=== PATIENT | male | born 1950 | race Caucasian/White ===

== ENCOUNTER 2016-10-25 21:26 | Emergency (ER) | payer MEDICARE, OTHER ==
[~2016-10-25] VITALS: Ht 180.3 cm; Wt 79.4 kg
[~2016-10-25 21:26] MED LIST: ALBUTEROL INHALER; CIPR500T19; FLEXERIL; GLUC500T; HYPROMELLOSE; LOPR50TA; MEVA40TA; MORP15TA4; MORPHINE SULFATE IR; MS C30TA2; NEUR100C; NITROGLYCERIN PATCH; NITROSTAT SL; PLAV75TA2; TERA2CAP3; VALI10TA; VITA500T; ZANT150T
[2016-10-25 21:55] VITALS: BP 134/79
[2016-10-25] MEDS ORDERED: KETOROLAC 30 MG/ML VIAL (J1885) IV ONE (22:15)
[2016-10-25 22:50] LABS: ABG BASE EXCESS 1.5 (-2.0-2.0); ABG HCO3 25.7 MEQ/L (22.0-26.0); ABG PARTIAL PRESSURE CO2 39.5 mmHg (35.0-45.0); ABG PARTIAL PRESSURE O2 73.4 mmHg (75.0-100.0); ABG STANDARD HCO3 25.7 MEQ/L (22.0-26.0); ABG pH (ARTERIAL) 7.432 UNITS (7.350-7.450)
[2016-10-25 23:06] LABS: BASO % 0.3 % (0.0-1.0); EOS # 0.1 K/mm3 (0.0-0.50); EOS % 1.4 % (0.0-3.0); LARGE UNSTAINED CELL # 0.1 K/mm3 (0.0-0.4); LARGE UNSTAINED CELL % 1.3 % (0.0-4.0); LYMPH % 27.4 % (24.0-44.0); MEAN CORPUSCULAR HEMOGLOBIN 31.9 pg (27.0-33.0); MEAN CORPUSCULAR HGB CONC 33.9 g/dl (32.0-36.5); MONO # 0.5 K/mm3 (0.0-0.8); MONO % 7.3 % (0.0-5.0); NEUTROPHILS # 4.3 K/mm3 (1.8-7.7); NEUTROPHILS % 62.4 % (36.0-66.0); PLATELET COUNT, AUTOMATED 111 k/mm3 (150-450); RED CELL DISTRIBUTION WIDTH 12.9 % (11.5-14.5); WHITE BLOOD COUNT 6.9 K/mm3 (4.0-10.0)
[2016-10-25 23:14] LABS: INR 1.03
[2016-10-25 23:36] LABS: ANION GAP 4 MEQ/L (8-16); BLOOD UREA NITROGEN 18 MG/DL (7-18); CALCIUM LEVEL 8.1 MG/DL (8.8-10.2); CARBON DIOXIDE LEVEL 29 MEQ/L (21-32); CHLORIDE LEVEL 106 MEQ/L (98-107); CREATININE FOR GFR 0.84 MG/DL (0.70-1.30); GLOMERULAR FILTRATION RATE > 60.0 (>49); GLUCOSE, FASTING 279 MG/DL (80-110); POTASSIUM SERUM 4.1 MEQ/L (3.5-5.1); SODIUM LEVEL 139 MEQ/L (136-145)
[2016-10-26] MEDS ORDERED: ATOR1TAB18 PO (00:24)
[2016-10-26] MEDS ORDERED: DULC5TAB PO (00:24)
[2016-10-26] MEDS ORDERED: MS C15TA2 PO (00:24)
[2016-10-26] MEDS ORDERED: [UNRECOGNIZED DRUG - CODE] XX (00:24)
[2016-10-26] MEDS ORDERED: PANT40TA2 PO (00:24)
[2016-10-26] MEDS ORDERED: GABA600T PO (00:24)
[2016-10-26] MEDS ORDERED: D31000CA PO (00:24)
[2016-10-26] MEDS ORDERED: DICL0.1S OP (00:24)
[2016-10-26] MEDS ORDERED: [UNRECOGNIZED DRUG - CODE] OP (00:24)
[2016-10-26] MEDS ORDERED: ROXI1TAB2 PO (00:24)
[2016-10-26] MEDS ORDERED: NYST-6 TOP (00:24)
[2016-10-26] MEDS ORDERED: OXYBPOW XX (00:24)
[2016-10-26] MEDS ORDERED: PREDOPD OD (00:24)
[2016-10-26] MEDS ORDERED: METO25TA74 PO (00:24)
[2016-10-26] MEDS ORDERED: FLOM5CAP PO (00:24)
[2016-10-26] MEDS ORDERED: diphenhydrAMINE INJ 50MG/ML VIAL (J1200) IV STA (04:00)
[2016-10-26] MEDS ORDERED: dexameTHASONE 20 MG/5 ML VIAL (J1100) IV ONE (04:00)
[2016-10-26] MEDS ORDERED: MORPHINE 4 MG/ML 1ML SYRINGE IV ONE (04:30)
[2016-10-26] MEDS ORDERED: ISOVUE-370 76% 100ML VIAL (Q9967) As Ordered ONE (04:35)
--- NOTE | 2016-10-26 05:10 | REPUSA ---
CLINICAL HISTORY: Pain, exclude PE. TECHNIQUE: Multiple incremental axial, coronal and oblique images are obtained from the thoracic inle t to the upper abdomen. Intravenous contrast material was administered as per pulmonary embolism prot ocol. COMMENTS: Chronic bronchitis. Mild emphysema. Basilar atelectatic pulmonary changes. There is excellent opacification of pulmonary arterial system without evidence for pulmonary embolism . Aorta is of normal caliber without evidence for dissection or aneurysm. There is no evidence of pleural or parenchymal mass. There are no pleural effusions. There is no evid ence of hilar or mediastinal lymphadenopathy. The heart and great vessels are within normal limits. Images of the upper abdomen demonstrate no evidence of adrenal mass. The bony structures are free of lytic or blastic lesions. IMPRESSION: No evidence for pulmonary embolism. Chronic bronchitis. Emphysema. Basilar atelectatic pulmonary changes. Thank you for your kind referral of this patient.
--- NOTE | 2016-10-26 08:12 | REP ---
Chest x-ray: Two views. History: Chest pain. Comparison study: June 23, 2015. Findings: There is a dextroconvex curvature in the thoracic spine along with some degenerative disc changes. This is unchanged when compared with the prior study. The lungs are well inflated and remain clear. The pleural angles are sharp. Heart size is normal. EKG monitoring electrodes overlie the chest. Pulmonary vasculature is not increased. Impression: No active disease. Signed by Jan Vasquez MD 10/26/2016 08:04 A
--- NOTE | 2016-10-26 20:28 | ECGEPIP ---
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
--- NOTE | 2016-10-27 11:00 | ECGEPIP ---
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
== END 2016-10-26 06:14 | disposition home or self-care (01) ==
LOC: EDBD 21:26 → M ED 22:19
DX: R07.1 Chest pain on breathing (principal)
CPT/HCPCS: 36415; 36600; 71020; 71275; 80048; 82550; 82553; 82803; 84484; 85025; 85610; 85730; 93005; 96374; 96375; 99283; J1100; J1200; J1885; Q9967

== ENCOUNTER 2016-11-04 19:17 | Emergency (ER) | payer MEDICARE, OTHER ==
[~2016-11-04] VITALS: Ht 175.3 cm; Wt 78.9 kg
[~2016-11-04 19:17] MED LIST changes: +ATOR1TAB18 PO; +D31000CA PO; +DICL0.1S OP; +DULC5TAB PO; +FLOM5CAP PO; +GABA600T PO; +METO25TA74 PO; +MS C15TA2 PO; +NYST-6 TOP; +OXYBPOW XX; +PANT40TA2 PO; +PREDOPD OD; +ROXI1TAB2 PO; +[UNRECOGNIZED DRUG - CODE] OP; +[UNRECOGNIZED DRUG - CODE] XX
[2016-11-04] MEDS ORDERED: NS 1,000 ML IV ONE (20:30)
[2016-11-04 21:10] LABS: VENOUS BASE EXCESS 3.6 (-2.0-2.0); VENOUS O2 SATURATION 46.4 % (60.0-80.0); VENOUS PARTIAL PRESSURE CO2 53.2 mmHg (38.0-50.0); VENOUS PARTIAL PRESSURE O2 22.1 mmHg (30.0-50.0); VENOUS STANDARD HCO3 26.2 MEQ/L; VENOUS TOTAL CO2 31.9 MEQ/L (24.0-28.0)
[2016-11-04 21:11] LABS: BASO % 0.5 % (0.0-1.0); EOS # 0.1 K/mm3 (0.0-0.50); EOS % 1.3 % (0.0-3.0); LARGE UNSTAINED CELL # 0.2 K/mm3 (0.0-0.4); LARGE UNSTAINED CELL % 1.6 % (0.0-4.0); LYMPH # 2.5 K/mm3 (1.5-4.5); LYMPH % 26.1 % (24.0-44.0); MEAN CORPUSCULAR HGB CONC 33.8 g/dl (32.0-36.5); MEAN CORPUSCULAR VOLUME 94.7 fl (80.0-96.0); MONO # 0.5 K/mm3 (0.0-0.8); MONO % 5.4 % (0.0-5.0); NEUTROPHILS # 6.3 K/mm3 (1.8-7.7); NEUTROPHILS % 65.2 % (36.0-66.0); PLATELET COUNT, AUTOMATED 148 k/mm3 (150-450); WHITE BLOOD COUNT 9.6 K/mm3 (4.0-10.0)
[2016-11-04 21:40] LABS: ALBUMIN 3.6 GM/DL (3.2-5.2); ALBUMIN/GLOBULIN RATIO 1.06 (1.00-1.93); ALKALINE PHOSPHATASE 110 U/L (45-117); ALT/SGPT 30 U/L (12-78); ANION GAP 4 MEQ/L (8-16); AST/SGOT 16 U/L (15-37); BILIRUBIN,DIRECT 0.2 MG/DL (0.0-0.2); BILIRUBIN,TOTAL 0.7 MG/DL (0.2-1.0); BLOOD UREA NITROGEN 17 MG/DL (7-18); CALCIUM LEVEL 8.6 MG/DL (8.8-10.2); CARBON DIOXIDE LEVEL 31 MEQ/L (21-32); CHLORIDE LEVEL 104 MEQ/L (98-107); CREATININE FOR GFR 0.97 MG/DL (0.70-1.30); GLOMERULAR FILTRATION RATE > 60.0 (>49); GLUCOSE, FASTING 312 MG/DL (80-110); POTASSIUM SERUM 4.4 MEQ/L (3.5-5.1); SODIUM LEVEL 139 MEQ/L (136-145)
[2016-11-04] MEDS ORDERED: HUMULIN R U-500 KWIKPEN 500UNITS/ML 3ML SYRINGE (J1815 PER 5UNITS) SC ONE (22:30)
[2016-11-04] MEDS ORDERED: HumuLIN R (REGULAR) INSULIN (NovoLIN R) **100U/ML** PER UNIT SC ONE (22:45)
[2016-11-04 23:49] VITALS: BP 132/58
--- NOTE | 2016-11-05 09:10 | REP ---
PORTABLE CHEST: AP portable view of the chest is performed and compared to a prior study of 09/06/2009. Mild chronic interstitial changes are seen in the lung bases. There is no acute infiltrate. Heart is normal in size and the mediastinal silhouette is unremarkable and unchanged. IMPRESSION: No acute pulmonary disease. Signed by Taqueria Sheppard MD 11/05/2016 05:40 P
[2016-11-05] MEDS ORDERED: CARV12.5 PO (14:37)
--- NOTE | 2016-11-06 08:18 | ECGEPIP ---
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
== END 2016-11-05 01:23 | disposition home or self-care (01) ==
LOC: M ED 21:20
DX: R73.9 Hyperglycemia, unspecified (principal); R07.9 Chest pain, unspecified; I10 Essential (primary) hypertension; I25.2 Old myocardial infarction; E78.00 Pure hypercholesterolemia, unspecified; F17.210 Nicotine dependence, cigarettes, uncomplicated

== ENCOUNTER 2016-11-05 14:14 | Emergency (ER) | payer MEDICARE, OTHER ==
[~2016-11-05] VITALS: Ht 175.3 cm; Wt 64.9 kg
[2016-11-05] MEDS ORDERED: CARV12.5 PO (14:37)
[2016-11-05 14:42] LABS: BASO % 0.5 % (0.0-1.0); EOS # 0.1 K/mm3 (0.0-0.50); EOS % 1.2 % (0.0-3.0); LARGE UNSTAINED CELL # 0.2 K/mm3 (0.0-0.4); LARGE UNSTAINED CELL % 2.2 % (0.0-4.0); LYMPH # 2.4 K/mm3 (1.5-4.5); LYMPH % 27.9 % (24.0-44.0); MEAN CORPUSCULAR HGB CONC 34.8 g/dl (32.0-36.5); MEAN CORPUSCULAR VOLUME 94.9 fl (80.0-96.0); MONO # 0.5 K/mm3 (0.0-0.8); NEUTROPHILS # 5.3 K/mm3 (1.8-7.7); NEUTROPHILS % 62.1 % (36.0-66.0); PLATELET COUNT, AUTOMATED 143 k/mm3 (150-450); WHITE BLOOD COUNT 8.6 K/mm3 (4.0-10.0)
[2016-11-05 15:02] LABS: ANION GAP 5 MEQ/L (8-16); BLOOD UREA NITROGEN 12 MG/DL (7-18); CALCIUM LEVEL 8.5 MG/DL (8.8-10.2); CARBON DIOXIDE LEVEL 26 MEQ/L (21-32); CHLORIDE LEVEL 108 MEQ/L (98-107); GLOMERULAR FILTRATION RATE > 60.0 (>49); GLUCOSE, FASTING 230 MG/DL (80-110); SODIUM LEVEL 139 MEQ/L (136-145)
--- NOTE | 2016-11-05 15:09 | REP ---
Chest one-view HISTORY: Chest pain Comparison: 11/04/2016 The costophrenic angles are not seen. A minimal increase in interstitial markings is present in the lower lobes consistent with chronic interstitial change. The heart is normal in size. The pulmonary vasculature is normal in appearance. Impression: Bibasilar chronic interstitial change. Signed by Russ Warner MD 11/05/2016 03:01 P
[2016-11-05 17:00] VITALS: BP 110/78
--- NOTE | 2016-11-06 08:25 | ECGEPIP ---
Stationary ECG Study 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
== END 2016-11-05 17:04 | disposition home or self-care (01) ==
LOC: M ED 15:29
DX: F41.9 Anxiety disorder, unspecified (principal); E11.65 Type 2 diabetes mellitus with hyperglycemia; I10 Essential (primary) hypertension; I25.10 Atherosclerotic heart disease of native coronary artery without angina pectoris; Z79.899 Other long term (current) drug therapy; Z79.01 Long term (current) use of anticoagulants; Z88.0 Allergy status to penicillin; Z88.5 Allergy status to narcotic agent; Z88.8 Allergy status to other drugs, medicaments and biological substances; Z91.041 Radiographic dye allergy status; F17.210 Nicotine dependence, cigarettes, uncomplicated

== ENCOUNTER 2016-11-24 09:48 | Emergency (ER) | payer MEDICARE, OTHER ==
[~2016-11-24] VITALS: Ht 175.3 cm; Wt 78.0 kg
[2016-11-24 09:48] VITALS: BP 158/82
[~2016-11-24 09:48] MED LIST changes: +CARV12.5 PO
[2016-11-24] MEDS ORDERED: FLEET ENEMA XX ONE (10:15)
== END 2016-11-24 10:33 | disposition home or self-care (01) ==
LOC: M ED 10:12
DX: R10.9 Unspecified abdominal pain (principal); E11.9 Type 2 diabetes mellitus without complications; I25.2 Old myocardial infarction; E78.5 Hyperlipidemia, unspecified; F41.9 Anxiety disorder, unspecified; F17.200 Nicotine dependence, unspecified, uncomplicated; Z93.3 Colostomy status; Z87.442 Personal history of urinary calculi; Z90.49 Acquired absence of other specified parts of digestive tract; Z79.899 Other long term (current) drug therapy; Z88.0 Allergy status to penicillin; Z88.5 Allergy status to narcotic agent; Z88.6 Allergy status to analgesic agent; Z91.041 Radiographic dye allergy status

== ENCOUNTER 2017-07-10 16:41 | Emergency (ER) | payer OTHER | END 2017-07-10 18:40 | disposition home or self-care (01) | LOC: M ED 16:41 | DX: Z04.1 Encounter for examination and observation following transport accident (principal); M54.5 Low back pain; V47.5XXA Car driver injured in collision with fixed or stationary object in traffic accident, initial encounter; Y92.410 Unspecified street and highway as the place of occurrence of the external cause; Y93.89 Activity, other specified; Y99.8 Other external cause status; I10 Essential (primary) hypertension; G89.29 Other chronic pain; F41.9 Anxiety disorder, unspecified; Z79.899 Other long term (current) drug therapy; Z79.01 Long term (current) use of anticoagulants; Z88.0 Allergy status to penicillin; Z88.5 Allergy status to narcotic agent; Z88.8 Allergy status to other drugs, medicaments and biological substances; Z91.041 Radiographic dye allergy status; F17.210 Nicotine dependence, cigarettes, uncomplicated | CPT/HCPCS: 93005 ==

== ENCOUNTER 2017-10-02 06:26 | Day surgery (SDC) | payer OTHER ==
[~2017-10-02 06:26] MED LIST changes: +ACETAMINOPHEN 325 MG TAB PO; -ALBUTEROL INHALER; -ATOR1TAB18 PO; +BSS with VANC/TOB/EPI for EYE CASES IR; -CARV12.5 PO; -CIPR500T19; +CYCLOPENTOLATE 2% OPHTH SOLN 2ML BTL OS; -D31000CA PO; -DICL0.1S OP; -DULC5TAB PO; -FLEXERIL; -FLOM5CAP PO; -GABA600T PO; -GLUC500T; +HEALON DUET (HEALON 10MG/ML 0.55ML & HEALON ENDOCOAT 30MG/ML 0.85ML) As Ordered; -HYPROMELLOSE; +LIDOCAINE 1% SDV 5 ML VIAL As Ordered; +LIDOCAINE 3.5 % 1ML OPHTH TOPICAL GEL OU; -LOPR50TA; -METO25TA74 PO; -MEVA40TA; -MORP15TA4; -MORPHINE SULFATE IR; +MOXIFLOXACIN IN BSS 0.25MG/0.25ML INTRACAMERAL INJ (OR EYE ONLY)(J2280) As Ordered; -MS C15TA2 PO; -MS C30TA2; -NEUR100C; -NITROGLYCERIN PATCH; -NITROSTAT SL; -NYST-6 TOP; +OFLOXACIN 0.3 % (OCUFLOX) OPTH SOL 5ML OS; -OXYBPOW XX; -PANT40TA2 PO; +PHENYLEPHRINE 2.5% OPHTH SOL 2ML OS; +PHENYLEPHRINE HCL 10 % OPHTH. SOL 5ML OS; -PLAV75TA2; +POVIDONE-IODINE 5% OPHTH PREP SOL 30ML As Ordered; -PREDOPD OD; -ROXI1TAB2 PO; -TERA2CAP3; +TRIAMCINOLONE PRES FR 40 MG/ML 1ML(TRIESENCE)(OR EYE ONLY)(J3300 PER 1MG) As Ordered; +TROPICAMIDE 1% OPHTH SOLN 2ML OS; -VALI10TA; -VITA500T; -ZANT150T; -[UNRECOGNIZED DRUG - CODE] OP; -[UNRECOGNIZED DRUG - CODE] XX
[2017-10-02] MEDS ORDERED: PHENYLEPHRINE HCL 10 % OPHTH. SOL 5ML OS (07:00)
[2017-10-02] MEDS ORDERED: PROPARACAINE 0.5% OPHTH SOL 15ML OS (07:01)
[2017-10-02] MEDS: LIDOCAINE 3.5 % 1ML OPHTH TOPICAL GEL OU (07:15)
[2017-10-02] MEDS: TROPICAMIDE 1% OPHTH SOLN 2ML OS (07:20)
[2017-10-02] MEDS: PHENYLEPHRINE 2.5% OPHTH SOL 2ML OS (07:20)
[2017-10-02] MEDS: CYCLOPENTOLATE 2% OPHTH SOLN 2ML BTL OS (07:20)
[2017-10-02 07:31] LABS: BEDSIDE GLUCOSE 147 MG/DL (80-115)
[2017-10-02] MEDS: OFLOXACIN 0.3 % (OCUFLOX) OPTH SOL 5ML OS (07:37)
[2017-10-02] MEDS ORDERED: MIDAZOLAM INJ 2 MG/2 ML VIAL (J2250) As Ordered (07:51)
[2017-10-02] MEDS ORDERED: fentaNYL 100 MCG/2 ML INJECTION (J3010) As Ordered (07:51)
[2017-10-02] MEDS: MOXIFLOXACIN IN BSS 0.25MG/0.25ML INTRACAMERAL INJ (OR EYE ONLY)(J2280) As Ordered (08:22)
[2017-10-02] MEDS: HEALON DUET (HEALON 10MG/ML 0.55ML & HEALON ENDOCOAT 30MG/ML 0.85ML) As Ordered (08:22)
[2017-10-02] MEDS: LIDOCAINE 1% SDV 5 ML VIAL As Ordered (08:22)
[2017-10-02] MEDS: POVIDONE-IODINE 5% OPHTH PREP SOL 30ML As Ordered (08:22)
[2017-10-02] MEDS: TRIAMCINOLONE PRES FR 40 MG/ML 1ML(TRIESENCE)(OR EYE ONLY)(J3300 PER 1MG) As Ordered (08:23)
[2017-10-02] MEDS: BSS with VANC/TOB/EPI for EYE CASES IR (08:23)
[2017-10-02] MEDS ORDERED: TRIMETHOBENZAMIDE 300 MG CAP PO (09:00)
[2017-10-02] MEDS ORDERED: KETOROLAC 0.5% OPHTH SOLN OS (09:00)
[2017-10-02] MEDS: AcetaZOLAMIDE 500 MG ER CAP PO (09:05)
== END 2017-10-02 09:50 | disposition home or self-care (01) ==
LOC: M SDC 06:26
DX: H25.9 Unspecified age-related cataract (principal); I48.91 Unspecified atrial fibrillation; I10 Essential (primary) hypertension; E78.5 Hyperlipidemia, unspecified; E11.9 Type 2 diabetes mellitus without complications; I25.2 Old myocardial infarction; J44.9 Chronic obstructive pulmonary disease, unspecified; Z88.0 Allergy status to penicillin; Z88.8 Allergy status to other drugs, medicaments and biological substances; Z91.041 Radiographic dye allergy status; F17.210 Nicotine dependence, cigarettes, uncomplicated; F41.9 Anxiety disorder, unspecified; Z85.46 Personal history of malignant neoplasm of prostate; Z79.899 Other long term (current) drug therapy
CPT/HCPCS: 66984

== ENCOUNTER 2019-02-01 14:30 | Inpatient (IN) | payer MEDICARE, OTHER ==
[~2019-02-01] VITALS: Ht 172.7 cm; Wt 81.8 kg
[~2019-02-01 14:30] MED LIST changes: -ACETAMINOPHEN 325 MG TAB PO; +ALBUTEROL INHALER; +ATOR80TA59 PO; -BSS with VANC/TOB/EPI for EYE CASES IR; +CARV12.5 PO; +CIPR500T19; +CLIN150C14 PO; +CYCL5TAB PO; -CYCLOPENTOLATE 2% OPHTH SOLN 2ML BTL OS; +D31000CA4 PO; +DICL0.1S OP; +DULC5TAB PO; +FLEXERIL; +FLOM0.4C39 PO; +GABA600T4 PO; +GLUC500T PO; -HEALON DUET (HEALON 10MG/ML 0.55ML & HEALON ENDOCOAT 30MG/ML 0.85ML) As Ordered; +HYPROMELLOSE; +ISOS30TA4 PO; -LIDOCAINE 1% SDV 5 ML VIAL As Ordered; -LIDOCAINE 3.5 % 1ML OPHTH TOPICAL GEL OU; +LOPR50TA; +METO1TAB32 PO; +MEVA40TA; +MORP15TA4; +MORPHINE SULFATE IR; -MOXIFLOXACIN IN BSS 0.25MG/0.25ML INTRACAMERAL INJ (OR EYE ONLY)(J2280) As Ordered; +MS C15TA8 PO; +MS C30TA2; +NEUR100C; +NITROGLYCERIN PATCH; +NITROSTAT SL; +NYST-6 TOP; -OFLOXACIN 0.3 % (OCUFLOX) OPTH SOL 5ML OS; +OXYBPOW XX; +PANT20TA2 PO; +PANT40TA3 PO; -PHENYLEPHRINE 2.5% OPHTH SOL 2ML OS; -PHENYLEPHRINE HCL 10 % OPHTH. SOL 5ML OS; +PLAV75TA2 PO; -POVIDONE-IODINE 5% OPHTH PREP SOL 30ML As Ordered; +PREDOPD OD; +ROXI1TAB2 PO; +TERA2CAP3; -TRIAMCINOLONE PRES FR 40 MG/ML 1ML(TRIESENCE)(OR EYE ONLY)(J3300 PER 1MG) As Ordered; -TROPICAMIDE 1% OPHTH SOLN 2ML OS; +VALI10TA; +VENTAER IN; +VITA500T PO; +VITAMIN; +ZANT150T; +[UNRECOGNIZED DRUG - CODE] OP; +[UNRECOGNIZED DRUG - CODE] XX
[2019-02-01] MEDS ORDERED: ACETAMINOPHEN TAB 650MG DOSE (2X325MG) PO ONE (15:00)
[2019-02-01] MEDS ORDERED: NS 1,000 ML IV ONE (15:30)
[2019-02-01 15:33] LABS: BASO % 0.2 % (0.0-1.0); HEMATOCRIT 43.7 % (42.0-52.0); HEMOGLOBIN 14.9 g/dl (13.5-17.5); LYMPH # 0.4 10^3/uL (1.5-4.5); LYMPH % 1.9 % (24.0-44.0); MEAN CORPUSCULAR HEMOGLOBIN 30.6 pg (27.0-33.0); MEAN CORPUSCULAR HGB CONC 34.1 g/dl (32.0-36.5); MEAN CORPUSCULAR VOLUME 89.7 fl (80.0-96.0); MONO # 0.6 10^3/uL (0.0-0.8); MONO % 2.9 % (0.0-5.0); NEUTROPHILS # 17.9 10^3/uL (1.8-7.7); NEUTROPHILS % 94.5 % (36.0-66.0); PLATELET COUNT, AUTOMATED 177 10^3/uL (150-450); RED BLOOD COUNT 4.87 10^6/uL (4.30-6.10)
[2019-02-01 15:54] LABS: ALBUMIN 3.4 GM/DL (3.2-5.2); BILIRUBIN,DIRECT 0.6 MG/DL (0.0-0.2); BILIRUBIN,TOTAL 1.4 MG/DL (0.2-1.0); CALCIUM LEVEL 9.1 MG/DL (8.8-10.2); CREATININE FOR GFR 1.33 MG/DL (0.70-1.30); GLOMERULAR FILTRATION RATE 57.1 (>49); POTASSIUM SERUM 4.3 MEQ/L (3.5-5.1); TOTAL PROTEIN 6.8 GM/DL (6.4-8.2)
[2019-02-01] MEDS ORDERED: LIDOCAINE 2% 5ML JELLY UROJET TOP ONE (16:30)
[2019-02-01] MEDS ORDERED: GASTROGRAFIN SOLUTION 30ML PO SCH (17:30)
[2019-02-01] MEDS ORDERED: ONDANSETRON 4MG/2ML VIAL (J2405) IV ONE (17:45)
[2019-02-01] MEDS: READI-CAT 2 PO SCH ×2 (17:45→18:45)
[2019-02-01] MEDS: HumaLOG INSULIN (NovoLOG) PER UNIT SC SCH (18:00)
[2019-02-01] MEDS ORDERED: CIPROFLOXACIN 200 MG in APPROPRIATE DILUENT 1 EA IV ONE (18:30)
[2019-02-01] MEDS ORDERED: MS C15TA8 PO (18:58)
[2019-02-01] MEDS ORDERED: B-COTAB10 PO (18:58)
[2019-02-01] MEDS ORDERED: ATOR80TA59 PO (18:58)
[2019-02-01] MEDS ORDERED: SERT-155 PO (18:58)
[2019-02-01] MEDS ORDERED: GLUC4GMTAB PO (18:58)
[2019-02-01] MEDS ORDERED: OXYB5TAB10 PO (18:58)
[2019-02-01] MEDS ORDERED: VITA500C24 PO (18:58)
[2019-02-01] MEDS ORDERED: FLOM0.4C39 PO (18:58)
[2019-02-01] MEDS ORDERED: GLIP5TAB8 PO (18:58)
[2019-02-01] MEDS ORDERED: PANT40TA3 PO (18:58)
[2019-02-01] MEDS ORDERED: METF-877 PO (18:58)
[2019-02-01] MEDS ORDERED: METO1TAB32 PO (18:58)
[2019-02-01] MEDS ORDERED: PLAV1TAB2 PO (18:58)
[2019-02-01] MEDS ORDERED: VENTAER INH (18:58)
[2019-02-01] MEDS ORDERED: MED REC COMMENT (18:59)
[2019-02-01] MEDS ORDERED: LIDOCAINE 2% 5ML JELLY UROJET As Ordered ONE (19:06)
[2019-02-01] MEDS ORDERED: CONRAY-60 60% 50ML VIAL (Q9961) As Ordered ONE (19:06)
--- NOTE | 2019-02-01 19:19 | REPVR ---
EXAM: CT Abdomen and Pelvis Without Contrast EXAM DATE/TIME: 02/01/2019 6:10 PM CLINICAL HISTORY: 68 years old, male; Abdominal pain; Generalized; Additional info: ? Sbo TECHNIQUE: Imaging protocol: Axial computed tomography images of the abdomen and pelvis without contrast. Coronal and sagittal reformatted images were created and reviewed. Radiation optimization: All CT scans at this facility use at least one of these dose optimization techniques: automated exposure control; mA and/or kV adjustment per patient size (includes targeted exams where dose is matched to clinical indication); or iterative reconstruction. COMPARISON: CR Abdomen,Flat Upright,PA CHEST 02/01/2019 3:39 PM FINDINGS: Lungs: Small calcified granuloma right lower lobe. Liver: Normal. No mass. Gallbladder and bile ducts: There has been a cholecystectomy. Pancreas: Normal. No ductal dilation. Spleen: Normal. No splenomegaly. Adrenals: Normal. No mass. Kidneys and ureters: There is a 15 mm. obstructive ureteral calculus located in the proximal right ureter resulting in marked proximal hydroureteronephrosis. There is periureteral and perinephric stranding. No urinoma demonstrated. Punctate nonobstructive calculus lower pole right kidney. Stomach and bowel: Left lower quadrant colostomy. Appendix: No evidence of appendicitis. Intraperitoneal space: Normal. No free air. No significant fluid collection. Vasculature: The aorta demonstrates mild atherosclerotic calcification. Lymph nodes: Normal. No enlarged lymph nodes. Bladder: Unremarkable as visualized. Reproductive: The prostate gland demonstrates mild hyperplasia. Bones/joints: The spine demonstrates mild degenerative changes. There is a grade 2 spondylolisthesis of L5 on S1 secondary to bilateral spondylolysis. Old fracture deformity right inferior pubic ramus. Scoliosis. Soft tissues: Unremarkable. Other findings: Santiago pouch demonstrated in the deep pelvis. IMPRESSION: 1. There is a grade 2 spondylolisthesis of L5 on S1 secondary to bilateral spondylolysis. 2. There has been a cholecystectomy. 3. There is a 15 mm. obstructive ureteral calculus located in the proximal right ureter resulting in marked proximal hydroureteronephrosis. There is periureteral and perinephric stranding. No urinoma demonstrated. 4. Mild prostatic hyperplasia. Electronically signed by: Maxi Haile On 02/01/2019 19:18:31 PM
[2019-02-01] MEDS ORDERED: NS 1,000 ML IV SCH (19:45)
[2019-02-01] MEDS ORDERED: MORPHINE 4 MG/ML 1ML VIAL/SYRINGE (J2270) IV PRN (19:45)
[2019-02-01] MEDS ORDERED: GLUCAGON FOR INJ 1 MG VIAL (J1610) SC PRN (19:45)
[2019-02-01] MEDS ORDERED: ALBUTEROL 90 MCG/ACT 8GM HFA INHALER INH PRN (19:45)
[2019-02-01] MEDS ORDERED: DEXTROSE 50% 50 ML SYRINGE IV PRN (19:45)
[2019-02-01] MEDS ORDERED: GLUCOSE 4 GM CHEW TABLET PO PRN (19:45)
[2019-02-01] MEDS: ONDANSETRON 4MG/2ML VIAL (J2405) IV SCH ×2 (19:45→23:45)
--- NOTE | 2019-02-01 19:49 | HPEPDOC ---
General Date of Admission Feb 01, 2019 at 19:04 Date of Service: Feb 01, 2019 Primary Care Physician: A Attending Physician: MONCHO LEE MD Chief Complaint The patient is a 68-year-old male admitted with a reason for visit of Obstructive Pyelonephritis. Source: Patient Exam Limitations: No limitations Severity: Moderate Associated Symptoms: Nausea, Vomiting History of Present Illness This is a 68 years old white male with past medical history of multiple medical problems including CAD, A. fib pedis mellitus was in his usual state of health until this morning at 7 AM he developed nausea, vomiting, followed by a right upper quadrant pain which is a sharp, nonradiating, persistent, associated with nausea, vomiting, not relieved with any medication and progressively exacerbated and presented to ER for further care. Home Medications Scheduled Ascorbic Acid (Vitamin C) 500 Mg Capsule, 500 MG PO DAILY, (Reported) Atorvastatin Calcium (Atorvastatin Calcium) 80 Mg Tablet, 40 MG PO DAILY, (Reported) Clopidogrel Bisulfate (Plavix) 75 Mg Tablet, 75 MG PO DAILY, (Reported) Glipizide (Glipizide) 5 Mg Tablet, 5 MG PO BID, (Reported) Metformin HCl (Metformin HCl) 1,000 Mg Tablet, 1,000 MG PO BID, (Reported) Metoprolol Succinate (Metoprolol Succinate) 25 Mg Tab.er.24h, 25 MG PO QHS, (Reported) Oxybutynin Chloride (Oxybutynin Chloride) 5 Mg Tablet, 30 MG PO DAILY, (Reported) Pantoprazole Sodium (Pantoprazole Sodium) 40 Mg Tablet.dr, 40 MG PO DAILY, (Reported) Sertraline HCl (Sertraline HCl) 50 Mg Tablet, 50 MG PO DAILY, (Reported) Tamsulosin HCl (Flomax) 0.4 Mg Capsule, 0.4 MG PO DAILY, (Reported) Vitamin B Complex/Folic Acid (B-Complex Tablet) 0.4 Mg Tablet, 1 TAB PO DAILY, ( Reported) Scheduled PRN Albuterol Sulfate (Ventolin Hfa) 18 Gm Hfa.aer.ad, 2 PUFF INH QID PRN for SHORTNESS OF BREATH, (Reported) Dextrose (Glucose) 4 Gm Tab.chew, 1 CHW PO for LOW BLOOD SUGAR, (Reported) Morphine Sulfate (Ms Contin) 15 Mg Tablet.er, 15 MG PO DAILY PRN for PAIN, (Reported) Miscellaneous Medications [Med Rec Comment] , (Reported) MED LIST OBTAINED FROM [place] Allergies Coded Allergies: Contrast Media (Verified Allergy, Unknown, 08/19/17) Penicillins (Verified Allergy, Unknown, 02/01/19) codeine (Verified Allergy, Unknown, 02/01/19) gabapentin (Verified Allergy, Unknown, 02/01/19) linezolid (Verified Allergy, Unknown, 02/01/19) nitrofurantoin (Verified Allergy, Unknown, 02/01/19) sertraline (Verified Allergy, Unknown, 02/01/19) simvastatin (Verified Allergy, Unknown, 02/01/19) aspirin (Verified Adverse Reaction, Intermediate, 02/01/19) Past Medical History Medical History Diabetes mellitus, hypertension, CAD or range agent orange exposure. Hepatitis C Surgical History Colostomy secondary to trauma. Prostatectomy bladder stricture removal, status post cholecystectomy and appendectomy Social History * Smoker: current smoker Alcohol: Denies Drugs: denies A-FIB/CHADSVASC A-FIB History Current/History of A-Fib/PAF?: Yes Current PO Anticoag Therapy: No Review of Systems Constitutional: Denies: Chills, Fever, Malaise, Night Sweats, Weakness, Fatigue, Weight Loss, Lethargy, Other Eyes: Denies: Pain, Vision change, Conjunctivae inflammation, Eyelid inflammation, Redness, Other ENT: Denies: Head Aches, Ear Pain, Dysphagia, Sinus Congestion, Post Nasal Dr ip, Sore Throat, Epistaxis, Other Symptoms Skin: Denies: Rash, Lesions, Jaundice, Bruising, Itching, Dry, Breakdown, Nail Changes, Other Pulmonary: Denies: Dyspnea, Cough, Pleuritic Chest Pain, Other Symptoms Cardiovascular: Denies: Chest Pain, Palpitations, Orthopnea, Paroxysmal Noc. Dyspnea, Edema, Lt Headedness, Other Symptoms Gastrointestinal: Reports: Nausea, Vomiting, Abdominal Pain Genitourinary: Denies: Dysuria, Frequency, Incontinence, Hematuria, Retention, Other Symptoms Hematologic: Denies: Bruising, Bleeding Excessively, Petecchia, Purpura, Enlarged Lymph Nodes, Other Hematologic Endocrine: Denies: Polydipsia, Polyphagia, Polyuria, Heat Intolerance, Cold Intolerance, Other Endocrine Sx Musculoskeletal: Denies: Neck Pain, Back Pain, Shoulder Pain, Arm Pain, Hand Pain, Leg Pain, Foot Pain, Joint Pain, Muscle Pain, Spasms, Other Symptoms Neurological: Denies: Weakness, Numbness, Incoordination, Change in speech, Confusion, Seizures, Other Symptoms Psych: Denies: Mood Normal, Anxiety, Depression, Memory Issues, Thoughts of Self Harm, Anger, Thoughts of Harming Other, Other Psych Physical Examination General Exam: Negative: Alert, Cooperative, No Acute Distress, Mild Distress, Moderate Distress, Severe Distress, Other Eye Exam: Negative: PERRLA, Conjunctiva & lids normal, EOMI, Sclera icteric, Pt osis, Other Eye Symptoms ENT Exam: Negative: Atraumatic, Mucous membr. moist/pink, Pharynx Normal, Tongue Midline, Pharyngeal Edema, Nares Patent, Tympanic Membranes Normal, Ext Auditory Canal Nml, Pinna Normal, Other ENT Neck Exam: Negative: Supple, JVD, thyromegaly, +2 carotid pulse wo bruit, Lymphadenopathy, Other Chest Exam: Negative: Clear to auscultation, Normal air movement, Rales, Rhonchi, Wheezing, Diminished, Other Heart Exam: Negative: Rate Normal, Tachycardic, Bradycardic, Regular Rhythm, Irregular Rhythm, Normal S1, Normal S2, Gallops, Murmurs, Rubs, Other Telemetry: Negative: No significant arrhythmia, Sinus, Atrial fibrillation, Tachycardia, Bradycardia, AV Block, Pause, SV Tach, PVCs, PACs, Asystole, Other Telemetry: Abdomen Exam: Positive: Other (positive tenderness at right flank. Valencia's punch is negative. Bowel sounds are normal) Extremity Exam: Negative: Clubbing, Cyanosis, Edema, Normal pulses, Tenderness, Swelling, Other Skin Exam: Negative: Nl turgor and temperature, Rash, Breakdown, Lesion, Pruritus, Other skin issue Neuro Exam: Negative: Normal Gait, Normal Speech, Strength at 5/5 X4 ext, Normal Tone, Sensation Intact, Cranial Nerves 3-12 NL, Reflexes 2+, Other Psych Exam: Negative: Mental status NL, Mood NL, Anxiety, Memory Intact, Oriented x 3, Other Vital Signs Vital Signs Date Time Temp Pulse Resp B/P (MAP) Pulse Ox O2 Delivery O2 Flow Rate FiO2 02/01/19 19:21 101.3 122 20 86/54 (65) 94 Room Air Laboratory Data Labs 24H Laboratory Tests 2 02/01/19 15:14: Immature Granulocyte % (Auto) 0.5, White Blood Count 19.0H, Red Blood Count 4.87, Hemoglobin 14.9, Hematocrit 43.7, Mean Corpuscular Volume 89.7, Mean Corpuscular Hemoglobin 30.6, Mean Corpuscular Hemoglobin Concent 34.1, Red Cell Distribution Width 13.4, Platelet Count 177, Neutrophils (%) (Auto) 94.5H, Lymphocytes (%) (Auto) 1.9L, Monocytes (%) (Auto) 2.9, Eosinophils (%) (Auto) 0.0, Basophils (%) (Auto) 0.2, Neutrophils # (Auto) 17.9H, Lymphocytes # (Auto) 0.4L, Monocytes # (Auto) 0.6, Eosinophils # (Auto) 0.0, Basophils # (Auto) 0.0, Nucleated Red Blood Cells % (auto) 0.0, Anion Gap 11, Glomerular Filtration Rate 57.1, Calcium Level 9.1, Aspartate Amino Transf (AST/SGOT) 38H, Alanine Aminotransferase (ALT/SGPT) 37, Alkaline Phosphatase 104, Total Bilirubin 1.4H, Direct Bilirubin 0.6H, Total Protein 6.8, Albumin 3.4, Albumin/Globulin Ratio 1.00, Lipase 35L 02/01/19 16:16: Urine Color YELLOW, Urine Appearance CLOUDYH, Urine pH 5.0, Urine Specific [place] 1.017, Urine Protein NEGATIVE, Urine Glucose (UA) 1+H, Urine Ketones T RACEH, Urine Blood 2+H, Urine Nitrite NEGATIVE, Urine Bilirubin NEGATIVE, Urine Urobilinogen 2.0H, Urine Leukocyte Esterase 2+H, Urine WBC (Auto) 63H, Urine RBC (Auto) 29H, Urine Hyaline Casts (Auto) 0, Urine Bacteria (Auto) 1+H, Urine Squamous Epithelial Cells 3, Urine Mucus (Auto) SMALL, Urine Sperm (Auto) CBC/BMP Laboratory Tests 02/01/19 15:14 Red Blood Count 4.87, Mean Corpuscular Volume 89.7, Mean Corpuscular Hemoglobin 30.6, Mean Corpuscular Hemoglobin Concent 34.1, Red Cell Distribution Width 13.4, Neutrophils (%) (Auto) 94.5 H, Lymphocytes (%) (Auto) 1.9 L, Monocytes (%) (Auto) 2.9, Eosinophils (%) (Auto) 0.0, Basophils (%) (Auto) 0.2, Neutrophils # (Auto) 17.9 H, Lymphocytes # (Auto) 0.4 L, Monocytes # (Auto) 0.6, Eosinophils # (Auto) 0.0, Basophils # (Auto) 0.0 Microbiology Microbiology 02/01/19 Urine Culture, Received Pending Problems (1) Right ureteral stone Status: Acute Problem Text: 68 years old white male, diabetes, hypertension, presented with right upper quadrant pain and was diagnosed with obstructing ureteral calculi on the right side with possible abscess CT abdomen and pelvis report: There is a 15 mm. obstructive ureteral calculus located in the proximal right ureter resulting in marked proximal hydroureteronephrosis. There is periureteral and perinephric stranding. No urinoma demonstrated. Admit to the MedSur floor Nothing by mouth Pain management with morphine IV fluids normal saline at [address] Calderon from urology has been called and patient will be taken to the OR today IV Cipro. Also has been continued for UTI (2) Hep C w/o coma, chronic Status: Chronic Problem Text: Chronic and stable in nature (3) Diabetes mellitus Status: Chronic Problem Text: Hold patient's all by mouth diabetic meds And gastric blood sugar every 6 hours and with coverage Restart all meds, once patient is taking by mouth by mouth intake (4) HTN (hypertension) Status: Chronic Problem Text: Under control Continue home meds (5) Obstructive pyelonephritis Status: Acute Problem Text: Patient has been started on IV antibiotics IV fluids with normal saline at 100 mL per hour Urine cultures pending Obstruction to be removed by Dr. Calderon during cystoscopy Plan / VTE VTE Prophylaxis Ordered?: Yes MONCHO LEE MD Feb 01, 2019 19:49
[2019-02-01] MEDS ORDERED: PHENYLEPHRINE INJ 10MG/ML VIAL (J2370) As Ordered ONE (20:03)
[2019-02-01] MEDS ORDERED: ONDANSETRON 4MG/2ML VIAL (J2405) As Ordered ONE ×2 (20:17→21:14)
[2019-02-01] MEDS ORDERED: LIDOCAINE 2% INJ 100 MG/5 ML SDV (FOR ANES.) As Ordered ONE (20:17)
[2019-02-01] MEDS ORDERED: MIDAZOLAM INJ 2 MG/2 ML VIAL (J2250) As Ordered ONE (20:17)
[2019-02-01] MEDS ORDERED: PROPOFOL 200 MG/20 ML VIAL As Ordered ONE ×2 (20:17→20:32)
[2019-02-01] MEDS ORDERED: dexameTHASONE 4 MG/ML 1ML VIAL (J1100) As Ordered ONE (20:17)
[2019-02-01] MEDS ORDERED: fentaNYL 100 MCG/2 ML INJECTION (J3010) As Ordered ONE (20:17)
[2019-02-01] MEDS ORDERED: MORPHINE 10 MG/ML 1ML VIAL (J2270) As Ordered ONE (20:49)
[2019-02-01] MEDS: MORPHINE 10 MG/ML 1ML VIAL (J2270) IV PRN ×2 (20:52→20:57)
[2019-02-01] MEDS ORDERED: METOPROLOL SUCC *XL* 25MG TAB (TopROL *XL*) PO SCH (21:00)
[2019-02-01] MEDS ORDERED: ACETAMINOPHEN 1000MG 100ML IV BTL (OFIRMEV) (J0131 PER 10MG) As Ordered ONE (21:14)
[2019-02-01] MEDS ORDERED: LR 1,000 ML IV SCH (21:15)
[2019-02-01] MEDS ORDERED: ONDANSETRON 4MG/2ML VIAL (J2405) IV PRN (21:15)
[2019-02-01] MEDS ORDERED: fentaNYL 100 MCG/2 ML INJECTION (J3010) IV PRN (21:15)
[2019-02-01] MEDS ORDERED: PHENYLEPHRINE HCL INJ 10 MG in D5W 100 ML IV SCH (21:30)
[2019-02-01] MEDS ORDERED: ACETAMINOPHEN *IV* 1,000 MG IV ONE ×2 (21:30)
[2019-02-01] MEDS ORDERED: oxyBUTYnin 5 MG TAB PO ONE (21:30)
[2019-02-01 23:15] VITALS: BP 96/54
[2019-02-01] MEDS ORDERED: PHENYLephrine HCL 500 MCG/5 ML (100MCG/ML) SYRINGE (J2370) ONE (23:22)
[2019-02-02] VITALS (77 sets, daily range): BP systolic 77–126; BP diastolic 48–82
[2019-02-02] MEDS: HumaLOG INSULIN (NovoLOG) PER UNIT SC SCH ×5 (00:25→21:00)
[2019-02-02] MEDS ORDERED: NS 1,000 ML IV ONE (02:15)
[2019-02-02] MEDS ORDERED: PHENYLEPHRINE INJ 10MG/ML VIAL (J2370) As Ordered ONE ×2 (04:16→04:17)
[2019-02-02] MEDS: PHENYLEPHRINE HCL INJ 50 MG in D5W 495 ML IV SCH ×2 (04:39→19:55)
[2019-02-02 05:17] LABS: HEMATOCRIT 41.1 % (42.0-52.0); HEMOGLOBIN 13.5 g/dl (13.5-17.5); MEAN CORPUSCULAR HEMOGLOBIN 30.7 pg (27.0-33.0); MEAN CORPUSCULAR HGB CONC 32.8 g/dl (32.0-36.5); MEAN CORPUSCULAR VOLUME 93.4 fl (80.0-96.0); PLATELET COUNT, AUTOMATED 158 10^3/uL (150-450)
[2019-02-02 05:20] LABS: WHITE BLOOD COUNT 31.2 10^3/uL (4.0-10.0)
[2019-02-02] MEDS: CIPROFLOXACIN 400 MG in APPROPRIATE DILUENT 1 EA IV SCH ×2 (05:21→17:18)
[2019-02-02] MEDS: ACETAMINOPHEN TAB 650MG DOSE (2X325MG) PO PRN ×3 (05:21→19:50)
[2019-02-02 05:35] LABS: ALBUMIN 2.6 GM/DL (3.2-5.2); BILIRUBIN,TOTAL 0.7 MG/DL (0.2-1.0); CALCIUM LEVEL 8.1 MG/DL (8.8-10.2); CREATININE FOR GFR 1.78 MG/DL (0.70-1.30); GLOMERULAR FILTRATION RATE 40.8 (>49); POTASSIUM SERUM 4.6 MEQ/L (3.5-5.1); TOTAL PROTEIN 5.8 GM/DL (6.4-8.2)
[2019-02-02] MEDS ORDERED: NS 1,000 ML IV SCH (05:45)
[2019-02-02] MEDS: NS 0.45% 1,000 ML IV SCH ×3 (06:37→17:19)
[2019-02-02] MEDS ORDERED: KETOROLAC 30 MG/ML VIAL (J1885) IV ONE (07:40)
--- NOTE | 2019-02-02 07:53 | CR ---
DATE OF CONSULTATION: 02/01/2019 REASON FOR CONSULTATION: Obstructive uropathy with significantly elevated white blood count. HISTORY OF PRESENT ILLNESS: The patient is a 68-year-old gentleman with a several week history of severe right flank pain. He was seen at the [facility] and it sounds like he was scheduled for extracorporal shock wave lithotripsy (ESWL). Today, though the pain has been unremitting with nausea, vomiting, fever and chills. A CT scan done in the emergency room shows a 15 mm obstructive calculi in the proximal right ureter resulting in marked proximal hydroureteronephrosis with periureteral and perinephric stranding, but no urinomas. There are also punctate nonobstructing calculi in the lower pole of the right kidney. His white blood count was 19,000 and he had a temperature as high as 102. An emergent urologic consultation was requested. The patient also has a very significant history of urethral strictures and it sounds like he had an injury to the area in [place]. It sounds as though he has had at least 20 procedures including grafts being placed and multiple cystoscopy and internal optical urethrotomies. Recently, he has had a double stream and does need to push and strain to urinate. He denies any recent burning with urination. He denies any previous kidney stones that he knows of. He has had gallstones it sounds like. PAST MEDICAL HISTORY: H 1. High blood pressure. 2. Hepatitis C. 3. Atrial fibrillation. 4. History of an myocardial infarction (NE). 5. Hypercholesterolemia. 6. He does have chronic obstructive pulmonary disease (COPD) and asthma. 7. He has had a colostomy 8. He said he has had so many operations for stricture disease and he was negative for prostate cancer, so I assuming that he might have had a transurethral resection of the prostate (TURP). He is a very poor historian. 9. Diabetes. PAST SURGICAL HISTORY: 20 procedures for urethral strictures, appendectomy and cholecystectomy, Colostomy from trauma MEDICATIONS: - Albuterol - vitamin C - atorvastatin - metformin - metoprolol - MS Contin - pantoprazole - tamsulosin - vitamin B complex - Plavix, - glipizide - oxybutynin ER 5 mg - sertraline ALLERGIES: PENICILLIN, CODEINE, ASPIRIN, NITROFURANTOIN, SIMVASTATIN. GABAPENTIN, SERTRALINE, LINEZOLID SOCIAL HISTORY: He smokes cigarettes. He is a [place] . He denies any other drug use. REVIEW OF SYSTEMS: A 12 system review was done. He has had nausea and vomiting with fever and chills at home. He does get reflux occasionally. His right flank pain and right lower quadrant pain over the last week as discussed. He has been moving his bowels normally into his bag. PHYSICAL EXAMINATION: He is alert and oriented x3, although very talkative and hard to get a good history from. In the emergency room (ER), his blood pressure was as high as 152/83, but has dropped down to 80/50 with a T-max since he has been here of 101.3, but I was also told at some point he did have a 102 temperature. His head is normocephalic, atraumatic. His eyes are PERRL. His neck is supple and his trachea is midline without any supraclavicular or cervical adenopathy. His heart rate now is tachycardiac at 114, but his heart has a regular rate and rhythm. His lungs are clear to auscultation and percussion. He does have right CVA tenderness and right lower quadrant tenderness. His extremities show no cyanosis, clubbing or edema. He is missing fingers on his right hand. LABORATORY DATA: His white blood count is 19,000, hemoglobin and hematocrit 14.9/43.7. His urinalysis showed 63 white blood cells and 29 red blood cells per high-power field. His BUN was 26 and a creatinine of 1.33 with a glucose of 259. IMAGING STUDIES: CT scan of the abdomen and pelvis 02/01/2019 again shows a 15 mm obstructing right proximal ureteral stone with marked proximal hydroureteronephrosis with periureteral and perinephric stranding with punctate nonobstructing calculi in the lower pole of the right kidney and also a colostomy. There is grade 2 spondylolisthesis. He has had a cholecystectomy. He has mild prostatic hyperplasia. DISCUSSION: I discussed these findings at length with Mr. Casey in the hospital today. I would consider putting a nephrostomy tube in, but we do not have an interventional radiologist on during the weekend, so we will plan on bring him emergently to the operating room for cystoscopy and right ureteral stent placement. We discussed exactly how this is done and what to expect both pre and post procedurally. He understands that we will not be taking care of the stone at this sitting and he will need other procedures and major risks of the procedure discussed included but was not limited to the risks of general anesthesia, reactions to medication, bleeding, infection, inability to place a stent, need for further treatment for the stones and need for removal of the stent in the future and ureteral injury. If he does have a stricture, he has also given us permission to do an internal optical urethrotomy if necessary. IMPRESSION: 1. 15 mm obstructing right proximal ureteral stone in a patient with a white blood count of 19,000 and a temperature of 102. 2. Multiple medical problems including but not limited to diabetes, high blood pressure, hepatitis C, [place] vet, chronic obstructive pulmonary disease (COPD), asthma, colostomy, etc. PLAN: 1. The patient to go emergently to the operating room for a cystoscopy and right ureteral stent placement. 2. medical management including hydration, antibiotics, pressors as needed with fluid and pain management and antiemetics. 3. The patient to be admitted to the hospitalist service for further medical care once we are able to drain the infected kidney. Thank you very much for this consultation. DELICIA
--- NOTE | 2019-02-02 07:54 | REP ---
Retrograde pyelogram: A series of four intraoperative fluoroscopic views are performed during right ureteral stent placement: The final film demonstrates the proximal ureteral stent to be in the proximal right ureter and the distal pigtail to be in the bladder. Fluoroscopic exposure time is 26 seconds. The fluoroscopic K E images are performed with last image hold technique and require no additional radiation. Electronically Signed by Taqueria Fregoso MD 02/02/2019 07:13 A
--- NOTE | 2019-02-02 07:55 | ECGEPIP ---
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
[2019-02-02] MEDS: SERTRALINE HCL 50 MG TAB PO SCH (08:46)
[2019-02-02] MEDS: PANTOPRAZOLE 40MG TAB (PROTONIX) PO SCH (08:46)
[2019-02-02] MEDS: ATORVASTATIN 20 MG TAB PO SCH (08:46)
[2019-02-02] MEDS: TAMSULOSIN 0.4 MG CAP PO SCH (08:46)
[2019-02-02] MEDS: ONDANSETRON 4MG/2ML VIAL (J2405) IV PRN (08:52)
--- NOTE | 2019-02-02 11:26 | IPNPDOC ---
Subjective Date Seen The patient was seen on 02/02/19. Subjective Chief Complaint/HPI Patient seen and examined at the bedside. States that he is feeling much better this morning. Notes that he is still having mild cramping in the right lower quadrant of the abdominal area. Objective Physical Examination General Exam: Positive: Alert, Cooperative, No Acute Distress ENT Exam: Positive: Atraumatic, Mucous membr. moist/pink Neck Exam: Negative: JVD Chest Exam: Positive: Clear to auscultation, Normal air movement Heart Exam: Positive: Rate Normal, Normal S1, Normal S2 Telemetry: Positive: Sinus Abdomen Exam: Positive: Soft, Tenderness (mild tenderness to deep palpation in the right lower quadrant. No rebound tenderness, guarding, or rigidity noted.) Extremity Exam: Negative: Tenderness, Swelling Psych Exam: Positive: Oriented x 3 Assessment /Plan Plan/VTE VTE Prophylaxis Ordered?: Yes Plan Obstructive pyelonephritis 2/2 Kidney Stone Status post emergent cystoscopy, ureteroscopy with right stent placement by urology on 02/01/19 Urine culture pending The patient's white blood cell count is up trending, and likely secondary to la st night's presentation He remains afebrile this morning, and states that he is feeling much better Continue ciprofloxacin We will continue to monitor the patient's progress Leukocytosis 2/2 Above Continue antibiotic therapy as prescribed, we will continue to monitor his blood cell count Clinically the patient states that he is feeling much better today Acute kidney injury 2/2 Above Serum creatinine noted to be 1.78 Continue IV fluid hydration We will monitor the patient's in's and outs Repeat BMP in the a.m. Septic shock 2/2 Above The patient was started on phenylephrine overnight, however his blood pressure is improved this morning and we are titrating this down at this time We will continue to monitor Coronary artery disease Continue Plavix, statin Diabetes mellitus Insulin sliding scale ordered BPH Continue Flomax Anxiety/depression Continue sertraline GERD Continue Protonix History of Hep C Follow up as outpatient DVT prophylaxis Heparin Subcutaneous VS, I&O, 24H, [place] Vital Signs/I&O Vital Signs Date Time Temp Pulse Resp B/P (MAP) Pulse Ox O2 Delivery O2 Flow Rate FiO2 02/02/19 06:45 84 115/71 (86) 95 2.0 02/02/19 00:40 18 02/02/19 00:00 99.1 02/01/19 21:30 94 02/01/19 19:21 Room Air I&O- Last 24 Hours up to 6 AM 02/02/19 06:00 Intake Total 6266 ml Output Total 80 ml Balance 6186 ml Laboratory Data 24H LABS Laboratory Tests 2 02/01/19 15:14: Immature Granulocyte % (Auto) 0.5, White Blood Count 19.0H, Red Blood Count 4.87, Hemoglobin 14.9, Hematocrit 43.7, Mean Corpuscular Volume 89.7, Mean Corpuscular Hemoglobin 30.6, Mean Corpuscular Hemoglobin Concent 34.1, Red Cell Distribution Width 13.4, Platelet Count 177, Neutrophils (%) (Auto) 94.5H, Lymphocytes (%) (Auto) 1.9L, Monocytes (%) (Auto) 2.9, Eosinophils (%) (Auto) 0.0, Basophils (%) (Auto) 0.2, Neutrophils # (Auto) 17.9H, Lymphocytes # (Auto) 0.4L, Monocytes # (Auto) 0.6, Eosinophils # (Auto) 0.0, Basophils # (Auto) 0.0, Nucleated Red Blood Cells % (auto) 0.0, Anion Gap 11, Glomerular Filtration Rate 57.1, Calcium Level 9.1, Aspartate Amino Transf (AST/SGOT) 38H, Alanine Aminotransferase (ALT/SGPT) 37, Alkaline Phosphatase 104, Total Bilirubin 1.4H, Direct Bilirubin 0.6H, Total Protein 6.8, Albumin 3.4, Albumin/Globulin Ratio 1.00, Lipase 35L 02/01/19 16:16: Urine Color YELLOW, Urine Appearance CLOUDYH, Urine pH 5.0, Urine Specific Griffin 1.017, Urine Protein NEGATIVE, Urine Glucose (UA) 1+H, Urine Ketones TRACEH, Urine Blood 2+H, Urine Nitrite NEGATIVE, Urine Bilirubin NEGATIVE, Urine Urobilinogen 2.0H, Urine Leukocyte Esterase 2+H, Urine WBC (Auto) 63H, Urine RBC (Auto) 29H, Urine Hyaline Casts (Auto) 0, Urine Bacteria (Auto) 1+H, Urine Squamous Epithelial Cells 3, Urine Mucus (Auto) SMALL, Urine Sperm (Auto) 02/01/19 20:49: Bedside Glucose (Misc Panel) 194H 02/02/19 00:14: Bedside Glucose (Misc Panel) 205H 02/02/19 04:50: Nucleated Red Blood Cells % (auto) 0.0, Anion Gap 8, Glomerular Filtration Rate 40.8L, Blood Urea Nitrogen 28H, Creatinine 1.78H, Sodium Level 147H, Potassium Level 4.6, Chloride Level 118H, Carbon Dioxide Level 21, Calcium Level 8.1L, Aspartate Amino Transf (AST/SGOT) 23, Alanine Aminotransferase (ALT/SGPT) 30, Alkaline Phosphatase 76, Total Bilirubin 0.7, Total Protein 5.8L, Albumin 2.6#L, Albumin/Globulin Ratio 0.81L 02/02/19 05:43: Lactic Acid Level 2.1*H 02/02/19 10:03: Lactic Acid Followup at 4 Hours 2.2*H CBC/BMP Laboratory Tests 02/01/19 15:14 Red Blood Count 4.87, Mean Corpuscular Volume 89.7, Mean Corpuscular Hemoglobin 30.6, Mean Corpuscular Hemoglobin Concent 34.1, Red Cell Distribution Width 13.4, Neutrophils (%) (Auto) 94.5 H, Lymphocytes (%) (Auto) 1.9 L, Monocytes (%) (Auto) 2.9, Eosinophils (%) (Auto) 0.0, Basophils (%) (Auto) 0.2, Neutrophils # (Auto) 17.9 H, Lymphocytes # (Auto) 0.4 L, Monocytes # (Auto) 0.6, Eosinophils # (Auto) 0.0, Basophils # (Auto) 0.0 02/02/19 04:50 Red Blood Count 4.40, Mean Corpuscular Volume 93.4, Mean Corpuscular Hemoglobin 30.7, Mean Corpuscular Hemoglobin Concent 32.8, Red Cell Distribution Width 13.8, Calcium Level 8.1 L, Aspartate Amino Transf (AST/SGOT) 23, Alanine Aminotransferase (ALT/SGPT) 30, Alkaline Phosphatase 76, Total Bilirubin 0.7, Total Protein 5.8 L, Albumin 2.6 #L Microbiology Microbiology 02/01/19 Urine Culture, Received Pending JOSÉ MIGUEL GROSS MD Feb 02, 2019 11:25
[2019-02-02] MEDS: CLOPIDOGREL 75 MG TAB PO SCH (12:53)
[2019-02-02] MEDS: HEPARIN SOD (PORCINE) 5000 UNITS/ML VIAL SQ SCH ×2 (12:53→22:09)
--- NOTE | 2019-02-02 13:42 | IPNPDOC ---
Text Note Date of Service The patient was seen on 02/02/19. NOTE Patient is feeling much better this morning. He does have some right lower qu adrant pain and we'll check PVRs and he is emptying his bladder completely. He has required pressors overnight and his white blood count was more elevated this morning but this was probably secondary to manipulation. They're trying to wean him off the pressors now Physical exam: He is alert and oriented 3. He has no CVA tenderness he does have some right lower quadrant tenderness but no rebound or guarding. His extremities showed no swelling or tenderness. 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 but there was excellent drainage after the stent was placed last night and because of multiple urethral strictures and difficulty getting through the urethra to the bladder it was decided to leave the stent where it was understanding that he may still require percutaneous nephrostomy tubes -Acute renal insufficiency -Multiple medical problems in this [place] Vet Plan: -Continue supportive care and antibiotic coverage until his urine cultures and blood cultures returned -If the patient continues to require pressors and his white blood count does not come down tomorrow or if he continues to be unstable at all then a nephrostomy should be placed and I did discuss this already with Dr. Fleming of Interventional Radiology VSMarisela, I+O VSMarisela, I+O Laboratory Tests 02/01/19 15:14 Red Blood Count 4.87, Mean Corpuscular Volume 89.7, Mean Corpuscular Hemoglobin 30.6, Mean Corpuscular Hemoglobin Concent 34.1, Red Cell Distribution Width 13.4, Neutrophils (%) (Auto) 94.5 H, Lymphocytes (%) (Auto) 1.9 L, Monocytes (%) (Auto) 2.9, Eosinophils (%) (Auto) 0.0, Basophils (%) (Auto) 0.2, Neutrophils # (Auto) 17.9 H, Lymphocytes # (Auto) 0.4 L, Monocytes # (Auto) 0.6, Eosinophils # (Auto) 0.0, Basophils # (Auto) 0.0 02/02/19 04:50 Red Blood Count 4.40, Mean Corpuscular Volume 93.4, Mean Corpuscular Hemoglobin 30.7, Mean Corpuscular Hemoglobin Concent 32.8, Red Cell Distribution Width 13.8, Calcium Level 8.1 L, Aspartate Amino Transf (AST/SGOT) 23, Alanine Am inotransferase (ALT/SGPT) 30, Alkaline Phosphatase 76, Total Bilirubin 0.7, Total Protein 5.8 L, Albumin 2.6 #L Vital Signs Date Time Temp Pulse Resp B/P (MAP) Pulse Ox O2 Delivery O2 Flow Rate FiO2 02/02/19 06:45 84 115/71 (86) 95 2.0 02/02/19 00:40 18 02/02/19 00:00 99.1 02/01/19 21:30 94 02/01/19 19:21 Room Air I&O- Last 24 Hours up to 6 AM 02/02/19 06:00 Intake Total 6266 ml Output Total 80 ml Balance 6186 ml ESTEVAN JAY MD Feb 02, 2019 13:42
[2019-02-02 15:51] LABS: HEMATOCRIT 37.1 % (42.0-52.0); HEMOGLOBIN 12.6 g/dl (13.5-17.5); MEAN CORPUSCULAR HEMOGLOBIN 31.9 pg (27.0-33.0); MEAN CORPUSCULAR VOLUME 93.9 fl (80.0-96.0); PLATELET COUNT, AUTOMATED 122 10^3/uL (150-450); RED BLOOD COUNT 3.95 10^6/uL (4.30-6.10); WHITE BLOOD COUNT 20.3 10^3/uL (4.0-10.0)
[2019-02-02 16:27] LABS: CREATININE FOR GFR 1.9 MG/DL (0.70-1.30); GLOMERULAR FILTRATION RATE 37.8 (>49); POTASSIUM SERUM 4.1 MEQ/L (3.5-5.1)
--- NOTE | 2019-02-02 17:48 | RO ---
DATE OF PROCEDURE: 02/01/2019 PREOPERATIVE DIAGNOSIS: 15 mm obstructing proximal right ureteral stone with urosepsis. POSTOPERATIVE DIAGNOSIS: 15 mm obstructing proximal right ureteral stone with urosepsis with a duplicated right kidney and extrarenal pelvis. PROCEDURE: Cystoscopy, urethral dilation, right retrograde pyelogram and right ureteral stent placement. SURGEON: Dr. Gwen Calderon FLUE GAS ANALYST: ANESTHESIA: IV sedation. MEDICATIONS: Cipro 500 mg. DRAINS: #6-Portuguese double-J ureteral stent. FINDINGS: Significant purulent material out of the right kidney once the stent was in place with findings of a duplicated system with a drooping leonidas upper pole and what appeared to be an extrarenal pelvis by CT scan, which is where the stent was left because it was draining so much purulent material. INDICATIONS FOR PROCEDURE: The patient is a 68-year-old gentleman who has been having right flank pain and was diagnosed with a right proximal ureteral calculus, and he was going to undergo extracorporeal shock wave lithotripsy (ESWL) at the [facility], but the pain became so severe this morning with significant nausea and vomiting that he came into the emergency room. In the emergency room, he had a temperature up to 102 and a white blood count of 19,000. When he was brought to the operating room, his blood pressure dropped to the 80s over 60s. Since there is no interventional radiologist here on the weekend, it was decided just to bring him emergently to the operating room for cystoscopy and stent placement to at least allow drainage of the system and if he needs to, to have a nephrostomy tube placement tomorrow. All different options, alternatives, risks, and benefits were discussed and informed consent was obtained. The patient clearly understood that we would not be going after the stone today and that he would require further surgical procedures in the future for this. He understood the risk of me not being able to get through his urethral strictures or pass the stone. He understood the risk of ureteral injury and pain from the stent. DESCRIPTION OF PROCEDURE: The patient was brought into the operating room and sequential compression devices were in place. The patient had been given antibiotics. Anesthesia was induced, and he was placed in the lithotomy position and careful attention was paid that his pressure points were well padded and protected. He was prepped and draped in the usual fashion. Next, a #17-Portuguese cystoscope was inserted. The urethra was extremely abnormal with evidence of his prior 20 surgeries. It was extremely tortuous, and I was able to put a wire and then dilate over this to a #20-Portuguese and then finally be able to pass my #17-Portuguese scope. Once in the bladder, there was quite a lot of trabeculation and small diverticula formation. There was no evidence of stones, erythematous patches or lesions in the bladder. At this point, a 0.035 guidewire was placed up the right ureteral orifice. This was seen to go a little more laterally than I liked, so at this point I did a retrograde pyelogram and only saw the lower pole of the kidney fill. I then placed the double-J ureteral stent, and it looked like it had not gone into the collecting system the way it was seen on the retrograde, so I did another retrograde pyelogram and that is when I saw the drooping leonidas part of the upper pole kidney. I went back and looked at the CAT scan, and there was a large extrarenal pelvis. Once the stent had been in place and seen curled a little bit where I was not expecting, there was still significant purulent material coming from the right ureteral orifice. Another retrograde was done, and this was felt to be well placed in the extrarenal pelvis, and I did not want to remove the stent and possibly have difficulty getting through the urethra again, so it was decided to leave this in place understanding that he still might need nephrostomy tube tomorrow if he does not stabilize.
[2019-02-03] VITALS (32 sets, daily range): BP systolic 80–115; BP diastolic 49–84
[2019-02-03] MEDS: HEPARIN SOD (PORCINE) 5000 UNITS/ML VIAL SQ SCH ×3 (05:50→21:24)
[2019-02-03] MEDS: CIPROFLOXACIN 400 MG in APPROPRIATE DILUENT 1 EA IV SCH ×2 (05:50→18:00)
[2019-02-03] MEDS: PANTOPRAZOLE 40MG TAB (PROTONIX) PO SCH (08:00)
[2019-02-03] MEDS: CLOPIDOGREL 75 MG TAB PO SCH (08:00)
[2019-02-03] MEDS: SERTRALINE HCL 50 MG TAB PO SCH (08:00)
[2019-02-03] MEDS: ATORVASTATIN 20 MG TAB PO SCH (08:00)
[2019-02-03] MEDS: TAMSULOSIN 0.4 MG CAP PO SCH (08:00)
[2019-02-03] MEDS: HumaLOG INSULIN (NovoLOG) PER UNIT SC SCH ×4 (08:10→21:00)
[2019-02-03 08:39] LABS: HEMATOCRIT 39.2 % (42.0-52.0); HEMOGLOBIN 13.2 g/dl (13.5-17.5); MEAN CORPUSCULAR HEMOGLOBIN 30.9 pg (27.0-33.0); MEAN CORPUSCULAR HGB CONC 33.7 g/dl (32.0-36.5); MEAN CORPUSCULAR VOLUME 91.8 fl (80.0-96.0); PLATELET COUNT, AUTOMATED 105 10^3/uL (150-450); RED BLOOD COUNT 4.27 10^6/uL (4.30-6.10); WHITE BLOOD COUNT 10.9 10^3/uL (4.0-10.0)
[2019-02-03 09:02] LABS: ALBUMIN 2.6 GM/DL (3.2-5.2); BILIRUBIN,TOTAL 0.7 MG/DL (0.2-1.0); CALCIUM LEVEL 8.5 MG/DL (8.8-10.2); CREATININE FOR GFR 1.75 MG/DL (0.70-1.30); GLOMERULAR FILTRATION RATE 41.6 (>49); POTASSIUM SERUM 4.4 MEQ/L (3.5-5.1); TOTAL PROTEIN 6.5 GM/DL (6.4-8.2)
[2019-02-03] MEDS: ONDANSETRON 4MG/2ML VIAL (J2405) IV PRN (11:38)
--- NOTE | 2019-02-03 14:34 | IPNPDOC ---
Text Note Date of Service The patient was seen on 02/03/19. NOTE Patient has no complaints today and his right lower quadrant pain is much imp roved. His white blood count came back down to 20.3 but his creatinine is slightly raised and 1.9. His I's and O's were [id number] he is no longer on pressors Physical examination: He has no CVA tenderness now and his abdomen is soft and nontender without any rebound or guarding. His extremities show no cyanosis clubbing or edema Impression: -Postop day #2 right ureteral stent placement by probably and an extrarenal pelvis or proximal ureter because he had a duplicated system but clinically he is improving significantly from urosepsis although his white blood count and creatinine are still elevated Plan: -If his white blood count and creatinine continue to be elevated we may want to consider placing a nephrostomy tube and removing the stent. -Patient will require ESWL in several weeks for definitive treatment for the stone VS,Marisela, I+O VS, Marisela, I+O Laboratory Tests 02/02/19 15:44 Red Blood Count 3.95 L, Mean Corpuscular Volume 93.9, Mean Corpuscular Hemoglobin 31.9, Mean Corpuscular Hemoglobin Concent 34.0, Red Cell Distribution Width 13.8, Calcium Level 8.0 L 02/03/19 08:20 Red Blood Count 4.27 L, Mean Corpuscular Volume 91.8, Mean Corpuscular Hemoglobin 30.9, Mean Corpuscular Hemoglobin Concent 33.7, Red Cell Distribution Width 13.9, Calcium Level 8.5 L, Aspartate Amino Transf (AST/SGOT) 21, Alanine Aminotransferase (ALT/SGPT) 26, Alkaline Phosphatase 88, Total Bilirubin 0.7, Total Protein 6.5, Albumin 2.6 L Vital Signs Date Time Temp Pulse Resp B/P (MAP) Pulse Ox O2 Delivery O2 Flow Rate FiO2 02/03/19 12:00 98.8 95 18 111/56 (74) 96 02/03/19 04:00 2.0 02/01/19 21:30 94 02/01/19 19:21 Room Air I&O- Last 24 Hours up to 6 AM 02/03/19 06:00 Intake Total 1662 ml Output Total 2395 ml Balance -733 ml ESTEVAN JAY MD 30, 2019 14:34
[2019-02-03] MEDS: ACETAMINOPHEN TAB 650MG DOSE (2X325MG) PO PRN ×2 (15:55→21:20)
--- NOTE | 2019-02-03 16:35 | REP ---
Acute abdominal series series including PA chest and supine upright abdomen: PA chest: Comparison is 11/05/2016. The lung travis are clear. Cardiac size is normal. The jailene, mediastinum, skeletal structures are unremarkable. There is no free subdiaphragmatic air. Impression: Negative PA chest. Abdomen, supine/ upright views: The bowel gas pattern is normal. There are midline longitudinal skin almaz over the pelvis. There is lumbar scoliosis convex left. There is a right upper quadrant surgical clip. No calcifications. Impression: Normal bowel gas pattern. Electronically Signed by Taqueria Fregoso MD 02/01/2019 03:52 P
--- NOTE | 2019-02-03 17:25 | IPNPDOC ---
Text Note Date of Service The patient was seen on 02/03/19. NOTE S: patient is now off joanne drip and has maintained BP. He states no flank pain. no N, no V and feels back to baseline. He has not had a stool for 4 days via ostomy bag. no fever . O: Vitals as below General: pleasant, NAD AAOx3 HRRR LCTA no W/R/R, no CVA tenderness Abdomen: soft NT ND NABS , left LQ with colostomyh Ext no edema A/P 1) Obstructive pyelonephritis secondary to Kidney Stone 02/01/19 emergent cystoscopy, ureteroscopy with right stent placement by urology On cipro IV - urine culture contaminated Possible D/C home tomorrow with outpatient urology follow up in 2 weeks for possible lithotripsy 2) Leukocytosis due to #1 - resolved with surgical intervention (stent placed) 3) COURTNEY due to obstructive kidney stone - resolved. good urine output 4) Duplicated renal collecting system - stent intact per urology notes, because WBC decreased, no need for percutaneous nephrostomy tubes at this time. 5) Septic shock due to obstructive stone and pyelonephritis - RESOLVED. 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 Hold metformen at discharge (lactic acidosis resolved) and continue with glimiperzide. 8) BPH - Flomax 9) Anxiety/depression - sertraline 10) GERD on Protonix 11) History of Hep C - [facility] Heparin Subcutaneous VS,Fishbone, I+O VS, Fishbone, I+O Laboratory Tests 02/03/19 08:20 Red Blood Count 4.27 L, Mean Corpuscular Volume 91.8, Mean Corpuscular Hemoglobin 30.9, Mean Corpuscular Hemoglobin Concent 33.7, Red Cell Distribution Width 13.9, Calcium Level 8.5 L, Aspartate Amino Transf (AST/SGOT) 21, Alanine Aminotransferase (ALT/SGPT) 26, Alkaline Phosphatase 88, Total Bilirubin 0.7, Total Protein 6.5, Albumin 2.6 L Vital Signs Date Time Temp Pulse Resp B/P (MAP) Pulse Ox O2 Delivery O2 Flow Rate FiO2 02/03/19 15:59 99.2 97 19 115/84 (94) 95 02/03/19 04:00 2.0 02/01/19 21:30 94 02/01/19 19:21 Room Air I&O- Last 24 Hours up to 6 AM 02/03/19 06:00 Intake Total 1662 ml Output Total 2395 ml Balance -733 ml JEFFREY BETANCOURT DO Feb 03, 2019 17:25
[2019-02-04] VITALS: BP 110/59
[2019-02-04] MEDS: ACETAMINOPHEN TAB 650MG DOSE (2X325MG) PO PRN (02:18)
[2019-02-04 04:00] VITALS: BP 106/65
[2019-02-04 05:05] LABS: HEMATOCRIT 34.8 % (42.0-52.0); HEMOGLOBIN 11.7 g/dl (13.5-17.5); MEAN CORPUSCULAR HEMOGLOBIN 30.8 pg (27.0-33.0); MEAN CORPUSCULAR HGB CONC 33.6 g/dl (32.0-36.5); MEAN CORPUSCULAR VOLUME 91.6 fl (80.0-96.0); WHITE BLOOD COUNT 8.9 10^3/uL (4.0-10.0)
[2019-02-04 05:27] LABS: BLOOD UREA NITROGEN 24 MG/DL (7-18); CALCIUM LEVEL 8.6 MG/DL (8.8-10.2); CARBON DIOXIDE LEVEL 26 MEQ/L (21-32); CHLORIDE LEVEL 114 MEQ/L (98-107); CREATININE FOR GFR 1.27 MG/DL (0.70-1.30); GLOMERULAR FILTRATION RATE > 60.0 (>49); GLUCOSE, FASTING 133 MG/DL (70-100); POTASSIUM SERUM 3.9 MEQ/L (3.5-5.1); SODIUM LEVEL 142 MEQ/L (136-145)
[2019-02-04 05:29] LABS: PLATELET COUNT, AUTOMATED 95 10^3/uL (150-450)
[2019-02-04] MEDS: CIPROFLOXACIN 400 MG in APPROPRIATE DILUENT 1 EA IV SCH (05:45)
[2019-02-04] MEDS: HEPARIN SOD (PORCINE) 5000 UNITS/ML VIAL SQ SCH (06:00)
[2019-02-04] MEDS: HumaLOG INSULIN (NovoLOG) PER UNIT SC SCH (07:30)
[2019-02-04 08:02] VITALS: BP 130/73
[2019-02-04] MEDS ORDERED: CIPR250T3 PO ×2 (08:38→10:35)
[2019-02-04] MEDS: TAMSULOSIN 0.4 MG CAP PO SCH (09:26)
[2019-02-04] MEDS: ATORVASTATIN 20 MG TAB PO SCH (09:26)
[2019-02-04] MEDS: SERTRALINE HCL 50 MG TAB PO SCH (09:26)
[2019-02-04] MEDS: PANTOPRAZOLE 40MG TAB (PROTONIX) PO SCH (09:26)
[2019-02-04] MEDS: CLOPIDOGREL 75 MG TAB PO SCH (09:26)
[2019-02-04] MEDS ORDERED: PREVNAR 13 VACCINE SYRINGE (CPT CODE:90670) IM ONE (12:00)
--- NOTE | 2019-02-04 13:50 | DS.PDOC ---
Discharge Summary General Date of Admission Feb 01, 2019 at 19:04 Date of Discharge 02/04/19 Attending Physician: JEFFREY BETANCOURT DO Specialist/Consultants Involve: ESTEVAN JAY MD Discharge Summary PROCEDURES PERFORMED DURING STAY: 02/01/19 emergent cystoscopy, ureteroscopy with right stent placement by urology ADMITTING DIAGNOSES: (1) Right ureteral stone (2) Hep C w/o coma, chronic (3) Diabetes mellitus (4) HTN (hypertension) (5) Obstructive pyelonephritis DISCHARGE DIAGNOSES: 1) Obstructive pyelonephritis secondary to Kidney Stone 2) Leukocytosis due to #1 3) COURTNEY due to obstructive kidney stone 4) Duplicated renal collecting system 5) Septic shock due to obstructive stone and pyelonephritis 6) Coronary artery disease - stable with Plavix, statin 7) 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 8) BPH 9) Anxiety/depression 10) GERD 11) History of Hep C - COMPLICATIONS/CHIEF COMPLAINT: Obstructive Pyelonephritis. HISTORY OF PRESENT ILLNESS: This is a 68 years old white male with past medical history of multiple medical problems including CAD, A. fib pedis mellitus was in his usual state of health until this morning at 7 AM he developed nausea, vomiting, followed by a right upper quadrant pain which is a sharp, nonradiating, persistent, associated with nausea, vomiting, not relieved with any medication and progressively exacerbated and presented to ER for further care. workup reviewed obstructing 15mm kidney stone - see H&P for details. HOSPITAL COURSE: Patient admitted, placed on IV Cipro; renal function worsened; urology consutled and on 02/01/19 emergent cystoscopy, ureteroscopy with right stent placement by urology . Patient initially placed on phenylephrine due to severe hypotension - which improved. leukocytosis, pain and pyruia improved with stent placement and there was no need for percutaneous nephrostomy tubes at this time. Patient continued to progress well and changed to oral cipro, discharged home. DISCHARGE MEDICATIONS: Please see below. ALLERGIES: Please see below. PHYSICAL EXAMINATION ON DISCHARGE: VITAL SIGNS: Please see below. General: pleasant, NAD AAOx3 HRRR LCTA no W/R/R, no CVA tenderness Abdomen: soft NT ND NABS , left LQ with colostomy Ext no edema LABORATORY DATA: Please see below. ACTIVITY: As tolerated DIET: Carb consistent DISCHARGE PLAN: home with home health aide DISCHARGE INSTRUCTIONS: 1. follow up 2 weeks with urology 2. discharge with home health 3. cipro 250mg BID x 2 weeks DISCHARGE CONDITION: stable and improved TIME SPENT ON DISCHARGE: 30 minutes. Vital Signs/I&Os Vital Signs Date Time Temp Pulse Resp B/P (MAP) Pulse Ox O2 Delivery O2 Flow Rate FiO2 02/04/19 04:00 99.1 90 18 106/65 (79) 93 02/03/19 04:00 2.0 02/01/19 21:30 94 02/01/19 19:21 Room Air I&O- Last 24 Hours up to 6 AM 02/04/19 06:00 Intake Total 1855 ml Output Total 2650 ml Balance -795 ml Laboratory Data Labs 24H Laboratory Tests 2 02/03/19 11:43: Bedside Glucose (Misc Panel) 161H 02/03/19 17:12: Bedside Glucose (Misc Panel) 170H 02/03/19 21:05: Bedside Glucose (Misc Panel) 154H 02/04/19 04:46: Nucleated Red Blood Cells % (auto) 0.0, Immature Platelet Fraction 3.4, Anion Gap 2L, Glomerular Filtration Rate > 60.0, Blood Urea Nitrogen 24H, Creatinine 1.27, Sodium Level 142, Potassium Level 3.9, Chloride Level 114H, Carbon Dioxide Level 26, Calcium Level 8.6L CBC/BMP Laboratory Tests 02/04/19 04:46 Red Blood Count 3.80 L, Mean Corpuscular Volume 91.6, Mean Corpuscular Hemoglobin 30.8, Mean Corpuscular Hemoglobin Concent 33.6, Red Cell Distribution Width 13.7, Calcium Level 8.6 L FSBS Laboratory Tests Test 02/03/19 11:43 02/03/19 17:12 02/03/19 21:05 Range/Units Bedside Glucose (Misc Panel) 161 170 154 80-115 MG/DL Microbiology Microbiology 02/01/19 Urine Culture - Final, Complete Discharge Medications Scheduled Ascorbic Acid (Vitamin C) 500 Mg Capsule, 500 MG PO DAILY, (Reported) Atorvastatin Calcium (Atorvastatin Calcium) 80 Mg Tablet, 40 MG PO DAILY, (Reported) Ciprofloxacin HCl (Ciprofloxacin HCl) 250 Mg Tablet, 250 MG PO BID Clopidogrel Bisulfate (Plavix) 75 Mg Tablet, 75 MG PO DAILY, (Reported) Glipizide (Glipizide) 5 Mg Tablet, 5 MG PO BID, (Reported) Metoprolol Succinate (Metoprolol Succinate) 25 Mg Tab.er.24h, 25 MG PO QHS, (Reported) Oxybutynin Chloride (Oxybutynin Chloride) 5 Mg Tablet, 30 MG PO DAILY, (Reported) Pantoprazole Sodium (Pantoprazole Sodium) 40 Mg Tablet.dr, 40 MG PO DAILY, (Reported) Sertraline HCl (Sertraline HCl) 50 Mg Tablet, 50 MG PO DAILY, (Reported) Tamsulosin HCl (Flomax) 0.4 Mg Capsule, 0.4 MG PO DAILY, (Reported) Vitamin B Complex/Folic Acid (B-Complex Tablet) 0.4 Mg Tablet, 1 TAB PO DAILY, (Reported) Scheduled PRN Albuterol Sulfate (Ventolin Hfa) 18 Gm Hfa.aer.ad, 2 PUFF INH QID PRN for SHORTNESS OF BREATH, (Reported) Dextrose (Glucose) 4 Gm Tab.chew, 1 CHW PO for LOW BLOOD SUGAR, (Reported) Morphine Sulfate (Ms Contin) 15 Mg Tablet.er, 15 MG PO DAILY PRN for PAIN, (Reported) Allergies Coded Allergies: Contrast Media (Verified Allergy, Unknown, 08/19/17) Penicillins (Verified Allergy, Unknown, 02/01/19) codeine (Verified Allergy, Unknown, 02/01/19) gabapentin (Verified Allergy, Unknown, 02/01/19) linezolid (Verified Allergy, Unknown, 02/01/19) nitrofurantoin (Verified Allergy, Unknown, 02/01/19) sertraline (Verified Allergy, Unknown, 02/01/19) simvastatin (Verified Allergy, Unknown, 02/01/19) aspirin (Verified Adverse Reaction, Mild, N/V, 02/02/19) JEFFREY BETANCOURT DO Feb 04, 2019 08:39
== END 2019-02-04 12:31 | disposition home health service (06) | DRG 853 ==
LOC: M ED 14:30 → EDBD 14:30 → M ED INP 19:04 → M ICU 23:10
PROVIDERS: ADMIT Internal Medicine; ATTEND Family Medicine
PROC: 0T768DZ Dilation of Right Ureter with Intraluminal Device, Via Natural or Artificial Opening Endoscopic (ICD-10-PCS; principal; 2019-02-01 18:37)
DX: A41.9 Sepsis, unspecified organism (principal); R65.21 Severe sepsis with septic shock; N13.2 Hydronephrosis with renal and ureteral calculous obstruction; N17.9 Acute kidney failure, unspecified; I25.10 Atherosclerotic heart disease of native coronary artery without angina pectoris; I48.91 Unspecified atrial fibrillation; E11.9 Type 2 diabetes mellitus without complications; F17.210 Nicotine dependence, cigarettes, uncomplicated; B18.2 Chronic viral hepatitis C; I10 Essential (primary) hypertension; I25.2 Old myocardial infarction; E78.00 Pure hypercholesterolemia, unspecified; J44.9 Chronic obstructive pulmonary disease, unspecified; F41.9 Anxiety disorder, unspecified; F32.9 Major depressive disorder, single episode, unspecified; N32.3 Diverticulum of bladder; Q63.0 Accessory kidney; Q63.2 Ectopic kidney; K21.9 Gastro-esophageal reflux disease without esophagitis; Z79.84 Long term (current) use of oral hypoglycemic drugs; Z88.0 Allergy status to penicillin; Z88.8 Allergy status to other drugs, medicaments and biological substances; Z79.899 Other long term (current) drug therapy; Z88.5 Allergy status to narcotic agent; Z88.6 Allergy status to analgesic agent; Z91.041 Radiographic dye allergy status

== ENCOUNTER 2019-02-20 19:55 | Observation (INO) | payer OTHER ==
[~2019-02-20] VITALS: Ht 175.3 cm; Wt 75.5 kg
[~2019-02-20 19:55] MED LIST changes: +B-COTAB10 PO; +CIPR250T3 PO; +GLIP5TAB8 PO; +GLUC4GMTAB PO; +MED REC COMMENT; +METF-877 PO; +OXYB5TAB10 PO; +PLAV1TAB2 PO; +SERT-155 PO; +VENTAER INH; +VITA500C24 PO
[2019-02-20 20:33] LABS: BASO # 0.1 10^3/uL (0.0-0.2); BASO % 0.8 % (0.0-1.0); EOS # 0.1 10^3/uL (0.0-0.50); EOS % 1.6 % (0.0-3.0); HEMATOCRIT 39.6 % (42.0-52.0); HEMOGLOBIN 13.3 g/dl (13.5-17.5); LYMPH # 2.6 10^3/uL (1.5-4.5); LYMPH % 34.7 % (24.0-44.0); MEAN CORPUSCULAR HEMOGLOBIN 30.9 pg (27.0-33.0); MEAN CORPUSCULAR HGB CONC 33.6 g/dl (32.0-36.5); MEAN CORPUSCULAR VOLUME 91.9 fl (80.0-96.0); MONO # 0.6 10^3/uL (0.0-0.8); MONO % 7.8 % (0.0-5.0); NEUTROPHILS # 4.2 10^3/uL (1.8-7.7); NEUTROPHILS % 54.8 % (36.0-66.0); PLATELET COUNT, AUTOMATED 264 10^3/uL (150-450); RED BLOOD COUNT 4.31 10^6/uL (4.30-6.10); WHITE BLOOD COUNT 7.6 10^3/uL (4.0-10.0)
[2019-02-20 21:08] LABS: ALBUMIN 3.2 GM/DL (3.2-5.2); ALT/SGPT 28 U/L (12-78); BILIRUBIN,DIRECT 0.2 MG/DL (0.0-0.2); BILIRUBIN,TOTAL 0.4 MG/DL (0.2-1.0); BLOOD UREA NITROGEN 25 MG/DL (7-18); CARBON DIOXIDE LEVEL 26 MEQ/L (21-32); CHLORIDE LEVEL 110 MEQ/L (98-107); CREATININE FOR GFR 0.96 MG/DL (0.70-1.30); GLOMERULAR FILTRATION RATE > 60.0 (>49); GLUCOSE, FASTING 67 MG/DL (70-100); LIPASE 40 U/L (73-393); POTASSIUM SERUM 4.1 MEQ/L (3.5-5.1); SODIUM LEVEL 143 MEQ/L (136-145)
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
[2019-02-20] MEDS ORDERED: ONDANSETRON 4MG/2ML VIAL (J2405) IV PRN (23:15)
[2019-02-20] MEDS ORDERED: GLUCAGON FOR INJ 1 MG VIAL (J1610) SC PRN (23:15)
[2019-02-20] MEDS ORDERED: NS 1,000 ML IV ONE (23:15)
[2019-02-20] MEDS ORDERED: MORPHINE 2 MG/ML 1ML SYRINGE (J2270) IV PRN (23:15)
[2019-02-20] MEDS ORDERED: DEXTROSE 50% 50 ML SYRINGE IV PRN (23:15)
[2019-02-20] MEDS ORDERED: GLUCOSE 4 GM CHEW TABLET PO PRN (23:15)
[2019-02-20] MEDS ORDERED: MORPHINE 4 MG/ML 1ML VIAL/SYRINGE (J2270) IV PRN (23:15)
[2019-02-20] MEDS: HumaLOG INSULIN (NovoLOG) PER UNIT SC SCH (23:40)
[2019-02-20] MEDS: oxyCODONE 5MG TAB PO PRN (23:48)
[2019-02-20] MEDS: NS 0.45% 1,000 ML IV SCH (23:49)
[2019-02-20] MEDS: CIPROFLOXACIN 400 MG in APPROPRIATE DILUENT 1 EA IV SCH (23:49)
[2019-02-21] MEDS ORDERED: OXYB15TA PO (00:15)
[2019-02-21 00:57] VITALS: BP 131/73
[2019-02-21] MEDS: oxyCODONE 5MG TAB PO PRN (04:07)
[2019-02-21 06:00] VITALS: BP 109/64
[2019-02-21] MEDS: HumaLOG INSULIN (NovoLOG) PER UNIT SC SCH ×2 (06:00→11:50)
[2019-02-21] MEDS ORDERED: PROPOFOL 200 MG/20 ML VIAL As Ordered ONE (11:44)
[2019-02-21] MEDS ORDERED: dexameTHASONE 4 MG/ML 1ML VIAL (J1100) As Ordered ONE (11:45)
[2019-02-21] MEDS ORDERED: LIDOCAINE 2% INJ 100 MG/5 ML SDV (FOR ANES.) As Ordered ONE (11:45)
[2019-02-21] MEDS ORDERED: ROCURONIUM BROMIDE 50 MG/5 ML VIAL As Ordered ONE ×2 (11:45→13:17)
[2019-02-21] MEDS ORDERED: ONDANSETRON 4MG/2ML VIAL (J2405) As Ordered ONE (11:45)
[2019-02-21] MEDS ORDERED: fentaNYL 100 MCG/2 ML INJECTION (J3010) As Ordered ONE (11:46)
[2019-02-21] MEDS ORDERED: MIDAZOLAM INJ 2 MG/2 ML VIAL (J2250) As Ordered ONE (11:46)
[2019-02-21] MEDS: NS 0.45% 1,000 ML IV SCH (11:49)
[2019-02-21] MEDS ORDERED: CONRAY-60 60% 50ML VIAL (Q9961) As Ordered ONE (12:41)
[2019-02-21] MEDS ORDERED: CIPROFLOXACIN/D5W 400 MG/200 ML BAG (J0744) As Ordered ONE (12:41)
[2019-02-21] MEDS: CIPROFLOXACIN 400 MG in APPROPRIATE DILUENT 1 EA IV SCH (12:48)
[2019-02-21] MEDS ORDERED: ACETAMINOPHEN 1000MG 100ML IV BTL (OFIRMEV) (J0131 PER 10MG) As Ordered ONE (13:04)
[2019-02-21] MEDS ORDERED: SUGAMMADEX SODIUM 500 MG/5 ML VIAL (BRIDION) As Ordered ONE (13:05)
[2019-02-21] MEDS ORDERED: PHENYLephrine HCL 500 MCG/5 ML (100MCG/ML) SYRINGE (J2370) As Ordered ONE (13:10)
[2019-02-21] MEDS ORDERED: ONDANSETRON 4MG/2ML VIAL (J2405) IV PRN (14:45)
[2019-02-21] MEDS ORDERED: LR 1,000 ML IV SCH (14:45)
[2019-02-21] MEDS ORDERED: fentaNYL 100 MCG/2 ML INJECTION (J3010) IV PRN (14:45)
[2019-02-21] MEDS ORDERED: PERCOCET 5MG/325MG TAB PO PRN (14:45)
[2019-02-21 15:10] VITALS: BP 121/67
[2019-02-21 15:40] VITALS: BP 137/85
[2019-02-21] MEDS ORDERED: CIPR-249 PO (16:24)
--- NOTE | 2019-02-21 17:29 | ROOPDOC ---
[facility] Report Of Operation Report of Operation DATE OF PROCEDURE: 02/21/19 PREPROCEDURE DIAGNOSES: Right ureteropelvic junction stone, malpositioned right ureteral stent. POSTPROCEDURE DIAGNOSES: Right ureteropelvic junction stone, malpositioned right ureteral stent. PROCEDURE: Cystoscopy, right retrograde pyelogram, right ureteroscopy with laser lithotripsy and stone extraction, and right ureteral stent placement. SURGEON: Eleno Rothman MD AIR DUCT MECHANIC: energy and conservation technician ANESTHESIA: Gen. endotracheal anesthesia. ESTIMATED BLOOD LOSS: Approximately 5 mL. COMPLICATIONS: None. REMARKS: Stone removed; Ureteral stent with string in place secured to the penis with Tegaderm. PROCEDURE NOTE: This patient is a 68-year-old male with multiple medical problems who was recently admitted to [facility] about 2 weeks ago for a large right uteropelvic junction stone. He underwent cystoscopy, right retrograde pyelogram, and right ureteral stent placement at that time. He was discharged home with the ureteral stent in place. He presented back to [facility] emergency department last night complaining of recurrent severe right flank pain. ET scan was performed and demonstrated that the ureteral stent was malpositioned with the proximal end curled up in the proximal ureter distal to the stone. The patient was admitted for 24-hour observation. He was counseled on the various treatment options going forward including the risks benefits and alternatives of each option. He elected to proceed with the above listed procedures. Written informed consent was signed in the preoperative holding area. DESCRIPTION OF PROCEDURE: After being evaluated by the anesthesia service the patient was transferred to the operating room. He was placed onto the operating room table where general endotracheal anesthesia was initiated. He was then placed into the dorsal lithotomy position. He was then prepped and draped in the usual sterile manner. Full timeout was performed in the presence of all involved with the procedure. A 22 Scottish rigid cystoscope was placed through the urethra into the bladder. The urethra was noted to have a number of mildly tight and secured to this area this consistent with the patient's known history of urethral stricture disease status post urethral reconstructive surgery. The bladder was drained through the cystoscope sheath. Pancystoscopy was performed and demonstrated the distal end of the right ureteral stent was in normal position in the bladder was a string attached in the bladder. An alligator grasper was used through the scope to grasp the distal end of the right ureteral stent, which was then pulled out of the urethra. The ureteral stent was manipulated under fluoroscopy until all of the proximal curling and redundancy in the ureter was resolved. A sensor wire was then advanced through the ureteral stent, up the right ureter, and into the right kidney. A open-ended ureteral catheter was then advanced over the wire and up into the region of the right ureteropelvic junction. Contrast was then injected through the ureteral catheter during which time fluoroscopic images were taken thereby creating a right retrograde pyelogram. The pyelogram demonstrated that the right renal collecting system also appeared generally normal. There was a questionable filling defect in one of the midpole calyces likely corresponding to the stone. At this point a sensor wire was advanced through the open-ended catheter and up into the right renal collecting system. The open-ended catheter was backed off the wire leaving the wire in place as was the cystoscope. A dual-lumen catheter was advanced over the wire and up into the mid right ureter. A second sensor wire was advanced through the dual-lumen catheter until there was also up in the right renal collecting system. The dual-lumen catheter was backed off both wires leaving the both in place. One of the 2 wires was secured to the draping as a safety wire. A 14/16 Scottish ureteral access sheath was advanced over the other wire and up into the proximal right ureter without any difficulty. The inner sheath and wire were removed. A flexible ureteroscope was then advanced up the sheath and into the right renal pelvis. Endoscopic examination of the interior of the right kidney demonstrated a large calculus in one of the mid-pole calyces. A fine laser fiber (approximately 250 ) was advanced through the ureteroscope with the other end connected to the holmium laser energy source. Using the laser energy the calculus was gradually fragmented into a number of small pieces. Once it appeared that all the pieces were small enough to fit through the sheath we ceased lasering. We exchanged the laser fiber out with a nitinol basket. Each of the fragments of the calculus were removed using the basket. Once all of the fra gments of any significant size had been removed we then carefully looked throughout the interior of the right kidney including each of the individual calyces. We could not identify any further stone fragments of any significant size. We then removed the ureteroscope along with the access sheath carefully examining the entire course of the interior of the right ureter during this pr ocess. Once the ureteroscope was out and we confirmed there was no stones in the ureter we exchanged back to the cystoscope. The cystoscope was backloaded over the safety wire. A 6 Scottish multilength double-J ureteral stent was then advanced over the wire, through the cystoscope, and up the right ureter. When the stent appeared to be in good position the wire was removed. The position of the stent was confirmed fluoroscopically and cystoscopically. The string was left on the stent. The bladder was drained through the cystoscope sheath. The stent string was secured to the patient's penis with a Tegaderm. Several of the stone fragments were collected and sent for composition analysis. The patient was placed back into the supine position. Anesthesia was then discontinued. Patient was transferred to the post anesthesia recovery area. He had been stable throughout the procedure. PLAN: Once he meets anesthesia criteria to be transferred back to the floor where he is admitted on observation status. He will be monitored on the floor and once he voids he will be discharged to home as long as he is hemodynamically stable and his pain is sufficiently controlled. We sent home with a prescription for ciprofloxacin to be taken for 6 additional days. He should be scheduled to follow-up in [facility] urology clinic an approximately 3-5 days time for removal of the ureteral stent. ELENO ROTHMAN MD Feb 21, 2019 17:10
--- NOTE | 2019-02-22 09:30 | REP ---
RETROGRADE PYELOGRAM: 02/21/2019. Comparison: 02/01/2019. Clinical history: Cystoscopy with change of internal ureteral stent. Findings: Seven images from C-arm fluoroscopy provided to Dr. Rothman of the urology division. Initial image shows a catheter two-thirds of the way up the right ureter. A wire was then placed into the collecting system. Contrast introduced via a catheter in retrograde fashion. No gross filling defects in the collecting system with fairly sharply defined calyces without hydronephrosis. Final image shows a double pigtail stent coiled proximally in the renal collecting system and distally in the bladder on that right side. Fluoroscopy time: 45 seconds. Electronically Signed by Michael Pratt MD 02/22/2019 08:16 P
== END 2019-02-21 18:00 | disposition home or self-care (01) ==
LOC: M ED 21:23 → M ED INP 21:24 → M MSPAV 02-21 00:57
PROVIDERS: ADMIT Urology Pediatric Urology; ATTEND Urology Pediatric Urology
DX: N20.1 Calculus of ureter (principal); T83.122A Displacement of indwelling ureteral stent, initial encounter; E11.9 Type 2 diabetes mellitus without complications; I48.91 Unspecified atrial fibrillation; F17.210 Nicotine dependence, cigarettes, uncomplicated; I25.10 Atherosclerotic heart disease of native coronary artery without angina pectoris; Z79.01 Long term (current) use of anticoagulants; Z79.899 Other long term (current) drug therapy; Z79.84 Long term (current) use of oral hypoglycemic drugs; Z91.041 Radiographic dye allergy status; Z88.8 Allergy status to other drugs, medicaments and biological substances
CPT/HCPCS: 36415; 52356; 74176; 74420; 80048; 80076; 81001; 82360; 83690; 85025; 87088; 88300; 96361; 96374; 96376; 99284; C1769; C2617; G0378; J0131; J0744; J1100; J2250; J2270; J2370; J2405; J3010; Q9961

== ENCOUNTER → 2019-03-06 | Outpatient (REF) | payer OTHER ==
[~2019-03-06] MED LIST changes: +CIPR-249 PO; +OXYB15TA PO
[2019-03-06 13:29] LABS: AMORPHOUS SEDIMENT SMALL (NEGATIVE); APPEARANCE, URINE CLOUDY (CLEAR); BACTERIA, URINE AUTO NEGATIVE (NEGATIVE); BILIRUBIN, URINE AUTO NEGATIVE (NEGATIVE); BLOOD, URINE BLOOD 3+ (NEGATIVE); COLOR, URINE AMBER (YELLOW); GLUCOSE, URINE (UA) AUTO NEGATIVE (NEGATIVE); KETONE, URINE AUTO NEGATIVE (NEGATIVE); LEUKOCYTE ESTERASE, URINE AUTO 3+ (NEGATIVE); MUCUS, URINE SMALL (NEGATIVE); NITRITE, URINE AUTO NEGATIVE (NEGATIVE); PROTEIN, URINE AUTO 2+ mg/dL (NEGATIVE); RBC, URINE AUTO TNTC /HPF (0-3); RENAL EPITHELIAL CELLS 1 /HPF; SQUAMOUS EPITHELIAL CELL UR AU 2 /HPF (0-6); TRANSITIONAL EPITHELIAL AUTO <1 /HPF; UROBILINOGEN, URINE AUTO 0.2 mg/dL (0.0-2.0); WBC, URINE AUTO TNTC /HPF (0-3)
== END ==
LOC: M SMT 13:03
PROVIDERS: ATTEND Nurse Practitioner Family
DX: N39.0 Urinary tract infection, site not specified (principal)
CPT/HCPCS: 81001; 87088; G0463

== ENCOUNTER 2019-05-17 04:42 | Emergency (ER) | payer OTHER ==
[~2019-05-17] VITALS: Ht 170.2 cm; Wt 77.3 kg
[~2019-05-17 04:42] MED LIST changes: -SERT-155 PO; +SERT50TA29 PO
[2019-05-17] MEDS ORDERED: METF500T13 PO (05:25)
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
[2019-05-17] MEDS ORDERED: NORCO, ANEXSIA 5/325MG TABLET (HYDROcodone/ACETAMINOPHEN) PO ONE (07:15)
[2019-05-17] MEDS ORDERED: ADACEL/BOOSTRIX VACCINE (DIPHTH/PERTUSS/ACELL/TETANUS)0.5ML SYR (90715) IM ONE (07:15)
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
[2019-05-17] MEDS ORDERED: NORC1TAB7 PO (10:10)
[2019-05-17 10:19] VITALS: BP 139/72
== END 2019-05-17 11:00 | disposition home or self-care (01) ==
LOC: M ED 04:42
DX: M50.30 Other cervical disc degeneration, unspecified cervical region (principal); S00.83XA Contusion of other part of head, initial encounter; S22.42XA Multiple fractures of ribs, left side, initial encounter for closed fracture; Y04.8XXA Assault by other bodily force, initial encounter; Y92.410 Unspecified street and highway as the place of occurrence of the external cause; I10 Essential (primary) hypertension; J44.9 Chronic obstructive pulmonary disease, unspecified; E11.9 Type 2 diabetes mellitus without complications; B19.20 Unspecified viral hepatitis C without hepatic coma; E78.9 Disorder of lipoprotein metabolism, unspecified; I48.91 Unspecified atrial fibrillation; Z79.899 Other long term (current) drug therapy; Z79.84 Long term (current) use of oral hypoglycemic drugs; Z88.0 Allergy status to penicillin; Z88.5 Allergy status to narcotic agent; Z88.8 Allergy status to other drugs, medicaments and biological substances; Z91.041 Radiographic dye allergy status; F17.210 Nicotine dependence, cigarettes, uncomplicated

== ENCOUNTER 2019-07-18 16:49 | Inpatient (IN) | payer OTHER ==
[~2019-07-18] VITALS: Ht 175.3 cm; Wt 77.4 kg
[~2019-07-18 16:49] MED LIST changes: +METF500T13 PO; +NORC1TAB7 PO; -OXYB15TA PO; +OXYB15TA14 PO
[2019-07-18] MEDS ORDERED: NS 1,000 ML IV ONE (17:30)
[2019-07-18] MEDS ORDERED: MORPHINE 4 MG/ML 1ML VIAL/SYRINGE (J2270) IV ONE ×2 (17:30→19:30)
[2019-07-18] MEDS ORDERED: ONDANSETRON 4MG/2ML VIAL (J2405) IV ONE (17:30)
[2019-07-18 17:34] LABS: BASO # 0.1 10^3/uL (0.0-0.2); BASO % 0.2 % (0.0-1.0); HEMATOCRIT 45.6 % (42.0-52.0); HEMOGLOBIN 15.4 g/dl (13.5-17.5); LYMPH # 1.1 10^3/uL (1.5-5.0); LYMPH % 4.6 % (24.0-44.0); MEAN CORPUSCULAR HEMOGLOBIN 31.2 pg (27.0-33.0); MEAN CORPUSCULAR HGB CONC 33.8 g/dl (32.0-36.5); MEAN CORPUSCULAR VOLUME 92.5 fl (80.0-96.0); MONO # 1.5 10^3/uL (0.0-0.8); MONO % 6.3 % (0.0-5.0); NEUTROPHILS # 21.2 10^3/uL (1.5-8.5); NEUTROPHILS % 87.5 % (36.0-66.0); PLATELET COUNT, AUTOMATED 162 10^3/uL (150-450); RED BLOOD COUNT 4.93 10^6/uL (4.30-6.10); WHITE BLOOD COUNT 24.2 10^3/uL (4.0-10.0)
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
[2019-07-18 18:13] LABS: ALBUMIN 3.8 GM/DL (3.2-5.2); ALT/SGPT 33 U/L (12-78); BILIRUBIN,DIRECT 0.5 MG/DL (0.0-0.2); BILIRUBIN,TOTAL 1.5 MG/DL (0.2-1.0); LIPASE 26 U/L (73-393); TOTAL PROTEIN 7.4 GM/DL (6.4-8.2)
[2019-07-18] MEDS ORDERED: LevoFLOXacin IV 750 MG in IV 1 EA IV ONE (20:15)
[2019-07-18] MEDS ORDERED: HYDR-3713 PO (21:46)
[2019-07-18 22:06] LABS: BLOOD UREA NITROGEN 18 MG/DL (7-18); CALCIUM LEVEL 9.4 MG/DL (8.8-10.2); CARBON DIOXIDE LEVEL 21 MEQ/L (21-32); CHLORIDE LEVEL 103 MEQ/L (98-107); GLOMERULAR FILTRATION RATE > 60.0 (>49); GLUCOSE, FASTING 243 MG/DL (70-100); POTASSIUM SERUM 4.1 MEQ/L (3.5-5.1); SODIUM LEVEL 134 MEQ/L (136-145)
[2019-07-18] MEDS ORDERED: NORCO, ANEXSIA 5/325MG TABLET (HYDROcodone/ACETAMINOPHEN) PO ONE (22:30)
[2019-07-18] MEDS ORDERED: CEFEPIME HCL 2 GM in D5W MINI-BAG PLUS 50 ML IV ONE (23:15)
[2019-07-19] MEDS ORDERED: MOM 30ML SUSPENSION UDC PO PRN (00:15)
[2019-07-19] MEDS ORDERED: MAALOX 30 ML SUSP *UDC PO PRN (00:15)
[2019-07-19] MEDS ORDERED: ACETAMINOPHEN TAB 650MG DOSE (2X325MG) PO PRN (00:15)
[2019-07-19 00:30] VITALS: BP 106/72
[2019-07-19] MEDS ORDERED: CEFEPIME HCL 1 GM in D5W MINI-BAG PLUS 50 ML IV SCH (00:30)
[2019-07-19] MEDS ORDERED: MORPHINE 2 MG/ML 1ML VIAL (J2270) IV PRN (00:45)
[2019-07-19] MEDS ORDERED: NALOXONE INJ 0.4 MG/1 ML VIAL (J2310) IV PRN (00:45)
[2019-07-19] MEDS: NS 1,000 ML IV SCH ×2 (01:04→10:30)
[2019-07-19] MEDS: MORPHINE 4 MG/ML 1ML VIAL/SYRINGE (J2270) IV PRN ×5 (01:05→20:02)
[2019-07-19] MEDS ORDERED: GLUCOSE 4 GM CHEW TABLET PO PRN (01:15)
[2019-07-19] MEDS ORDERED: DEXTROSE 50% 50 ML SYRINGE IV PRN (01:15)
[2019-07-19] MEDS ORDERED: GLUCAGON FOR INJ 1 MG VIAL (J1610) SC PRN (01:15)
[2019-07-19] MEDS ORDERED: NICOTINE 14 MG/24 HR TRANSDERMAL TD PRN (01:15)
--- NOTE | 2019-07-19 01:18 | HPEPDOC ---
[facility] Medical History & Physical Date of Admission Jul 19, 2019 Date of Service: Jul 19, 2019 History and Physical Pt is a 79 year old male with PMH of CAD with a history of multiple stents, intolerant to ASA, ABDs, [id number], urinary incontinence, history of right proximal calculi in the ureter, chronic back pain, hepatitis C, presents with nausea, vomiting, subjective fevers, chills, and urinary incontinence 1 week. Patient has a history of UTIs with Aerococcus urinary and a sensitive to penicillin, amoxicillin, piperacillin, cefepime, rifampin, nitroglycerin for tone, but resistant to sulfonamides and netilmicin. Pt reports allergy to pcn and macrobid. His last hospitalization was on 01/2019 for right nephrolithiasis, located by pyelonephritis, requiring cystoscopy and stent placement. In the ED, patient was afebrile, tachycardic, labs include WBC of 24.2, creatinine of 1, fasting glucose of 243, sodium of 134, potassium 4.1, lactic acid 1.6. CT abdomen and pelvis was positive for moderate hydroureteronephrosis on the left with punctate calcifications in the left pelvis has been stable, old compared to prior study. ROS: 10 point review systems negative except per above. PMH: See above. PSH: See above. All ostomy secondary to trauma from [place], prostatectomy with bladder stricture removal, cholecystectomy, appendectomy Family history: Reviewed and noncontributory. Social history: Current smoker, no alcohol, or illicits Medications: Reviewed Allergies: Penicillin: Reports feeling extremely sick, linezolid, nitrofurantoin, unknown allergic reaction, aspirin: also reports feeling very sick PHYSICAL EXAMINATION: VITAL SIGNS: Please see below. GENERAL: No distress, energetic, able to speak in full sentences. HEENT: Normocephalic, atraumatic, moist mucous membranes NECK: Supple CARDIOVASCULAR EXAMINATION: S1, S2 RESPIRATORY EXAMINATION: CTAB ABDOMINAL EXAMINATION: Soft, nontender, nondistended, positive bowel sounds, positive colostomy on left lower quadrant EXTREMITIES: no edema, tenderness to palpation in the hips and bilateral CVA tenderness SKIN: No rash NEUROLOGICAL EXAMINATION: Alert and oriented 2, not oriented to time PSYCHIATRIC EXAMINATION: Calm and cooperative, appropriate affect #Urosepsis: continue cefepime due to previous culture sensitive to this medication, will adjust accordingly, IV fluids, [place] intact urology consult, patient is on morphine and [place] 5 at home, reports pain is not controlled, well consider pain management. For now, pain is controlled with morphine with parameters. #hx of falls: Fall precautions #Atrial fibrillation, currently not on anticoagulation, CAD/score greater than 2, patient is a fall risk, he does follow cardiology and [place], hold off on additional anticoagulation at this time #DM [id number]: Hold home by mouth meds, start patient on insulin sliding scale, hypoglycemic protocol #CAD: Continue Plavix, patient has adverse effects with aspirin #HTN/H DL: Continue home meds, will place patient on diabetic heart healthy diet #Nicotine dependence: Nicotine patch when necessary DVT ppx: enox Full code, to note, pt was very specific, he only wants to be on the vent for 93 days, if no improvement to remove support. Vital Signs Vital Signs Date Time Temp Pulse Resp B/P (MAP) Pulse Ox O2 Delivery O2 Flow Rate FiO2 07/19/19 01:05 18 07/19/19 00:30 99.0 72 106/72 (83) 95 Room Air Laboratory Data Labs 24H Laboratory Tests 2 07/18/19 17:26: Immature Granulocyte % (Auto) 1.4, Neutrophils (%) (Auto) 87.5H, Lymphocytes (%) (Auto) 4.6L, Monocytes (%) (Auto) 6.3H, Eosinophils (%) (Auto) 0.0, Basophils (%) (Auto) 0.2, Neutrophils # (Auto) 21.2H, Lymphocytes # (Auto) 1.1L, Monocytes # (Auto) 1.5H, Eosinophils # (Auto) 0.0, Basophils # (Auto) 0.1, Nucleated Red Blood Cells % (auto) 0.0, Anion Gap 10, Glomerular Filtration Rate > 60.0, Lactic Acid Level 1.6, Calcium Level 9.4, Total Bilirubin 1.5H, Direct Bilirubin 0.5H, Aspartate Amino Transf (AST/SGOT) 27, Alanine Aminotransferase (ALT/SGPT) 33, Alkaline Phosphatase 127H, Total Protein 7.4, Albumin 3.8, Albumin/Globulin Ratio 1.06, Lipase 26L 07/18/19 17:34: POC Glucose (Misc Panel) 257H, POC Sodium (Misc Panel) 132L, POC Potassium (Misc Panel) 5.1, POC Chloride (Misc Panel) 101, POC Total CO2 (Misc Panel) 23.0, POC Blood Urea Nitrogen (Misc Panel 23, POC Ionized Calcium (Misc Panel) 4.6, POC Creatinine (Misc Panel) 0.7, POC Hematocrit (Misc Panel) 46.0 07/18/19 19:33: Urine Color YELLOW, Urine Appearance CLOUDYH, Urine pH 6.0, Urine Specific [place] 1.015, Urine Protein 1+H, Urine Glucose (UA) 2+H, Urine Ketones TRACEH, Urine Blood 1+H, Urine Nitrite POSITIVEH, Urine Bilirubin NEGATIVE, Urine Urobilinogen 2.0H, Urine Leukocyte Esterase 3+H, Urine WBC (Auto) TNTCH, Urine RBC (Auto) 9H, Urine Hyaline Casts (Auto) 0, Urine Bacteria (Auto) 2+H, Urine Squamous Epithelial Cells 1, Urine Mucus (Auto) SMALL, Urine Sperm (Auto) 07/19/19 00:34: Bedside Glucose (Misc Panel) 89 CBC/BMP Laboratory Tests 07/18/19 17:26 Microbiology Microbiology 07/18/19 Urine Culture, Received Pending Home Medications Scheduled Ascorbic Acid (Vitamin C) 500 Mg Capsule, 500 MG PO DAILY Atorvastatin Calcium (Atorvastatin Calcium) 80 Mg Tablet, 40 MG PO DAILY Clopidogrel Bisulfate (Plavix) 75 Mg Tablet, 75 MG PO DAILY Glipizide (Glipizide) 5 Mg Tablet, 5 MG PO BID Metformin HCl (Metformin HCl) 500 Mg Tablet, 500 MG PO BID Metoprolol Succinate (Metoprolol Succinate) 25 Mg Tab.er.24h, 25 MG PO DAILY Oxybutynin Chloride (Oxybutynin Chloride ER) 15 Mg Tab.er.24, 30 MG PO DAILY Pantoprazole Sodium (Pantoprazole Sodium) 40 Mg Tablet.dr, 40 MG PO DAILY Sertraline HCl (Sertraline HCl) 50 Mg Tablet, 50 MG PO DAILY Tamsulosin HCl (Flomax) 0.4 Mg Capsule, 0.4 MG PO DAILY Vitamin B Complex/Folic Acid (B-Complex Tablet) 0.4 Mg Tablet, 1 TAB PO DAILY Scheduled PRN Albuterol Sulfate (Ventolin Hfa) 18 Gm Hfa.aer.ad, 2 PUFF INH QID PRN for SHORTNESS OF BREATH Dextrose (Glucose) 4 Gm Tab.chew, 1 CHW PO for LOW BLOOD SUGAR Hydrocodone/Acetaminophen (Hydrocodone-Acetamin 5-325 mg) 1 Each Tablet, 1 TAB PO TID PRN for PAIN Allergies Coded Allergies: Contrast Media (Verified Allergy, Intermediate, HIVES, 02/21/19) Penicillins (Verified Allergy, Unknown, "CHOKING", 02/21/19) aspirin (Verified Adverse Reaction, Mild, N/V, 02/02/19) codeine (Verified Adverse Reaction, Mild, NAUSEA/VOMITING, 02/21/19) gabapentin (Verified Adverse Reaction, Mild, NAUSEA/VOMITING, 02/21/19) linezolid (Verified Adverse Reaction, Mild, NAUSEA/VOMITING, 02/21/19) nitrofurantoin (Verified Adverse Reaction, Mild, NAUSEA/VOMITING, 02/21/19) simvastatin (Verified Adverse Reaction, Mild, NAUSEA/VOMITING, 02/21/19) A-FIB/CHADSVASC A-FIB History Current/History of A-Fib/PAF?: Yes Current PO Anticoag Therapy: No Age/Risk Factor Scoring CHADSVASC: CHADSVASC Response (Comments) Value Age Risk Factor Age 65-74 years old 1 Gender Risk Factor Male 0 Hx of CHF No 0 Hx of HTN Yes 1 Hx of Stroke/TIA/or VTE No 0 Hx of Diabetes Yes 1 Hx of Vascular Disease Yes 1 Total 4 Treatment Treatment ordered: NONE (hx of falls, follows cardiology as outpt in [place]) Reason Anticoagulant not given: Other (hx of falls) Other reason anticoagulant not: see above SKY DIAZ MD Jul 19, 2019 01:18
[2019-07-19] MEDS: CEFEPIME HCL 2 GM in D5W MINI-BAG PLUS 50 ML IV SCH ×2 (02:08→12:30)
[2019-07-19 05:18] VITALS: BP 92/58
[2019-07-19] MEDS ORDERED: NS 1,000 ML IV ONE (05:45)
[2019-07-19 05:55] LABS: HEMATOCRIT 39.2 % (42.0-52.0); MEAN CORPUSCULAR HEMOGLOBIN 31.1 pg (27.0-33.0); MEAN CORPUSCULAR HGB CONC 32.7 g/dl (32.0-36.5); MEAN CORPUSCULAR VOLUME 95.1 fl (80.0-96.0); PLATELET COUNT, AUTOMATED 144 10^3/uL (150-450); RED BLOOD COUNT 4.12 10^6/uL (4.30-6.10); WHITE BLOOD COUNT 16.1 10^3/uL (4.0-10.0)
[2019-07-19 06:05] LABS: HEMOGLOBIN 12.8 g/dl (13.5-17.5)
[2019-07-19 06:14] LABS: BLOOD UREA NITROGEN 16 MG/DL (7-18); CALCIUM LEVEL 8.4 MG/DL (8.8-10.2); CARBON DIOXIDE LEVEL 23 MEQ/L (21-32); CHLORIDE LEVEL 111 MEQ/L (98-107); CREATININE FOR GFR 0.84 MG/DL (0.70-1.30); GLOMERULAR FILTRATION RATE > 60.0 (>49); GLUCOSE, FASTING 86 MG/DL (70-100); POTASSIUM SERUM 4.1 MEQ/L (3.5-5.1); SODIUM LEVEL 141 MEQ/L (136-145)
[2019-07-19 07:00] VITALS: BP 90/68
[2019-07-19] MEDS: HumaLOG INSULIN (NovoLOG) PER UNIT SC SCH ×3 (07:30→17:21)
--- NOTE | 2019-07-19 08:14 | SMCUROLCON ---
Urology Consultation General Date of Consultation 07/19/19 Reason For Consultation This patient is seen for Right Ureteral Stone,Sepsis,Uti. History of Present Illness The patient is a 69-year-old white male with a past medical history for prior prostatectomy (TURP) and bladder neck stricture admitted with sepsis. CT scan with mild pyelectasis and a distended bladder. Manriquez placed in the ED. Past Medical History Medical History reviewed Surgical Hstory as above Family History Significant Family History: Noncontributory Social History * Smoker: former Smoker Alcohol: Denies Medications Current Medications Current Medications Medications (Trade) Dose Ordered Sig/Ladarius Route PRN Reason Start Time Stop Time Status Last Admin Dose Admin Acetaminophen (Tylenol Tab) 650 mg Q4H PRN PO PAIN OR FEVER 07/19/19 00:15 Al Hydrox/Mg Hydrox/Simethicone (Mylanta) 30 ml DAILY PRN PO DYSPEPSIA 07/19/19 00:15 Cefepime HCl 1 gm/ Dextrose 50 ml @ 100 mls/hr Q12H IV 07/19/19 00:30 07/19/19 01:56 DC Cefepime HCl 2 gm/ Dextrose 50 ml @ 100 mls/hr Q12H IV 07/19/19 01:00 07/19/19 02:08 Dextrose (Dextrose 50%) 25 ml ASDIRECTED PRN IV SEE LABEL COMMENTS 07/19/19 01:15 Docusate Sodium (Colace) 100 mg BID PO 07/19/19 09:00 Enoxaparin Sodium (Lovenox) 40 mg DAILY SC 07/19/19 09:00 Glucagon (Glucagon) 1 mg ASDIRECTED PRN SC SEE LABEL COMMENTS 07/19/19 01:15 Glucose (Glucose) 16 GM ASDIRECTED PRN PO SEE LABEL COMMENTS 07/19/19 01:15 Home Med (Med Rec Complete!) ASDIRECTED XX 07/18/19 22:00 07/18/19 21:50 DC Insulin Human Lispro (HumaLOG INSULIN) SEE PROTOCOL TABLE AC SC 07/19/19 07:30 Insulin Human Lispro (HumaLOG INSULIN) SEE PROTOCOL TABLE QHS SC 07/19/19 21:00 Magnesium Hydroxide (Milk Of Magnesia) 30 ml DAILY PRN PO CONSTIPATION 07/19/19 00:15 Morphine Sulfate (Morphine Sulfate Inj) 2 mg Q4HP PRN IV mod PAIN (PS 5-7) 07/19/19 00:45 Morphine Sulfate (Morphine Sulfate Inj) 4 mg Q4HP PRN IV SEVERE PAIN (PS 8-10) 07/19/19 00:45 07/19/19 05:13 Naloxone HCl (Narcan) 0.1 mg Q5MP PRN IV RESP. RATE < 10 07/19/19 00:45 Nicotine (Nicoderm Cq 14mg) 1 patch DAILYPRN PRN TD NICOTINE WITHDRAWAL 07/19/19 01:15 Sodium Chloride 1,000 ml @ 100 mls/hr Q10H IV 07/19/19 00:30 07/19/19 01:04 Allergies Allergies: Coded Allergies: Contrast Media (Verified Allergy, Intermediate, HIVES, 02/21/19) Penicillins (Verified Allergy, Unknown, "CHOKING", 02/21/19) aspirin (Verified Adverse Reaction, Mild, N/V, 02/02/19) codeine (Verified Adverse Reaction, Mild, NAUSEA/VOMITING, 02/21/19) gabapentin (Verified Adverse Reaction, Mild, NAUSEA/VOMITING, 02/21/19) linezolid (Verified Adverse Reaction, Mild, NAUSEA/VOMITING, 02/21/19) nitrofurantoin (Verified Adverse Reaction, Mild, NAUSEA/VOMITING, 02/21/19) simvastatin (Verified Adverse Reaction, Mild, NAUSEA/VOMITING, 02/21/19) Review of Systems General: Denies: Chills Constitutional: Denies: Fever, Chills Genitourinary: Reports: Retention; Denies: Incontinence, Hematuria Physical Examination General Exam: No Acute Distress Male Exam: No: Tenderness (manriquez in place. Bladder not distended) Vital Signs/I&O Vital Signs Date Time Temp Pulse Resp B/P (MAP) Pulse Ox O2 Delivery O2 Flow Rate FiO2 07/19/19 07:00 90/68 (75) 07/19/19 05:23 19 07/19/19 05:18 98.3 91 89 Room Air I&O- Last 24 Hours up to 6 AM 07/19/19 06:00 Intake Total 2790 ml Output Total 900 ml Balance 1890 ml Laboratory Data 24H Labs Laboratory Tests 2 07/18/19 17:26: Immature Granulocyte % (Auto) 1.4, Neutrophils (%) (Auto) 87.5H, Lymphocytes (%) (Auto) 4.6L, Monocytes (%) (Auto) 6.3H, Eosinophils (%) (Auto) 0.0, Basophils (%) (Auto) 0.2, Neutrophils # (Auto) 21.2H, Lymphocytes # (Auto) 1.1L, Monocytes # (Auto) 1.5H, Eosinophils # (Auto) 0.0, Basophils # (Auto) 0.1, Nucleated Red Blood Cells % (auto) 0.0, Anion Gap 10, Glomerular Filtration Rate > 60.0, Lactic Acid Level 1.6, Calcium Level 9.4, Total Bilirubin 1.5H, Direct Bilirubin 0.5H, Aspartate Amino Transf (AST/SGOT) 27, Alanine Aminotransferase (ALT/SGPT) 33, Alkaline Phosphatase 127H, Total Protein 7.4, Albumin 3.8, Albumin/Globulin Ratio 1.06, Lipase 26L 07/18/19 17:34: POC Glucose (Misc Panel) 257H, POC Sodium (Misc Panel) 132L, POC Potassium (Misc Panel) 5.1, POC Chloride (Misc Panel) 101, POC Total CO2 (Misc Panel) 23.0, POC Blood Urea Nitrogen (Misc Panel 23, POC Ionized Calcium (Misc Panel) 4.6, POC Creatinine (Misc Panel) 0.7, POC Hematocrit (Misc Panel) 46.0 07/18/19 19:33: Urine Color YELLOW, Urine Appearance CLOUDYH, Urine pH 6.0, Urine Specific [place] 1.015, Urine Protein 1+H, Urine Glucose (UA) 2+H, Urine Ketones TRACEH, Urine Blood 1+H, Urine Nitrite POSITIVEH, Urine Bilirubin NEGATIVE, Urine Urobilinogen 2.0H, Urine Leukocyte Esterase 3+H, Urine WBC (Auto) TNTCH, Urine RBC (Auto) 9H, Urine Hyaline Casts (Auto) 0, Urine Bacteria (Auto) 2+H, Urine Squamous Epithelial Cells 1, Urine Mucus (Auto) SMALL, Urine Sperm (Auto) 07/19/19 00:34: Bedside Glucose (Misc Panel) 89 07/19/19 05:35: Nucleated Red Blood Cells % (auto) 0.0, Anion Gap 7L, Glomerular Filtration Rate > 60.0, Calcium Level 8.4L CBC/BMP Laboratory Tests 07/18/19 17:26 07/19/19 05:35 Microbiology Microbiology 07/18/19 Urine Culture, Received Pending Assessment UTI and urinary retention Plan Leave in manriquez for now. Follow WBC. Renal sonogram in a few days. Will need cystoscopy as an outpatient. CT images reviewed and stone not seen. [place] minimal if at all. No need for surgical intervention at the present time. Time Spent on Consult: Time Spent / Consult (Minutes): 30 JESUS TYLER MD Jul 19, 2019 08:14
[2019-07-19] MEDS: DOCUSATE SODIUM 100 MG CAP PO SCH ×2 (09:00→20:01)
[2019-07-19] MEDS ORDERED: FLUBLOK(EGG FREE)(QUAD)INFLUENZA VACC 0.5ML SYRINGE (90682)18YRS&OLDER IM ONE (09:00)
[2019-07-19] MEDS ORDERED: PREVNAR 13 VACCINE SYRINGE (CPT CODE:90670) IM ONE (09:00)
[2019-07-19] MEDS: ENOXAPARIN 40 MG/0.4 ML SYRINGE (J1650) SC SCH (09:10)
--- NOTE | 2019-07-19 11:54 | IPNPDOC ---
Text Note Date of Service The patient was seen on 07/19/19. NOTE Subjective: -Alert, pleasant, sitting up in bed, with no complaints. He however seems pleasantly delirious, with very varied unrelated topics, and sometimes inappropriate flirting all in the same conversation. I will need to establish his baseline mentation per his family. -Reports no pain at this time Interim events: -Was admitted overnight with L hydro and suspected stone with fever, chills and found to have a UTI and was started on cefepime per prior micro data, with p ending urinary culture -Urology was consulted and recommended medical management of the sepsis holli lindsay UTI, continue manriquez, and will follow up outpatient Objective: VITAL SIGNS: Please see below. GENERAL: No distress, energetic, able to speak in full sentences. HEENT: Normocephalic, atraumatic, moist mucous membranes NECK: Supple CARDIOVASCULAR EXAMINATION: S1, S2 RESPIRATORY EXAMINATION: CTAB ABDOMINAL EXAMINATION: Soft, nontender, nondistended, positive bowel sounds, has a colostomy on left lower quadrant, continues to have some bilateral CVA tenderness EXTREMITIES: 2+ DP pulses, WWP, no LE edema SKIN: No rash NEUROLOGICAL EXAMINATION: Alert and oriented to self and place, but not time or reason for admission PSYCHIATRIC EXAMINATION: Calm and cooperative, pleasant, appropriate affect Labs: Reviewed. WBC 16.1, Hgb 12.8, Hct 39.2, Platelets 144, na 141, K 4, Cr 0.84 Imaging: CT A/P Liver: Normal. No mass. Gallbladder and bile ducts: There has been a cholecystectomy. Pancreas: Normal. No ductal dilation. Spleen: Normal. No splenomegaly. Adrenals: Normal. No mass. Kidneys and ureters: There is moderate hydroureteronephrosis on the left. A punctate calcifications seen in the left pelvis may represent a ureteral calculus although not changed in comparison to the prior study. Correlation with CT urography suggested if clinically desired. Mild hydroureteronephrosis on the right. Stomach and bowel: There are multiple moderately dilated small bowel loops demonstrated in the mid abdomen associated with a thickened bowel wall. Differential includes small bowel obstruction and enteritis. There is increased feces throughout the colon consistent with constipation. Appendix: No evidence of appendicitis. Intraperitoneal space: Unremarkable. No free air. No significant fluid collection. Vasculature: There is moderate atherosclerotic calcification of the coronary arteries. Infrarenal abdominal aortic aneurysm measures 3.3 cm in maximum anterior-posterior diameter stable in comparison to the prior study. Lymph nodes: Unremarkable. No enlarged lymph nodes. Bladder: A marked dilatation of the urinary bladder, findings likely secondary to chronic bladder outlet obstruction. Reproductive: The prostate gland demonstrates moderate hyperplasia. Status post TURP. Bones/joints: There are acute to subacute fractures of the posterior 10th and 11th ribs on the left. The spine demonstrates moderate degenerative changes. Moderate central spinal stenosis at L3-L4.There is a grade 2 anterior spondylolisthesis of L5 on S1 secondary to bilateral L5 spondylolysis. Soft tissues: Unremarkable. IMPRESSION: 1. There are acute to subacute fractures of the posterior 10th and 11th ribs on the left. 2. Moderate central spinal stenosis at L3-L4.There is a grade 2 anterior spondylolisthesis of L5 on S1 secondary to bilateral L5 spondylolysis. 3. There has been a cholecystectomy. 4. Infrarenal abdominal aortic aneurysm measures 3.3 cm in maximum anterior- posterior diameter stable in comparison to the prior study. 5. Moderate prostatic hyperplasia. 6. There is increased feces throughout the colon consistent with constipation. 7. There is moderate hydroureteronephrosis on the left. A punctate calcifications seen in the left pelvis may represent a ureteral calculus although not changed in comparison to the prior study. Correlation with CT urography suggested if clinically desired. Assessment: 69 year old man with CAD with a history of multiple stents, intolerant to ASA, [id number], urinary incontinence, history of TURP, right proximal calculi in the ureter, chronic back pain, recent admission in 01/2019 for R nephrolithiasis requiring cystoscopy and stent placement, who presented with N/V, fevers, chills, and urinary incontinence 1 week and found to have sepsis secondary to a urinary infection with moderate hydroureteronephrosis on the left with punctate calcifications in the left pelvis that appear stable compared to prior now on empiric cefepime pending urinary micro speciation and sensitivities, with urology recommending medical treatment of the infection, continuation of the manriquez and will see patient in the outpatient setting with no interventions at this time. Plan: #Sepsis secondary to urinary tract infection with left hydronephrosis and distended bladder with c/f nephrolithiasis: -continue cefepime due to previous culture sensitive to this medication, will adjust accordingly, IV fluids, continue manriquez, urology consulted, appreciate recs to treat infection, continue manriquez and no urological interventions at this time and to repeat renal US in a few days. -Continue morphine 2mg Q4H PRN for pain #History of falls: -Fall precautions -PT/OT #AMS: To establish baseline mentation when family arrives as he appears pleasantly delirious in speaking with him. Likely metabolic encephalopathy in the setting of acute infection vs. hospital delirium -will monitor for now #Atrial fibrillation: -currently not on anticoagulation, CAD/score greater than 2, patient is a fall risk, he does follow cardiology and [place], hold off on additional anticoagulation at this time #DM [id number]: -Continue holding home meds -Continue insulin sliding scale, hypoglycemic protocol and FSBG AC/HS #CAD: -Continue Plavix, patient has adverse effects with aspirin #HTN/HLD: -Continue home meds #Nicotine dependence: -Nicotine patch DVT ppx: lovenox Full code VS,Fishbone, I+O VS, Fishbone, I+O Laboratory Tests 07/18/19 17:26 07/19/19 05:35 Vital Signs Date Time Temp Pulse Resp B/P (MAP) Pulse Ox O2 Delivery O2 Flow Rate FiO2 07/19/19 10:35 18 07/19/19 07:00 90/68 (75) 07/19/19 05:18 98.3 91 89 Room Air I&O- Last 24 Hours up to 6 AM 07/19/19 06:00 Intake Total 2790 ml Output Total 900 ml Balance 1890 ml SILVIA MANN MD Jul 19, 2019 11:54
[2019-07-19 14:00] VITALS: BP 96/61
[2019-07-19] MEDS ORDERED: HumaLOG INSULIN (NovoLOG) PER UNIT SC SCH (21:00)
[2019-07-19 22:00] VITALS: BP 128/73
[2019-07-20] MEDS: NS 1,000 ML IV SCH ×2 (01:12→05:14)
[2019-07-20] MEDS: CEFEPIME HCL 2 GM in D5W MINI-BAG PLUS 50 ML IV SCH (01:12)
[2019-07-20] MEDS: MORPHINE 4 MG/ML 1ML VIAL/SYRINGE (J2270) IV PRN ×3 (01:12→09:21)
[2019-07-20 06:00] VITALS: BP 127/74
[2019-07-20] MEDS ORDERED: CEPHALEXIN 500 MG CAP PO SCH (06:00)
[2019-07-20 06:26] LABS: HEMATOCRIT 37.1 % (42.0-52.0); HEMOGLOBIN 12.6 g/dl (13.5-17.5); MEAN CORPUSCULAR HEMOGLOBIN 31.8 pg (27.0-33.0); MEAN CORPUSCULAR VOLUME 93.7 fl (80.0-96.0); PLATELET COUNT, AUTOMATED 109 10^3/uL (150-450); RED BLOOD COUNT 3.96 10^6/uL (4.30-6.10); WHITE BLOOD COUNT 6.4 10^3/uL (4.0-10.0)
[2019-07-20 06:49] LABS: BLOOD UREA NITROGEN 17 MG/DL (7-18); CALCIUM LEVEL 8.6 MG/DL (8.8-10.2); CARBON DIOXIDE LEVEL 23 MEQ/L (21-32); CHLORIDE LEVEL 107 MEQ/L (98-107); CREATININE FOR GFR 0.91 MG/DL (0.70-1.30); GLOMERULAR FILTRATION RATE > 60.0 (>49); GLUCOSE, FASTING 107 MG/DL (70-100); POTASSIUM SERUM 3.9 MEQ/L (3.5-5.1); SODIUM LEVEL 136 MEQ/L (136-145)
[2019-07-20] MEDS: HumaLOG INSULIN (NovoLOG) PER UNIT SC SCH (07:30)
[2019-07-20] MEDS: DOCUSATE SODIUM 100 MG CAP PO SCH (09:22)
[2019-07-20] MEDS: ENOXAPARIN 40 MG/0.4 ML SYRINGE (J1650) SC SCH (09:22)
[2019-07-20] MEDS ORDERED: CEPH500C PO (09:59)
[2019-07-20] MEDS ORDERED: NALO4SY IV (09:59)
--- NOTE | 2019-07-20 12:52 | DS.PDOC ---
Discharge Summary General Date of Admission Jul 18, 2019 at 21:02 Date of Discharge 07/20/2019 Discharge Summary PROCEDURES PERFORMED DURING STAY: [None]. ADMITTING DIAGNOSES: 1. Sepsis due to UTI 2. Urinary retention 3. Atrial Fibrillation 4. DMII 5. CAD 6. HTN 7. HDL 8. Nicotine Dependence 9. History of falls 10. Left Hydronephrosis DISCHARGE DIAGNOSES: 1. Sepsis due to UTI 2. Urinary retention 3. Atrial Fibrillation 4. DMII 5. CAD 6. HTN 7. HDL 8. Nicotine Dependence 9. History of falls 10. Left Hydronephrosis COMPLICATIONS/CHIEF COMPLAINT: Right Ureteral Stone,Sepsis,UTI HISTORY OF PRESENT ILLNESS: "Pt is a 79 year old male with PMH of CAD with a history of multiple stents, intolerant to ASA, ABDs, [id number], urinary incontinence, history of right proximal calculi in the ureter, chronic back pain, hepatitis C, presents with nausea, vomiting, subjective fevers, chills, and urinary incontinence 1 week. Patient has a history of UTIs with Aerococcus urinary and a sensitive to penicillin, amoxicillin, piperacillin, cefepime, rifampin, nitroglycerin for tone, but resistant to sulfonamides and netilmicin. Pt reports allergy to pcn and macrobid. His last hospitalization was on 01/2019 for right nephrolithiasis, located by pyelonephritis, requiring cystoscopy and stent placement. In the ED, patient was afebrile, tachycardic, labs include WBC of 24.2, creatinine of 1, fasting glucose of 243, sodium of 134, potassium 4.1, lactic acid 1.6. CT abdomen and pelvis was positive for moderate hydroureteronephrosis on the left with punctate calcifications in the left pelvis has been stable, old compared to prior study." HOSPITAL COURSE: Pt was admitted as noted above. Received Cefepime, IV fluids and urology consulted. Manriquez placed in the ED due to mild distention of the bladder. Per urology: continue with Manriquez, monitor WBC clinically, renal USG in a few days and cystoscopy outpatient. Urine micro supported evidence of UTI, however culture returned 'no growth.' Leukocytosis improved rapidly with Cefepime and hydration. Based on this patient's complicated urology history it is reasonable to continue presumptive treatment for complicated UTI with close urology follow-up. Pt was switched to Keflex 07/20/19 and discharged with a 10 day course. Manriquez to remain in place until urology follow-up due to urinary retention; Mr. Casey voiced his agreement. He would like to go to the [place] for Urology follow-up. DISCHARGE MEDICATIONS: Please see below. ALLERGIES: Please see below. PHYSICAL EXAMINATION ON DISCHARGE: VITAL SIGNS: Please see below. GENERAL: NAD, animated speaker HEENT: Normocephalic, atraumatic, moist mucous membranes NECK: Supple CARDIOVASCULAR EXAMINATION: 2/6 SM; [id number] RESPIRATORY EXAMINATION: Clear to auscultation, Normal air movement ABDOMINAL EXAMINATION: Soft, nontender, nondistended, positive bowel sounds, has a colostomy on left lower quadrant EXTREMITIES: Normal pulses; no clubbing, cyanosis, edema SKIN: No rash PSYCHIATRIC EXAMINATION: AO x 3 LABORATORY DATA: Please see below. IMAGING:CT Abd/Pelvis IMPRESSION: 1. There are acute to subacute fractures of the posterior 10th and 11th ribs on the left. 2. Moderate central spinal stenosis at L3-L4.There is a grade 2 anterior spondylolisthesis of L5 on S1 secondary to bilateral L5 spondylolysis. 3. There has been a cholecystectomy. 4. Infrarenal abdominal aortic aneurysm measures 3.3 cm in maximum anterior-posterior diameter stable in comparison to the prior study. 5. Moderate prostatic hyperplasia. 6. There is increased feces throughout the colon consistent with constipation. 7. There is moderate hydroureteronephrosis on the left. A punctate calcifications seen in the left pelvis may represent a ureteral calculus although not changed in comparison to the prior study. Correlation with CT urography suggested if clinically desired. ACTIVITY: [As tolerated]. DIET: As tolerated DISCHARGE PLAN: Discharge home with close urology follow-up DISPOSITION: Home DISCHARGE INSTRUCTIONS: 1. Follow-up with urology within 3-5 days 2. Discharge home with catheter and care instructions per nursing; urology to manage outpatient 3. Take all antibiotics as prescribed. Push fluids. 4. Hold Metformin while on Keflex; adhere to carb steady diet (per handout). May resume this medication once Keflex therapy completed. ITEMS TO FOLLOWUP ON ON OUTPATIENT: 1. as above DISCHARGE CONDITION: [Stable]. TIME SPENT ON DISCHARGE: 32 minutes Vital Signs/I&Os Vital Signs Date Time Temp Pulse Resp B/P (MAP) Pulse Ox O2 Delivery O2 Flow Rate FiO2 07/20/19 09:31 18 07/20/19 06:00 98.2 91 127/74 (91) 93 Room Air I&O- Last 24 Hours up to 6 AM 07/20/19 06:00 Intake Total 1972 ml Output Total 3200 ml Balance -1228 ml Laboratory Data Labs 24H Laboratory Tests 2 07/19/19 16:29: Bedside Glucose (Misc Panel) 141H 07/19/19 20:22: Bedside Glucose (Misc Panel) 151H 07/20/19 05:36: Nucleated Red Blood Cells % (auto) 0.0, Anion Gap 6L, Glomerular Filtration Rate > 60.0, Calcium Level 8.6L 07/20/19 11:50: Bedside Glucose (Misc Panel) 150H CBC/BMP Laboratory Tests 07/20/19 05:36 FSBS Laboratory Tests Test 07/19/19 16:29 07/19/19 20:22 07/20/19 11:50 Range/Units Bedside Glucose (Misc Panel) 141 151 150 80-115 MG/DL Microbiology Microbiology 07/18/19 Urine Culture - Final, Complete Discharge Medications Scheduled Ascorbic Acid (Vitamin C) 500 Mg Capsule, 500 MG PO DAILY, (Reported) Atorvastatin Calcium (Atorvastatin Calcium) 80 Mg Tablet, 40 MG PO DAILY, (Reported) Cephalexin (Cephalexin) 500 Mg Capsule, 500 MG PO Q6H Clopidogrel Bisulfate (Plavix) 75 Mg Tablet, 75 MG PO DAILY, (Reported) Glipizide (Glipizide) 5 Mg Tablet, 5 MG PO BID, (Reported) Metoprolol Succinate (Metoprolol Succinate) 25 Mg Tab.er.24h, 25 MG PO DAILY, (Reported) Oxybutynin Chloride (Oxybutynin Chloride ER) 15 Mg Tab.er.24, 30 MG PO DAILY, (Reported) Pantoprazole Sodium (Pantoprazole Sodium) 40 Mg Tablet.dr, 40 MG PO DAILY, (Reported) Sertraline HCl (Sertraline HCl) 50 Mg Tablet, 50 MG PO DAILY, (Reported) Tamsulosin HCl (Flomax) 0.4 Mg Capsule, 0.4 MG PO DAILY, (Reported) Vitamin B Complex/Folic Acid (B-Complex Tablet) 0.4 Mg Tablet, 1 TAB PO DAILY, (Reported) Scheduled PRN Albuterol Sulfate (Ventolin Hfa) 18 Gm Hfa.aer.ad, 2 PUFF INH QID PRN for SHORTNESS OF BREATH, (Reported) Dextrose (Glucose) 4 Gm Tab.chew, 1 CHW PO for LOW BLOOD SUGAR, (Reported) Hydrocodone/Acetaminophen (Hydrocodone-Acetamin 5-325 mg) 1 Each Tablet, 1 TAB PO TID PRN for PAIN, (Reported) Allergies Coded Allergies: Contrast Media (Verified Allergy, Intermediate, HIVES, 02/21/19) Penicillins (Verified Allergy, Unknown, "CHOKING", 02/21/19) aspirin (Verified Adverse Reaction, Mild, N/V, 02/02/19) codeine (Verified Adverse Reaction, Mild, NAUSEA/VOMITING, 02/21/19) gabapentin (Verified Adverse Reaction, Mild, NAUSEA/VOMITING, 02/21/19) linezolid (Verified Adverse Reaction, Mild, NAUSEA/VOMITING, 02/21/19) nitrofurantoin (Verified Adverse Reaction, Mild, NAUSEA/VOMITING, 02/21/19) simvastatin (Verified Adverse Reaction, Mild, NAUSEA/VOMITING, 02/21/19) Attending Note 69 year old man with CAD with a history of multiple stents, intolerant to ASA, [id number], urinary incontinence, history of TURP, right proximal calculi in the ureter, chronic back pain, recent admission in 01/2019 for R nephrolithiasis requiring cystoscopy and stent placement, who presented with N/V, fevers, chills, and urinary incontinence 1 week and found to have sepsis secondary to a urinary infection with moderate hydroureteronephrosis on the left with punctate calcifications in the left pelvis that appear stable compared to prior initially placed on empiric cefepime with culture that was ultimately negative but given +SIRS and +UA will be treated with 10 day of keflex. He is now being discharged home with a manriquez per urology with prompt urology outpatient follow up. CORTES JAVED PA-C Jul 20, 2019 12:52 SILVIA MANN MD Jul 20, 2019 17:12
== END 2019-07-20 12:25 | disposition home or self-care (01) | DRG 872 ==
LOC: M ED 16:49 → M ED INP 21:02 → ENRESERV 21:21 → M MS5PR 07-19 00:27
PROVIDERS: ADMIT Family Medicine; ATTEND Internal Medicine
DX: A41.9 Sepsis, unspecified organism (principal); N39.0 Urinary tract infection, site not specified; N13.39 Other hydronephrosis; N20.1 Calculus of ureter; R33.9 Retention of urine, unspecified; I48.91 Unspecified atrial fibrillation; E11.9 Type 2 diabetes mellitus without complications; I10 Essential (primary) hypertension; I25.10 Atherosclerotic heart disease of native coronary artery without angina pectoris; E78.5 Hyperlipidemia, unspecified; F17.210 Nicotine dependence, cigarettes, uncomplicated; R29.6 Repeated falls; Z95.1 Presence of aortocoronary bypass graft; Z96.0 Presence of urogenital implants; Z88.0 Allergy status to penicillin; Z88.1 Allergy status to other antibiotic agents; Z88.6 Allergy status to analgesic agent; Z88.8 Allergy status to other drugs, medicaments and biological substances; R32 Unspecified urinary incontinence; G89.29 Other chronic pain; M54.9 Dorsalgia, unspecified; B19.20 Unspecified viral hepatitis C without hepatic coma; B95.4 Other streptococcus as the cause of diseases classified elsewhere; Z79.84 Long term (current) use of oral hypoglycemic drugs; Z79.899 Other long term (current) drug therapy; Z90.79 Acquired absence of other genital organ(s); R41.82 Altered mental status, unspecified

== ENCOUNTER 2019-09-26 20:58 | Emergency (ER) | payer OTHER, MEDICARE ==
[~2019-09-26] VITALS: Ht 175.3 cm; Wt 77.3 kg
[~2019-09-26 20:58] MED LIST changes: +CEPH500C PO; +HYDR-3713 PO; +NALO4SY IV
[2019-09-26 21:35] LABS: BASO % 0.5 % (0.0-1.0); EOS # 0.1 10^3/uL (0.0-0.5); EOS % 1.5 % (0.0-3.0); HEMATOCRIT 44.2 % (42.0-52.0); HEMOGLOBIN 15.1 g/dl (13.5-17.5); LYMPH # 2.2 10^3/uL (1.5-5.0); LYMPH % 25.5 % (24.0-44.0); MEAN CORPUSCULAR HEMOGLOBIN 31.3 pg (27.0-33.0); MEAN CORPUSCULAR HGB CONC 34.2 g/dl (32.0-36.5); MEAN CORPUSCULAR VOLUME 91.5 fl (80.0-96.0); MONO # 0.6 10^3/uL (0.0-0.8); MONO % 7.1 % (0.0-5.0); NEUTROPHILS # 5.7 10^3/uL (1.5-8.5); NEUTROPHILS % 65.1 % (36.0-66.0); PLATELET COUNT, AUTOMATED 206 10^3/uL (150-450); RED BLOOD COUNT 4.83 10^6/uL (4.30-6.10); WHITE BLOOD COUNT 8.7 10^3/uL (4.0-10.0)
[2019-09-26 21:45] LABS: INR 1.07; PROTHROMBIN TIME 13.7 SECONDS (11.8-14.0)
[2019-09-26 22:21] LABS: ALBUMIN 3.5 GM/DL (3.2-5.2); ALT/SGPT 19 U/L (12-78); BILIRUBIN,DIRECT 0.1 MG/DL (0.0-0.2); BILIRUBIN,TOTAL 0.3 MG/DL (0.2-1.0); BLOOD UREA NITROGEN 26 MG/DL (7-18); CALCIUM LEVEL 8.6 MG/DL (8.8-10.2); CARBON DIOXIDE LEVEL 27 MEQ/L (21-32); CHLORIDE LEVEL 110 MEQ/L (98-107); CK-MB VALUE MASS 1.2 NG/ML (<3.6); CPK CREATINE PHOSPHOKINASE 67 U/L (39-308); CREATININE FOR GFR 0.92 MG/DL (0.70-1.30); GLOMERULAR FILTRATION RATE > 60.0 (>49); GLUCOSE, FASTING 172 MG/DL (70-100); LIPASE 54 U/L (73-393); MB/CK RELATIVE INDEX 1.79 (< OR =4); POTASSIUM SERUM 4.2 MEQ/L (3.5-5.1); SODIUM LEVEL 141 MEQ/L (136-145); TOTAL PROTEIN 6.8 GM/DL (6.4-8.2); TROPONIN I < 0.02 NG/ML (< 0.10)
--- NOTE | 2019-09-26 23:09 | REP ---
Clinical: Chest pain . Comparison: 11/05/2016 . Findings: The mediastinum and cardiac silhouette are stable and within normal limits for portable technique. The lung travis demonstrate chronic changes without acute consolidation, effusion, or pneumothorax. Skeletal structures are intact. Impression: No acute cardiopulmonary process appreciated. Electronically Signed by Rai Riuz MD 09/26/2019 11:01 P
[2019-09-27 00:48] LABS: CK-MB VALUE MASS 1.4 NG/ML (<3.6); CPK CREATINE PHOSPHOKINASE 53 U/L (39-308); MB/CK RELATIVE INDEX 2.64 (< OR =4); TROPONIN I < 0.02 NG/ML (< 0.10)
[2019-09-27 00:51] VITALS: BP 135/81
--- NOTE | 2019-09-27 06:46 | ECGEPIP ---
[facility] - ED Test Date: 2019-09-26 Pat Name: JIGAR MENESES Department: Room: - Gender: Male Division Controller: HAYDEE : 1950 Requested By: NOVA VALDES Order Number: [id number] Reading MD: Linus Lopez Measurements Intervals [place] Rate: 97 P: 60 HI: 160 QRS: 49 QRSD: 91 T: 62 QT: 352 QTc: 447 Interpretive Statements SINUS RHYTHM LOW QRS VOLTAGE LIMB LEADS NONSPECIFIC ST T WAVE CHANGES 02/01/19 RATE DECREASED DECREASE IN ECTOPY NONSPECIFIC ST T WAVE CHANGES Electronically Signed on 09-27-2019 6:46:21 EDT by Linus Lopez
--- NOTE | 2019-09-27 06:49 | ECGEPIP ---
[facility] - ED Test Date: 2019-09-27 Pat Name: JIGAR MENESES Department: Room: - Gender: Male Platform Consultant: er : 1950 Requested By: NOVA VALDES Order Number: [id number] Reading MD: Linus Lopez Measurements Intervals [place] Rate: 88 P: 71 [place]: 184 QRS: 54 QRSD: 94 T: 65 QT: 359 QTc: 436 Interpretive Statements SINUS RHYTHM NONSPECIFIC ST T WAVE CHANGES LOW QRS VOLTAGE LIMB LEADS CW 09/26/[address] T WAVE CHANGES Electronically Signed on 09-27-2019 6:49:12 EDT by Linus Lopez
== END 2019-09-27 01:08 | disposition home or self-care (01) ==
LOC: M ED 20:58 → EDBD 20:58 → M ED 09-27 01:08
DX: I20.9 Angina pectoris, unspecified (principal); I10 Essential (primary) hypertension; E11.9 Type 2 diabetes mellitus without complications; J44.9 Chronic obstructive pulmonary disease, unspecified; E78.5 Hyperlipidemia, unspecified; Z95.5 Presence of coronary angioplasty implant and graft; Z79.899 Other long term (current) drug therapy; Z79.01 Long term (current) use of anticoagulants; Z88.0 Allergy status to penicillin; Z88.5 Allergy status to narcotic agent; Z88.8 Allergy status to other drugs, medicaments and biological substances; Z91.041 Radiographic dye allergy status; F17.210 Nicotine dependence, cigarettes, uncomplicated

== ENCOUNTER 2020-10-10 15:21 | Emergency (ER) | payer OTHER, MEDICARE ==
[~2020-10-10] VITALS: Ht 175.3 cm; Wt 77.3 kg
[2020-10-10 15:21] VITALS: BP 138/96
[~2020-10-10 15:21] MED LIST changes: -CLIN150C14 PO; +CLIN150C15 PO; +DEXT4TAB5 PO; -GLUC4GMTAB PO; +ISOS1TAB35 PO; -ISOS30TA4 PO; -PANT20TA2 PO; +PANT20TA6 PO; +PANT40TA29 PO; -PANT40TA3 PO
[2020-10-10] MEDS ORDERED: METF10004 PO (15:50)
== END 2020-10-10 18:03 | disposition left against medical advice (07) ==
LOC: M ED 15:21
DX: R11.10 Vomiting, unspecified (principal); E11.9 Type 2 diabetes mellitus without complications; J44.9 Chronic obstructive pulmonary disease, unspecified; J45.909 Unspecified asthma, uncomplicated; I48.91 Unspecified atrial fibrillation; E78.5 Hyperlipidemia, unspecified; F41.9 Anxiety disorder, unspecified; I25.2 Old myocardial infarction; B19.20 Unspecified viral hepatitis C without hepatic coma; Z88.0 Allergy status to penicillin; Z88.5 Allergy status to narcotic agent; Z88.8 Allergy status to other drugs, medicaments and biological substances; Z91.041 Radiographic dye allergy status; Z79.01 Long term (current) use of anticoagulants

== ENCOUNTER 2021-01-12 09:33 | Emergency (ER) | payer OTHER ==
[~2021-01-12] VITALS: Ht 175.3 cm; Wt 72.3 kg
[2021-01-12 09:33] VITALS: BP 109/71
[~2021-01-12 09:33] MED LIST changes: -DEXT4TAB5 PO; +GLUC4GMTAB PO; +METF10004 PO
[2021-01-12 10:49] LABS: HEMATOCRIT 41.8 % (42.0-52.0); HEMOGLOBIN 14.2 g/dl (13.5-17.5); MEAN CORPUSCULAR HEMOGLOBIN 30.8 pg (27.0-33.0); MEAN CORPUSCULAR VOLUME 90.7 fl (80.0-96.0); PLATELET COUNT, AUTOMATED 255 10^3/uL (150-450); RED BLOOD COUNT 4.61 10^6/uL (4.30-6.10); WHITE BLOOD COUNT 9.5 10^3/uL (4.0-10.0)
[2021-01-12] MEDS ORDERED: cefTRIAXone SOD 1 GM in D5W MINI-BAG PLUS 50 ML IV ONE (11:00)
[2021-01-12 11:06] LABS: INR 0.92; PROTHROMBIN TIME 12.6 SECONDS (12.5-14.3)
[2021-01-12] MEDS ORDERED: LIDOCAINE 1% SDV 5ML VIAL DILUENT ONE (11:25)
[2021-01-12] MEDS ORDERED: cefTRIAXone SOD 1GM VIAL (J0696 PER 250MG) IM ONE (11:25)
--- NOTE | 2021-01-12 11:35 | REP ---
INDICATION: right FP h/o stones COMPARISON: 07/18/2019. TECHNIQUE: CT Scan of the abdomen and pelvis was performed without intravenous contrast. Sagittal and coronal reconstruction images performed. FINDINGS: Lung bases: A few tiny calcified granulomas are seen in the right lung base. Liver: Grossly unremarkable. Gallbladder: Prior cholecystectomy. Spleen: Grossly unremarkable. Adrenals: Normal. Pancreas: Grossly unremarkable.. Kidneys: There is moderate right hydroureteronephrosis, with no obstructing calculus identified. There is no left hydronephrosis or calculus. The bladder wall appears diffusely thickened. The bladder is not well distended. Small and large bowel: Left lower quadrant colostomy is again noted. There is moderate diffuse fecal material throughout the colon. Rectal stump appears unchanged. Surgical clips are seen in the anterior abdominal wall midline.. Free fluid: None. Abdominal aorta: There is a stable infrarenal abdominal aortic aneurysm 3.6 cm in maximum AP diameter.. Adenopathy: None. Appendix: Not inflamed. Osseous structures: There are degenerative changes of the spine with no compression deformity. There is spondylolysis of L5 with mild anterior grade 1 spondylolisthesis of L5 on S1.. Pelvis: No mass. No bladder calculus seen. IMPRESSION: Moderate right hydroureteronephrosis. No obstructing calculus identified. Bladder wall appears diffusely thickened, but the bladder is not optimally evaluated due to under distension. No other acute findings are seen. <Electronically signed by Taqueria Shpepard > 01/12/21 1719
[2021-01-12] MEDS ORDERED: CIPR500T39 PO (12:58)
--- NOTE | 2021-01-12 16:02 | SMCUROLCON ---
Urology Consultation General Date of Consultation 01/12/21 Reason For Consultation Asked to see re gross hematuria and right hydronephrosis. History of Present Illness The patient is a -year-old with a past medical history for . Allergies Allergies: Coded Allergies: Contrast Media (Verified Allergy, Intermediate, HIVES, 02/21/19) Penicillins (Verified Adverse Reaction, Intermediate, PATIENT CHOKED ON PILL AND VOMITED, 01/12/21) aspirin (Verified Adverse Reaction, Mild, N/V, 02/02/19) codeine (Verified Adverse Reaction, Mild, NAUSEA/VOMITING, 02/21/19) gabapentin (Verified Adverse Reaction, Mild, NAUSEA/VOMITING, 02/21/19) linezolid (Verified Adverse Reaction, Mild, NAUSEA/VOMITING, 02/21/19) nitrofurantoin (Verified Adverse Reaction, Mild, NAUSEA/VOMITING, 02/21/19) simvastatin (Verified Adverse Reaction, Mild, NAUSEA/VOMITING, 02/21/19) Vital Signs/I&O Vital Signs Date Time Temp Pulse Resp B/P (MAP) Pulse Ox O2 Delivery O2 Flow Rate FiO2 01/12/21 10:35 01/12/21 09:33 98.0 105 18 96 Room Air Laboratory Data 24H Labs Laboratory Tests 2 01/12/21 10:31: Prothrombin Time 12.6, Prothromb Time International Ratio 0.92 01/12/21 10:32: Nucleated Red Blood Cells % (auto) 0.0, Urine Color ANNALISA, Urine Appearance TURBIDH, Urine pH 9.0, Urine Specific [place] 1.014, Urine Protein 3+H, Urine Glucose (UA) NEGATIVE, Urine Ketones NEGATIVE, Urine Blood 1+H, Urine Nitrite NEGATIVE, Urine Bilirubin NEGATIVE, Urine Urobilinogen 0.2, Urine Leukocyte Esterase 3+H, Urine WBC (Auto) 80H, Urine RBC (Auto) TNTCH, Urine Hyaline Casts (Auto) 0, Urine Bacteria (Auto) 3+H, Urine Squamous Epithelial Cells 1, Urine Mucus (Auto) SMALL, Urine Sperm (Auto) 01/12/21 10:42: POC Glucose (Misc Panel) 178H, POC Sodium (Misc Panel) 142, POC Potassium (Misc Panel) 4.6, POC Chloride (Misc Panel) 109, POC Total CO2 (Misc Panel) 18.0L, POC Blood Urea Nitrogen (Misc Panel 34H, POC Ionized Calcium (Misc Panel) 4.9, POC Creatinine (Misc Panel) 0.9, POC Hematocrit (Misc Panel) 42.0 CBC/BMP Laboratory Tests 01/12/21 10:32 Microbiology Microbiology 01/12/21 Urine Culture, Received Pending Assessment Pt known to urology. History of stones and stone surgery. History of turp. Possible past bladder neck contracture. Presents today with gross hematuria and dysuria. Symptoms for 2-3 days. Wbc normal and creatinine normal. U/a with wbc, rbc and bacteria. Ct without iv contrast done - shows no stones, mild ri ght hydroureteronephrosis and thickened bladder wall. I examined pt. Comes across as a bit odd. Wearing a uniform. Hemorrhagic cystitis. Mild right hydroureteronephrosis but no stone, no flank pain and creatinine normal. Discharge home is fine by me. Will arrange for cystoscopy in the office. Home on antibiotic. Discussed all with pt. ANGELICA BOLIVAR MD Jan 12, 2021 16:02
== END 2021-01-12 13:06 | disposition home or self-care (01) ==
LOC: M ED 09:33
DX: N39.0 Urinary tract infection, site not specified (principal); N13.30 Unspecified hydronephrosis; E11.9 Type 2 diabetes mellitus without complications; I48.91 Unspecified atrial fibrillation; F33.9 Major depressive disorder, recurrent, unspecified; F43.10 Post-traumatic stress disorder, unspecified; B19.20 Unspecified viral hepatitis C without hepatic coma; Z79.899 Other long term (current) drug therapy; Z79.84 Long term (current) use of oral hypoglycemic drugs; Z79.01 Long term (current) use of anticoagulants; Z88.0 Allergy status to penicillin; Z88.5 Allergy status to narcotic agent; Z88.8 Allergy status to other drugs, medicaments and biological substances; Z91.041 Radiographic dye allergy status; F17.210 Nicotine dependence, cigarettes, uncomplicated
CPT/HCPCS: 36415; 74176; 80047; 81001; 85027; 85610; 87088; 87184; 87186; 96372; 99283; J0696

== ENCOUNTER 2021-01-16 14:02 | Emergency (ER) | payer OTHER ==
[~2021-01-16] VITALS: Ht 175.3 cm; Wt 71.5 kg
[~2021-01-16 14:02] MED LIST changes: +CIPR500T39 PO
[2021-01-16 15:29] LABS: BASO # 0.1 10^3/uL (0.0-0.2); BASO % 0.6 % (0.0-1.0); EOS # 0.1 10^3/uL (0.0-0.5); EOS % 0.6 % (0.0-3.0); HEMATOCRIT 45.9 % (42.0-52.0); HEMOGLOBIN 15.2 g/dl (13.5-17.5); LYMPH % 18.6 % (24.0-44.0); MEAN CORPUSCULAR HEMOGLOBIN 31.1 pg (27.0-33.0); MEAN CORPUSCULAR HGB CONC 33.1 g/dl (32.0-36.5); MEAN CORPUSCULAR VOLUME 93.9 fl (80.0-96.0); MONO % 8.8 % (2.0-8.0); NEUTROPHILS # 7.7 10^3/uL (1.5-8.5); NEUTROPHILS % 70.9 % (36.0-66.0); PLATELET COUNT, AUTOMATED 257 10^3/uL (150-450); RED BLOOD COUNT 4.89 10^6/uL (4.30-6.10); WHITE BLOOD COUNT 10.8 10^3/uL (4.0-10.0)
[2021-01-16 15:58] LABS: ALBUMIN 3.4 GM/DL (3.2-5.2); ALT/SGPT 22 U/L (12-78); BILIRUBIN,DIRECT 0.1 MG/DL (0.0-0.2); BILIRUBIN,TOTAL 0.4 MG/DL (0.2-1.0); BLOOD UREA NITROGEN 28 MG/DL (7-18); CALCIUM LEVEL 9.5 MG/DL (8.8-10.2); CARBON DIOXIDE LEVEL 23 MEQ/L (21-32); CHLORIDE LEVEL 111 MEQ/L (98-107); CREATININE FOR GFR 1.21 MG/DL (0.70-1.30); GLOMERULAR FILTRATION RATE > 60.0 (>49); GLUCOSE, FASTING 108 MG/DL (70-100); LIPASE 36 U/L (73-393); POTASSIUM SERUM 5.1 MEQ/L (3.5-5.1); SODIUM LEVEL 141 MEQ/L (136-145); TOTAL PROTEIN 7.3 GM/DL (6.4-8.2)
--- NOTE | 2021-01-16 18:05 | REPVR ---
PROCEDURE INFORMATION: Exam: CT Abdomen And Pelvis Without Contrast Exam date and time: 01/16/2021 5:09 PM Age: 70 years old Clinical indication: Other: Hematuria; Other: Right flank pain; Additional info: Hematuria, R flank pain TECHNIQUE: Imaging protocol: Computed tomography of the abdomen and pelvis without contrast. Radiation optimization: All CT scans at this facility use at least one of these dose optimization techniques: automated exposure control; mA and/or kV adjustment per patient size (includes targeted exams where dose is matched to clinical indication); or iterative reconstruction. COMPARISON: CT ABD PELVIS W/O CONTRAST 01/12/2021 11:03 AM FINDINGS: Heart: Minimal pericardial effusion, decreased. Liver: Normal. No mass. Gallbladder and bile ducts: Normal. No calcified stones. No ductal dilation. Pancreas: Severe pancreatic atrophy. Spleen: Normal. No splenomegaly. Adrenal glands: Normal. No mass. Kidneys and ureters: Slight interval increase in moderately severe right hydronephrosis and moderate hydroureter, persistent stable renal pelvic and ureteral wall thickening. Stomach and bowel: Distal abdominoperineal resection. Appendix: No evidence of appendicitis. Intraperitoneal space: Unremarkable. No free air. No significant fluid collection. Vasculature: Infrarenal abdominal aortic aneurysm is present measuring 3.4 cm oblique AP dimension. There is no evidence of rupture or leakage. Lymph nodes: No enlarged lymph nodes. Urinary bladder: Nonspecific calcification right urinary bladder base redemonstrated, stable (series 201, image 121). Reproductive: The prostate gland is mildly enlarged measuring 4.6 cm transverse dimension. Bones/joints: Diffuse osteopenia. Grade 1 L5-S1 anterolisthesis. Mild L4-L5 retrolisthesis. Degenerative disc disease at mid lumbar spine disk levels, with mild levoscoliosis. Pubic symphysis ankylosis. Healed inferior right ischiopubic ramus fracture. Anterior bridging right sacroiliac joint marginal osteophytes. Deformity superolateral left iliac wing suggesting sequela of remote injury. Bilateral L5 spondylolysis. Soft tissues: Decreased volume of soft tissue density masslike scarring in the abdominoperineal resection bed (series 201, image 115; series 203, image 66). Other findings: Left lower quadrant sigmoidostomy. IMPRESSION: 1. Slight interval increase in moderately severe right hydronephrosis and moderate hydroureter, persistent stable renal pelvic and ureteral wall thickening. Upper urinary tract infection not excluded. Clinical correlation with urinalysis is recommended. 2. Left lower quadrant sigmoidostomy. 3. Distal abdominoperineal resection. 4. Decreased volume of presumed scar tissue in the abdominoperineal resection bed. 5. Infrarenal abdominal aortic aneurysm, stable. 6. Nonspecific calcification right urinary bladder base, stable. 7. Mild prostatic hypertrophy. 8. Minimal pericardial effusion, decreased. Electronically signed by: Justin Gutierrez On 01/16/2021 18:04:43 PM
[2021-01-16 18:49] VITALS: BP 122/73
[2021-01-16] MEDS ORDERED: BACT800T5 PO (18:49)
--- NOTE | 2021-01-20 14:30 | ED PDOC ---
Post-Departure Follow-Up radiology report faxed to [facility] R[facility] Sarah MD Jan 20, 2021 14:29
== END 2021-01-16 19:13 | disposition left against medical advice (07) ==
LOC: M ED 14:02
DX: N40.1 Benign prostatic hyperplasia with lower urinary tract symptoms (principal); R33.9 Retention of urine, unspecified; N39.0 Urinary tract infection, site not specified; N13.30 Unspecified hydronephrosis; E11.9 Type 2 diabetes mellitus without complications; I10 Essential (primary) hypertension; J44.9 Chronic obstructive pulmonary disease, unspecified; J45.909 Unspecified asthma, uncomplicated; N28.9 Disorder of kidney and ureter, unspecified; E78.5 Hyperlipidemia, unspecified; B19.20 Unspecified viral hepatitis C without hepatic coma; I48.91 Unspecified atrial fibrillation; I25.2 Old myocardial infarction; Z88.0 Allergy status to penicillin; Z88.5 Allergy status to narcotic agent; Z88.8 Allergy status to other drugs, medicaments and biological substances; Z91.041 Radiographic dye allergy status; Z79.899 Other long term (current) drug therapy; Z79.84 Long term (current) use of oral hypoglycemic drugs

== ENCOUNTER → 2021-01-30 | Outpatient (CLI) | payer OTHER ==
[~2021-01-30] MED LIST changes: +BACT800T5 PO; -CLIN150C15 PO; +CLIN150C17 PO; +PROHANCE 279.3MG/ML 15ML VIAL As Ordered ONE
--- NOTE | 2021-02-15 15:32 | REP ---
INDICATION: ABNORMAL FINDINGS ON IMAGING LIVER AND BILLIARY DU. History of cirrhosis. New lesion on ultrasound. MRI for further evaluation. History of HVC. Patient is also status post cholecystectomy, appendectomy, abdominal peroneal resection and left lower quadrant colostomy. COMPARISON: Comparison sonography is been retrieved from [facility] dated September 07, 2020. Report was delayed pending receipt of these ultrasound images. Comparison is also made with CT study of the abdomen and pelvis done without contrast on January 17, 2020.. TECHNIQUE: Axial and coronal T1 and T2 weighted sequences include spin echo, fast spin echo, diffusion, in and out of phase, and dynamically acquired sequential postcontrast images. Gadolinium enhancement dose is 15 mL of intravenous ProHance. FINDINGS: There is a oval-shaped lesion in the medial aspect of the right lobe of the liver posterior to the portal venous confluence. this is posterior to and is slightly obscured by a metallic is susceptibility artifact from a cholecystectomy clip. The lesion is felt to correspond with the lesion seen on ultrasound. Its MR signal intensity features are confusing . The lesion shows subtle increased signal intensity on T2 weighted scans, isointensity on T1 weighted scans. There is an area of the lesion which show signal dropout on out of phase images suggesting intralesional fat. I note that on ultrasound there is a hyperechoic components of the nodule. On dynamically acquired post contrast images there is equivocal diffuse transient enhancement of the interior of the lesion on the 1 minute sequence. This is followed by definite enhancement in a thin capsule on subsequent postcontrast images. There is subtle increased signal intensity on diffusion-weighted scans. The lesion measures 3.3 x 2.5 by 2.8 cm on MR images. It is solitary. No other focal liver lesion is seen. The no focal splenic lesion is observed. No adrenal lesion is seen. No abnormality is noted in the pancreas. There is an infrarenal abdominal aortic aneurysm again seen as noted on CT study, 4.0 cm in AP dimension. Other findings include right-sided hydronephrosis and thickening and contrast enhancement in the wall of the proximal ureter, renal pelvis, and a dilated intrarenal collecting system of the right kidney consistent with pyelitis and hydronephrosis. IMPRESSION: Atypical rim enhancing lesion in the liver posterior to the portal venous confluence and adjacent to gallbladder clips. Uncertain etiology. The lesion appears to contain intralesional fat and faint restricted diffusion. Possibilities include a liver abscess and neoplasm. Although this would be challenging, ultrasound-guided needle aspiration could be attempted. The lesion is not visualized well on noncontrast enhanced CT scanning. If the patient is a candidate for intravenous contrast, contrast enhanced CT may provide additional information. Also noted are abdominal aortic aneurysm and right-sided hydronephrosis with thickening and contrast enhancement in the renal collecting system wall consistent with pyelitis. <Electronically signed by Chuy Vasquez > 02/15/21 1524
== END ==
LOC: M RAD 13:04 → EEVIPCON 13:45
PROVIDERS: ATTEND Nurse Practitioner Family
DX: K76.89 Other specified diseases of liver (principal); I71.4 Abdominal aortic aneurysm, without rupture; N13.30 Unspecified hydronephrosis
CPT/HCPCS: 74183; A9576

== ENCOUNTER 2021-04-29 12:44 | Emergency (ER) | payer OTHER ==
[~2021-04-29] VITALS: Ht 167.6 cm; Wt 70.5 kg
[~2021-04-29 12:44] MED LIST changes: -PROHANCE 279.3MG/ML 15ML VIAL As Ordered ONE
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
--- OUTSIDE RECORDS SUMMARY | 2021-04-29 12:48 | CCD ---
Author Author [facility] Organization [facility] Address Unknown Phone Unavailable Care Team Providers Care Stone Polisher Machine Name Role Phone ED, TEST DEFAULT Unavailable Unavailable ALTAF STOVER MD Unavailable Unavailable ALTAF STOVER MD Unavailable Unavailable ALTAF STOVER MD Unavailable Unavailable ALTAF STOVER MD Unavailable Unavailable ALTAF STOVER MD Unavailable Unavailable ALTAF STOVER MD Unavailable Unavailable ALTAF STOVER MD Unavailable Unavailable ALTAF STOVER MD Unavailable Unavailable ALTAF STOVER MD Unavailable Unavailable Omar BOWENS Unavailable Unavailable Dylan Fuentes PA-C Unavailable Unavailable Dylan Fuentes PA-C Unavailable Unavailable TRAVIS JACOBS MD Unavailable Unavailable TRAVIS JACOBS MD Unavailable Unavailable TRAVIS JACOBS MD Unavailable Unavailable TRAVIS JACOBS MD Unavailable Unavailable TRAVIS JACOBS MD Unavailable Unavailable TRAVIS JACOBS MD Unavailable Unavailable TRAVIS JACOBS MD Unavailable Unavailable TRAVIS JACOBS MD Unavailable Unavailable TRAVIS JACOBS MD Unavailable Unavailable TRAVIS JACOBS MD Unavailable Unavailable TRAVIS JACOBS MD Unavailable Unavailable TRAVIS JACOBS MD Unavailable Unavailable TRAVIS JACOBS MD Unavailable Unavailable TRAVIS JACOBS MD Unavailable Unavailable TRAVIS JACOBS MD Unavailable Unavailable TRAVIS JACOBS MD Unavailable Unavailable TRAVIS AJCOBS MD Unavailable Unavailable Sandoval oFley MD Unavailable Unavailable Sandoval Foley MD Unavailable Unavailable Sandoval Foley MD Unavailable Unavailable Sandoval Foley MD Unavailable Unavailable Sandoval Foley MD Unavailable Unavailable Sandoval Foley MD Unavailable Unavailable Sandoval Foley MD Unavailable Unavailable Sandoval Foley MD Unavailable Unavailable Sandoval Foley MD Unavailable Unavailable Sandoval Foley MD Unavailable Unavailable Sandoval Foley MD Unavailable Unavailable Sandoval Foley MD Unavailable Unavailable Sandoval Foley MD Unavailable Unavailable Sandoval Foley MD Unavailable Unavailable Sandoval Foley MD Unavailable Unavailable Sandoval Foley MD Unavailable Unavailable Sandoval Foley MD Unavailable Unavailable Sandoval Foley MD Unavailable Unavailable Sandoval Foley MD Unavailable Unavailable Sandoval Foley MD Unavailable Unavailable Sandoval Foley MD Unavailable Unavailable Sandoval Foley MD Unavailable Unavailable Sandoval Foley MD Unavailable Unavailable Sandoval Foley MD Unavailable Unavailable Sandoval Foley MD Unavailable Unavailable Ariza, M Korin Unavailable Unavailable Ariza, M Korin Unavailable Unavailable Ariza, M Korin Unavailable Unavailable Ariza, M Korin Unavailable Unavailable Ariza, M Korin Unavailable Unavailable Ariza, M Korin Unavailable Unavailable Ariza, M Korin Unavailable Unavailable Ariza, M Korin Unavailable Unavailable Ariza, M Korin Unavailable Unavailable Ariza, M Korin Unavailable Unavailable Ariza, M Korin Unavailable Unavailable Ariza, M Korin Unavailable Unavailable Ariza, M Korin Unavailable Unavailable Ariza, M Korin Unavailable Unavailable Ariza, M Korin Unavailable Unavailable Ariza, M Korin Unavailable Unavailable Ariza, M Korin Unavailable Unavailable Ariza, M Korin Unavailable Unavailable Ariza, M Korin Unavailable Unavailable Ariza, M Korin Unavailable Unavailable Ariza, M Korin Unavailable Unavailable Ariza, M Korin Unavailable Unavailable Ariza, M Korin Unavailable Unavailable Ariza, M Korin Unavailable Unavailable Ariza, M Korin Unavailable Unavailable Ariza, M Korin Unavailable Unavailable Ariza, M Korin Unavailable Unavailable Ariza, M Korin Unavailable Unavailable Ariza, M Korin Unavailable Unavailable Ariza, M Korin Unavailable Unavailable Ariza, M Korin Unavailable Unavailable Ariza, M Korin Unavailable Unavailable Re-disclosure Warning The records that you are about to access may contain information from federally-assisted alcohol or drug abuse programs. If such information is present, then the following federally mandated warning applies: This information has been disclosed to you from records protected by federal confidentiality rules (42 CFR part 2). The federal rules prohibit you from making any further disclosure of this information unless further disclosure is expressly permitted by the written consent of the person to whom it pertains or as otherwise permitted by 42 CFR part 2. A general authorization for the release of medical or other information is NOT sufficient for this purpose. The Federal rules restrict any use of the information to criminally investigate or prosecute any alcohol or drug abuse patient.The records that you are about to access may contain highly sensitive health information, the redisclosure of which is protected by Article 27-F of the [facility] Public Health law. If you continue you may have access to information: Regarding HIV / AIDS; Provided by facilities licensed or operated by the [facility] Office of Mental Health; or Provided by the [facility] Office for People With Developmental Disabilities. If such information is present, then the following [facility] mandated warning applies: This information has been disclosed to you from confidential records which are protected by state law. State law prohibits you from making any further disclosure of this information without the specific written consent of the person to whom it pertains, or as otherwise permitted by law. Any unauthorized further disclosure in violation of state law may result in a fine or penitentiary sentence or both. A general authorization for the release of medical or other information is NOT sufficient authorization for further disc losure. Allergies and Adverse Reactions Type Description Substance Reaction Status Data Source(s ) Propensity to adverse reactions IODINATED DIAGNOSTIC AGENTS IODINATED DIAGNOSTIC AGENTS [facility]spital Encounters Encounter Providers Location Date Indications Data Source(s ) Outpatient Attender: ALTAF STOVER MDAtt nigel: TRAVIS JACOBS MDAttender: Sandoval Foley MDAdmitter: Sandoval Foley MDReferrer: Sandoval Foley MD [id number] 04/20/2021 05:56:17 AM EDT - 04/21/2021 12:25:00 PM EDT Hepatomegaly, not elsewhere classified [facility] Hepatomegaly, not elsewhere classified Patient discharged. Outpatient Attender: DEFAULT EDAttender: RUDDY ROBERTPELL [id number] 04/18/2021 12:00:00 AM EDT [facility] Outpatient Attender: Alexa GONSALESCReferrer: Ml Foley MD [id number] 04/18/2021 12:00:00 AM EDT [facility] Unknown [address] [facility] [address] 04/13/2021 12:00:00 AM EDT [facility] ([facility]) Outpatient Attender: Sandoval Foley MD [id number] 03/22/2021 12:00:00 AM EDT - 03/22/2021 11:02:52 AM EDT Hepatomegaly, not elsewhere classified [facility] Hepatomegaly, not elsewhere classified Outpatient 03/10/2021 12:00:00 AM T [facility] Unknown [address] [facility] [address] 01/31/2021 12:00:00 AM EDT [facility] ([facility]) Outpatient Referrer: Korin Ariza 12/26/2020 12:00:00 AM E [facility] Outpatient Referrer: Korin Ariza 12/19/2020 12:00:00 AM [facility] Medications Medication Brand Name Start Date Product Form Dose Route Admi nistrative Instructions Pharmacy Instructions Status Indications Reaction Description Data Source(s) 800-160 mg 01/16/2021 12:00:00 AM EDT tablet 20 TAKE ONE TABLET BY MOUTH EVERY 12 HOURS UNTIL GONE TAKE ONE TABLET BY MOUTH EVERY 12 HOURS UNTIL GONE SOLD: 01/19/2021 [facility] Insurance Providers Payer name Policy type / Coverage type Policy ID Covered alliance party ID Covered alliance party's relationship to dillard Policy Dillard Plan Information MEDICARE [id number] Tia [id number] A MEDICARE A [id number] Self [id number] A MEDICARE [id number] SP [id number] A MEDICARE [id number] SP [id number] FOR LIFE U [id number] Self [id number] Tia [id number] TODAYS OPTIONS [id number] SP [id number] AMER PROG TODAYS OPTIONS G [id number] Self [id number] HUMANA GOLD [id number] SP [id number] WELLCARE [id number] SP [id number] TODAYS OPTIONS [id number] SP [id number] HUMANA GOLD [id number] SP [id number] OTHER B [id number] Self [id number] ANSI-Commercial [id number] ANSI-Health Maintenance Organization ( O) [id number] MEDICARE PART A -O/P [id number] 18 [id number] FOR LIFE-O/P [id number] 18 [id number] WELLCARE -O/P [id number] 18 [id number] WELLCARE -O/P [id number] 18 [id number] ADMINSTRATION -O/P [id number] 18 [id number] ADMINSTRATION -O/P [id number] 18 [id number] TODAYS OPTION -O/P [id number] 18 [id number] FOR LIFE -I/P [id number] 18 [id number] TODAYS OPTION MCR -I/P [id number] 18 [id number] TODAYS OPTION -O [id number] 18 [id number] [facility] NO FAULT [id number] SP [id number] TODAYS OPTIONS [id number] SP [id number] ADMINSTRATION -O/P [id number] 18 [id number] ADMINSTRATION -O/P [id number] 18 [id number] TODAYS OPTIONS [id number] SP [id number] TODAYS OPTIONS/LIBERIAN O [id number] S [id number] FOR LIFE O [id number] S [id number] MEDICARE PART A-O/P [id number] 18 [id number] MEDICARE C [id number] S [id number] A [place] MEDICARE PART B C [id number] S [id number] ACTIVE DUTY [id number] SP [id number] PGBA [place] [id number] SP [id number] MEDICARE -O/P [id number] 18 [id number] PGBA [place] S [id number] S [id number] [employer] [id number] 1 [id number] FOR LIFE WPS O [id number] S [id number] MEDICARE OUTPATIENT M [id number] S [id number] OPTUM VA CCN [id number] SP [id number] SP [id number] ADMINISTRATION [id number] SP [id number] MEDICARE [id number] SP [id number] [id number] FOR LIFE [id number] SP [id number] NGS MEDICARE CONNETI O [id number] S [id number] NOVITAS JL PART B C [id number] S [id number] MEDICARE C [id number] S [id number] [facility] CHOICE O [id number] O [id number] WPS [id number] [facility] [id number] SP [id number] WEST O [id number] S [id number] WPS MVA VAPC3 O [id number] S [id number] ANSI-Health Maintenance Organization ( O) [id number] ANSI-Commercial [id number] Problems, Conditions, and Diagnoses Code Display Name Description Problem Type Effective Dates Data Source(s) R16.0 Hepatomegaly, not elsewhere classified H epatomegaly, not elsewhere classified Diagnosis 04/20/2021 05:56:17 AM EDT [facility] new pt new pt Diagnosis 03/22/2021 09:33:13 AM ED [facility] Surgeries/Procedures No Information Results ID Date Data Source [id number] 04/24/2021 01:51:03 PM EDT [facility] CT ABDOMEN WITHOUT CONTRAST [id number] ESULTInterpreted by:Faby Leon, DOPROCEDURE INFORMATION: Exam: CT Abdomen Without Contrast Exam date and time: 04/20/2021 5:23 PM Age: 70 years old Clinical indication: Hepatomegaly, not elsewhere classified; Condition or disease; Other: CA; Additional info: Hepatocellular carcinoma, monitor TECHNIQUE: Imaging protocol: Computed tomography images of the abdomen without contrast. Radiation optimization: All CT scans at this facility use at least one of these dose optimization techniques: automated exposure control; mA and/or kV adjustment per patient size (includes targeted exams where dose is matched to clinical indication); or iterative reconstruction. COMPARISON: MRI ABD W/O FOL WITH 01/30/2021 1:34 PM FINDINGS: Diaphragm: Small hiatal hernia. Liver: Prominent left and caudate lobes, suggesting hepatic fibrosis. Diffusely heterogeneous hepatic attenuation. A focal periportal lesion measuring 3.8 x 3 cm axially (2-21) with accumulation of high-density chemoembolization material and a low-attenuation component which may represent tumor necrosis. Patchy regions of increased attenuation in the lateral segments 4 and 8 , are also likely consistent with chemoembolization material. Exam is markedly limited for assessment of tumor extent and interval change given noncontrast technique. No extrahepatic chemoembolic material. Gallbladder and bile ducts: Post cholecystectomy Pancreas: The pancreas is unremarkable. Spleen: Normal. No splenomegaly. Adrenals: The adrenal glands are unremarkable. Kidneys and ureters: Partial opacification of the intrarenal shashi ecting systems, likely indicating IV contrast administration at time of recent chemoembolization; no hydronephrosis; nonobstructing right renal lower pole calculi are likely. Included portion of the proximal right ureter is top normal in caliber with probable mild urothelial thickening Stomach and bowel: Large colonic stool burden. No evidence of bowel obstruction. No pericolonic inflammatory stranding. Appendix: Portion of the appendix is likely identified on axial image 173 and appears unremarkable; no right lower quadrant inflammatory change.Intraperitoneal space: Unremarkable. No free air. No s ignificant fluid collection. Lymph nodes: Unremarkable. No enlarged lymph nodes. Vasculature: Saccular infrarenal abdominal aortic aneurysm of 4 cm transverse by 3.7 cm AP with mild calcified atherosclerosis. Proximal common iliac arteries are largely excluded from field of view with calcified atherosclerosis and probable ectasia proximal right common iliac artery. proximal common iliac arteries with calcified atherosclerosis. Bones/joints: Prominent degenerative change of the spine. Bilateral L5 pars defects are likely. Mild concavity of several lumbar vertebral body endplates. Healed left posterior rib fractures.Soft tissues: Periumbilical surgical clips. Other findings: Exam is limited by late excretory phase timing of contrast bolus. IMPRESSION: 1. Hepatic morphology suggests fibrosis. Post chemo embolization changes with accumulation in focal periportal lesion and lateral segments 4 and 8. No extrahepatic chemoembolic material. Assessment of disease extent and interval change is markedly limited by late expiratory phase timing of contrast bolus. 2. Included portion of the proximal right ureter is top normal in caliber with probable mild urothelial thickening; if warranted, this is amenable to further characterization with CT urogram.3. Infrarenal abdominal aortic aneurysm of 4 cm. Probable ectasia of proximal right common iliac artery which is largely excluded from field of view. THIS DOCUMENT HAS BEEN ELECTRONICALLY SIGNED BY FABY LEON MDThis document has been electronically signed by Faby Loen DO on 04/24/2021 1:50 PM Name Value Range Interpretation Code Description Data Sheryl rce(s) Supporting Document(s) ID Date Data Source [id number] 04/23/2021 11:34:06 PM T [facility] IR VISCERAL ARTERIOGRAMFINAL RESULTInter preted by:Yadira Alcocer MDExamination: Visceral angiograms, Hepatic arteriograms and Chemoembolization of the liver, 04/20/2021. 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 Air Conditioner Installer Helper: Dr. Foley Fellow: Benitez Navarro M.D. Anesthesia: General Technique: Following explanation of techniques, benefits, alternatives and potential complications, a written informed consent was obtained from the patient. The patient was brought to the angio suite and placed supine on the table. The patient was then prepped and draped in the usual sterile fashion. 2% lidocaine was used for local anesthesia. "Time out" was called, including patient's name, medical record number and date of , and the procedure to be performed verified immediately prior to the beginning the procedure. Following infiltration of 2% lidocaine into the right groin, right common femoral artery was accessed with an 18 gauge entry needle. A 6 Fr x 23 Cm vascular sheath was inserted over a .035 Bentson wire. Over the wire, a 5-[place] Islander Cobra 2 catheter was introduced into the abdominal aorta and superior mesenteric artery (SMA) was selected. SMA portography (5 cc/sec for 25 cc) demonstrated patent portal vein with hepatopetal flow. Then celiac artery was then cannulated and angiogram performed (4 cc/sec for 20 cc). This demonstrated normal celiac branching anatomy. Then the catheter was advanced into the proper hepatic artery and an angiogram was performed, showing the tumor blush central region of the liver. Following this a cone beam CT with contrast injection was performed to further delineate the anatomy (2.5 cc for 25 cc), this reveals tumor blush in segment 5 with 2 small arteries feeding the tumor, one arising from the proximal-most aspect of the superior-posterior branch of the right hepatic artery and one arising from main right hepatic artery according to Embo Guide.A 2.0 Fr Progreat microcatheter was then coaxially introduced into the right hepatic artery. Multiple attempts to select the 2 previously mentioned branches feeding the tumor were unsuccessful due to small caliber of these arteries and acute angle of the takeoff.Then following infiltration of 2% lidocaine into the left groin, the left common femoral artery was accessed with an 18 gauge entry needle. A 6 Fr x 23 Cm vascular sheath was inserted over a .035 Bentson wire. Through this sheath a 5 [place] Islander VS 2 catheter was advanced and the celiac artery was selected. Through this catheter and over the wire a 2.8 [place] Islander Pro great microcatheter was advanced into the right hepatic artery. Then through the existing Cobra catheter was exchanged over the wire for a 6 mm x 20 mm Metaross balloon catheter into the anterior branch of the right hepatic artery to prevent nontarget embolization of this branch. Then through the 2.8 microcatheter Gelfoam was injected into the distal aspect of the posterior branches of the right hepatic artery for the same reason.Then chemoembolized was performed through the microcatheter in the proximal right hepatic artery with 30% of doxorubicin (50 mg)-loaded LC beads (x1) and mixed with lipiodol under fluoroscopic guidance. Tumor blush was identified at the end of this injection. At the end of the procedure, all the devices were removed, a nd hemostasis was achieved with an AngioSeal device. The patient tolerated the procedure well and left the angio suite in stable condition. Fluoro time: 38.8 minutes (1682 mGy)Impression:1) Patent portal vein with hepatopetal flow.2) Normal celiac branching anatomy. 3) Tumor blush seen in the central region of segment 5, compatible with HCC.4) Successful chemoembolization of segment 5 tumor with 30% of doxorubicin(50 mg)-loaded 300-500 micron LC Beads mixed with lipiodol. Due to small caliber of the feeding arteries to chemoembolization was performed through the right hepatic artery after balloon occlusion of the anterior branch of the right hepatic artery and Gelfoam injection into the distal branches of the posterior branch to avoid nontargeted embolization.This document has been electronically signed by Sandoval Foley MD on 04/23/2021 11:31 PM Name Value Range Interpretation Code Description Data Sheryl rce(s) Supporting Document(s) ID Date Data Source [id number] 04/22/2021 08:53:04 AM EDT [facility] Name Value Range Interpretation Code Description [facility](s) Discharge Summary [facility] UQFIXz3kEsYTAhRr70/DWJjwLZPpe4WcAEofMIa6HJcoAUWuN5MeBMU9xX1tIEH1UReBQjJfJjBpMJX2 [facility] [file] KfYJ2vJTVRTf9+NWkyzVGilEdaBXXEPiM2IXTnLTrbJWMXUu2T ID Date Data Source [id number] 04/22/2021 08:52:39 AM EDT [facility] Name Value Range Interpretation Code Description Data Sheryl rce(s) Supporting Document(s) History and Physical [facility] URSTZl0iInPYVlMj66/CLUyrEREws5UsYMpnGSd4RZrzDTVzI1JlMYU1iZ4kMCA5MVaIWxJhGuYyMTW2 lbm [file] AgICAgICAgICAgICAgICAgICAgICAgICAgICAgICAgICAgICAgICAgICAgICAgICAgICAgICAgICAgIC AgICAgICAgICAgICAgICAgICAgDQogICAgICAgICAg ICAgICAgICAgICAgICAgICAgICAgICAgICAgICAgICAgICAgICAgICAgICAgICAgICAgICAgICAgICAg ICAgICAgICAgICAgICAgICAgICAgICAgICAgICAgDQogICAgICAgICAgICAgICAgICAgICAgICAgICAg ICAgICAgICAgICAgICAgICAgICAgICAgICAgICAgIC AgICAgICAgICAgICAgICAgICAgICAgICAgICAgICAgICAgICAgICAgDQogICAgICAgICAgICAgICAgIC AgICAgICAgICAgICAgICAgICAgICAgICAgICAgICAgICAgICAgICAgICAgICAgICAgICAgICAgICAgIC AgICAgICAgICAgICAgICAgICAgICAgDQogICAgICAg ICAgICAgICAgICAgICAgICAgICAgICAgICAgICAgICAgICAgICAgICAgICAgICAgICAgICAgICAgICAg ICAgICAgICAgICAgICAgICAgICAgICAgICAgICAgICAgDQogICAgICAgICAgICAgICAgICAgICAgICAg ICAgICAgICAgICAgICAgICAgICAgICAgICAgICAgIC AgICAgICAgICAgICAgICAgICAgICAgICAgICAgICAgICAgICAgICAgICAgDQogICAgICAgICAgICAgIC AgICAgICAgICAgICAgICAgICAgICAgICAgICAgICAgICAgICAgICAgICAgICAgICAgICAgICAgICAgIC AgICAgICAgICAgICAgICAgICAgICAgICAgDQogICAg ICAgICAgICAgICAgICAgICAgICAgICAgICAgICAgICAgICAgICAgICAgICAgICAgICAgICAgICAgICAg ICAgICAgICAgICAgICAgICAgICAgICAgICAgICAgICAgICAgDQogICAgICAgICAgICAgICAgICAgICAg ICAgICAgICAgICAgICAgICAgICAgICAgICAgICAgIC AgICAgICAgICAgICAgICAgICAgICAgICAgICAgICAgICAgICAgICAgICAgICAgDQogICAgICAgICAgIC AgICAgICAgICAgICAgICAgICAgICAgICAgICAgICAgICAgICAgICAgICAgICAgICAgICAgICAgICAgIC AgICAgICAgICAgICAgICAgICAgICAgICAgICAgDQo8 O7doYJMpFCTnFB5dMJi9Vg1+QKpDFwTeYEY2qpNksK4AXS1ld9QdBJwrHAYcy8SzPHr4LI4WSTPpZRbe VY6ZUHvbki6LXBDrKFHrzKCMl9ygXcNsYNL4ITYiWyoeCX5OFXRsJ7zywlZrRNLhSOMCOIqnHCZMRIdb TTRWYQHeERNjHkUyDoUuTSGaSE5LLWJiT345dsXhXO 6QJr4VOlMsJO3qcd2EQjKsONWuUyuFTlz6SKpzMH4JkNWobKPcEMDnKBRYJgGaD6fiz4HwSwXmIQBQXB pmEV0Gu4ZugYWiGZe+Ss3LGR1hn9BcLMdjKSQnMZ4izs4FIWmMQrOqP2LvdSgxAZakWIFosLXTNZtnhT lsLcCRRChbgXT9qIvdDWRYVmQtnLIuHL6sDI0vXDFx EBSxWfV6IJOPZQ9ZFTGtMHFpySAnUPVmATYILP5RKOkwJXQ0UKPdqdIecWBkUWvmGP6JJTDseeXbDlSd MCBSDQo+Qs4NSX0yf3MjTIrjXnHfBG9fhz8CINrSTgJbF4L6eMMtI8N5MSzqXz8YJZKuJHPsEvgpAPVD APtbMB2HWZ6louP3DF7LnOWhVDRkEVWzaLDaPKy6F1 2owPEsSDgcIH1WZTE+Darwin+Qq7XVGQbKVWdIBUiQbHvVJAXVrMxW3GyO1TDu5IrS4FbIX74wTvfitJsIC dwKO5KMQ8vGDYtUVNKFQ6XoWTfxA4mewNgJVTnNBGOXeUoS86wiYVjBXGgCZU2RFCyIh6CMLXyI3Yvno McmMytwrAzAZEqXDGYKK4HXSukglXndRKlbMvlXN47 hVmoVB6LAc3YPwZsAL5dip4QpAVnTw3OTBEeJa5GZIChLYRwEAQjOMP6DOOyBmOmBNzkBVLaVPWlULQ0 HKAuEIZuHA3CKaMfEDAgJYG4SHSnTCAeVTWbmb9LLTDnJBW6INU0VBEcWVSvKVEdWGhkMRBzJOZcQLM9 ECWsFWEiKD4YMbJqGASrGBW2BlruHMNwNHVkvj1WSY CeRCVkHRKpMvZmNYIjADVwBFxqWDFaNIC9VVWtULRcCUZaIM6FAhOlNTBiTLqwEAZpVZBwTPAnxv2JXF WwKXEfRuKeLdSvDJSkSRXhVKpwDTDjQSGzJdGmWNDlZMQdXQ7IBlVxDMDgDHB2JEYeSJBmKKOmaz5IHV DhHZOjCvD8UqFbVSUpFRYlWQpmNAXhRNU0YCMmGMAw HKJpZD9BLxIlIQKnNKkmWEcsLLPjYJCdiq6IWQLhVULhKBC8VFCaBBIwHSGrEJhwWBKmYDE6ZsA7WVGo FBKwDO2MDtBvSHDwVSu5SEhoLHOlRRKong4VJJQtWRTbXVCgPvWpRLPqUQUzHYvsJKIuEMBqGsR6RJQn XLYpNF5QBvXcLLTaVmW7OZpnRMPuHXHwkq4YFGPwPX BkXJs2JkTdHMIbDLUqXJqdGFKpHAJrWCY3HYPyPWIjRE3ZHuGfPFDlLrOqAhvmZGLaWVWwmq6EDGFjUC X0AOL7AqHqIBDySAWgMUyhROXdWVSqFhHyLLLrVAUpZN8KLnZyGGEvXJF4LOJlAOOpFQPdeo7HBANmZL R9XcQ9XsYvSMViQTKsMVmkEPInJNXmEXUoHGBmUTLw EC9KIfLnMWCdROD3JohtJEZaFKFfgp3ZYJNsQAD6JYKfQjOiCUZoSGIfCQfsHSIcDVK0QOl1FIQbKXQr XT1TWyWaWFHqJRC1QBqmVLRnGZWttt7UxGMhoYmgws8IXClZWy9UpAmyXWNbIPcvPu4prQVlDzMuBWGX Em8IbcXsUZUaWKJVQSniHWZcOFAbM2E5PmOlS6FqAZ A1BPZ5UER9LCW4AXzhKkJqWMClSjG1Z4LcRjcnZoLwUrL4GYNdDmG2PIViNJbbLVPhYKMcArE+IF0gDQ o+Ho5Ab6GhbpC8ggEjRHo1LGv6Bs8VXUVTK0QVAi== ID Date Data Source [id number] 04/21/2021 03:20:04 PM EDT [facility] Name Value Range Interpretation Code Description Data Shreyl rce(s) Supporting Document(s) Progress Note [facility] DWQZIg0nArRRQlFr87/JHVsjTLGgm4IfFCwfXVf7VPifMVBaV9OgVGY4wE0jWSA6PIlYFpRcXoIkXNJ3 lbm KiVqcBYcYkPLWpJsjOXeRvPYvqJnbdrBSoEP4XhEY5OQOfH29nBODtLLVvQ6KtPAO8CUC+Ma1ASDJbjN GwYA8LGauB1ZleOqY6WY4SLo3BxyIu3AWitQbz/AHme9fTIwa1vrUPdLK2mB2FXg9imtsp7xlcaFlaxt 4QuAmwkxrcm6tFDjuKk+39tuRnyFjlG2lIA434M/4t /do8NQy66F6/AnfcEz0oQy5Ac5YGlgf4Nc2twead/ZB4Nrv8c6rvwzU3LiSYIYXYwuSJ1RX264H4l29k rf3mhwwIzbV4tqP92jEaElBstfurx9jpY9T1OS48UeH5FcEH5py7yGhF1oGVfzPp+GPp30Mm3ABOf4Xl fINvdtd2zAYyW/Vfy5hurxG6VvR2WkHPGpkhr5/hLS yNdfV0WYxmREGytgY70wbpeIipGiLRXq2ma4tB3F8lU+nDaHw99+qAqhCirbRS6d7YfAV4bXUqJFLV56 AurYi67siWN9dIJSxszl122tpSBHHZ3tE0WKpaJorUeWk3a0/67bLyCxTSuqxHLKjmJSWXXJwOswi25d yiebJwkEQ4oaB1DyhgK+0srSGZqK8wOImEU0nUFE9x 8niuESDsynCjSduGeuivM2+w8jWeJCj4uGuTM07Wv74wu8ezHg36xAnRXQQfuIi35YgyfpKsjopP/Marychuy [file] LqO3AAH5mHGnGm7HSTU8HIlAKxPeJO5ALFp= ID Date Data Source [id number] 04/21/2021 09:57:12 AM EDT [facility] Name Value Range Interpretation Code Description Data Sheryl rce(s) Supporting Document(s) Progress Note [facility] TFJPNd9tKxKVVhXz86/PMDtwGRNgf4NeVZggVEc6KJfuBZIeX4UdBGI1kS1gTWL5NNyUFsWtBfNuWYW9 lbm [file] 9GDQo= ID Date Data Source [id number] 04/21/2021 08:59:[address] [facility] Name Value Range Interpretation Code Description Data Sheryl rce(s) Supporting Document(s) Glucose [Mass/volume] in Capillary blood by Glucometer 177 mg/dL 70- 140 H [facility] ID Date Data Source [id number] 04/21/2021 04:06:[address] [facility] Name Value Range Interpretation Code Description Data Sheryl rce(s) Supporting Document(s) Leukocytes [#/volume] in Blood by Automated count 8.8 10*3/uL 4-10 [facility] Erythrocytes [#/volume] in Blood by Automated count 4.06 10*6/uL 4.6- 6.1 L [facility] Hemoglobin [Mass/volume] in Blood 12.5 g/dL 13.5-18 L [facility] Hematocrit [Volume Fraction] of Blood by Automated count 37.3 % 4 1-53 L [facility] Erythrocyte mean corpuscular volume [Entitic volume] by Auto mated count 91.7 fL 80-96 [facility] Erythrocyte mean corpuscular hemoglobin [Entitic mass] by Automated count 30.9 pg 27-33 [facility] Erythrocyte mean corpuscular hemoglobin concentration [Mass/volume] by Automated count 33.6 g/[facility].0-[facility] distribution width [Ratio] by Automated count 13.6 % 11.5-14.5 [facility] Platelets [#/volume] in Blood by Automated count 195 10*3/uL 150-400 [facility] Differential cell count method - Blood [facility] Neutrophils/100 leukocytes in Blood by Automated count 73 % [facility] Lymphocytes/100 leukocytes in Blood by Automated count 20 % [facility] Monocytes/100 leukocytes in Blood by Automated count 6 % [facility] Eosinophils/100 leukocytes in Blood by Automated count 1 % [facility] Basophils/100 leukocytes in Blood by Automated count 0 % [facility] Neutrophils [#/volume] in Blood by Automated count 6.42 10*3/uL 1.8-7 .0 [facility] Lymphocytes [#/volume] in Blood by Automated count 1.77 10*3/uL 1.2-4 .0 [facility] Monocytes [#/volume] in Blood by Automated count 0.53 10*3/uL 0-0.8 [facility] Eosinophils [#/volume] in Blood by Automated count 0.08 10*3/uL 0-0.5 [facility] Basophils [#/volume] in Blood by Automated count 0.03 10*3/uL 0-0.2 [facility] Nucleated erythrocytes/100 leukocytes [Ratio] in Blood by Automated count 0 /100{WBCs} 0-0 [facility] ID Date Data Source [id number] 04/20/2021 09:16:07 PM EDT [facility] Name Value Range Interpretation Code Description Data Sheryl rce(s) Supporting Document(s) Glucose [Mass/volume] in Capillary blood by Glucometer 144 mg/dL 70- 140 H [facility] ID Date Data Source [id number] 04/21/2021 09:08:34 AM [facility] Value Range Interpretation Code Description Data Sheryl rce(s) Supporting Document(s) Specimen source [Identifier] of Unspecified specimen [facility] SARS-CoV-2 RNA 2019 nCoV Real-Time RT-PCR: NOT DETECTED [facility] Assay Performed [facility] Patients first test for [facility] Patient employed in healthcare setting [facility] Patient has symptoms related to [facility] When did you start to experience these symptoms [Date and time] [Phen X] [facility] Patient was hospitalized because of this condition [facility] patient was admitted to ICU for [facility] Patient resides in a congregate care setting [facility] status [facility] ID Date Data Source [id number] 04/20/2021 05:46:52 PM EDT [facility] Value Range Interpretation Code Description Data Sheryl rce(s) Supporting Document(s) Glucose [Mass/volume] in Capillary blood by Glucometer 111 mg/dL 70- 140 [facility] ID Date Data Source [id number] 04/20/2021 08:59:34 AM [facility] Value Range Interpretation Code Description Data Sheryl rce(s) Supporting Document(s) History and Physical [facility] ARYPTn7hMfMVOjDl86/KVXnrYIRss9EpFXopBPu4HKksERSbF1NoGPA4aQ8tVER4TWhARsJmNsUpDWA2 lbm [file] == ID Date Data Source [id number] 04/20/2021 08:36:47 AM EDT [facility] Name Value Range Interpretation Code Description Data Sheryl rce(s) Supporting Document(s) Progress Note [facility] YGEAFz4dXtRTLlOv55/MIPpyRXMai5MfQRyxRBy1QMweKHSrP5ReOHI5hN4hNPO2LSrKVdXaDkAvTAS6 lbm [file] SpqbJMOdUSG7DBBqLOe2GYC+JK6iBCq+Qb4Ze8FlfqQ0bxQmTYr6RAg0IMgoKEOKLw6V ID Date Data Source [id number] 04/20/2021 07:45:[address] [facility] Name Value Range Interpretation Code Description Data Sheryl rce(s) Supporting Document(s) Glucose [Mass/volume] in Capillary blood by Glucometer 114 mg/dL 70- 140 [facility] ID Date Data Source [id number] 04/20/2021 08:07:[address] [facility] Name Value Range Interpretation Code Description Data Sheryl rce(s) Supporting Document(s) Leukocytes [#/volume] in Blood by Automated count 7.2 10*3/uL 4-10 [facility] Erythrocytes [#/volume] in Blood by Automated count 4.12 10*6/uL 4.6- 6.1 L [facility] Hemoglobin [Mass/volume] in Blood 12.7 g/dL 13.5-18 L [facility] Hematocrit [Volume Fraction] of Blood by Automated count 38.1 % 4 1-53 L [facility] Erythrocyte mean corpuscular volume [Entitic volume] by Auto mated count 92.4 fL 80-96 [facility] Erythrocyte mean corpuscular hemoglobin [Entitic mass] by Automated count 30.9 pg 27-33 [facility] Erythrocyte mean corpuscular hemoglobin concentration [Mass/volume] by Automated count 33.4 g/dL 32.0-36.0 [facility] distribution width [Ratio] by Automated count 13.6 % 11.5-14.5 [facility] Platelets [#/volume] in Blood by Automated count 224 10*3/uL 150-400 [facility] Differential cell count method - Blood [facility] Neutrophils/100 leukocytes in Blood by Automated count 61 % [facility] Lymphocytes/100 leukocytes in Blood by Automated count 29 % [facility] Monocytes/100 leukocytes in Blood by Automated count 7 % [facility] Eosinophils/100 leukocytes in Blood by Automated count 2 % [facility] Basophils/100 leukocytes in Blood by Automated count 1 % [facility] Neutrophils [#/volume] in Blood by Automated count 4.43 10*3/uL 1.8-7 .0 [facility] Lymphocytes [#/volume] in Blood by Automated count 2.08 10*3/uL 1.2-4 .0 [facility] Monocytes [#/volume] in Blood by Automated count 0.50 10*3/uL 0-0.8 [facility] Eosinophils [#/volume] in Blood by Automated count 0.17 10*3/uL 0-0.5 [facility] Basophils [#/volume] in Blood by Automated count 0.05 10*3/uL 0-0.2 [facility] Nucleated erythrocytes/100 leukocytes [Ratio] in Blood by Automated count 0 /100{WBCs} 0-0 [facility] ID Date Data Source [id number] 04/20/2021 08:12:01 AM [facility] Value Range Interpretation Code Description Data Sheryl rce(s) Supporting Document(s) Prothrombin time (PT) 13.0 s 11.6-14.0 [facility] INR in Platelet poor plasma by Coagulation assay 1.02 [facility] Routine intensity oral anticoagulation I NR is typically 2.0-3.0. Target INR must be clinically individualized. ID Date Data Source [id number] 04/20/2021 08:12:01 AM [facility] Value Range Interpretation Code Description Data Sheryl rce(s) Supporting Document(s) aPTT in Platelet poor plasma by Coagulation assay 28.9 s 24.0-33. 0 [facility] ID Date Data Source [id number] 04/20/2021 08:21:30 AM [facility] Value Range Interpretation Code Description Data Sheryl rce(s) Supporting Document(s) Albumin [Mass/volume] in Serum or Plasma by Bromocresol green (BCG) dye binding method 3.8 g/dL 3.5-5.2 [facility] Bilirubin.total [Mass/volume] in Serum or Plasma 0.2 mg/dL <1.2 [facility] Calcium [Mass/volume] in Serum or Plasma 8.9 mg/dL 8.8-10.2 [facility] Chloride [Moles/volume] in Serum or Plasma 103 mmol/L 98-107 [facility] Creatinine [Mass/volume] in Serum or Plasma 0.82 mg/dL 0.70-1.20 [facility] Glucose [Mass/volume] in Serum or Plasma 110 mg/dL 70-140 [facility] Alkaline phosphatase [Enzymatic activity/volume] in Serum or Plasma 113 U/L 40-129 [facility] Potassium [Moles/volume] in Serum or Plasma 4.2 mmol/L 3.4-5.1 [facility] Hemolyzed Protein [Mass/volume] in Serum or Plasma 6.3 g/dL 6.4-8.3 L [facility] Sodium [Moles/volume] in Serum or Plasma 134 mmol/L 136-145 L [facility] Aspartate aminotransferase [Enzymatic activity/volume] in Serum or Plasma 17 U/L <40 [facility] Urea nitrogen [Mass/volume] in Serum or Plasma 24 mg/dL 8-23 H [facility] Osmolality of Serum or Plasma by calculation 283 mosm/kg 275-300 [facility] Creatinine/Urea nitrogen [Mass Ratio] in Serum or Plasma 29 [facility] Bicarbonate [Moles/volume] in Serum 22 mmol/L 22-29 [facility] Alanine aminotransferase [Enzymatic activity/volume] in Seru m or Plasma 15 U/L <41 [facility] Anion gap 3 in Serum or Plasma 9 mmol/L 8-15 [facility] Glomerular filtration rate/1.73 sq M pre dicted among non-blacks [Volume Rate/Area] in Serum or Plasma by Creatinine-based formula (MDRD) 88 mL/min/1.73m2 >60 [facility] Glomerular filtration rate/1.73 sq M pre dicted among blacks [Volume Rate/Area] in Serum or Plasma by Creatinine-based formula (MDRD) >60 [facility] ID Date Data Source [id number] 04/18/2021 11:41:06 AM EDT [facility] Name Value Range Interpretation Code Description Data Sheryl rce(s) Supporting Document(s) [facility] OEIENx7mAoPURhVdp2IrPjFiBWWjVN1rdax7F7P1rPRyI4GycNOpo1ycG8BxZ4IpQHRjZSZCCT0IlEXg jb2 [file] 57r77k0QH9pv961/we8opf/nmlo5Nu1rmle57G+H4j g199ED50c8x07D5j4F9t/sS7cVtIi6C5cUdXGaPv+m4Yot67lh98dj99NXqWM68CSaoJI96/yAfta4+8 WZZBXpvXfuyRd+bzI+/UG2gIm2aC6kR26OY3/vBt2ufiB87t9Ebg2fe1cTyr62RYaQ1mWp/Xu3HVu9Sm 3s+rB8/7trvv1Lx9jJrJ9v0y4nzIDw/fr892aky3GI t1tK/Dnn3j/cb7g/fnvg/IG+PWM+p7r9n1XMIScd6sH4Q6WcPIUt9G1B0Ai2d97BxA+H9dcufaCxVt3X bMco8lnRS1qNzAi0a/m32qrsCtJFBD3/N4r8BRSkBHCF79Kja+icb2DiVpgLybRrBbyn9+1k94xH8u/3 Vuu+oj9Yi4yE8Ks18ew6pxBHzxEwAmbL910VJ/tdG+ G+27A/xam57Xn96sPws3cP++R/89sOeD/szx9qT6GwHsGJPi31N6I+Q9aN+U9e1g04S6MVbTVxpvy/Ho YS8Yr6Ebp224te5eg4/nDPl9/zmZk5J93z4LmL/RsifN14vt9/N78vt2D64l/E6cuDkZlxA+1z8/p8bL 9p5D4+VQHKQDvXim3096t6F821jlbJc+AxYygNvP0d 8VTpCa6GLwclc7n91nTt013mgep1r9/uaWI09U+Z6fDla0nBm8i7qwu8AtML5b/dN7sufR81zyZQ6/lc JEYlmQU8uPm38JP22VhL06Y8mmMDK/qKP2pJMOu7s4BqN7Pa+JDry/324x8lqJjfv7YhvbqkrZ45h9zX dF+tJqcNgrI04kqjtcFJ+Jbrw/+X13JpKNg1Ic7tKx UgIu4poX9+98SWCs2CRSmRi62zJu9k2iY+/PyG8+2zxqurkhoerztPJUA99b+3Q6j1etE/c++Op9v/H9 R96j+q5w73V8/5H32PP+zQdvQUL3e0rqbWF/thl4XOu5r1u8i9jHQ4b0+wlX/JNHu7/vFd+y77vlF20N 4xnavxna4FprfX1q4RndY81i51y3ibyNaUZ7Lix2Sv H1akck1sO58c2+7te7Wvt5caXJbaWn90WYHm/Cbpxwo79Zo/dYX0jEvrD3BYJDxx+xQpg128RA4pDQV6 3P9/49mBFSJ8FciqQTAD2f0io/qcLxp7xBqxDlUN3Az8MbozYZ/ax9VqLCFbpiiZhW+Krqc+e/siDvgr jBh9tkry2Yn5iAMZNKvfGh7rnYe/hEZvX7QTMk5b3s nwJSN1xZc//9xGb/pDDVk6hEji9alfZ67Z7kY8bhBYums+GfN+w47pZW56sO/29v7QzhKk6IpxmscQtV ogovTOn1Ui3/1z1mTcnYYl6Kapxmf/hKvr9A/tp91XdQdRFoDm43Vt3BjdPo7Wc1N2U/87zzBTnwz+fO B+Vc/2uxtr763inf652EapgL4jtL5/xXE1/Yg61dtj 1aouoxqKvtUzi3+MdLWO601CUvUu39IyseHzHvxGkin4qtzDb3yYy5T40IOCiexC0HqKN4iJtG+GrUs9 1ig5lIU9/ohLzTkX/gfXzbUSt+ha3Ljp2kvf+OVX+fD+xdqg7US10KJv+22S7Z109W9YcS579M+EqBrx TxKwW+0sRXlSfat/SPfio8a/I3Dg0ewIXRp4Xl9lSD +ya+knq+css1kHSafW6/pXrxpKri/S7jsG91dIw7/yNuEwUiLtiMmoZ1T5XVkAgj825oDvLy5FoPsnVF XUsGT3Fs8N32+x79aMs8/UW524Bc2u0fmN+7eFLtjr+o3qkv03V363uau/lW1Rvn63W+11+pbbw/yP98 /dVfhccBb8am9gGd6ii68M/frhm/ziBk4ekQM3mNh+ obQ/6G/N5TFgExDS9+THxVZQXKXXj/4MnKc3/x2HMM+ls20E2z1yZ6Q8y61bHLM15XT1VaOco7ew2m2t f0c+HV5/Co2549gm9h2EtvppQ/x/eOhT3830zj8RQ4NS5O0sbE36duJ9qK6Ana6pkII/C3q06U6+tC+z 746n3/yPs+h5w9HArOS3zRmaq086auI71M01X2W+9h b6lxy99YU+bCb7v1kr5s8+8eeH/xlSJ+avrmYi14zVS4Gv/94hDdN/6s+6wyFeWXAvfzEUtVw8exF/FV +sX05iof+Kq+h3/eB/NIr6i2Wr/A61YVLHPscF43c9PCP/Tf3WW96OtSe5dtL92O/HkB6S3w20I7LMry A/984J8P/NU5yP+0n476tkInyn5Z8ImT/FcN5XhWQb rvFd/f+OGBr74z73Y0AZbHjj3/PfRnIen0STO8FG+Ncg/sf2vRKiIgP7/anHgPeRG/lyxp9quBk1k3aX QUQ5J0147OVmPCCaCvQ5nS1r70F8zK9s+Ue/XFcB39W/mcb/8yueuhJnf+n5xplZoi8oBKN0phfOtN8h i0k2Z5IaJTtURnXv6mfa4AWTVAMxjK7rS2wf8W1EjY /Ub1akXIo/30hN6OP1fSgqspF1cPdBN06Nb/AyVhE49maK2O4MpG/DyeHzcSPaEhyQ686zElhm4GHv+l 7bgMb8t1yn8WmN/fq8WIB2beuI8sMcE175/Mjx9yw8sVsTu3KooAcenK1XR9aN498+zg/slv9Ki2Ftq4 +4PP2bCgkB6b1xsNC249kG5p1nuXLe3Nq2jW+zsemQ spGKi6ab/NE11q6DZ5S+pRZvs5tYI/gzktDdiCo1J5640CXpuUqa/ZC6LsT2pOj+o9/YSWS7bgDfac5K qPZQ7ocSSe2DMM4uG6C+676S4D1W1a6kW2M+z459aXj9exyWrO+CoPjya+LmpadqmuLjIc4I+F2Gjyi2 bQvgvtm/zy8dh7407us0u2Owcl1ZfUj4+Q8LLHc9zb xysElvZuv891fY4p7JZR+Amn1E8uMucYeWo/P+eACzM/x4C/zw9+fblolc596XAFI+eJ+TxHgP+0Xx5v /tBuPalXI2v6315xt62lnh8dewHlmd0n6vs8KHjZn+B7Y60tP//F3aGDBrw39jY7T61v1DSg+OcD/3ww /ul2MJ4n8XMN+aBcaDwAW4j022102kv5C4802jPGY/ J17D0anLos3ztswHbgN//s485/fVx/5YWvLJ+//dorfpXvA+0gajHh5rfj+CoPeya+queD9+d+n/jqfc g9rxg2Pqvtklv3Ol/s8/bci6r3W73a56YHD7/bvj5v//F64sq48cj+b6vtNcfHNcnmovQlumf/fs7wVi l3ArFrPNCVeZMpAe8GUyBxQ8E6AV0Y/MmD74Pscyp8 VH61rNQyruL357UVGFqRjr40ftrj995q4/ldv3W+6sqr5P2q3uqAAg/sWlaJY178jiwDNBcCiB9z1Q/l zica7S6x2yd3cNofeB3l61bAYics+GaqQaKOmjJKj1qdy6c82DqL1XEw5MM0zy3qpxFbjhAtnekSqa/K 8outUkTZ7IoF50kn3PSFju/q+nWo7ARkJpJ9lC2S/T fqg/9mIc5mtiSv6ow/leWx3owCbtDeAkNp/dfvfMEd/soN7+/0rUdx1n/j0DXYRVw/0koWtczn54b1X+ p/UP+Ofx8yelyVxDq26/dA+ibrra9fK50jIRvHlwo3cUMCeKFt69aajl+DR6A+C/xm1KTPyNta6SP+Ku 7817H/kdsEz9ngz/SHC+PRuvNfx/qgL/RfrA/6uvNf T3yV+t2VfyhfjAPtOdQkfT99/qtWeL123EVzqdEt8ueS/Tz2jVfLlea/bwt2cd1N/7zv/Tf7ca6pgN/w veP9XQ/8APn87H1sbnoK+rrEV+oncology radiation physician/oMvgE10uyzhLR+8Uk/Jy4uzz1MBFQ0+Zwbn/TEV+4klk72uYdl 8n/tUC3tgVtu9/ew7Fv/eKc9ePkzx+Psv8A6cG1yjs m6Mr1cxB/x5+wIjFk1OTT2Xb7e/V4XixXsdt3LIqH0wxsEwh3Di25dfShiPc2Oec1t2f/+q6Ei95Sij3 9IfHW+c5BD8puNfvVid24r9RdYxR/RvWcIUrGQihdurwH644Xps5341wqB/XbEaAAetbwrBv2e13qdHY 7JzPq1Xu52kyyWU4DB5eUDgUl9Bh9qe5mP3L7/FXLj sSF3/H6000UoP+8F39/4ZCB+UJlhVqTLDLn6FarqL+GthZqySYm9L2Oa/4XvIa/uyRqSjOtQb4HZT17w 4Ukpbk839d0OGo5H1eNbCXZ+opmZ8vpT+JYDH3Qp+VHonR+N3qzMZR5eiYNyfA/0b6swyJ1UXU8FuL/C Ln4Ou/g57O5/Drt4I+vO18Aoaoxmka5jjh7lx73/Du pyNttmW1c/8J6cTtST/vawG5+FaEazn265PqfxKunK4zK+5nZ4MtE/CuxvD7/iraida/izP0Di6g/hr0vms0 cklZsmC7P/owh8uqIVwI9w92Ls9S+KvAIGFZ5D8U+CyD0RckdtwVoQB5TgLJo8cQ/IJ/Q17A6oi45Pj3 02NzzprbsS7jiStrzThRx9VfExeded12w77N6aGwms mnwDMy68YUfIiaDj7JNswonbIpwF2w8s69XvC3Tr98Q/gmbs1NaeJwH/Nbhp28f+88HYaF/nbeuvG6w+ +xlio/3w1E75x0qWRj/F/vbA+pDqbMG5whlJ4ax9KWgcpG/OxjXHiRWC7RcO/irXB+vYhp2Z2fwb/D0X TwbWB+PAPx+Ub4ettLZhOZzrB/YaCXmx4Z+BnAf7Li HzYxLTOh9slBjz0FB0x/FoVqsWuxR3q4f/17tXxq/eZ3/lnPTiTd7Cgp6+fib52ks97l49PxPSKslEkp Z+e86OXh33OlILAXC5VIa+P/qmrnfbRaB84FF24F1C+Zwh/yKW7INusnZ0RdNwT5kWx352i8D37kY1/m 1xIer1e/jhcv4Giu05Fq7165u7CSJF/CrfX3+1cH5w YX/4veknbeaAULrclmWEo0sda2lUc47+sRC/ml9SQapsHWeynsZekXi7+dlPWN/Etx/dU6J/TS7iX5S/ 9R7amt19YRoF/O2hP6VM+JPHc5/VVfg2uOH0ZqufMe/LL0T9iYn6FzKR6WCi99p+4K+R7Ijc3151Xb9q eT/3ebw/t/3c5/QwOV6XZ+K5z+QbbKPnb0hM9d0Apk buoPKnx9HjcvhuNj/3x66f+jyy4ifu2r1Ox/yq8bjMy1w+9Exeb4dW/G1s6p8ZXSTguFSeu1CKr2GZUZ 9CQ6n5gB5ZXNfM+MPGl10eCspS0+uoRvhXk1eas23Lc8ph+LssmmLcA0DlvPNm1IiVzxO/r/v2d0KoSb PrCu6vfxOw1/DZwCW1t3LOuKLEOvIdwsFTKfYbDLQm Eg16RRSp40nBsob/v7Tu/N125++2B3+3/sjR371ygHpXKtpOEla9HWEfyIkefzVFmSjuWLoAQ3wYhlff /ZpzCMXFVW28TRpinjOBtjJ1xXw211li6bqoiB5oJLXLb7PSS9IGdr0KJMlobFXyUeCEets90sN9hhT8 ARIN+APJaoR4vK9BWVSySEar3et4ms+dxx0YVS4RqHj [file] Wyp2xFdf82xhtcqqJiYndvy+327w5y7aiavoZwVoehe+71364v5kkylbXzSjpbj+78050l5dhykrFdyy puq+150d2d3fclioyrjyesg+655v6v9bzkbtrsvhddt+3921659pjhaqlytpyml+0q087mZAIzW67cpr tz/N1f+SanHJu+x+k5a+YCZrWWv28pf+kKh45RR01y ZzZbPV7xq1FVd/SuRA9MWylJIzmN3UR4qQT9w8ZSo/kajrgF9e9kmX4NJbE+Nc2Fh8W9X/fd1R71/p5j bMlVGcKq5cuS/kd1Cesm0ldHz9PDe5S+gfsOlE+GD8XhcD+Ub5Sjv+2q+2dq0aHhefFRgnUAbJOz5zZo gWdMg0Er+TZD/KZsEM1m+tvQ34b+UuM6bi3O/e14vj 366/fq6G/3/texGbep4Hx9Dz1hldkjs098Jc0RDoE/4/h71GgWkShjSI3m3S8AykcUz4/VTrsuHKMc/T U8X0N/Dc/Z7BeIa2vwxF5M8/B8Dc/ZOz17KT4ISfT+EP2ME8jre/D3kCwfJ65PUfU8RGHdOT5rxtM31S Guest Relations Associate+LrxMdI6l+A0lyKPnmYj+ytRD+urpntmZH2zU+UL 2Orud0atsoWZ0ZXe0DlskdW4Q30daSQctQ0w35bvasZ0bA2KoLqpeZ5N/C8f8YGE2Frs5u/cKN91/rou UZAhWG2hr/WqflTDnesm9pl0WWqgysE0AQ9OeoITgfhF45C8MheqPNivuVXr4OxrjRp5pL82zFxLokgV f3er+ptv67it0bvzAzSs+7vx/l6FdgcPy0B495P3Jn RnXzh+yvWq5+k2qO6iHtylRXJkOH8rmxcwXX8xO3AagmdVN8uodajTV7fWosnC1P1SuqL9DqML5H6Ruk N7YaWE1P2GobP9XhCF9L6VfaX0ErMM8S+z01zV72od1moRrr9Kn50KrTBwCZtFC0iD3E1uQkYp0M3xmz TESFAYE+KB6YRsZ+SL5Cej1l+rlyt9hS3NVPI7zi/jLd765 KbMuHFudg+ls4mHG2ET/W4gy6IX+PK8WIeQ+WL2r42BymO47EJ+e+Y830CcxB7OXcd/yjMuen5nd4Ub+ Hc+34/n2+y5zD6m60PgS++eD890EZ+AV5HJrtQ31Lxl2Z/VQ4xz0en2U0/D+We1Olsu+bl+hRUJ9d60o ZG1kONpKx4/p/aM54Zr4lV/3hU5rzWteehEviR75ru Q9C/wubU9IU6j4u5C6VJP+ffRhxqmr0x6PRg4+ld9tgagEEhbMS2tzzQrdMI4I4yr4qS0U92RxGQUdO7 cwuXj6WgwU/f76U8rRBpxc9FQeAobHPd/hwOKFiwmxN0y1xhtRER7fzKtsoTP56omiwX0l9scZ16phdx r7Kq4N++lxt1aqM6xE+nr0MacHhQ8VbJDfeaWnRV9+ gdZDfx1tGYkjW55zX/ngK77YkFGbEN9W22F7oW3zY4U20hkV9se/1V9Nbv+1zqZU55m+6rKYkG2tesHZ t68wxn32la97cfet6yZrJoSfbuJFhKMnW6/xq7+a6Udu+2smBsgdG72JzKt5UI31q8yG5lm+0kwAfdtX mgFFb/tKMwnGbV+9FB/8xcX5wBdz9/b+uvJp4x6J/+ q8Zs8xl/xr0u86HyrDHzp8s29GCa3xB5+XG+lkfpF48T5ar+2q9W+8wt3wye7cQR3PK1BsH35u6Kr22B 31q2kpR+UT5RPn+6foYw2t9nJDhf6l7ROw4JxkEj3pQ41UNpqpOLO9M+zheSHlf9GQ3V6dr59s4Clbm5 zW+9o75zJkXAZqxUhmbTC5Lu/Cvoq+a02Fdqd87lK+ sK/KneFv1H/DX9KttJ1FG8Gp5Vd8/a9wnJcf92ygOM+eK4IPoB/UM1H/xPkL5y+c7/3hKi21ebCgq10b jqEnwz0FkyJn3sIwMaUG78ef5F9uxZycozHDowX7TJ/A8DV1JJcNCtBnymr/+xtzo++LaZEezrfFtPir 4btizrHbV+q/MXxPzKsP/p86mNDV4spJoPHv/Y333e 4gEMke49JcGZLu5o5hNjs6y0rpNw2YkG+WB2Q8m6cF9d80y93+/Sofa7KH9u2yXv86+UsM85IUQYR7Sx QLyu/+aekW5YQKW4s/1hh36v8cro/w+/mn17DW1sNo8jF+Dny84Obs5A6FZ+hwWnwe7xoGh/xlBTp16A kj+vl9KpclyN8JJy110fVWh3ew3jcWz0cP+YwGnu/A 4l70xmKma2k3p2q9dHLyku5uATEdw0wJbWW6Dk2awmIjqW+3r/Tcbvht00vxd+XzStwrdcOenqXWB2Hw xfw2MT+HfRVz+Dz/0Cy9yu9mbUuxqLI5latriU5tqTnPl0yo+Dx5lp9f74B8sXrfjKx0VDnhQ17/C9/f yq6c0Riwb+m6QzkE8L2mr5iEH52BhTvj/onyhfKFcv R3ob+7/i+0XevBtst+kypWjr2t6Zm2yCrGi+5xi8IfTG6ul/8pbaO/e+Z0dgKErhJz4F9Ps6t+l3X8ne nJhHENaRcnsC3lk/Swr/K47I0O+2hwh37O+0bKYup2k1/R777PftBBbfWwIm1jaizLR4ar+tuv6m/H/8 GO/4Md/wc7/g92/B/oDS4RVPLdDf8Wp7tFqLXxiS6f cwQB1UrfZZwVZ0xmQUbMs8Ap/vo/2PF/sOP/EMb0o9Ox/2Ac1/hfmw5gwq+FLp1YdoC7v+gv+KsO/qpr 8a2ziy8WncL+kcbjelQmKZjJv9Oo/yDrDrbobkxBZXuh52rhwAJ4txLrrccZZ1/xf7Dj/2DH/9GgMP6y DFfMj3rqr/NN/mtt2Mco1Jr488n/9+IgnfmTB82u/2 Ud/wd7x/AqwJ7zv3iTe2bo1ZY+QP14f/tE+UQ9xW/04K/yeKMc/pCqS2rLn8REy8hCYra+vFjla68srH F/sOP/YMf/wY7/v59LO9D/Kh442Vc+D+Yxni/+D3bD+af1TXlX+x29foY3fgo10DfgMvmbWdrqB+jvKD 624/9gx//Bjv+DHf8H+xgoHyifqB/Pdyy0B+/vqO9v H/U/tE/GSuLu9zZ8Ce0be/r+9yj2miUXAC/3IfV7fcH6yD/f347/gx3/B/wMcSDqI33bO/nC17ywypCc OJg6Cq62srx+Mqste2Dy2bhO31YHM5smMI9X2nKL26ZI60qEezKp/B/s+D/Y8X+nA9oajnn1XG0pnM6m 8/Mu/rlvzFdbUF7/I8iSO7nIT/8c5c4/7ygP/nnGsd Wxodxw/kA9A/V3a53bzpeev8ABvVv62fx6lm35SAaXwYwHz2+wfW43rmhID6Z8gUzXJ4nv/5FdA/UPnD 9x/oH4NlcHZPr85AZ2WX6SqOnzx1alBWc6XSr2a5AT0iOoEL8C5uTc1eRYjTStGVlrdW8Zx4H+Nmt473 K+mgxJy3Awy3rSHsL0ff/XRK5H18peMkA9qjY79ri9 rsObqLi55pB2ZntjeBShzc1gO/NNGvnvw/doJEfqWzSSR/UdGi/mmLbk81WJy/OxWc/Gk4TYY7+doZH8 qvgl8Jhf78Im+8nKa8bjk6kzf+55bHUsDz/suzKSo/JRWa6wzM3mTbq5YTu3+GtEoKqk4zGh36dSXbg+ mUMN6u5ntj1OIkr+ijRVvhcjeXXfipH/j8dsWk7e0j b3vSw7neQ7CaDh4xyGxk1hWO4hZEcEr8JgXc5zQE+fZ1V1kQcNo1R4wHdTUjVwdzKTOB+9+GcL+yqPF8 5fqGej/lGbMfal19Ld9MutGG9Ee4Umg/PAiY49P43kxveI3/DiUjZhWqiKyqK7d6Y+2nF+9f5W8iMXWS H/QvnC+fH+Bkd4d78+io/1vRXJ5/fYqlyCrbY06vIb 4P0N+yqPe7V/xI3pN7J2+jt02CpLoIle3/tRoYcMLtqhMtYn2mShS69jQfobQ/7K+VsL/soxbUu1ng4m c+emYP1k87Aj19vc6viFc7y6M6ykmvq9bx+OPnLma3qt2g3Fqx28ViHs5MiqihEcmm41q/Pc502nbq4w Qzoo3bBJzXSckBfl8UbOOOmbIwxuPIGO9a6jwQ/cvg fb7yoJKXbXt5L68/ZVcJ6+VJO0ZI5g2Jo3K5myJpdoJ344+hu2Tu5a6StgvU345+6x8bhsozLSsaKbTa 1xujoyrzJNzOt4vP4ed4zT7a2Zsa127+7h5gkq7c+Y892+Aafq9iL5+8uN1KS0K7Qb44vP0EYfwWR95U OBz3d7uTCqLWi2e4F5eGMiaie3Jj2qrrpWVI7J04kq US9Bzylx8dPK+TAO3f1iKE/eXL5ekIOLdBEmm1Ap/3V7fdRt+GaHhsH4Bx7aw4bEH/g/OPB/gMyza2mO +stIP7mzgIYhgCOKEs7CUO+g/bd3CwWdhubd5fh0H564ln2ITrzzeiY+ASi29QXy/39ho4roy92rH3tQ V3mM/mrH+DPmOns8fbDfT+LB4MgmB+Fc4lgfs/XgaB bXYtP8FdiS/Z9ZF65MHV9F2sNF65iA48t781hqL0/gr+BGBH24efr3fu41dgFI+gv7asC/fcC/ffTy3x i99i+IOstk3mK7Z3Icq/Pt9X9/8W4i1Hfi+RZH8Pg6pctYRVqiZ0SPdS8jc02Ee8M/CicZPJCCkk3Bti 3r5uue17VPXoauyV49A2DcsGwkQkP9wqKtP/eduO/E ePifa5ZodeDRqfzi/VhCwXWcTZ93Yy0tXBCzxhTQJ4G06TNLH8j2rieIGwH+3G9c45cb/1utet60qkO4 xvnFtw/kCqY97KN/NcBfjYn+zuKfxyz/bEEyrwyzWLXvH9MJx5I5xHe3gCOSouirdi9S4ZirO/o7y39y rOJjB/zbB/zbxyp+Iqp9f5Q0u+D/4AB/NcBfjYXxvD XlkR2L3AyN/NVYE/pncfAirkGzgFR7oGA+pzc1kdboD1qyVUPlWJK/2Kdz52G/N+qzlvu1h5Yi+4v/g2 NjPG/0d6O/d0Id3u452yX/8P7i/+DE/8GJ/4MT/kisVEsKeGnSG3othodC6/zJr09leOcm8I98KoH+Tv wduPCe9pCSd516uJyBp9mymplF+LdP+LdP+LdP+LdP +LdPKf/zBsbVVwBRS9i27tul6PbnGl7Y+r2/WefA+OY7J6PiyN+Ub9SD/rjxjRRlmv7xn9mFlC6am3/w b5/wb5/aUH/1P2ebJ5Uigd40behkVM+g/voeTdhXE/qOcS24LY7Kqm/qhKBhDXzuzE74gTh6Y98T205T +1o06cwd5EtEAg7p+Xm2+y46w1C43QgDncv6JMIygV upkvtL83tJ/5BZb0wD6cL5e4tHXoF/asRx+F/EIKR4Tyxn/qUp2OshZudck8u/a8Blwuheah75shsjyz BPr47fmxNM9/+3p7Rmh7bv1GbO8i0qHOwo63l66236KfnkWtU9/9is3/4juN27h/vqtdzPY+cb4/jmJ5 /hm462xm206Hgag7He559XAgHf72VMd26fzqDFMT11 Fc/OnJ/MOoufnOHfHs/Cip+c4d/uXMQM+yrGvxXfPmFfTav/R9MwP4/jO3cHZ4knrm5+w16CK5L2rpku zKT2B7c+EJZQwmAxfp7bS+MlLVvfE3sPN8r0sT4D3+/A+gg3ch2Oylk/0Tlr/Ldj6LUnbq/mRUtmu0gZ yCH9rGhGm2Q2/JHmLH/gOdHfsK+hux7fQj+IL4Ri4q 7rcXbqiOk7MC7KV0c1N8+wr+BpDAFvEkoee0UueoyQkq+T3Es4QOV06Y/V/lX+wHOVf+jf3V10C/GTcx U/Od2+hn0GosZ+q8bVr938++spS6sU1tLpc+E11obnOD242GwQH6P1+fNPt6+Co3xtQjFiBUkqh5NrgQ 5bG9W6b+Y95jAKsk972WzIN89y/OR9vNy+Hm3jMmFS ruCvzjHKFeWKetpT/0r+Qp1XBtqU5mImR/qtTaQ6s63VXn1xRPf32Q8FIdF4vfJh1+Dz9bC13zeKt5of gq/Y1jgE5f7xAb0iUfEyllZLwykOXqk/8Wdf0V01n25prEu/bgwb9kbdXmimCCn/9f6FAga9kccy+yp1 3XTC1cucvQU/1Mpr6u3n4W/Y6zaxfmIyh5E9hONbx3 mN5+D0HdyHl+2reI+F64xtLe75j05nPZe35zvY//WO4pEsP5OnX52AHw1Lg8O6mFqdxvavL43sQ7rx0H n7Jwrk4jqcWqasajvOR5hLy9nyW7J3npIQ67fhLFS/Sd6YY0iX77nV/2ph/+Rriw1e1cFrIh//2BX8VY /y4usW+OeXLqKH7V0asO4jviQ+F0bhFI5rriqp/B9c +D+4kr+Silvestre+l5l6XruG95omHnQj46JC0oa/Y03OmAyt8W//eXFZ+ujCtxIsikCrt15J/+FwmOv4vRCMk4 [file] 7k590Z1LUv6Uq/XV17/+7uPbn//zp5//8t827u844g d9/f45c5d35juo/uE/OUmy2f/08y+//vjim1/+6vNvv/cYfc886vxa4wWz1/z9q4M/+dmXX/zEnVylfW n5g83kbMjbgsf5iNcYY9w71v+/ca58q61ywe582//w5cc/wd1ka20/8+uvf/afXHmbAveVX/zpj//2uz //4Yd//fjv//vjN7/7/e+///Off/j+93/z8bPv//i7 H37/8S//Consultant Dietitian//PXHn/74egg/Ww2qZbQPi0j11cuDOu/rAppVxzMv5if59I7//TmxiC3jTB3B/IffAG/3 lO3vcf03/qzdc7hP5A50/p7P9ysiywt42vdgy7GArrG6+tv5SgZP3nokQHx/rh/uy4DE3Ag0+8O//fDS 3U1cll4+/wajf0143x+/+vabj//2zd99/s+ff/fzr9 269K0xUJ0/5K8oimeFxov4o0vUpc/2DXNzdNWYlXjh7AKg6Dx//PE//vbjz9//xw9vtb++eB8R/+Y+6Q 31WO0ceXt+49oP+BbtD571u//44c//8q9uI5Fisv1VC88/9LtT9v3hs/z2u49//Z+vtv/uT3/8cfUePe 3B6UqKM/lTx855t11+g3k4XrVqPl4118md6VomiM8j M4b+tHYX5mcprmcS7Qa/btXBfvWTb3/y6eP7/++Hf//L1+d5bio+/58kjv0o7Cxf//answering service agent//LCKee7DAbi [file] JUVPRg== ID Date Data Source [id number] 04/18/2021 01:34:[address] [facility] Name Value Range Interpretation Code Description Data Sheryl rce(s) Supporting Document(s) Leukocytes [#/volume] in Blood by Automated count 7.0 10*3/uL 4-10 [facility] Erythrocytes [#/volume] in Blood by Automated count 4.23 10*6/uL 4.6- 6.1 L [facility] Hemoglobin [Mass/volume] in Blood 13.3 g/dL 13.5-18 L [facility] Hematocrit [Volume Fraction] of Blood by Automated count 39.3 % 4 1-53 L [facility] Erythrocyte mean corpuscular volume [Entitic volume] by Auto mated count 93.0 fL 80-96 [facility] Erythrocyte mean corpuscular hemoglobin [Entitic mass] by Automated count 31.4 pg 27-33 [facility] Erythrocyte mean corpuscular hemoglobin concentration [Mass/volume] by Automated count 33.8 g/dL 32.0-36.0 [facility] Erythrocyte distribution width [Ratio] by Automated count 13.9 % 11.5-14.5 [facility] Platelets [#/volume] in Blood by Automated count 247 10*3/uL 150-400 [facility] ID Date Data Source [id number] 04/18/2021 02:00:[address] [facility] Name Value Range Interpretation Code Description Data Sheryl rce(s) Supporting Document(s) Albumin [Mass/volume] in Serum or Plasma by Bromocresol green (BCG) dye binding method 4.1 g/dL 3.5-5.2 [facility] al Bilirubin.total [Mass/volume] in Serum or Plasma 0.5 mg/dL <1.2 [facility] Calcium [Mass/volume] in Serum or Plasma 9.3 mg/dL 8.8-10.2 [facility] Chloride [Moles/volume] in Serum or Plasma 109 mmol/L 98-107 H [facility] Creatinine [Mass/volume] in Serum or Plasma 1.00 mg/dL 0.70-1.20 [facility] Glucose [Mass/volume] in Serum or Plasma 142 mg/dL 70-140 H [facility] Alkaline phosphatase [Enzymatic activity/volume] in Serum or Plasma 139 U/L 40-129 H [facility] Potassium [Moles/volume] in Serum or Plasma 4.7 mmol/L 3.4-5.1 [facility] Protein [Mass/volume] in Serum or Plasma 7.3 g/dL 6.4-8.3 [facility] Sodium [Moles/volume] in Serum or Plasma 143 mmol/L 136-145 [facility] Aspartate aminotransferase [Enzymatic activity/volume] in Serum or Plasma 18 U/L <40 [facility] Urea nitrogen [Mass/volume] in Serum or Plasma 20 mg/dL 8-23 [facility] Osmolality of Serum or Plasma by calculation 301 mosm/kg 275-300 H [facility] Creatinine/Urea nitrogen [Mass Ratio] in Serum or Plasma 20 [facility] Bicarbonate [Moles/volume] in Serum 25 mmol/L 22-29 [facility] Alanine aminotransferase [Enzymatic activity/volume] in Seru m or Plasma 18 U/L <41 [facility] Anion gap 3 in Serum or Plasma 9 mmol/L 8-15 [facility] Glomerular filtration rate/1.73 sq M pre dicted among non-blacks [Volume Rate/Area] in Serum or Plasma by Creatinine-based formula (MDRD) 75 mL/min/1.73m2 >60 [facility] Glomerular filtration rate/1.73 sq M pre dicted among blacks [Volume Rate/Area] in Serum or Plasma by Creatinine-based formula (MDRD) 87 mL/min/1.73m2 >60 [facility] ID Date Data Source [id number] 04/18/2021 08:59:17 AM EDT [facility] Name Value Range Interpretation Code Description Data Sheryl rce(s) Supporting Document(s) Progress Note [facility] KFYVFv9yKwKSWgJs25/YWAthNOJyy0VaVDciBRy0OUcjJPUdK5CuENR5fB7yGHE2ZPdIBuYxIhDfNXXx [facility] [file] AgICAgICAgICAgICAgICAgICAgICAgICAgICAgICAg ICAgICAgICAgICAgICAgICAgICAgICAgICAgICAgICAgICAgICAgICAgICAgICAgICAgICAgICAgICAg ICAgICAgDQogICAgICAgICAgICAgICAgICAgICAgICAgICAgICAgICAgICAgICAgICAgICAgICAgICAg ICAgICAgICAgICAgICAgICAgICAgICAgICAgICAgIC AgICAgICAgICAgICAgICAgDQogICAgICAgICAgICAgICAgICAgICAgICAgICAgICAgICAgICAgICAgIC AgICAgICAgICAgICAgICAgICAgICAgICAgICAgICAgICAgICAgICAgICAgICAgICAgICAgICAgICAgDQ ogICAgICAgICAgICAgICAgICAgICAgICAgICAgICAg ICAgICAgICAgICAgICAgICAgICAgICAgICAgICAgICAgICAgICAgICAgICAgICAgICAgICAgICAgICAg ICAgICAgICAgDQogICAgICAgICAgICAgICAgICAgICAgICAgICAgICAgICAgICAgICAgICAgICAgICAg ICAgICAgICAgICAgICAgICAgICAgICAgICAgICAgIC AgICAgICAgICAgICAgICAgICAgDQogICAgICAgICAgICAgICAgICAgICAgICAgICAgICAgICAgICAgIC AgICAgICAgICAgICAgICAgICAgICAgICAgICAgICAgICAgICAgICAgICAgICAgICAgICAgICAgICAgIC AgDQogICAgICAgICAgICAgICAgICAgICAgICAgICAg ICAgICAgICAgICAgICAgICAgICAgICAgICAgICAgICAgICAgICAgICAgICAgICAgICAgICAgICAgICAg ICAgICAgICAgICAgDQogICAgICAgICAgICAgICAgICAgICAgICAgICAgICAgICAgICAgICAgICAgICAg ICAgICAgICAgICAgICAgICAgICAgICAgICAgICAgIC AgICAgICAgICAgICAgICAgICAgICAgDQogICAgICAgICAgICAgICAgICAgICAgICAgICAgICAgICAgIC AgICAgICAgICAgICAgICAgICAgICAgICAgICAgICAgICAgICAgICAgICAgICAgICAgICAgICAgICAgIC AgICAgDQogICAgICAgICAgICAgICAgICAgICAgICAg ICAgICAgICAgICAgICAgICAgICAgICAgICAgICAgICAgICAgICAgICAgICAgICAgICAgICAgICAgICAg EOIeAWBkQQRpOGJaFFIaMYx3G8jwGMCgXORhVH4rPPg6Sc5+UUhCQwCxIHE1dbVpaL8WRF6aq1MeGIax GXAtj1XeUMr6GT2BLBXqPXcvNG0ECOpycv2ELLOdLA OkfVOSg7wpIfBpEHX0PCAnAayoIA7LZALmD8ymovHgBQGqCRXSOP6KFeNrG5TriY80XZPGSt0+DQplbm OpQshYUpT9BHApk3DhXZu6EG0UYYEuSfdhd7LqJqJcHTUOQLbgWW2XLHM7SJOfEZEeNb2IMPBcJ959cw SqCK4YKb2QVnRqDG6qvb0KHwKbHWToUllBXzd0NAzf QX1ZdEFcJUoNpe3alaMomrRZr5UgbyOofJILYRAeiTDYJXOrXGDiRSrtEBDAHkBzzEYqNL1nZg9xOGGd IFB5JsNkHMTRPA8RUTIrRZZctMPqWMLsEOPXMK5UAHbwZMO5OKIhyyYiwRZsJSpaDV4OHWCdpqPuTQvw MCBSDQo+Kc5XHG0in3GyTXdjGPVlZJ5uth9BUUaSPq KaP5I7kYPqA1E1RVpjSd7NAYFwOTPjMYekNWRGVDmnNT6TQC8lbdG1LB9UiVRjWPSzYUYnpGWmMWs3W5 8ycHSmUUqyEM8FWRH+Darwin+Rv6EBSFaRSPeJOLoRmJiUAWTNjAhT0YoG2BVg9FbT9YnUS33aIyvmdCvNJ xoIT7SMI1oBSSjECAYXN6XjJXmmL1uncFiWGSbAOYN HrYpK87piACaKLGnCUG3VFFkHm0OFTFcN0LjhdMisRrlybKoLZIdYLJROQ2UOXhxcnHqxURnqKphAW34 sIgnEG7PHn3CHaLoSH1sav2YeQJtEz0EYRGjVg3LWZKfVAVsEVHyCZU7JAGmBxRiRGhgIDXlYTBeRLY6 NCJoQIStYI6IBeTtBBSjZBxoNGmtVGRcWQUuzd6PIC XqGXLvURltSJZeGLMgQCMnIOvmZAJhAKVzDFO4HIVlUETeFI8LJsTrADVbDTIlKPMsIPWwLNGsld0LFX VmYVSrNuFeZhBiJVDtFLHaQIedNMCjYPAiKCa8KPYuUUNhPR3RSuQhFIWtDDGgHgNfIYZiHHMgrl5IXD NkCEBjHdS6PgCzPWYeCCPaRHaxLHPsDQN9DGZwYDNw TGQfNE4MSzIyUYLvGBL4YEBbHEDpKHGiwq4HLJNeFHDbVOj5AFHtILJmLIDgTPwfTYGzIJY5KqC1MSHk VZDrID8OVkWrWNCaPNP2EmOtHYUwTYIfld2RGSWbTXPaIep4AJJiJCHnCWUjZUdyMKFvRBR5KXI3LXZg TERsBI0OGcByZBYnRSymXlGzXGXrMMXqkn1ZPGFtPS LhBkA2FBRnHXAuDUXrTOqmRYHyTOM9SOSzNDMwVNHwBW3WAnFaUIZzWBvtRbCnMRBiYPOgto3VKFBqQN SfBDCwCgYkMFBvAEChOMo1hiSaxIFkTXx0DW3TB3JcrzGbFbAOPp9Zt715EIDsSTFlBa2AG3ifCm7vSL ZoDSMVQc2TVNb4HJHjDZMhTWYwPxraYGkhGOFcKAL7 ZCYlUTO9ULU7AXW+ILi0DgVuBrH9B8O2Q0OgYoT7YXI8JTi4IiOpGKt1BRg3Wt8aALWETn1+DQpzdGFy iNmgANCERlX4BVzlUUujMVKKOg1W ID Date Data Source [id number] 04/18/2021 08:59:00 AM EDT [facility] Name Value Range Interpretation Code Description Data Sheryl rce(s) Supporting Document(s) SARS-CoV-2 RNA 2019 nCoV Real-Time RT-PCR: NOT DETECTED [facility] This lab was ordered by [facility] and reported by [facility]. ID Date Data Source [id number] 04/18/2021 03:25:55 PM EDT [facility] Name Value Range Interpretation Code Description Data Sheryl rce(s) Supporting Document(s) Specimen source [Identifier] of Unspecified specimen [facility] SARS-CoV-2 RNA 2019 nCoV Real-Time RT-PCR: NOT DETECTED [facility] Assay Performed [facility] Patients first test for [facility] Patient employed in healthcare setting [facility] Patient has symptoms related to [facility] When did you start to experience these symptoms [Date and time] [Phen X] [facility] Patient was hospitalized because of this condition [facility] patient was admitted to ICU for [facility] Patient resides in a congregate care setting [facility] status [facility] ID Date Data Source [id number] 03/23/2021 10:34:06 AM EDT [facility] Name Value Range Interpretation Code Description Data Sheryl rce(s) Supporting Document(s) Progress Note [facility] SCKKHr9dLwPDXbAs87/CZLxuVAUqj5MiOMedZSr0KUtlXFPdD5MmWHW6jB0gTIU3NXoZLaOiEuLvEBK7 m [file] ICAgICAgICAgICAgICAgICAgICAgICAgICAgICAgIC HiQXOpSVZhXIOvTYPfOV4XKNMfGOQsABOlGQGcMFXeTVAyOESmNWAcEDQaLYWeQXYcZQGiBPVaLBRpRW UxDZQeIMGhGTZxSOQyGMBeEEWgJHHsKMIbZKLbOGFmETVsRSXyYCNjORYzGZAxMBTzUMErHWEpZH9NFO AgICAgICAgICAgICAgICAgICAgICAgICAgICAgICAg ICAgICAgICAgICAgICAgICAgICAgICAgICAgICAgICAgICAgICAgICAgICAgICAgICAgICAgICAgICAg GXCaIHPuNE3BGEWiWDMlCYWbNYCzCZZyZVOiYGQwEMFdPINwMEJaLHKjZQYgZBWnAHYuWBJdSWLvODJh ICAgICAgICAgICAgICAgICAgICAgICAgICAgICAgIC InBAMpUBTcDFCeWMTbRVAiBK8XOEQxBXDdFTLlJMAaJXRhGNOnMQGoHDHlXFMsQFHjVVMwKYLbJEIqLZ AgICAgICAgICAgICAgICAgICAgICAgICAgICAgICAgICAgICAgICAgICAgICAgICAgICAgICAgICAgIA 0KICAgICAgICAgICAgICAgICAgICAgICAgICAgICAg ICAgICAgICAgICAgICAgICAgICAgICAgICAgICAgICAgICAgICAgICAgICAgICAgICAgICAgICAgICAg MSEdIURvCQVfSH1NMBYwLKMbWPUxMFPkDLHmTMFmQUBdHVTyWZEwPVWyZHWgGMMtNYJtDBHkVLSuQTQj ICAgICAgICAgICAgICAgICAgICAgICAgICAgICAgIC AzJTYoULTxZJNxCCNhDEYqWVOvXO5NPJZuZYCzPAJtRQKhLEMiDGInZDCbZXPoJVPmFRZfYSRqWPJyXK AgICAgICAgICAgICAgICAgICAgICAgICAgICAgICAgICAgICAgICAgICAgICAgICAgICAgICAgICAgIC StCX8FOEYoZWIxWJEaRLUsKKXtYPIoTYQxNSXbAJBi ICAgICAgICAgICAgICAgICAgICAgICAgICAgICAgICAgICAgICAgICAgICAgICAgICAgICAgICAgICAg VISoVQHjRTRjXSCoBB0WVSWrPZEdMALzUUOgJEXkVKXsZQJqOMPkVRCiVVAkTMAcTPBnWYViQINaGWAo ICAgICAgICAgICAgICAgICAgICAgICAgICAgICAgIC EtXVNiDLGeTCIuASUdGZFxJXIoWQCpIR4CTW91rUQwv5V0ODYaXN0xprn/Wu8WHNobuqRinBYeXU6MVp NsBD9chm2MHySrSI0imh7HVJhYUlGiZ4R8zOGtCTWwGEMHTzTwS54gCFleIf89NQvdUILoMlXiEAz6Is 7IBwYbL6vkQHIrFvC7MGGzEbG1PJCzXkR8OUQgPfAh QBPaPKMcZXBxGOGIEKO8FZHgOlXyCQkzYB3Tw3RhjIF3EIl+Nk3BQJ6kr0NwJYnuDdHtPM8eib0OUOcW RsDmK5ZvdzQ7FIFnODOrZl9IURMzLTVbqQRnEyVfGQNXOcQwE6RijW74HXVPCf6+DQplbmRvYmoNCjMz RMSvs7RjTZh9RR0WXQQrJBc3hDZpQLTpZ0Tlr3ZvZm 20QURpZbbgX8Y3l1HzjLPiRRygSzI9SCSorXfkSJRaDLAcPZ3iLI9xIYNbJVLoEuSwZYNWRT0FMGTjBW VuhWMiFVGrURMKVB8QFGqlQLY6TAVglmDezPUyEDzdUB0XYSEpldLnPwMdBQERCZk+Yb0SKA0yr9TsOP dzDAHtAN4ojm4LDEfCJvKqG9U0cDZuN4G8YYzbCc8X XPXpJJHoMjVgDYRKPAbrXI0XIQ7oyuA0ED7DeOLbTFUvNFXowUKkEKp5Q74fzWXwQSrlRH4IRRG+Darwin+ Vh7BEJFzVZSsAEYvBrRaDANHNbCdL1ZvX6MQz4QbG1GqMZ07xKtsvnWnDZwfMG9XWF2iMTQrWLWCQK4L hMJpsQ6oajBsOtMmOBHLXlQhX68ijQRyMOOqEZNxFZ NcMt0CUPGuU3JzxiMksZjtlxFhOATdWGXNKJ3JQVfwnfJbeDTnzHglVL04rWdiIY4EWl8VEdPaTC6jkf 8UuRVmDb1OOKMmPH2MFDYoREUfQDJmVNO4DYJcUwLkEWqdVZRwVWNrJZM7PKTbSXVqFY5UWhCuEFFhLa P9VRWqXQJaGAUtee8XYCZuZJAwXwV2MrUhTJRmORUj NFvqVHThDUXwSYA3VYMtEUVvGO0XZhRrYFOtXYW5GRXhNTHcHMNjyr6BIZAuUWYvLvo7BzAjNMBzLMJv OYyeGNQtESK4KWZ2WMXbIMZmKM9QLjHsXFPlWVHoDCfrFRGhBPIgvr0TXMVaIWOuQZIcVdQfEHCkNTPa HCluPZFnMMB3BdX9XNGwNEXoWR8CWaPuVIDcDEL3EC vsNKBzNYYiyt9MJORwJOXbZrw7ASTsZCTsBBTiFQeiNBOjBJW4VIE0COGnTISdQP7NXgReYEOxWCTdKG QrRAZaEBAuva1YLBFeLCGcHca6DNRcYBWuECZqNLtxBMSyDOP8BOAsPPNxRIShGW0ZIsIxSJUsFSciYm SqRZYrNDLjqh8NOUCwIJGpJPQjAdXpGQBfTNTuIGkv SAStDYH6WJUmXSOrKIXlZX0WHeSqPGInOfH2TNvlXJVaCVJwms0PJAWiZOIrUBM9WEPaXIPfHSKvIUcz FUEoLDElVSO2EDTnKHCsAR4CTeVeWUUiTnAoMsrqLVIvYQUefx7OTINgIUDcUsSsVDOoKGRmPZIeETsy QKRnRCLrPWKhMGPbBDCxAC3ZHfJiXQNoUgFkNxHjLX ZwLWZsig8ZTJEtBGPgNfVsCYHkWHLxKSTmZOtgPLAtQQO4WAPkZFZvLHAjIQ8HRhHkQONrZkKgEDSyYY ReWEAugr6ITTQxIXKsJIIcEBDxONBsWAKrWXeaFFPqJNX3HYS6ZYVjTLBkHG0AWmBkAYLcMiQ6YDzjSR YqPPMhtg3DMXMnZKAeGtF4DAKgJIWuDTXzVIysOGRd OBM3JdHqLABeHMDyMJ6ALvUyDAysIMPXHhv3RYiiP5m7NVRqNX6KO0Ccv0RyHuXmIZYZKKeqQE6nxaVw HUUwRk7RG7wWBgk5EpL4YxQdSzByElUqHRC7Q3F1IhE4B7SvZYEmN1StEs0wABtuTxvxAGDbRqLpG1Wt CKQxQkb6QkvzPkH5CbHfDMHaFxQuLU0MAp5IDqL6IUC4cTJkYj3FMqM8IgASQdHxAP4METg= Procedure Social History Code Duration Value Status Description Data Source(s ) Alcohol intake 03/22/2021 12:00:00 AM EDT Current non-d jaguar of alcohol (finding) completed Current non-drinker of alcohol (finding) [facility] Tobacco use and exposure 03/22/2021 12:00:00 AM EDT Never used co mpleted Never used [facility] Cigarette pack-years 03/22/2021 12:00:00 [facility] smoked current (pack per day) - Reported 03/22/20 12:00:00 AM EDT [facility] Smoking 03/22/2021 12:00:00 AM EDT Current every day smoker co mpleted Current every day smoker [facility] Vital Signs ID Date Data Source [id number] 04/28/2021 07:15:28 AM EDT [facility] Name Value Range Interpretation Code Description Data Source(s) WEIGHT RECORDED 150 lb 150 lb [facility] Body height Measured 67 in 67 in [facility]
--- OUTSIDE RECORDS SUMMARY | 2021-04-29 12:48 | CCD ---
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 Name Role Phone Martir Roberts Unavailable PROBLEMS Type Condition ICD9-CM Code [id number] Code Onset Dates Condition S tatus W/U Status Risk SNOMED Code Notes Problem Right ureteral calculus N20.1 Active confirmed 60296183 ALLERGIES Allergen (clinical drug ingredient) Drug/Non Drug Allergy do cumented on EMR Reaction Allergy Type Onset Date Status Sertraline sertraline Unknown Non Drug Allergy Active linezolid linezolid Unknown Non Drug Allergy Active Codeine codeine Unknown Non Drug Allergy Active Contrast media contrast media Unknown Non Drug Allergy Active pcn Unknown Non Drug Allergy Active Nitrofurantoin nitrofurantoin Unknown Non Drug Allergy Active Simvastatin simvastatin Unknown Non Drug Allergy Active gabapentin gabapentin Unknown Non Drug Allergy Active Aspirin aspirin Unknown Non Drug Allergy Active ENCOUNTERS from 1950 to 2021-02-22 Encounter Location Date Provider Diagnosis [facility] [address] [phone] [place] [address] Jan, Martir Roberts IMMUNIZATIONS No Information SOCIAL HISTORY Tobacco Use: Social History Observation Description Date Details (start date - stop date) Current Smoker Sex Assigned At : Social History Observation Description Sex Assigned At Unknown Language: Question Answer Notes Languages spoken: Montserratian Jain: Question Answer Notes Jain No christianity beliefs that would impact health care. Sexual Hx: Question Answer Notes Had sex in the last 12 months (vaginal, oral, or anal)? No Have you ever had an STD? No Alcohol Screening: Question Answer Notes Did you have a drink containing alcohol in the past year? No Points 0 Interpretation Negative Tobacco Use: Question Answer Notes Are you a: current smoker How many cigarettes a day do you smoke? 31 or more REASON FOR REFERRAL No Information VITAL SIGNS No information MEDICATIONS Medication SIG (Take, Route, Frequency, Duration) Notes Start Da te End Date Status Ascorbic Acid 500 MG 1 tablet Orally Once a day Active Clopidogrel Bisulfate 75 MG 1 tablet Orally Once a day for 30 day(s) Active traMADol HCl 50 MG 1 tablet as needed Orally q 12 h for 7 days Feb, Active Atorvastatin Calcium 80 MG 1 tablet Orally Once a day Active Nitroglycerin 0.4 MG Sublingual Act alec Oxybutynin Chloride 5 MG 1 tablet Orally Daily Active glipiZIDE 5 MG 1 tablet Orally Once a day for 30 day(s) Active Sertraline HCl 50 MG 1 tablet Orally Once a day for 30 day(s) Active Lidocaine 5 % 1 application to affected area as needed Externa lly Once a day Not-Taking Accu-Chek Meena . 1 strip In Vitro TID Active Dextrose (Diabetic Use) 4 gm 1 tab orally prn Active Pantoprazole Sodium 40 MG 1 packet Orally Once a day Active Carvedilol 12.5 MG 1 tablet with food Orally Twice a day Not-Taking metFORMIN HCl 500 MG 1 tablet with meals Orally Twice a day Not-Taking Tamsulosin HCl 0.4 MG 1 capsule 30 minutes after t he same meal each day Orally Once a day Active Vitamin B Complex - 1 tab Orally Daily Active Metoprolol Succinate 25 MG 1 capsule Orally Once a day for 30 day(s) Active Cholecalciferol 1000 UNIT 1 tablet Orally Once a day Not-Taking Briefs Overnight Large _ 1 brief _ as directed, as needed Active Morphine Sulfate 15 MG 1 cap(s) Orally daily prn Active Hypromellose 0.4 % 1 drop into affected eye as needed Ophthalmic On ce a day Not-Taking Albuterol Sulfate HFA 108 (90 Base) MCG/ACT 2 puffs as needed Inhalation every 4 hrs Active diazePAM 10 MG 1 tablet as needed Orally Twice a day Not-Taking PROCEDURES No Information RESULTS No Results REASON FOR VISIT abx MEDICAL (GENERAL) HISTORY Type Description Date Medical History Hepatitis C- gentype 2A (tx naive) Medical History PTSD Medical History Depression Medical History Hyperlipidemia Medical History Urethral stricture Medical History Spondylolisthesis Medical History Anxiety Medical History DJD knees Medical History Diabetes type 2 Medical History FX of ribs and lumbar Medical History Colonostomy Surgical History cystosopy, right retrograde pyleogram, right urterscope, right urteral stent placement 02/2019 Hospitalization History urosepsis Hospitalization History sx related Goals Section No Information Health Concerns No Information MEDICAL EQUIPMENT No Information MENTAL STATUS No Information FUNCTIONAL STATUS No Information ASSESSMENTS No Information PLAN OF TREATMENT Next Appt Details Provider Name:Martir Roberts, 2021-02-2 7 11:30:00 AM, [id number], , [place], [address], Insurance Providers Payer Name Payer Address Payer Phone Insured Name Patient Relati onship to Insured Coverage Start Date Coverage End Date '[place] [address] [address] [facility] [id number] JIGAR MENESES self
--- OUTSIDE RECORDS SUMMARY | 2021-04-29 12:48 | CCD ---
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 Attendant Name Role Phone Martir Roberts Unavailable PROBLEMS Type Condition ICD9-CM Code [id number] Code Onset Dates Condition S tatus W/U Status Risk SNOMED Code Notes Problem Right ureteral calculus N20.1 Active confirmed [id number] ALLERGIES Allergen (clinical drug ingredient) Drug/Non Drug [...] Drug Allergy Active ENCOUNTERS from 1950 to 2021-04-13 Encounter Location Date Provider Diagnosis [facility] [address] [phone] [place] [address] Apr, Martir Roberts IMMUNIZATIONS No Information SOCIAL HISTORY Tobacco Use: Social History Observation Description Date Details (start date - stop date) Current Smoker Sex Assigned At : Social History Observation Description Sex Assigned At Unknown Language: Question Answer Notes Languages spoken: Thai Samaritan: Question Answer Notes Samaritan No anglican beliefs that would impact health care. Sexual [...] Information RESULTS No Results REASON FOR VISIT n/s MEDICAL (GENERAL) HISTORY Type Description Date Medical [...] Information ASSESSMENTS No Information PLAN OF TREATMENT No Information Insurance Providers Payer Name Payer Address Payer Phone Insured Name Patient Relati onship to Insured Coverage Start Date [place]age End Date [place] [address] [address] [facility] [id number] JIGAR MENESES self
[2021-04-29] MEDS ORDERED: NS 500 ML IV ONE (13:00)
[2021-04-29 13:25] LABS: BASO % 0.4 % (0.0-1.0); EOS # 0.1 10^3/uL (0.0-0.5); EOS % 0.9 % (0.0-3.0); HEMATOCRIT 37.3 % (42.0-52.0); HEMOGLOBIN 12.5 g/dl (13.5-17.5); LYMPH # 1.9 10^3/uL (1.5-5.0); LYMPH % 21.2 % (24.0-44.0); MEAN CORPUSCULAR HEMOGLOBIN 30.9 pg (27.0-33.0); MEAN CORPUSCULAR HGB CONC 33.5 g/dl (32.0-36.5); MEAN CORPUSCULAR VOLUME 92.1 fl (80.0-96.0); MONO # 0.5 10^3/uL (0.0-0.8); MONO % 5.3 % (2.0-8.0); NEUTROPHILS # 6.5 10^3/uL (1.5-8.5); NEUTROPHILS % 71.8 % (36.0-66.0); PLATELET COUNT, AUTOMATED 253 10^3/uL (150-450); RED BLOOD COUNT 4.05 10^6/uL (4.30-6.10); WHITE BLOOD COUNT 9.1 10^3/uL (4.0-10.0)
[2021-04-29] MEDS ORDERED: OXYB15TA14 PO (13:34)
[2021-04-29] MEDS ORDERED: D 101000 PO (13:34)
[2021-04-29] MEDS ORDERED: NITR0.4S14 SL (13:34)
[2021-04-29] MEDS ORDERED: GASTROGRAFIN SOLUTION 30ML (Q9963) As Ordered ONE (13:47)
[2021-04-29 13:56] LABS: ALT/SGPT 18 U/L (12-78); BILIRUBIN,DIRECT < 0.1 MG/DL (0.0-0.2); BILIRUBIN,TOTAL 0.3 MG/DL (0.2-1.0); LIPASE 20 U/L (73-393); TOTAL PROTEIN 6.9 GM/DL (6.4-8.2)
--- OUTSIDE RECORDS SUMMARY | 2021-04-29 14:00 | CCD ---
Author Author [facility] Organization [facility] Address Unknown Phone Unavailable Care Team Providers Care Trucker Name Role Phone ED, TEST DEFAULT Unavailable [...] Unavailable Unavailable TRAVIS JACOBS MD Unavailable Unavailable Sandoval Foley MD Unavailable [...] is protected by Article 27-F of the [facility] Public Health law. If you continue you may have access to information: Regarding HIV / AIDS; Provided by facilities licensed or operated by the [facility] Office of Mental Health; or Provided by the [facility] Office for People With Developmental Disabilities. If such information is present, then the following [facility] mandated warning applies: This information has been [...] law may result in a fine or senior living sentence or both. A general authorization for the release of medical or other information is NOT sufficient authorization for further disc losure. Allergies and Adverse Reactions Type Description Substance Reaction Status Data Source(s ) Propensity to adverse reactions IODINATED DIAGNOSTIC AGENTS IODINATED DIAGNOSTIC AGENTS [facility] H ospital Encounters Encounter Providers Location Date Indications Data Source(s ) Outpatient Attender: ALTAF STOVER MDAtt nigel: TRAVIS JACOBS MDAttender: Sandoval Foley MDAdmitter: Sandoval Foley MDReferrer: Sandoval Foley MD [id number] 04/20/2021 05:56:17 AM EDT - 04/21/2021 12:25:00 PM EDT Hepatomegaly, not elsewhere classified [facility] Hepatomegaly, not elsewhere classified Patient discharged. Outpatient Attender: DEFAULT EDAttender: RUDDY ROBERTPELL [id number] 04/18/2021 12:00:00 AM EDT [facility] Outpatient Attender: Alexa GONSALESCReferrer: Ml Foley MD [id number] 04/18/2021 12:00:00 AM EDT [facility] [place] [address] [address] 04/13/2021 12:00:00 AM EDT [facility] (Critical access hospital) Outpatient Attender: Sandoval Foley MD [id number] 03/22/2021 12:00:00 AM EDT - 03/22/2021 11:02:52 AM EDT Hepatomegaly, not elsewhere classified [facility] Hepatomegaly, not elsewhere classified Outpatient 03/10/2021 12:00:00 AM T [facility] [place] [address] [address] 01/31/2021 12:00:00 AM EDT [facility] (Critical access hospital) Outpatient Referrer: Korin Ariza 12/26/2020 12:00:00 AM E [facility] Outpatient Referrer: Korin Ariza 12/19/2020 12:00:00 AM [facility] Medications Medication Brand Name Start Date [...] type / Coverage type Policy ID Covered republican ID Covered republican's relationship to dillard Policy Dillard Plan Information MEDICARE [id number] Tia [id number] A MEDICARE A [id number] Self [id number] A MEDICARE [id number] SP [id number] A MEDICARE [id number] SP [id number] FOR LIFE U [id number] Self [id number] Tia [id number] TODAYS OPTIONS [id number] SP [id number] AMER PROG TODAYS OPTIONS G [id number] Self [id number] HUMANA GOLD [id number] SP [id number] WELLCARE [id number] SP [id number] TODAYS OPTIONS [id number] SP [id number] HUMANA GOLD [id number] SP [id number] OTHER B [id number] Self [id number] ANSI-Commercial [id number] ANSI-Health Maintenance Organization ( O) [id number] MEDICARE PART A -O/P [id number] 18 [id number] FOR LIFE-O/P [id number] 18 [id number] WELLCARE -O/P [id number] 18 [id number] WELLCARE -O/P [id number] 18 [id number] ADMINSTRATION -O/P [id number] 18 [id number] ADMINSTRATION -O/P [id number] 18 [id number] TODAYS OPTION -O/P [id number] 18 [id number] FOR LIFE -I/P [id number] 18 [id number] TODAYS OPTION MCR -I/P [id number] 18 [id number] TODAYS OPTION -O [id number] 18 [id number] [facility] NO FAULT [id number] SP [id number] TODAYS OPTIONS [id number] SP [id number] ADMINSTRATION -O/P [id number] 18 [id number] ADMINSTRATION -O/P [id number] 18 [id number] TODAYS OPTIONS [id number] SP [id number] TODAYS OPTIONS/BOLIVIAN O [id number] S [id number] FOR LIFE O [id number] S [id number] MEDICARE PART A-O/P [id number] 18 [id number] MEDICARE C [id number] S [id number] A [place] MEDICARE PART B C [id number] S [id number] ACTIVE DUTY [id number] SP [id number] PGBA [place] [id number] SP [id number] MEDICARE -O/P [id number] 18 [id number] PGBA [place] S [id number] S [id number] [employer] [id number] 9 [id number] FOR LIFE WPS O [id number] S [id number] MEDICARE OUTPATIENT M [id number] S [id number] OPTUM VA CCN [id number] SP [id number] SP [id number] ADMINISTRATION [id number] SP [id number] MEDICARE [id number] SP [id number] FOR LIFE [id number] SP [id number] NGS MEDICARE CONNETI O [id number] S [id number] NOVITAS JL PART B C [id number] S [id number] MEDICARE C [id number] S [id number] HEALTHNET VA CHOICE O [id number] O [id number] WPS MVH-[id number] TRIWEST [id number] SP [id number] WEST O [id number] S [id number] WPS MVA VAPC3 O [id number] S [id number] ANSI-Health Maintenance Organization ( O) [id number] ANSI-Commercial [id number] Problems, Conditions, and Diagnoses Code Display Name Description Problem Type Effective Dates Data Source(s) R16.0 Hepatomegaly, not elsewhere classified H epatomegaly, not elsewhere classified Diagnosis 04/20/2021 05:56:17 AM EDT [facility] new pt new pt Diagnosis 03/22/2021 09:33:13 AM ED [facility] Surgeries/Procedures No Information Results ID Date Data Source [id number] 04/24/2021 01:51:03 PM EDT [facility] CT ABDOMEN WITHOUT CONTRAST [id number] ESULTInterpreted by:Faby Leon, DOPROCEDURE INFORMATION: Exam: [...] document has been electronically signed by Faby Leon DO on 04/24/2021 1:50 PM Name Value Range Interpretation Code Description Data Sheryl rce(s) Supporting Document(s) ID Date Data Source [id number] 04/23/2021 11:34:06 PM T [facility] IR VISCERAL ARTERIOGRAMFINAL RESULTInter preted by:Yadira Alcocer MDExamination: Visceral angiograms, Hepatic arteriograms and Chemoembolization of the liver, 04/20/2021. 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 Target Man: Dr. Foley Fellow: Benitez Navarro M.D. Anesthesia: [...] .035 Bentson wire. Over the wire, a 5-Comoran Cobra 2 catheter was introduced into the [...] Bentson wire. Through this sheath a 5 Comoran VS 2 catheter was advanced and the celiac artery was selected. Through this catheter and over the wire a 2.8 Comoran Pro great microcatheter was advanced into the [...] rce(s) Supporting Document(s) ID Date Data Source [id number] 04/22/2021 08:53:04 AM EDT [facility] Name Value Range Interpretation Code Description [facility]s) Discharge Summary [facility] BNCBPq1bFyOYSjWk90/EATwhOWQlt2JjAQjfWEg6JKopVZOvH7PzVQQ2bY0gFUB6BGfVLvBxTdFuDRQ6 [facility] [file] TpKJ7hUYUEIh9+HCnjfJSmpDsgVEMRPdC1MQNvNCfyBMZTUm3V ID Date Data Source [id number] 04/22/2021 08:52:39 AM EDT [facility] Name Value Range Interpretation Code Description Data Sheryl rce(s) Supporting Document(s) History and Physical [facility] EUWWFo2qWmKFGtMm21/GQAdyCXXly1JvVCwyCHw8XWibWOQqW8VcSSZ4bF7fXYM2SYdDOyPlWgKkYUO5 lbm [file] AgICAgICAgICAgICAgICAgICAgICAgICAgICAgICAgICAgICAgICAgICAgICAgICAgICAgICAgICAgIC AgICAgICAgICAgICAgICAgICAgDQogICAgICAgICAg ICAgICAgICAgICAgICAgICAgICAgICAgICAgICAgICAgICAgICAgICAgICAgICAgICAgICAgICAgICAg ICAgICAgICAgICAgICAgICAgICAgICAgICAgICAgDQogICAgICAgICAgICAgICAgICAgICAgICAgICAg ICAgICAgICAgICAgICAgICAgICAgICAgICAgICAgIC AgICAgICAgICAgICAgICAgICAgICAgICAgICAgICAgICAgICAgICAgDQogICAgICAgICAgICAgICAgIC AgICAgICAgICAgICAgICAgICAgICAgICAgICAgICAgICAgICAgICAgICAgICAgICAgICAgICAgICAgIC AgICAgICAgICAgICAgICAgICAgICAgDQogICAgICAg ICAgICAgICAgICAgICAgICAgICAgICAgICAgICAgICAgICAgICAgICAgICAgICAgICAgICAgICAgICAg ICAgICAgICAgICAgICAgICAgICAgICAgICAgICAgICAgDQogICAgICAgICAgICAgICAgICAgICAgICAg ICAgICAgICAgICAgICAgICAgICAgICAgICAgICAgIC AgICAgICAgICAgICAgICAgICAgICAgICAgICAgICAgICAgICAgICAgICAgDQogICAgICAgICAgICAgIC AgICAgICAgICAgICAgICAgICAgICAgICAgICAgICAgICAgICAgICAgICAgICAgICAgICAgICAgICAgIC AgICAgICAgICAgICAgICAgICAgICAgICAgDQogICAg ICAgICAgICAgICAgICAgICAgICAgICAgICAgICAgICAgICAgICAgICAgICAgICAgICAgICAgICAgICAg ICAgICAgICAgICAgICAgICAgICAgICAgICAgICAgICAgICAgDQogICAgICAgICAgICAgICAgICAgICAg ICAgICAgICAgICAgICAgICAgICAgICAgICAgICAgIC AgICAgICAgICAgICAgICAgICAgICAgICAgICAgICAgICAgICAgICAgICAgICAgDQogICAgICAgICAgIC AgICAgICAgICAgICAgICAgICAgICAgICAgICAgICAgICAgICAgICAgICAgICAgICAgICAgICAgICAgIC AgICAgICAgICAgICAgICAgICAgICAgICAgICAgDQo8 W1eyHTBtROSrQT8uMIk0Kg4+ZAkADmKoBZF3vqDpoV2BOV4xx0SdSLshFJZmg0MsGMc6MK4LDMWaOBff KU9QEIqwmx5OFRCkTZMinNZQj5fsXaLgHLJ0LOSkQiieIL6HLSAfP4ztjkQjRYBwAOYQDYwmKCJEMJgn CYBUDDLrCCWrPiFtUaFbFUVsKY6UJELbH983anNuPC 2CWh9PFuKuYE8qpk8QCgNrUEOyRfhNOmt3HAppJC8DlWHwyNNtRMEyLBMYJmOdS8mjz2UfYuMoGAPVXG agKI2Yg0NaiPGzIUn+Kb5OQK0rw1IqJEetVLUlOC3dri6MZEoNKyXoW9DayAzuKOdoYECzdIFOQUpetM hlWqACNSiwoKJ7sGjvXXHULqPrpPHfXK7iMN2xWSGt PBTuNoI7XXQTEX0WSYLcFSGmaYIpFUNyCPOEYA6UGKatOFM6CEHljyWcvJWlIYgvKS0ZOASxqxWoUrWq MCBSDQo+Ls4DDI8zm6ZdPKtyOpKvMG0lst7RQQxUDoZtT5K5fTTlJ5N7XQtxNp4OFMUoPFGgWfauOXCD WTnsRU2FJS8gxuE1UU9ElVJdBLMqJJLvoFBwBDb9H7 7seIKmDPajGE1MGVQ+Darwin+Ej1LMTGfXQVgXZPoNbJjBDIUUtBdD8UvB6BBm5EgC2XkRV14sZixodPjBM ntGN7BGR0yWMHwMMUWFB1YtVBnuK9qenNrQSSlFZBLOfMoU47qlZCnQOLbEKF7OMQtFw4ZBHLmI5Gbje OaxJdmsdRkDNPiUFCYSY2XANmqrxKmcKCelLdaRS68 mIpfOL0ZBg5LPpClDC0kdw1TeDUyBb6PGJXfXs9DGXKkNAIjFHQuFRN8AWAwBvDmRDnnCQNdHTAbITX5 IYZwZUGjQA5XPvCeBCDaZOQ0EJObFXWqOTJwlt4ICXWwCMF2THA5ROGwONHbUAYoYLmeKKFxRBTeQUQ9 GOEaKFLqLG1GWsMvHLWpIFH8WrdxTAKdYLJhfv6YNA BaGYJcPSHhUpVeLPVsAZGkFXkpXUCrZQJ7YJHpVGHoVFFgBK7OYsEqJGSgQRzmJUFjGXEmARTeia6ASG TwJWHtMrUvUsKfMUOaUHJrDLkiVHXiMRPsLnPdTZNzRZGpQX4KAcGyLYWkWZQ3YSLbINErSZYgad0ZMY JlYONfSnB5TiWnRPSmDGMsMMmqESSzXSZ8DJOgCOXf VLPiQJ7DCmGdDFBoEXhoUEacPXPrABTbuk2UOGPlBKKrNUC3SAMyXBOtWDZmNYpgXZDvAVX2StK6IHFd LICpAH5ROuYwXSPqUWu3PTmsNXXySIEvpq0CZYLiHZPcIXZjYgHgQXRoKVUzOWxjDAMgUBIiMtJ9DBPk QVOtQF4BSlAxNGFiKkC6JKbjVTLiMWHmrs9SJBSrAC BqIUa2YyMrGZAvKHVpYQiuIRHzFSAtZUH3WURfYYXxJU4LZdEjUFTzOkFmSavrPXQtYCYvet0HGIRlRN F1VMS5SuShBTIsLLBlDGauJGWyASLeJpCaNEMzTZMbBG1SStCjJDAnGZY0RHSzKJKeDQOzzd8DITCaGH J0WuY4PwKgETHjDTKbLJhzHKJgLNOaYISsBGTgRVQy OE8GNlRnCUZwIRA7XdfaZJHkGWXgkr1TAHDrVJK0NOYiPzRoGBTpFESqYToaRJRoTPS9PWb3HDLjNRXi VX9RPgZwZYZeFUP2BLzbADZjSMDuur6GzHSrkXikfw2GLFyRCb0HsFfqGEOoWYwfOe7rmDClFgKmMGRM Cp4KmeOeEBOjIWXHOGlcNUDgLXKuI9T9PbNkP8CdOA P1ZKZ7REY1NEB8WQrlOsOeGNAnGzA2V8ErKpjsKyVnZvT4QEIsFvL1LGBdDVghUBQiWSJbIwU+IF0gDQ o+Tp5Ir5ZesuZ3bbDuIVp3WZs1Ba1CUKKBQ5QNVf== ID Date Data Source [id number] 04/21/2021 03:20:04 PM EDT [facility] Name Value Range Interpretation Code Description Data Sheryl rce(s) Supporting Document(s) Progress Note [facility] UJDSCm3aTdIIOuWp00/UDVsrTGZjk1ZiVHbaJHj9APxbJSPfX7OtVYW0kL2lUSG5KBeJPwVzVoYuKNZ4 lbm MbKufUIhCsHSAsLckOLpZeQVlkFxckzBIbPZ3LvIS1UCJuT44eONFuPUMmE5YqPUQ1RAG+Tf0QBUYbfW StHP5PHciO1RtaZgL9HC7KDk3NitPv3WNwbGmq/MLnc8aWDip9zoQEiTB7kP9AYg5lbwxz3xlggAfplq 2EkVxldlvky1tOYccIy+30mdZqiNdnN1aOX841U/4t /gu2VOb71N0/HmunEe1dXv5Qu2VYjbe9Fx2ziuwn/WV7Kme0l0andyL0CoZXIDTPruGI6YC795T3n47c tp4wvtgQpjO6dvN43pNkUoTzlxzhx1fwE0Y7YM56ErT3XoKX8tb6ySjH2wSVugRw+YVa78Dc8IUUn1Oy nXPdodo9vKOeD/Vpt5olsnX8DhM4GtPIRrwmj8/hLS vLzgD6BFbjIMHnwxZ97qlruGabYkSXUb0nb6rZ6Q8jI+nDaHw99+wNwsIkonWU3w2TpIR7pEKmGNLK57 PtgTt39ieWA5cDLCavgb887frRRHLX3uJ8LQnlMmaApMy9w4/42bUhNcBNiupZGAckXRIMSJuQabs66e cekdLypOH2cbU7TbxkY+5gtODNuH2xWVsRP2dYSR7x 5qhcJDEbgnGuTpgHhhinC3+k9tXzOEs4wAaEO38Ro15hz1oaBb01tHkYINFjkMz66UcjneSburmX/[facility] [file] JnP8HIT8fQJzUu2PQFM2VBgCFhGsZO8CSKa= ID Date Data Source [id number] 04/21/2021 09:57:12 AM EDT [facility] Name Value Range Interpretation Code Description Data Sheryl rce(s) Supporting Document(s) Progress Note [facility] PAJGCf1tYaZEDuOl34/WEEasPRVru6DvDVksKTs3TAeoWYJoI5YiHGC9qG4tCOO9SYuSDbLjKfRxUZT4 lbm [file] 9GDQo= ID Date Data Source [id number] 04/21/2021 08:59:17 AM [facility] Name Value Range Interpretation Code Description Data Sheryl rce(s) Supporting Document(s) Glucose [Mass/volume] in Capillary blood by Glucometer 177 mg/dL 70- 140 H [facility] ID Date Data Source [id number] 04/21/2021 04:06:02 AM [facility] Name Value Range Interpretation Code Description Data Sheryl rce(s) Supporting Document(s) Leukocytes [#/volume] in Blood by Automated count 8.8 10*3/uL 4-10 [facility] Erythrocytes [#/volume] in Blood by Automated count 4.06 10*6/uL 4.6- 6.1 L [facility] Hemoglobin [Mass/volume] in Blood 12.5 g/dL 13.5-18 L [facility] Hematocrit [Volume Fraction] of Blood by Automated count 37.3 % 4 1-53 L [facility] Erythrocyte mean corpuscular volume [Entitic volume] by Auto mated count 91.7 fL 80-96 [facility] Erythrocyte mean corpuscular hemoglobin [Entitic mass] by Automated count 30.9 pg 27-33 [facility] Erythrocyte mean corpuscular hemoglobin concentration [Mass/volume] by Automated count 33.6 g/dL 32.0-[facility] Erythrocyte distribution width [Ratio] by Automated count 13.6 % 11.5-14.5 [facility] Platelets [#/volume] in Blood by Automated count 195 10*3/uL 150-400 [facility] Differential cell count method - Blood [facility] Neutrophils/100 leukocytes in Blood by Automated count 73 % [facility] Lymphocytes/100 leukocytes in Blood by Automated count 20 % [facility] Monocytes/100 leukocytes in Blood by Automated count 6 % [facility] Eosinophils/100 leukocytes in Blood by Automated count 1 % [facility] Basophils/100 leukocytes in Blood by Automated count 0 % [facility] Neutrophils [#/volume] in Blood by Automated count 6.42 10*3/uL 1.8-7 .0 [facility] Lymphocytes [#/volume] in Blood by Automated count 1.77 10*3/uL 1.2-4 .0 [facility] Monocytes [#/volume] in Blood by Automated count 0.53 10*3/uL 0-0.8 [facility] Eosinophils [#/volume] in Blood by Automated count 0.08 10*3/uL 0-0.5 [facility] Basophils [#/volume] in Blood by Automated count 0.03 10*3/uL 0-0.2 [facility] Nucleated erythrocytes/100 leukocytes [Ratio] in Blood by Automated count 0 /100{WBCs} 0-0 [facility] ID Date Data Source [id number] 04/20/2021 09:16:07 PM EDT [facility] Name Value Range Interpretation Code Description Data Sheryl rce(s) Supporting Document(s) Glucose [Mass/volume] in Capillary blood by Glucometer 144 mg/dL 70- 140 H [facility] ID Date Data Source [id number] 04/21/2021 09:08:34 AM [facility] Value Range Interpretation Code Description Data Sheryl rce(s) Supporting Document(s) Specimen source [Identifier] of Unspecified specimen [facility] SARS-CoV-2 RNA 2019 nCoV Real-Time RT-PCR: NOT DETECTED [facility] Assay Performed [facility] Patients first test for [facility] Patient employed in healthcare setting [facility] Patient has symptoms related to [facility] When did you start to experience these symptoms [Date and time] [Phen X] [facility] Patient was hospitalized because of this condition [facility] patient was admitted to ICU for [facility] Patient resides in a congregate care setting [facility] status [facility] ID Date Data Source [id number] 04/20/2021 05:46:52 PM EDT [facility] Value Range Interpretation Code Description Data Sheryl rce(s) Supporting Document(s) Glucose [Mass/volume] in Capillary blood by Glucometer 111 mg/dL 70- 140 [facility] ID Date Data Source [id number] 04/20/2021 08:59:34 AM [facility] Value Range Interpretation Code Description Data Sheryl rce(s) Supporting Document(s) History and Physical [facility] IPNMQt6oBiODSmYb28/OZAuoKFGdl1OuGVkbLTp2EWdcFPXxJ1TfCHY3nZ0qFWB4AQgBUcCiIaVeVVJ2 lbm [file] == ID Date Data Source [id number] 04/20/2021 08:36:47 AM EDT [facility] Name Value Range Interpretation Code Description Data Sheryl rce(s) Supporting Document(s) Progress Note [facility] WLGJDh6oHpQVKdDq53/FPBtkKHKfw7LqLAhfXUu8EUiqIJBqD8DmXFG2fC4aISS8SHgBAnVjDrVnQMC9 lbm [file] ZiakQYEbRCD9BVVfGAg9HUR+MD6zKHm+Zl5Pc2RdtkW8dkLxKOf5EBa7BUgoBCKYKs3E ID Date Data Source [id number] 04/20/2021 07:45:53 AM [facility] Name Value Range Interpretation Code Description Data Sheryl rce(s) Supporting Document(s) Glucose [Mass/volume] in Capillary blood by Glucometer 114 mg/dL 70- 140 [facility] ID Date Data Source [id number] 04/20/2021 08:07:44 AM [facility] Name Value Range Interpretation Code Description Data Sheryl rce(s) Supporting Document(s) Leukocytes [#/volume] in Blood by Automated count 7.2 10*3/uL 4-10 [facility] Erythrocytes [#/volume] in Blood by Automated count 4.12 10*6/uL 4.6- 6.1 L [facility] Hemoglobin [Mass/volume] in Blood 12.7 g/dL 13.5-18 L [facility] Hematocrit [Volume Fraction] of Blood by Automated count 38.1 % 4 1-53 L [facility] Erythrocyte mean corpuscular volume [Entitic volume] by Auto mated count 92.4 fL 80-96 [facility] Erythrocyte mean corpuscular hemoglobin [Entitic mass] by Automated count 30.9 pg 27-33 [facility] Erythrocyte mean corpuscular hemoglobin concentration [Mass/volume] by Automated count 33.4 g/dL 32.0-36.0 [facility] Erythrocyte distribution width [Ratio] by Automated count 13.6 % 11.5-14.5 [facility] Platelets [#/volume] in Blood by Automated count 224 10*3/uL 150-400 [facility] Differential cell count method - Blood [facility] Neutrophils/100 leukocytes in Blood by Automated count 61 % [facility] Lymphocytes/100 leukocytes in Blood by Automated count 29 % [facility] Monocytes/100 leukocytes in Blood by Automated count 7 % [facility] Eosinophils/100 leukocytes in Blood by Automated count 2 % [facility] Basophils/100 leukocytes in Blood by Automated count 1 % [facility] Neutrophils [#/volume] in Blood by Automated count 4.43 10*3/uL 1.8-7 .0 [facility] Lymphocytes [#/volume] in Blood by Automated count 2.08 10*3/uL 1.2-4 .0 [facility] Monocytes [#/volume] in Blood by Automated count 0.50 10*3/uL 0-0.8 [facility] Eosinophils [#/volume] in Blood by Automated count 0.17 10*3/uL 0-0.5 [facility] Basophils [#/volume] in Blood by Automated count 0.05 10*3/uL 0-0.2 [facility] Nucleated erythrocytes/100 leukocytes [Ratio] in Blood by Automated count 0 /100{WBCs} 0-0 [facility] ID Date Data Source [id number] 04/20/2021 08:12:01 AM [facility] Value Range Interpretation Code Description Data Sheryl rce(s) Supporting Document(s) Prothrombin time (PT) 13.0 s 11.6-14.0 [facility] INR in Platelet poor plasma by Coagulation assay 1.02 [facility] Routine intensity oral anticoagulation I NR is typically 2.0-3.0. Target INR must be clinically individualized. ID Date Data Source [id number] 04/20/2021 08:12:01 AM [facility] Value Range Interpretation Code Description Data Sheryl rce(s) Supporting Document(s) aPTT in Platelet poor plasma by Coagulation assay 28.9 s 24.0-33. 0 [facility] ID Date Data Source [id number] 04/20/2021 08:21:30 AM [facility] Value Range Interpretation Code Description Data Sheryl rce(s) Supporting Document(s) Albumin [Mass/volume] in Serum or Plasma by Bromocresol green (BCG) dye binding method 3.8 g/dL 3.5-5.2 [facility] Bilirubin.total [Mass/volume] in Serum or Plasma 0.2 mg/dL <1.2 [facility] Calcium [Mass/volume] in Serum or Plasma 8.9 mg/dL 8.8-10.2 [facility] Chloride [Moles/volume] in Serum or Plasma 103 mmol/L 98-107 [facility] Creatinine [Mass/volume] in Serum or Plasma 0.82 mg/dL 0.70-1.20 [facility] Glucose [Mass/volume] in Serum or Plasma 110 mg/dL 70-140 [facility] Alkaline phosphatase [Enzymatic activity/volume] in Serum or Plasma 113 U/L 40-129 [facility] Potassium [Moles/volume] in Serum or Plasma 4.2 mmol/L 3.4-5.1 [facility] Hemolyzed Protein [Mass/volume] in Serum or Plasma 6.3 g/dL 6.4-8.3 L [facility] Sodium [Moles/volume] in Serum or Plasma 134 mmol/L 136-145 L [facility] Aspartate aminotransferase [Enzymatic activity/volume] in Serum or Plasma 17 U/L <40 [facility] Urea nitrogen [Mass/volume] in Serum or Plasma 24 mg/dL 8-23 H [facility] Osmolality of Serum or Plasma by calculation 283 mosm/kg 275-300 [facility] Creatinine/Urea nitrogen [Mass Ratio] in Serum or Plasma 29 [facility] Bicarbonate [Moles/volume] in Serum 22 mmol/L 22-29 [facility] Alanine aminotransferase [Enzymatic activity/volume] in Seru m or Plasma 15 U/L <41 [facility] Anion gap 3 in Serum or Plasma 9 mmol/L 8-15 [facility] Glomerular filtration rate/1.73 sq M pre dicted among non-blacks [Volume Rate/Area] in Serum or Plasma by Creatinine-based formula (MDRD) 88 mL/min/1.73m2 >60 [facility] Glomerular filtration rate/1.73 sq M pre dicted among blacks [Volume Rate/Area] in Serum or Plasma by Creatinine-based formula (MDRD) >60 [facility] ID Date Data Source [id number] 04/18/2021 11:41:06 AM EDT [facility] Name Value Range Interpretation Code Description Data Sheryl rce(s) Supporting Document(s) [facility] [id number]nzvf8J5C1xNMfG5SdiPRiy8qnD4QdW8GzIJFeXIIXUP1OhPQe jb2 [file] [id number]/we8opf/glsj6Fq9jhjh32M+H4j t971GN00v6d99U2m4D8g/gP7uWpJg0Z0hTmKZvKu+q2Zpt44iv56oz81MQtXH84ZLtfTP65/yAfta4+8 WZZBXpvXfuyRd+bzI+/ZV2yKq3jS6jB63QD1/qGa9rvfN61r4Tir2vb2gDib40QPfI4gUv/Sz5RZr8Yo 3s+rB8/2dsml6Zm0kLcF4r1b4rpXKt/ih973bwu5CL t1tK/Dnn3j/cb7g/fnvg/IG+PWM+p5u0z6BLTUim9vP3J8YjNGOd0C6W2Hz7e14TgY+J0isxklWtFe2R wOva2weNM6gPnWh0n/z08kfiKjKNPP4/V1k6ECEhRTXD63Feg+tqb6CrMsyArnQvTuir5+7y36pT4z/3 Vuu+sr0Lx9uG3Pv27ef9wgPXgwFqQuaV783GX/tdG+ G+27A/ydl79Wm23gHsa9aY++R/89sOeD/ada3sE5GxEtQZPs52F0M+Q9aN+S2q7v83O8FBaTCgaws/Ho YS3Yz8Xpm120lw0ly8/nDPl9/piUc4P84y4UlF/XhomG54qa9/E31jy8Y98l/A2qxLcYghN+1z8/p8bL 9p5D4+TWDFGOzGoy4954z3J647sobMi+YePtuJdV3d 5NRqUj4DDhrgj0x43zZb633xonc5s9/biGY89R+Z8wLxd3wEf5w0qgr4FwLG1o/xA0tclA81bcWY9/lc TTJrmNJ2uGh00YW95GwW38T2kyZMY/bCP2bEFXo7c3AkG7Vs+JDry/449o5zaTdty4KdkxujpO57s3nG dF+kVuuCztX60kzekhRH+Jbrw/+W25CuQVx0Rt9kHf ZtJc2qqR9+82XQLv6XXFxPb74mAt7a6fY+/PyG8+7vkdibmrwzjnxYIEE55j+4E1x9leA/c++Op9v/H9 R96j+h6m02C0/5H32PP+fEnmKFP1o0nxmYX/iel8YFf6i6c6h8dSL4b5+wlX/JNHu7/vFd+k65owX19C 9vhcpczp3DeezM2v0GokK47d43j4fhlWhUX6Wdn2Gv P6obbt7mJ81s5+3iz8Byq1vaFBuhRp82OABe/Tfenso72Xi/xFY9zCuhA5WCSNrr+iGns198NO7wPVH7 3P9/91tXWZS2VyuiBTWG1w7is/wyUhg2xTxhOdJS9Xc4TrntNX/ie9CwPMHcoxmMeJ+Krqc+e/siDvgr qFk0asew0Ey0hEXCRMpsKw2xqIp/zKBrP5ZFZa4v0s ckSKS2aMd//9xGb/gESHv3gLmv4esrM25H0kM0jaFPyzr+GfN+k14lJQ46oW/95x7UypPx2EcltgwNdF pqroKXe2Fr1/7x1oTtqTTo1Tltndb/hKvr9A/yj49VdUyVKzSs18Pa4CbgXj9Tj7Z0S/87zzBTnwz+fO B+Vc/5bkyv068wfb263EuvhL0ubX3/xXE1/Ey09nnb 9blwuziTzfMnv2+EsUQS432TTwIk98HvkrVmTduVoda8ymwPn6rOi2T16NIAphgP2GtKR8xAvR+GrUs9 8to6pDU0/ohLzTkX/gfXzbUSt+sp9Jay9uvs+OVX+fD+pkna0FH82XWc+35Z4J359H5EmK193L+EqBrx TxKwW+0sRXlSfat/HQnrg6n/B9Wi6ohTLKf3Am6pRT +ya+knq+kpo2iTWsqC1/pXrxpKri/H5itQ05yZc8/dZmMiHbEjxUokE2Q2JPjMch825fJzQb0CgIvpVQ DEaIV9Pv2N67+s64pFh2/SA696Ni3f7oaX+7eFLtjr+b0tuf36P552pxq/aI6Qjr85B+11+pbbw/yP98 /yVewelRl5hb9rMr0nk82K/frhm/dlFu9nsSY9pKp+ obQ/6G/Z1TQyKfEP2+THxVZQXKXXj/4MnKc3/x2HMM+te73J0x1nU0E8k44vVGP04AL6SbCgs5az8c5n f0c+HV5/Wh9661nu4o9DericE/x/oFcR0679up2GH2YQ4B4mjV51ceJ4iS5Pem1dbCE/S7t87A6+tC+z 746n3/yPs+y1u0HCdOZ4jPioq436rbS30I37E4C+9h x4fbo61VM+qDe7q2mo6q2+8eeH/xlSJ+ouefWb45wKY1Mf/94hDdN/6s+4goAiVCPtirBVmPn5dlL/FV +nP98pou+Kq+h3/eB/TZz3w7Xq/Z01JAWMFtyK95f6SUX/Ir3PB94FrFj4eaQ49Q/UeH2E4v03Q3OTwl A/984J8P/NU5yP+5t636qbFdpd0S3AgE/KsT7XqWFf rvFd/f+ZKYw29u72M6APcHth1/GcRlNdr0WXF5DU+Ncg/kp1cKHbHvE3/anHgPeRG/acrw0zwYs7u9kT KSE8H8720KJvSTZpWuK4hZ6b93P7lV2u+Ue/XGhO24E/mcb/8yueuhJnf+x8ahqSfr0cLQC1mxfUsC5a r6z2W0RjEIoNUpGe6tis3VZYBRMesU8iX0qi5Q9WwA /Yf7anUWr/81rE3LF9aEgbkzQ1lGkOC89Gr/VkUcC95xlX7F8HqL/LhiMrcPUoFzwX137pDang1QKq+l 8lwSj9v4dq0KsL/ng4JBP0ckmU3cGtQ626/Zpk8mz2kEfVf7YnqOcvlT5XP8oS688+zg/vll5Nm9Rgj6 +1WN1oClvW9t4leBP936bW3a5ozCBg2Cw2mT+zsemQ wbYRh9py/BH24x5GO0W+mYWqy1dMT/bmiyEblRl3G6630RIztDbr/ZF4VnW3cWt+o9/MAFG8ioJqij8S jPQL1phKLz6QDT6gQ0C+908I8N7G7k8zY0H+j173cLa7tivIrP+CoPjya+FhosbnblNzVa9P+N7Aqqf4 bQvgvtm/iz1ax4244ju1o0Esav8HrDp4+T9HJZe5fb urbVlzLno285uW5p0XBQ+Hwu5S0rYzqFdXh/P+eACzM/x4C/zw9+ychovl323YEPS+eJ+TxHgP+0Xx5v /bLzQtlRN4v8823ml45ghj7ljaVcan7d0se5HUdVb+M9D29cJ//J8iPFTfa61pB9Z28m0NMg+OcD/3ww /jx4ZW2f2UFW+gWsrQsMT4b495917gc2U6293kVGG/ K15X7qrOso3cahgJpyP//s485/fVx/5YWvLJ+//dorfpXvA+9ryiTx6enh+CoPeya+queD9+d+n/jqfc z6ple1Gmqsavd0Gv/s8/cyr1j0C83h06SNK3/bvj5v//P52aj77hp+k1fnTtfZOpyppiZxyie/fs7wVi j9ZaScYMAPzLOoZo2OBvWoU5C4PI9W/UbW93Hqgvf3 CX58vTLzclU945PKQNdTxf93vbtw406x3/ldv3W+8yse0W6b0wgCTr/sUtvVM054nkpTVHyFnU2m6L/l igpj5X4d8gl4qYvvfD8i45uFEski+VkbBySHujDWs2zhm8b39TyA7CRx6BD4rk5uknRcihReqjvJig/K 9xzyFjRF9EkW01fy4SFAov/q+uFb4MElUrW1hK4I/T fqg/8tGz2ycnMy0fv/vjDo9gzQbaWjKeHa/dfvfMEd/soN7+/1xJaa0b/k8RPEWSc/0sySixiw82e1U+ p/UP+Rjc4ysdkUfRh19/dA+gfmqs8bD46mYKeRqux9wEBLbQEd62dyre+DR6A+C/df5DFCjYkz4XV+Ku 7817H/lktJx9ihe/SHC+PRuvNfx/qgL/RfrA/6uvNf T3yV+o4XmuilcUXcEjVpfH26/tkAvW529SCvjwMv2juW/Sp4uYyHwya/qlt8xe4J/7zv/Gd8ko5hmO/w veP9XQ/5MGl89E5wuqxT+rrEV+fast 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/oJkjD37evauZM+8Uk/Bf0bkv5JFLQ8+Zwbn/TEV+7mtk56iCqn 8n/eAE7xrUev6/ew7Fv/hSz0iKmfu+Xat1X4uF6fmo m0Se4xtF/x5+hOaUa1EQF6Wd3r/P2UskXjct5SXzS4ybxKcq1Qi07zuRchLz5Zyg0z2r/+o3Wx16Leg2 9IfHW+r5JT8ysQtoSvz88z6PyAaG/MpIsPEiSXsekhnyO656Jfd1228ahH/WlMoTRbhiyoHw9o38sjBJ 6QjKx1Qx97veqIQ2CY4cVQkGp7Uv3za7cT4N0/FXLj sSF3/N9192FzN+8F39/4ZCB+KThhMsLMIDm3OsaeQ+TniHhuIMz0D1Vv/4XvIa/lzFfXqSyHn5JVZ74z 5Xtzuv956i5XBq8Y0jPiUUX+zzfJ9fsK+LRMZ4Jd+VHonR+R3xhVYI1vqDHbyB/1w4jbtC2YSM1LeQ/C Ln4Ou/g57O5/Drt4I+yB09Qotftxey8bkp4ge57/Du fgBsccW0o/5A3aVdAZ/vawG5+GbSjso270LjcjLrxC8nU+0iM8TwS/CuxvD7/iraida/pvN2Ze6n/nm3uuh2 qctAkiI7I/vsa4ltAByZ0j99Ee1U+AsBQIWN6Z3I+WrP0ObkuyaJiKQ3HhHMz4mU/IJ/N09M6jf78Gr0 53TcptejmS4kaFpmvZvRx2HnQcwuyn82y06Y6lPmpq xqaQTk97AHuMzwAc6WFexugbEhxP9x0a52EfK3Ny96K/rokj8SxxNiJ/Pxwi74k+88HYaF/cyhvbJ8e+ +xlio/9j0V36q8tRBu/F/vbA+qPdbPZ3ugiU6pg2TUcyiL/OnlJXmMTK1AvL/irXB+oNno9A4bqv/D0X TwbWB+PAPx+Oe3wrfWDcOPwwZ/ErBVoy7Q+PnMu9Om AgKvDFSo1fnCar1EK9q/IjLzqBxxZ5s0k/17tXxq/eZ3/kaXJkTg4Vog8+cel90iw02g13ZwELUyvGnk Z+g32GHt23LmCFWOR1XAi+P/tfsbgbWtX14PB28Y1N+Zwh/iAV9WGilaR6IeCbS8rSw894r6T03iC6/m 3pTon4x/iwpz5Dhq72Sb0867l2NULW/CrfX3+1cH5w YX/5cxzvosiAFSbipyWWx5bnf7zWf45+sRC/mv7MBfqyAVsqexUcdDa2+dlPWN/Etx/dU6J/MX8cO4O/ 6Y4gac15PLwB/G8dV0AB+JPHc5/QFoy2cTY9BfetGl/YI4X9fAf6IaEY2PLw64e+4K+X1Ufy9675Zb4m eT/3ebw/t/3c5/BuKQ1ZC+K5z+VqdLWyn2rC0b6Mfr jnwGLfz0DrqkmbHm/3x66f+tce5zth7k1Iu/by9zjYw0n+3Drry8uO/G4l1x6GMIZfrDUou1WNv3MDDS 5AK7e3pU6EZBzD+HJKu89iNudQ7+vmRslUs8dyd35Ox7hi+GtkclTpK5XkwKWs7OlAktK/r/i0g7GwWs MbIs3jjkFi1/EZgSM4s4ZYkAYOSuMqwaBNIsNpSOIs Tm92WBHr37kXkta/v7Tu/N125++2B3+3/dvU766gaUwUXkhDHer5DPUfcUilljGSgChpZWsKH9aFrgds /VnjCMCQKK61JYsjhpWLqeE6jEv439kd8bsdhZ1tUPVMz3EBO4TVce4IZJezvVHvMjUYywi83bX1htI1 ARIN+RDAnfZ3nI3ZHKFvFGnh3ki0bh+uyw5MRR7FwXn [file] Cog2lOlw23bwabmhDmIimuo+036l7m5gyldgJoHlvuu+68650g6cgbvoHzIomsv+68177v9xrxwyQauf puq+395j6g2sschnulawxfc+650s7o7gvjrswnlrwty+9210226jrlkssyjpulv+3r569jUUNuV83dvd tz/N1f+SanHJu+x+k5a+KHIdSYq08dt+cHy86JU30i EbLdEB9mz4ALh/SeLE2EVvdJAnyT8VY0rKH8m6MHa/iyoenY7k9uzI0GGjH+Tr2Dk8Q9W/fd1R71/p5j bMxMTvSh1dyX/op7Xbiv9bdPw0NRn0I+gfsOlE+SC0OvvD+Ub5Sjv+2q+3yg8bYbotCSxtLMbXOq5xSj eYwEy2Ul+TZD/MSqWI1z+tvQ34b+AcN7jv4L/e14vj 366/fq6G/3/rkxNloy0Np1Ce0oakphk296Pj1MRvM/4/h73MfOvJfxBD1z3P6ZvbqQc1/VTrsuHKMc/T U8X0N/Dc/G1SaJc3hneA0P8/B8Dc/ZVt94JZ7NWjP+HU4FM3ebi/M0wKbmJ87SFtC9NDWqFM9jdkO02A Telephone Interviewer+CgeUgK9l+J2gnIGieQm+ytRD+qbiacyID4nV+UL 3Qfau9leknCN1HBk5MqvcnP8Q20qrWNeuZ0z31fmoqE6aZ5FnOyvqG7Z/C0a6IVY3Fko9t/cKN91/rou LVKwBE3tr/QqcyDBesag0fo7PIbtseW8DX8SlrCHaxcV21N0XdfxJJlbjCVb2EhptCr7zN29yYqMluvD f3er+hxc33na6mueBcYl+7vx/k5FohzWo4K212N8Wa RnXzh+yvWq5+k3zA6yErtxQESfPJ7wbygvMT2cZ3SnpzfQN6wdssoRN3fKbjlB0G7RfkG5UiNG0M9Pal Z5YlAO1E5HacV9HnRI5G5YwcX0YeLK2N+l14zX59gg8uaVzq5Td82MmXXrWFxIT9tF5F4fBuFo0P5plb TESFAYE+JU7GDzZ+YW0Xnj7l+jfll7aB9ASJC0wn/aVo837 KbMuHFudg+ni0tQT6OZ/P9re3CQ+CT9LXuP+IB0z42McuX36ZO+e+L031XabZ1VBfu/ylLgfe6go9Fx+ Hc+34/n2+x2bN5e24JfK++iS505XU+BZ3AKoiN13Tjv0V/OK6qo5zb7W5/D+Hr3Igeb+bl+mTKR2f72c NY3pMMjMq9/p/aQ87Uz0fE/6bT4zgLbuxtNmaF38gl Q9C/eqqE2KT9q1x8J8CDL+ajTxleit1n5BFk7+bi5jcswUCpxFD8qcuZydQY3F0du5sS6L55OkWVOoE2 kjlQh2MpxE/j39N7yTGcmv8UKuKgtMWx/fuYWAmjlyN8q5avgJBM5wjYhouYM78qrbbX9d4cjT85hhct r7Kq4N++lmt7jjO8zO+mh7CkqMpA1YkTNebsHnKX8+ dkZWci7zUZsaG52yG/ckT59SkRHfZZ2J93G1iT3rZ1O21nnY5hh/1V9Nbv+9dqQJ92m+8sUOtL8gyaAX n80azm36ab98lpdq1xSjCuDtluIKmGWwB9/xq7+a6Udu+5ogIjaxU50OnTs2KN26r9eA1hf+0kwAfdtX mgFFb/tKMwnGbV+9FB/4llT9xVtn2/b+fqMa9o9W/+ a3Vw2on/zu6f61KmdDAdd2y39LGf5oI2+XG+ksplI60H2gd+2q9W+4iy6qbd1kXC7CN3DdZ12p4Vd30U 71e5poV+UT5RPn+4chLm5j1ePYbn3t9UBc8LlfQm0bF37BHdsaTDG0A+tngBBfe2YO9F2qb54p5Hwlr9 zW+1n30iOkASVwhGewwQL1Yp/Cvoq+l99Srcv31rT+ sK/MyfHt2U/BI3HweL9LI1Yz1Pp7/p1vxZpy65alAE+gV5XIjW/UM1H/xPkL5y+c7/9aHn28xxQhq93o xjBeyk7XwhBk5iNnFcWZ12fb9J7kjEpacgPUdjS1SB/I3TP8BOjLNvFynbu/+xtzo++LaZEezrfFtPir 4btizrHbV+q/MXxPzKsP/m84zWIX5haVlVUg/Y333e 6zJJda55AyFRZd0l1lPrc8b6tgIj2LzK+TT9L2f2gT3r07o99+/Sdpv8OI3u4uNd22+XpO74ISAUT2Id QLyu/+ytoJ9MQSG9c/1zf46c4ijl/w+/op61TZ4sZb2dX+Inx60Tiv7Q2WZ+djSwht4kvQx/jzHCp40H kj+uf7SxrzcN8RDu196rYXt7zk8ibRf3nF+YwGnu/A 5o76cnMfy8w2g2m6gVEgxg5hEIEhz2cVdFO7Tb6kozRjhK+3r/Ygznnz59ilz+RpZncizrUshvXUA6Up xfw2MT+HfRVz+Dz/6Ke4ad6yjGuvdGB2tahpbS8ckRxHw8bp+Of3mq3v63W2eZbobWb6DGwlF64/C9/f nr9v7Mhzy+y0QimG6C4gr1eXT72QpDrj/onyhfKFcv R3ob+7/i+0XevBtst+pkoMpy3o6St6sGnPc+5fu8HeYU4nj/8pbaO/e+T9quLVkqLp6P3Cz2q+l3X8ne iXxUAOkYqldG3hr/Swr/K47I0O+7ynb98B+9oMNft3s6/B410BlvHImnPdLt1pmxtLZ9vx+tuv6m/H/8 GO/4Md/wc7/g92/B/lOT8OFKGjRj2Gx9sHtUDxvG7r dhKZ1FhfYUjHY8ccAKvJj6Mw/vo/2PF/sOP/WPq7l3Co/2Ac1/trti8mqf+MOo8OsbV3j+gv+KsO/qpr 6c8zcm5LxeS+gcysajRlRNoRy2Qr/eBsOfyguosOXUub49hcpWL7xkHqthyHK0/xf7Dj/2DH/8AyGA9i MWtUr5jwk/NN/mcl8Gbj7Xp925v/9+QgderYK76j/2 Ud/wd7x/ZobH4ny4pLb1gz2QK+QP14f/tE+UQ9xW/04K/yeKMc/qZgI0eCa5HSv0eOUju+zOqsr16hvN F/sOP/YMf/wY7/s99PI3C/Bz940Cz+D+Yxni/+D3bD+ig7TKyL+a99dmG8xwq01IawYlygLxpbN+jvKD 624/9gx//Bjv+DHf8H+xgoHyifqB/Pdyy0B+/vqO9v H/U/tE/CNtJg0wF8Qt3gq/r+2ld0yrMQHD/0JuI6ahI0aW/f347/gx3/B/dSgXTvM42dH/gL58jamlBw TGd2Ad97xrg+Lltja5Fg7gqL76IBN8lxMO6G4eCA72WE56qAgfIc/B/s+D/Y8X+aY9boibn2IX9qeM2z 8/Mu/rlvzFdbUF7/G0uZA5hAG/8c5c4/7ygP/nnGsd Wxodxw/kA9A/Y6t70ntxkyx7MHcXm92bv9sx78TKxTfScOa1+pkW99fjoRQ5W7fYcEP9pw/5FdA/UPnD 9x/yZ7WocAZNp73YJ6ET0CiGwox3xbUBe6WLy9w8KN1dAqSU0Z5tUu3xSTwTPdNWexfB3Kr3P+Veg115 K+jtuBr5Qaa2lSSmI0pq/WRQ9S41btJzI1zyR52uw9 bbNbfRe67aT6PkqasXTvcd7bL/NNGvnvw/doJEfqWzSSR/UdGi/gxJwb09QWp/OxWc/Qe0DGI5+doZH8 dvaj1Swo84Qv+8rAk9gud8lkl+55bHUsDz/suzKSo/STOr1ldS7jDgd0NLc9+VxTpSsz6dEt51fDOir+ xMWO4r1fwb3CSbh+ijRVvhcjeXXfipH/r2ohOb7a5b m3mLi9ieJ3CfZg5ocQdw9mXA8cSXiQz3FbKi4uBK+sR9L6iWnJv4Q6gMoLCfJhxkTAAL+9+GcL+yqPF8 5fqGej/pXgDnhq92Xq9AutIU3Kb2Kst/SWhX99B40zyhqZ2/IxFcUoWjyXwnE7e5B+2nF+6j9F8hLAVI H/QvnC+fH+Qth6b19+io/1vRXJ5/vTpuoCygO51hHo 4P0N+yqPe7V/qQ1rV2G0+tw03JeIoZfa6/kHrGjBSxpnPaMx5cReR00uHusmW/7K+VsL/slmmSd8yh6f c+xvVI2y71Dw32bg2aeMx9m9T6nrsiw3vy+ARiJym2xq5f0Hgi95FaJz3NstivYhcf43k/Fd012bpb9y Beou4dWLgBHheXii9AqSGMycBhnzPDOV7a4swI/cvg wq5fkDQOdTp5C70/ZVcJ6+QQH7GA6l8Vq2S4byOktjF245+bh0Iv4f9JzozK528+8s8kpshyYMtpHsIg 2aituqkdZQcOp9vC6jt6yR7d5Drx776+4i3rlh5r+Y892+Kank5sH4+6vK8SL5T7Rc20tT2DAgjCE19K ZIt1q9uNVxTZu2e9L0sEFpnaz3Sg4ocomFHN1H18yi UB4Eaqms9pSY+VTH1l7wER/kNJ0xzZDVmZRdq7Pa/1C3uoHh+VsFrnR2Rj5dr1iDZ/g/OPB/iEvhr2qY +diBR7sknUEqxKRWUt0PRB+g/pn6XvRpgwxs7wb5J473sn0NFmcnjfU+GBy18TYg/22zx8mbu79cH7gI V3mM/mrH+JWvSlc0wzHtD+LG8UywS+Nw9plgi/XgaB uFEvZ5TqqS/H8AB57SQC2W6dWG61dF37g107ixJ4/gr+VBNR54shf2zq87gtBY+gv7asC/fcC/ffTy3x i99i+KDyyx9gU0V1Ehg/Pt9X9/1V4f6Dxu+JBK5Sv0zifHTVbgQ4VPcJ2cw02Fc3D/ZduDPPFDcm9Jwu 2u8cyq93BLYcwqiY69Q4IciUshOhB8poOcF/eduO/E wIezt3VubpVJrykw/SqMvCCdKW20Mi8wCHSpsdBLA0H94YOMG6r2dgqAJdF+8N4d24pe/3idic71abU5 xvnFtw/sLeI77CN/NcBfjYn+zuKfxyz/zVNwoiqcCEWdQ9ICw0J0aUn0gYONnwrzox1X9HqwS/o7y39y rOJjB/zbB/zbxyp+Gst0w8C2y+D/4AB/NcBfjYXxvD QcmR9V0TtD/NVYE/qqfsJamjSzdZW2wNZ+qlt1njjfJ1gpBLZkVQU/9Sql20C/N+dnnnj1d8Gh+4v/g2 NjPG/0d6O/j7Vt3c130sH/8P7i/+DE/8GJ/4MT/zmzVRtImZmFZ3bndmiI7/fVj92yrAle4F38ZyR+Tv ylmXRv0bAAx113lViKd9ozqrsG+LdP+LdP+LdP+LdP +LdPKf/jIcvDFvYJI6l70gey3PjdSz4V+r2/WefA+BU5P2TvgC+Ub9SD/vyukFHkwq0jl5sBvS0kn1/w b5/wb5/aUH/1Q8toS1Ktra95hdtvJS+g/voeTdhXE/tWeU31ZT1Yue/tiLKuKFpncT13qAs9A89I191X +2m29omr3KaTPe5v+Xm2+s46l7M37TsNjvk8UMOcuB ujcsaP49wS/7DUi5pH4tC8d5hJSzQ/asRx+F/PUGB6Thba/tYt3ZgfAnkyn5o/d3Pbizgkra51joffzh TVj28honXH7/+9q6Sgz9ct1ZeO1k7zAAxw79r98815QzqlCrT2/9is3/4ozH22r/vqtdzPY+cb4/jmJ5 /ue811pm013Eoiu8Ka467MUuOo39WEu27attYBFT10 Fc/OnJ/MOoufnOHfHs/Cip+c4d/uXMQM+yrGvxXfPmFfTav/R9MwP4/dV3gWS7alty7+m56GE3S2aocj cLW6A3w+MHDTzoKavg2zM+IxIDwyY1sXH4z9sA5A4+/A+go4fb3Urxz/0Tlr/Uhr3HXyit/yZEtzi7lW gJA6pNpMu7Z9/JHmLH/gOdHfsK+iir4cZv+TE9Lv1r 4ocMdhdRr7RZ7HB4j1M3+wr+TeYWHnDrewg8WwsvsBfe+W0Bv8IJP71U/V/lX+wHOVf+mq6G36G/GTcx U/Od2+tj0KehP+g8lMd671++bgJ3gP3lBsi+Y82wunNN530MkOC2R7+fNPt6+Li7anXuPmDUnbn1FfhU 7sD6U5m+X31yVVzx409ToYU17u/OR9vNy+Kt3kPyXG ruCvzjHKFeWKetpT/0r+Hj3OJukL0hVyC/bxOkR9y33XBv8cZOm44I8BMmU9jrCv9+Yu4nN58caAv1cr gq/X4faW6p6fSg6pSuXznbIDijeERtg/0Myg8K40w12btBw/oczh7euyQcwqPTa/7w3KZky2vemz+yp1 9WVW3vxyvWK/5Gex9t7u6K/H7zqmvvIaz8J0lBSdy3 mN5+X3ZteTn+2reI+N44wrMu83e41gEHm78qeB//AR3dXmC7BmQ39VHg1Tz7R4gVjulndeQ20oK4gc4I e3Uelq6prsEsnuzvfZD4hWv0gxE4P6ieRT60ivMIR/Aq3KQ1rW12iW/2ph/+Yepu2m9dPgMe//2BX8VY /y4usW+VdNWdQN3A6bbD2vvxU+D4hwQN6yuqhx/B9c +D+4kr+Silvestre+r3d1FfhD55voDmGx76LS9hd/L40KuQzv9B//eXFZ+ruFbwGylwErb02U/+CppWu0kVBFk1 [file] 0g144J6YPl0Jg/XV17/+7uPbn//zp5//5n266u428e d9/a35x4i35kfn/uE/OUmy2f/08y+//vjim1/+6vNvv/pUpy353dlz6yTd3/z9q4M/+dmXX/zEnVylfW o9f52zcCsacjn3eDnPC6f24a+/pe21m64dbh895//w5cc/gb6ix94/8+uvf/afXHmbAveVX/zpj//2uz //4Yd//fjv//vjN7/7/e+///Off/j+93/z8bPv//i7 H37/8S//[employer]//PXHn/74egg/Mx9nGhPKj4t01ctTMv/nTdsBktPh4cn13T9//GjrmG1rAE4D/IffAG/3 pV8jvp68/bbmk6uW8Q38/h7L7owigcu31brzl8ETnbM9+ry5DvWN5ggwNPt/rh/ax7OC9Ai2+8O//fDS 8M4rsf4+/nhle8920h+/+vabj//2zd99/s+ff/fzr9 802I3mLD2/9J1bvfuDobr8k9tLwr/6AGLdrKOQtBkf6BRb8Dv//PE//vbjz9//xw9vtb++eB8R/+Y+6Q 77PJ8peRh+49oP+PscP623m//44c//8f3aI6Cpdr5NK58/7OvQ7p8lh/z2u49//Z+vtv/uT3/8cfUePe 3S4KlKV/gNz476b88+x3r6NnXbBd5913ot5BdhxG1z M4b+fDUF5clsjahA8Dp/btXBfvWTb3/y6eP7/++Hf//L1+d5bio+/62dpa7c7Fhg//mobile paint specialist//HSYrx2BYae fv/7t+f785Dqnv+fv/3+33/3/R//8vpHDd/+6U9/+NxW2OusA/36808RQlk1oxrx/zf+6Yff/j9//N1v Ani87RY14VP7n3B768yz+u//8Roy//zJq5096jls/O ovb+lfcG/yN7/85Zdff/qOjfIMEP/3U+29nD9WiNX/9f3/+UZDZx57at1U9fF+tN747+54Si3EA6/e36 u05hYEXb5Ij0dJi1XoiNofM433INf1+z6lf3z+nGvf6yD4spjr6voG7qgE/O9HfWlwOiDzHWU2xvGcnC avtiSwWahZIHzsAQIhZsc3ZP2OvJBkUUYaS9A1QJSl wr6pVBHoURNsfUIfLbVxMNGQOZ8UmUGzQM8CPMu1AUVnYKHlZdDqERNhteF2GXBnGOXiKGNiZ1QamkEz dCAyIDAgUj4+QX0zu0MgLwVhUSFwCpz3EM2KtZTfGH8LoEQchU5pjvMhL303qwObOFTeArlld6NuHRck WJJBNN5EBOJ4BRL4QFAlPj4+JM3xk3BhJiPqULKrNg z5HL7PmSHui4IySN8PV6JoKJReONLZJUB5h3ViUKGcnbqwozlwO3UeSIY8fB6gEBA9AODrHWakUTJxKV TnTmWpDYWpOBgpUXIyMAYbBIRyOKSeTHz3zULpSV5PZ8PoBQJzGSJKOLVtznEyHk2tZScLSnWBAOAZZo 3FWXWgWED9NPT9FCzmX4H9CqofC1PpWN9NC9BxUXZb IMRAWWAuzaQoBH1DcyQtvC9oUNoKJFLGOXpLFIwwDrS9m45eaiMOCTWyYDXeHXqtJQEbJCIoHGXxIHYq WQIyQALiKTHxUX6UK2OrHXTbTUULQPP4t3JjNBFnktepqnkpRn0wghQoEct+YqqbIMDlu7DbLLsuT5X7 vRTtL6DlE3MgIU5SfHUtEXaoDPHtWMFbEOGgQ123he QgMT4+GB5uh0CbQgfuJSYIELFoQXDiQPBfIWS1MkWfDXSlORIvQXJfZoR0SvTrFeHJTIRpWAA4DOg4CI DtXMUfYUElNLxiGDJkSJH1GFH8TPOkJLQyLH1mLbWeULAmVqb9MlXfOSAsWMWateAAMPJbFEByWTWrUJ L4NALxWJUeHSqyPUExLXHbTZB8ATIsSSVlZA3jUjAx YVXqYQZaPjbpVSLeGDLdsoXKBPEkFIImLBB0SqSnURLaMHWoGXyePBJgLZCnZsx7VHDmWYElGY5nEpEk PUUcNHQ9RWkoIQItZKFlryGQGESrJYUuNDTeFbWqNTCjONFfQJpgYUOuJREkXiDeFHUlFBXhMS6qGlAx TFDxTDU0HNSuUMHpWGBckuZHCATgNUHtJPr9ZNWfZN UdVSHrKExdTRGnJONiGEW1AWUiACTyYN7rPxCgVMZgOEOiSBSoBJAwHDXyotHZZGMcONCtROW6RVOqBZ YgMEHjPVduIUChBZItYuf2VVOoCJJdIW5rUxVsOPQfKQR0XIAnGHYwGTKnajOCPNAxIYI3KZY9NWPePN DyMXEjUCkpVQEzOAGbNaA3MWNiWCObGH5yZhZtWYRr LVS2LpXgNPToLUCkblNIPVQkUJJdCES5RzXrWKMeUOCdHTaeQTDeZDXkKYCrIMY4ZBF1EFPaSrPoPSix KAWCVUoDJ9OauyLkUgOVN3kqWc4rIwQhMMZCA3Owv6KuTDWwQNMUUa4+GoV6OSM7gWTsNqj5BEs1PYnl JUVPRg== ID Date Data Source [id number] 04/18/2021 01:34:16 PM [facility] Name Value Range Interpretation Code Description Data Sheryl rce(s) Supporting Document(s) Leukocytes [#/volume] in Blood by Automated count 7.0 10*3/uL 4-10 [facility] Erythrocytes [#/volume] in Blood by Automated count 4.23 10*6/uL 4.6- 6.1 L [facility] Hemoglobin [Mass/volume] in Blood 13.3 g/dL 13.5-18 L [facility] Hematocrit [Volume Fraction] of Blood by Automated count 39.3 % 4 1-53 L [facility] Erythrocyte mean corpuscular volume [Entitic volume] by Auto mated count 93.0 fL 80-96 [facility] Erythrocyte mean corpuscular hemoglobin [Entitic mass] by Automated count 31.4 pg 27-33 [facility] Erythrocyte mean corpuscular hemoglobin concentration [Mass/volume] by Automated count 33.8 g/dL 32.0-36.0 [facility] Erythrocyte distribution width [Ratio] by Automated count 13.9 % 11.5-14.5 [facility] Platelets [#/volume] in Blood by Automated count 247 10*3/uL 150-400 [facility] ID Date Data Source [id number] 04/18/2021 02:00:28 PM [facility] Name Value Range Interpretation Code Description Data Sheryl rce(s) Supporting Document(s) Albumin [Mass/volume] in Serum or Plasma by Bromocresol green (BCG) dye binding method 4.1 g/dL 3.5-5.2 [facility] al Bilirubin.total [Mass/volume] in Serum or Plasma 0.5 mg/dL <1.2 [facility] Calcium [Mass/volume] in Serum or Plasma 9.3 mg/dL 8.8-10.2 [facility] Chloride [Moles/volume] in Serum or Plasma 109 mmol/L 98-107 [facility] Creatinine [Mass/volume] in Serum or Plasma 1.00 mg/dL 0.70-1.20 [facility] Glucose [Mass/volume] in Serum or Plasma 142 mg/dL 70-140 [facility] Alkaline phosphatase [Enzymatic activity/volume] in Serum or Plasma 139 U/L 40-129 [facility] Potassium [Moles/volume] in Serum or Plasma 4.7 mmol/L 3.4-5.1 [facility] Protein [Mass/volume] in Serum or Plasma 7.3 g/dL 6.4-8.3 [facility] Sodium [Moles/volume] in Serum or Plasma 143 mmol/L 136-145 [facility] Aspartate aminotransferase [Enzymatic activity/volume] in Serum or Plasma 18 U/L <40 [facility] Urea nitrogen [Mass/volume] in Serum or Plasma 20 mg/dL 8-23 [facility] Osmolality of Serum or Plasma by calculation 301 mosm/kg 275-300 [facility] Creatinine/Urea nitrogen [Mass Ratio] in Serum or Plasma 20 [facility] Bicarbonate [Moles/volume] in Serum 25 mmol/L 22-29 [facility] Alanine aminotransferase [Enzymatic activity/volume] in Seru m or Plasma 18 U/L <41 [facility] Anion gap 3 in Serum or Plasma 9 mmol/L 8-15 [facility] Glomerular filtration rate/1.73 sq M pre dicted among non-blacks [Volume Rate/Area] in Serum or Plasma by Creatinine-based formula (MDRD) 75 mL/min/1.73m2 >60 [facility] Glomerular filtration rate/1.73 sq M pre dicted among blacks [Volume Rate/Area] in Serum or Plasma by Creatinine-based formula (MDRD) 87 mL/min/1.73m2 >60 [facility] ID Date Data Source [id number] 04/18/2021 08:59:17 AM EDT [facility] Name Value Range Interpretation Code Description Data Sheryl rce(s) Supporting Document(s) Progress Note [facility] JJSZCo7vSrTHHnTs33/QYIzdDPRqp6VnJMpnVHw2SNptGETaR6YqUSZ2oS1xGJT2CHmGHmNnTgBcXWVp [facility] [file] AgICAgICAgICAgICAgICAgICAgICAgICAgICAgICAg ICAgICAgICAgICAgICAgICAgICAgICAgICAgICAgICAgICAgICAgICAgICAgICAgICAgICAgICAgICAg ICAgICAgDQogICAgICAgICAgICAgICAgICAgICAgICAgICAgICAgICAgICAgICAgICAgICAgICAgICAg ICAgICAgICAgICAgICAgICAgICAgICAgICAgICAgIC AgICAgICAgICAgICAgICAgDQogICAgICAgICAgICAgICAgICAgICAgICAgICAgICAgICAgICAgICAgIC AgICAgICAgICAgICAgICAgICAgICAgICAgICAgICAgICAgICAgICAgICAgICAgICAgICAgICAgICAgDQ ogICAgICAgICAgICAgICAgICAgICAgICAgICAgICAg ICAgICAgICAgICAgICAgICAgICAgICAgICAgICAgICAgICAgICAgICAgICAgICAgICAgICAgICAgICAg ICAgICAgICAgDQogICAgICAgICAgICAgICAgICAgICAgICAgICAgICAgICAgICAgICAgICAgICAgICAg ICAgICAgICAgICAgICAgICAgICAgICAgICAgICAgIC AgICAgICAgICAgICAgICAgICAgDQogICAgICAgICAgICAgICAgICAgICAgICAgICAgICAgICAgICAgIC AgICAgICAgICAgICAgICAgICAgICAgICAgICAgICAgICAgICAgICAgICAgICAgICAgICAgICAgICAgIC AgDQogICAgICAgICAgICAgICAgICAgICAgICAgICAg ICAgICAgICAgICAgICAgICAgICAgICAgICAgICAgICAgICAgICAgICAgICAgICAgICAgICAgICAgICAg ICAgICAgICAgICAgDQogICAgICAgICAgICAgICAgICAgICAgICAgICAgICAgICAgICAgICAgICAgICAg ICAgICAgICAgICAgICAgICAgICAgICAgICAgICAgIC AgICAgICAgICAgICAgICAgICAgICAgDQogICAgICAgICAgICAgICAgICAgICAgICAgICAgICAgICAgIC AgICAgICAgICAgICAgICAgICAgICAgICAgICAgICAgICAgICAgICAgICAgICAgICAgICAgICAgICAgIC AgICAgDQogICAgICAgICAgICAgICAgICAgICAgICAg ICAgICAgICAgICAgICAgICAgICAgICAgICAgICAgICAgICAgICAgICAgICAgICAgICAgICAgICAgICAg FNMzAKQmTGIbLPLiOUFbXBt5O6ekZAVyTWVaKW3qVIf5Gf9+EQgGPkDzKIJ1kbXusQ1ZZC7xw1DaCQuh BZXvv2GhTDn8FZ4RHPIrKObgAC4UKZzopa4BWUGvMV YgzEFDx4anVaQyOSC5APElQrglOB3DUAZnT9iicpCnNTBfLXNSJZ8CGoXkR2XzuD01ZENLDo3+DQplbm GkUsmUQnI9TYXst4WkQVz7EM1PLYAnDdxmk1ApUxXnLEHAPKdjBX8XQIR2RSYgGCCzCt1THDTbN131ng OmPB2YFr5ELxNaOE9evi7IPrNaSGZlHmxMZit8GZwl ZD6LdTIjSMoGuf4qrbFydyFCj5VnktJysYMDHFCvxIVWCHIcFTTzUXkaTOSEZnExbVTvBV1cYq8jPZVs NAZ1SeLrKNSJRV0YGSIcIGQegJRhTAXuQEPJTK8KZQhrRPX7QKPgpqXomEAkQKtxYL9WTTWfhxHbPHun MCBSDQo+Vb3WSA4he9YzJIwxQYFcCJ5rdl1YPSbSMq ChX3Q2dRRjT1C5WWoqEe0CLZVzSHAyMNxePCCGXWxgOE3TVL5whtQ5QB5NjBOdRQXnXZTqjGIwDKa1M4 9ieKHuLRtePT0OKXQ+Darwin+Hl9XERMqTFMkQVIhMdLySCVNAaHxG4QuD3LTt6LmX5KwXW25zOlwuiShAG sePN2HPX9dUPQiXRNJHX0MbCTsdD6fqbMxJKGrDVLB GbHjJ12efINkTZNnAHR2YKMvZv5NUKBcM6UnshTyfWquepNjQZLbUSNHXH3NYTgquiLmaHQviKevNQ51 jImiRP9XQs3FCbXlIX4sbo7QvJLyPn7UVLNcKn9SQAHiMBIoTXGiPDI4VUQtZxQdGOsqKVBzGEHvTUP6 LEWhWGFwHX1WAiSmIFFvLIegNVvxZHQjPHUser8TLG DjLJBaKCknRSKwEAAvVNQoLCtxGDQvSAOcMFU3FSLkQNSoSN4BQnEiIOXqOSWzSIEgIYXpDOCgrp7ZSF DkKUMnRuIbVrWfMVNkXGVmPPouLQVyHOJbNCh8JIPcMBKjLB6RRxNzNFWsBOXlWeTzVPDoSQFcin0IGX TsVKJaAuE0AeQvZUTtMNSjJCxgHKNsOKZ6TUKxEHSv GSFbZJ3MKbBiZNOtYSY4CTWeUZUzEBNnnu9RZMQyHBMhXOn1LQMgAMSaJCDaBAiuMBEiADL2VyT8NGGo AGDlUX0NZvUaGJIxMAQ4HjWjJUEhGFVpot1IWNUlURPzEte3RWMcFHDiYDYoDEwuSDQmOFW3CZK8EOGx JAJtBH7OAyBfATVxSYyeVoMxZYIuVMChzb0CWBCkJD MeLuF1AGWvLQKpJWGhWSlpSVNdIFZ6OHSyIAUkXNHdSW8UDaPyAHKiHMkrNhItPVOgAXDmsd0OWSFnHV IbUSOyXvLxUHGfBOCjMWg3zwZozPVfXSy3VX4XP0IvexAhMnQFSl5Tn540KYImUMGdDf7YL6ywRi9xXG QePRIOYi5CICq5TDVmAKEdIWQcIjslLQitIPPhBHT2 AGTsORV6AJD7DEI+WJm5FmHsFzP8G5B9I8VqDtG0VNJ5ZSo9VeYtLVj4LVm5Jy4rSZBFBf7+DQpzdGFy lWtkPCWOQwF9JFnkJIjhLMHNKb0S ID Date Data Source [id number] 04/18/2021 08:59:00 AM EDT [facility] Name Value Range Interpretation Code Description Data Sheryl rce(s) Supporting Document(s) SARS-CoV-2 RNA 2019 nCoV Real-Time RT-PCR: NOT DETECTED [facility] This lab was ordered by [facility] and reported by [facility]. ID Date Data Source [id number] 04/18/2021 03:25:55 PM EDT [facility] Name Value Range Interpretation Code Description Data Sheryl rce(s) Supporting Document(s) Specimen source [Identifier] of Unspecified specimen [facility] SARS-CoV-2 RNA 2019 nCoV Real-Time RT-PCR: NOT DETECTED [facility] Assay Performed [facility] Patients first test for [facility] Patient employed in healthcare setting [facility] Patient has symptoms related to [facility] When did you start to experience these symptoms [Date and time] [Phen X] [facility] Patient was hospitalized because of this condition [facility] patient was admitted to ICU for [facility] Patient resides in a congregate care setting [facility] status [facility] ID Date Data Source [id number] 03/23/2021 10:34:06 AM EDT [facility] Name Value Range Interpretation Code Description Data Sheryl rce(s) Supporting Document(s) Progress Note [facility] GNEFCh2hQlNLAiGq40/QKYocAPPqa2IxMVngKCd5WRipEXKyV3LtPUH4uJ7lOQA2IFqENaLoHsHlHIS3 m [file] ICAgICAgICAgICAgICAgICAgICAgICAgICAgICAgIC TyVAPgHCQmAXVcXYTjRD6ATEHmCVHuFUFtNYEjNGExTMLnZKDrOXAoKLXsVZZeELIdETAkNOVnOYUcHN ApPOGqYPIfVHQnLGUgUUTcPLKwUWFyCFVjKMYyMKMwXZGgBBWySEKhNGTcATNxBRPfJRKkGLAaEK3NXQ AgICAgICAgICAgICAgICAgICAgICAgICAgICAgICAg ICAgICAgICAgICAgICAgICAgICAgICAgICAgICAgICAgICAgICAgICAgICAgICAgICAgICAgICAgICAg KXNmIFAvQT4TDHLpZIMpRZTrUPTnXLWbBCBzWPKmLCWhMXUkDJVcVAJmGSHkJJIvODEiEPFgOHVdFNAl ICAgICAgICAgICAgICAgICAgICAgICAgICAgICAgIC KwKVGaFXUlBWPlXXYqFOXvNA3IMTEuZNDtPKHaYTIeUJUzQVAbGWWkCYPdEFWzJRDeLRBjATBfWJXoDT AgICAgICAgICAgICAgICAgICAgICAgICAgICAgICAgICAgICAgICAgICAgICAgICAgICAgICAgICAgIA 0KICAgICAgICAgICAgICAgICAgICAgICAgICAgICAg ICAgICAgICAgICAgICAgICAgICAgICAgICAgICAgICAgICAgICAgICAgICAgICAgICAgICAgICAgICAg XHEgSRDnFPNrVG6LLOJcYBAhNSDoIPQaZFCrDVRdWCDcSLJvTJJoCJKrMDGgHREbKTCtVIPgVZGmJTWu ICAgICAgICAgICAgICAgICAgICAgICAgICAgICAgIC VvTAVeXLKfVGYoJEIuAVHbFGOjFP5IZXSrYSNlPPIfIRBzILAbPUKdWCMyJKJaSRKqZNXfCZQtBAIoDU AgICAgICAgICAgICAgICAgICAgICAgICAgICAgICAgICAgICAgICAgICAgICAgICAgICAgICAgICAgIC EsTT3HVVAoIOKlGKWqXVFqJIIlDWIwVSOuANLkIOGi ICAgICAgICAgICAgICAgICAgICAgICAgICAgICAgICAgICAgICAgICAgICAgICAgICAgICAgICAgICAg JJWmGJNlXYKhEGKvPP2AHCQzPCOcCNCzSRDjSWWkTIPnWFLeKTLnMYRcFSZwRMGjKHUwYONiSFAfKZSt ICAgICAgICAgICAgICAgICAgICAgICAgICAgICAgIC RbHBHuBGIyMACaGPZvOPCjPFHxQEBrOP2CWL22gSPtb5Z7NZNoFW7iupt/Cf6GXVtykgGifSZxQL3UBk FhTY5fdx4COxUlEY3nbe0HVPnOKiKbM0X6hVHhVISnCDCKOcIqX83dNTygPn51RKodKWIgHrItJNs0Vf 1AWrHxY8rlFFMxCxN9GZJbXrY6PBEzFvN5ZNKrNmIf ZZCrUTIoIIVbAMLWAVN3GXTgPsNcNOfsNS7Eq9CkkXM7HRr+Wm9IIO0ff6LpAUiqFkPlEA6vxz7OHTdY XbOxT2NkvaD2OVBhCZMjIy1ENCIuUNVqmURaHkKzTXDMVbEcO1MjcR87AVLXGl2+DQplbmRvYmoNCjMz HZZvz4QwBVi1CU9GNRBeLOc1uXQwMMXiO1Sah0NlMs 35OLYxZmcyJ9U2j3LlgZTpNRbtVyT3WIQwyGxqWNCnOYWrXY6wFR7yXDFjNITxKcUfGXLDOC7TBFXlKN CrsKUdRPZvYBXAJO8FDDqqRJF3JQLvkgIaoWEzQTenGS7MULNdmbOcXaKoMIAHCRt+Ps6SHT6jp7BvLN qaMRKmCO9zkj7OGYcHBxZsD9J0nRHiZ3H1UUneJk4T OAWpKBBiVgUbFLZASPktLF8PTF3tezW6GU1PuQTdETZwPUNpuNTmZKf1S25koBIoUSjyUM3LSXO+Darwin+ Vv7AJWObPRGgNAPvGdRkMSRAMyFxC8ItH3SHp7VaI1KwLA32bEpdkdZeBScnTQ9JDY4oBERyBHATSV0I bHQrdP2cklXrJoUoFNRBNoJyP40voVVjSJVjNZZfSW WvHj0GNSYaU1PdrsRmwEjlimCfZKOgOPUITV0AHOscqzOzfCNdhSlqMR74nBbqBA7JHp0CDfZxEB7vev 0GmOZtMw1KGZYoMS6VYKWmJEHzYJBkENI9YNNaThAbOLibFOPnQFSdAZK8MJFgOAIdZS7CVxGyQBXkNd M5PPXjBLMqONAtcp9LWXMoEPByXvD8IuPrBARkZDIq IYgrNMIlELLqNSL4EQPhKMToLS3JQgQtKPYiLGT3GZOaLULdYRHkco4CSZZmQIJhJcr1RcYxVBVbWFHm JLsiIJKeBTE7ROE4KHHbNXQpEY7QDdXiBEFdWZPkVIclMBLqPMSlhb1FWCFhDNVeNSTdCaFbJKEqJXAo CSbnZBYfSZL1KaW7ANMuPNMwKU9PTvIbUTZrEIF1BN zdUEHiPOFmow7EKYBqYJHqNot7JJZnFPKpABZcBFnbVVFhRZF7JCF3DAJqSWNbJB9HVzEgXUQjAHSeGU IoLNEvBGNzci9CGOEkNATjVcu8VXHzMSVaGOEeIYtuSOAiYMZ9JNPmPKHtFESbLN2OTsJvAEYiDGtcKk WqDNBqLPPrtm7VTJXmEQJnBIWoOzUcVEViRUPtOXwi YEVlDQE5VJTkMMYxMARyDS2TLiLjKKZnSqG6SOypYGHfDFVlbo0RSFFkSJCkAAA0DZTzNRQlHGIxTWtp KYWwKWCsWTU8RVQaNERmWM1GJxBwUCPiZwBiSlviVBBjRVQvle4LRSMrESXoCqExCWWzVZYtYLOfRDcg IPRdAWBjCNSjYVWsJMZiYH9RPkZaUQYnDcBdZaSoNZ GjONAqri1FFPQsTVBkPeNdENNjKUKuZGDvVObnAZKrNGT9GNBzJBSjVPGcVS3HUkFmHPZvElPqPINcTA DdGSLgtv2UUNXzOEEvWVJcPNVkHFNxDMLzTOjdMAZzOGE7UEI9SQWpFAVoNI7FBnBaWASuQpE1FVmcSO ShMVQhqh3DDJEgKVFuGnU3FNIdQTUvZUXiKYhgSKKi QAG7SvTbGXEzLXTwQU8YQwXdKUbrOXHQXok0SRxuU3e3GFVnSF0CV0Btl4LtSzXnLHTNUSkzNY5qxdAo JMJqDp2LR3qSEar5EeL7McFqBdGoUkMmFRK8U3P7UvR5E1FsCCBaX1LvLr2kNMovWmbvWBRgTbHyQ2Im VIXuPxt4BvzuDuC6LtJlMJRxXzLyUP7JFl9AWqA0KDX2xCEnYx2RXjI8NhFLMkQnCG2CEOe= Procedure Social History Code Duration Value Status Description Data Source(s ) Alcohol intake 03/22/2021 12:00:00 AM EDT Current non-d jaguar of alcohol (finding) completed Current non-drinker of alcohol (finding) [facility] Tobacco use and exposure 03/22/2021 12:00:00 AM EDT Never used co mpleted Never used [facility] Cigarette pack-years 03/22/2021 12:00[facility] current (pack per day) - Reported 03/22/20 12:00:00 AM EDT [facility] Smoking 03/22/2021 12:00:00 AM EDT Current every day smoker co mpleted Current every day smoker [facility] Vital Signs ID Date Data Source [id number] 04/28/2021 07:15:28 AM EDT [facility] Name Value Range Interpretation Code Description Data Source(s) WEIGHT RECORDED 150 lb 150 lb [facility] Body height Measured 67 in 67 in [facility]
[2021-04-29] MEDS: READI-CAT 2 PO SCH ×2 (14:28→15:29)
--- NOTE | 2021-04-29 16:50 | REP ---
INDICATION: abd. discomfort; no output from ostomy; IV contrast allergy. COMPARISON: 01/16/2021 latest prior also without contrast TECHNIQUE: Standard helical technique without contrast FINDINGS: The lung bases are unchanged There is a large calcification in the liver which is extremely difficult to evaluate without intravenous contrast administration. The represents a change from the prior exam. Is in the region the [place] hepatis and whether represents a vascular calcification or other cannot be determined by this exam. The liver is otherwise unchanged. The spleen, pancreas, adrenal glands, and left kidney are unchanged. The hydronephrosis seen on the prior exam has abated. There are right renal calcifications which represent a change. These are not causing obstructive phenomena. There is a 3.6 cm sized infrarenal abdominal aortic aneurysm which is unchanged. There is no evidence of free fluid or free air. There is a large amount of colonic content. There is no evidence of intestinal obstruction. There are cystolith sh dental izabella representing a change from the prior exam. Bone window technique throughout the exam shows no change in the osseous structures. IMPRESSION: 1. Vague calcification in the liver as described above the etiology of which is uncertain. Contrast-enhanced CT examination of the abdomen is recommended. 2. Right-sided nephroliths but resolution of the previously present right-sided hydronephrosis. 3. New cystoliths. 4. Other findings as described above. <Electronically signed by Morgan Nguyễn > 04/29/21 [id number]
[2021-04-29] MEDS ORDERED: MAGNESIUM CITRATE 300 ML BTL PO ONE (17:15)
[2021-04-29] MEDS ORDERED: MIRA3350 PO (17:45)
[2021-04-29 18:00] VITALS: BP 121/68
== END 2021-04-29 18:14 | disposition home or self-care (01) ==
LOC: M ED 12:44
DX: K59.00 Constipation, unspecified (principal); I11.9 Hypertensive heart disease without heart failure; J44.9 Chronic obstructive pulmonary disease, unspecified; I48.91 Unspecified atrial fibrillation; F41.9 Anxiety disorder, unspecified; E78.5 Hyperlipidemia, unspecified; I25.10 Atherosclerotic heart disease of native coronary artery without angina pectoris; F33.9 Major depressive disorder, recurrent, unspecified; K21.9 Gastro-esophageal reflux disease without esophagitis; Z93.3 Colostomy status; Z79.899 Other long term (current) drug therapy; Z79.84 Long term (current) use of oral hypoglycemic drugs; Z79.01 Long term (current) use of anticoagulants; Z88.0 Allergy status to penicillin; Z88.5 Allergy status to narcotic agent; Z88.8 Allergy status to other drugs, medicaments and biological substances; Z91.041 Radiographic dye allergy status; Z90.49 Acquired absence of other specified parts of digestive tract; Z95.1 Presence of aortocoronary bypass graft; Z98.890 Other specified postprocedural states; F17.210 Nicotine dependence, cigarettes, uncomplicated

== ENCOUNTER 2021-04-29 23:49 | Emergency (ER) | payer OTHER ==
[~2021-04-29 23:49] MED LIST changes: +D 101000 PO; +MIRA3350 PO; +NITR0.4S14 SL
--- OUTSIDE RECORDS SUMMARY | 2021-04-29 23:53 | CCD ---
Author Author [facility] Organization [facility] Address Unknown Phone Unavailable Care Team Providers Care Glazier Helper Name Role Phone ED, TEST DEFAULT Unavailable [...] Unavailable TRAVIS JACOBS MD Unavailable Unavailable TRAVIS JACBOS MD Unavailable Unavailable Sandoval Foley MD Unavailable [...] Unavailable Unavailable Ariza, M Korin Unavailable Unavailable Arzia, M Korin Unavailable Unavailable Ariza, M Korin [...] is protected by Article 27-F of the [place] Public Health law. If you continue you may have access to information: Regarding HIV / AIDS; Provided by facilities licensed or operated by the [place] [facility] Office of Mental Health; or Provided by the [place] [facility] Office for People With Developmental Disabilities. If such information is present, then the following [facility] mandated warning applies: This information has been [...] law may result in a fine or nursing home sentence or both. A general authorization for the release of medical or other information is NOT sufficient authorization for further disc losure. Allergies and Adverse Reactions Type Description Substance Reaction Status Data Source(s ) Propensity to adverse reactions IODINATED DIAGNOSTIC AGENTS IODINATED DIAGNOSTIC AGENTS [facility] H ospital Encounters Encounter Providers Location Date Indications Data Source(s ) Outpatient Attender: ALTAF STOVER MDAtt nigel: TRAVIS JACOBS MDAttender: Sandoval Foley MDAdmitter: Sandoval Foley MDReferrer: Sandoval Foley MD [id number] 04/20/2021 05:56:17 AM EDT - 04/21/2021 12:25:00 PM EDT Hepatomegaly, not elsewhere classified [facility] Hepatomegaly, not elsewhere classified Patient discharged. Outpatient Attender: DEFAULT EDAttender: RUDDY ROBERTPELL [id number] 04/18/2021 12:00:00 AM EDT [facility] Outpatient Attender: Alexa GONSALESCReferrer: Ml Foley MD [id number] 04/18/2021 12:00:00 AM EDT [facility] Unknown [address] [place] [address] 04/13/2021 12:00:[address] [facility] ([facility]) Outpatient Attender: Sandoval Foley MD [id number] 03/22/2021 12:00:00 AM EDT - 03/22/2021 11:02:52 AM EDT Hepatomegaly, not elsewhere classified [facility] Hepatomegaly, not elsewhere classified Outpatient 03/10/2021 12:00:00 AM T [facility] Unknown [address] [place] [address] 01/31/2021 12:00:00 AM EDT [facility] ([facility]) Outpatient Referrer: Korin Ariza 12/26/2020 12:00:00 AM E [facility] Outpatient Referrer: Korin Ariza 12/19/2020 12:00:[address] [facility] Medications Medication Brand Name Start Date Product [...] Covered alliance party's relationship to dillard Policy Dlilard Plan Information MEDICARE [id number] Tia [id number] A MEDICARE A [id number] Self [id number] A MEDICARE [id number] SP [id number] A MEDICARE [id number] SP [id number] FOR LIFE U [id number] Self [id number] Tia [id number] TODAYS OPTIONS [id number] SP [id number] AMER PROG TODAYS OPTIONS G [id number] Self [id number] HUMANA GOLD [id number] SP [id number] WELLCARE [id number] SP [id number] TODAYS OPTIONS [id number] SP [id number] HUMANA GOLD [id number] SP [id number] OTHER B [id number] Self [id number] ANSI-Commercial [id number] ANSI-Health Maintenance Organization ( O) [id number] MEDICARE PART A -O/P [id number] 18 [id number] FOR LIFE-O/P [id number] 18 [id number] WELLCARE -O/P [id number] 18 [id number] WELLCARE -O/P [id number] 18 [id number] ADMINSTRATION -O/P [id number] 18 [id number] ADMINSTRATION -O/P [id number] 18 [id number] TODAYS OPTION -O/P [id number] 18 [id number] FOR LIFE -I/P [id number] 18 [id number] TODAYS OPTION MCR -I/P [id number] 18 [id number] TODAYS OPTION -O [id number] 18 [id number] [facility] NO FAULT [id number] SP [id number] TODAYS OPTIONS [id number] SP [id number] ADMINSTRATION -O/P [id number] 18 [id number] ADMINSTRATION -O/P [id number] 18 [id number] TODAYS OPTIONS [id number] SP [id number] TODAYS OPTIONS/GAMBIAN O [id number] S [id number] FOR LIFE O [id number] S [id number] MEDICARE PART A-O/P [id number] 18 [id number] MEDICARE C [id number] S [id number] A [place] MEDICARE PART B C [id number] S [id number] ACTIVE DUTY [id number] SP [id number] [facility]BA [place] [id number] SP [id number] MEDICARE -O/P [id number] 18 [id number] PGBA [place] S [id number] S [id number] [employer] [id number] 3 [id number] FOR LIFE WPS O [id number] S [id number] MEDICARE OUTPATIENT M [id number] S [id number] OPTUM VA CCN [id number] SP [id number] SP [id number] ADMINISTRATION [id number] SP [id number] MEDICARE [id number] SP [id number] FOR LIFE [id number] SP [id number] NGS MEDICARE CONNETI O [id number] S [id number] NOVITAS JL PART B C [id number] S [id number] MEDICARE C [id number] S [id number] HEALTH[facility] [place] CHOICE O [id number] O [id number] WPS [id number] TRIWEST [id number] SP [id number] WEST O [id number] S [id number] WPS MVA VAPC3 O [id number] S [id number] ANSI-Health Maintenance Organization ( O) [id number] ANSI-Commercial [id number] Problems, Conditions, and Diagnoses Code Display Name Description Problem Type Effective Dates Data Source(s) R16.0 Hepatomegaly, not elsewhere classified H epatomegaly, not elsewhere classified Diagnosis 04/20/2021 05:56:17 AM EDT [facility] new pt new pt Diagnosis 03/22/2021 09:33:13 AM ED [facility] Surgeries/Procedures No Information Results ID Date Data Source [id number] 04/24/2021 01:51:03 PM EDT [facility] CT ABDOMEN WITHOUT CONTRAST [id number] R ESULTInterpreted by:Faby Leon, DOPROCEDURE INFORMATION: Exam: [...] rce(s) Supporting Document(s) ID Date Data Source [id number] 04/23/2021 11:34:06 PM T [facility] IR VISCERAL ARTERIOGRAMFINAL RESULTInter preted by:Yadira Alcocer MDExamination: Visceral angiograms, Hepatic arteriograms and Chemoembolization of the liver, 04/20/2021. 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 Recycling Tech: Dr. Foley Fellow: Benitez Navarro M.D. Anesthesia: [...] .035 Bentson wire. Over the wire, a 5-Haitian Cobra 2 catheter was introduced into the [...] Bentson wire. Through this sheath a 5 Haitian VS 2 catheter was advanced and the celiac artery was selected. Through this catheter and over the wire a 2.8 Haitian Pro great microcatheter was advanced into the [...] rce(s) Supporting Document(s) ID Date Data Source [id number] 04/22/2021 08:53:04 AM EDT [facility] Name Value Range Interpretation Code Description Data [facility]s) Discharge Summary [facility] DVZUSi0vDnIWUhSt47/IVSazBMBqw6VrWPxwPJs7AVrfUSFrF4GhTPL8hF0vFEH2TGgSGsKsCfNqOFF7 [facility] [file] JiKQ8zNWRVMr3+QWhguUIkcSzdPUMXWgB5BUTiVNanULLLIa0A ID Date Data Source [id number] 04/22/2021 08:52:39 AM EDT [facility] Name Value Range Interpretation Code Description Data Sheryl rce(s) Supporting Document(s) History and Physical [facility] NCJWPb1sHpDAHeJf56/AMZdwQDBqe5BqBAurBMq5PYdiCMNaS5KoDLY1aY7rUIF0VHvPXiAtUcPzMXK5 lbm [file] AgICAgICAgICAgICAgICAgICAgICAgICAgICAgICAgICAgICAgICAgICAgICAgICAgICAgICAgICAgIC AgICAgICAgICAgICAgICAgICAgDQogICAgICAgICAg ICAgICAgICAgICAgICAgICAgICAgICAgICAgICAgICAgICAgICAgICAgICAgICAgICAgICAgICAgICAg ICAgICAgICAgICAgICAgICAgICAgICAgICAgICAgDQogICAgICAgICAgICAgICAgICAgICAgICAgICAg ICAgICAgICAgICAgICAgICAgICAgICAgICAgICAgIC AgICAgICAgICAgICAgICAgICAgICAgICAgICAgICAgICAgICAgICAgDQogICAgICAgICAgICAgICAgIC AgICAgICAgICAgICAgICAgICAgICAgICAgICAgICAgICAgICAgICAgICAgICAgICAgICAgICAgICAgIC AgICAgICAgICAgICAgICAgICAgICAgDQogICAgICAg ICAgICAgICAgICAgICAgICAgICAgICAgICAgICAgICAgICAgICAgICAgICAgICAgICAgICAgICAgICAg ICAgICAgICAgICAgICAgICAgICAgICAgICAgICAgICAgDQogICAgICAgICAgICAgICAgICAgICAgICAg ICAgICAgICAgICAgICAgICAgICAgICAgICAgICAgIC AgICAgICAgICAgICAgICAgICAgICAgICAgICAgICAgICAgICAgICAgICAgDQogICAgICAgICAgICAgIC AgICAgICAgICAgICAgICAgICAgICAgICAgICAgICAgICAgICAgICAgICAgICAgICAgICAgICAgICAgIC AgICAgICAgICAgICAgICAgICAgICAgICAgDQogICAg ICAgICAgICAgICAgICAgICAgICAgICAgICAgICAgICAgICAgICAgICAgICAgICAgICAgICAgICAgICAg ICAgICAgICAgICAgICAgICAgICAgICAgICAgICAgICAgICAgDQogICAgICAgICAgICAgICAgICAgICAg ICAgICAgICAgICAgICAgICAgICAgICAgICAgICAgIC AgICAgICAgICAgICAgICAgICAgICAgICAgICAgICAgICAgICAgICAgICAgICAgDQogICAgICAgICAgIC AgICAgICAgICAgICAgICAgICAgICAgICAgICAgICAgICAgICAgICAgICAgICAgICAgICAgICAgICAgIC AgICAgICAgICAgICAgICAgICAgICAgICAgICAgDQo8 I1ztHXSzZABqGK4yCEi7Bw2+RNrLGhZqIQG3eyYviH9NGT2ce0OxJPdjJUHnq9SuQOm1NV8SJTNnCXut AH9PWAwjdl9DOAXiVTOljHOFr9rlYhDqWBA7IJGnYzkvKY1RUDDuU4nbmeJuBTBrVQREEEamBAXZQNaf AJTNRHCwCSEzBuRsAaToITKpEE6TZTOnV716zyFpSU 8LXr1NSzAoVG2bzo8JOkUrSLNfHehYCcg4GBkxFY2LiJHdrEXwGRBdZSMHAgOiY7rwl4QzDkCmANLDYC efYY7Js9ZjwGMsVQp+We2JTL7rg2RsLLzjPJHhVH8zyq6DTDaRPfJcL2BhrSmbIXbqVPOomHALCEbixU llUlDHGGgeoLN7hXwfWGQWMlBmgRVuIZ1iRB8jBQGd BVXxLyS3BZILVH0ESLFrXUNydOYxTPHpBUHLNA9RDXxvADH5ZEVkdpJceNQuXIdkMZ6RUKPgdvKwOpLb MCBSDQo+Zy6GGR3qr8AsIDtgWlDsIT1ffz4IYAcXTdWaT0H5jDXgG9F4IKukRo0SWKJlHFKrUoprIMGL WDyvRX0MSD9xijJ9GS0VzCJfQNRkBTQaiSUbIAb9B7 2hzIDpOMjrCR7EUSC+Darwin+Me6MVVAxZDZmYWZaCzUlEDFYOcJyL9RzK1ILi3NaE6PoQF02vVmlthQdOS xpWW1PJJ3sWMYxIFANWH5UoJHzqG3hiqTnNAQaQWXMKkZrJ85xoHDoXTXaSVQ4VEEpNg1VZIClZ6Eblw BniRtsgmVqXONpBVEZAE3KALkhgiMivMXpiFgnVV89 iGmaFQ4VIe5LDxYoKP9ksb6JbMDsVo6QPJPcXu9GRYMsATBaUFKtBFN3VYVoAoCgZVeiDBKoMMZjJQH2 YWTkZBLbRM8WHsCfYABfFHV2WNUhODYnSIJbhg4CNFBuUJY1NUE2DBIsKCJiQEOeZWwvXAHwOUMhOLO7 NPQbOVBwWT2QNfNmBYUgOYH8HchqALTsQKAtub9BXT LdNXEgYKCvVpDcCRQrAWTcKNxzWEOnKXI3BBKiJKTtFIPnYD8YFfWeUYGfQBrsUWGlLPLoDOVrcw9PRW LcTDKkLjTePaPnNWTrYXYfNRisOLAhHDIvEgDnWTPuYXVjZK6KQbArUJAgZES5OIVwKDRxPAIogp5KHD NbHIJpSnB5WrXkFRPwLXSoKGobWKTvYRN4GZAuREOl ZZEeRY0PEqMuAREbZXaoRWwqAVFlJGNxma4PICMvRALfPUI8CWPtOSWyKNVcIZgmGMGgOFH6SkR7JUSo RTDaNH5ISfQoFTKuSRw8LLwyVDZmBXEoyv1KVWNdBQBgJJRfKcXoEQQqSGNiCYucVUWdDJYrWyO0AEMz BFYwNE3YIxDoZPClIlX7PJldMFRjDNTeiw3ZIOIuSB LaKMl5DeTvOLRkGXIvQQhdMXWnNHRmQGK3BCOxHHSgRV9KIbPhSXOoGcMbJugaADChNCEbnq4KAZGePR H3ZZX3NzRhGQBpKBTmFRivUSLxCXGzCuSsAPHlPYRsTG8TYhXkRAQgWUY4QDFsYTTbUVMkqm7LATVcAO J4DlG3FlMhXUYwRADcTDwbUDJvJLFsJTGaTDQiPQLv EF3GBdXePWPeVUW3WxydQSOtZQShun7PSSRpNNE1YXVxNgBmWRNpBMPcAGpqKEGvNWH8WBc0QSViMVUo EE7KBsXlTLJoJMB9PEnaHLUkUGHruh1PbDQvgNdpsi0XKPuZSr4ApUhmQAHxNWrhIr4uqMOxCtMcMIPP Kd8AjwDiDGBqJRFPTUyrXHRwUVPlE8A0EnBmU0FkRF L7ZQV2KPF7FQT5WGpqLfBhGHEzUnP5C4ToGhfxIwJrJyW5BBVmCzA7TZQjRQnuGLMtWDEcPpS+IF0gDQ o+Sx2Ck7UbqqD5wzUhZBl1VWn5Hr0BWTPKA8ZWBk== ID Date Data Source [id number] 04/21/2021 03:20:04 PM EDT [facility] Name Value Range Interpretation Code Description Data Sheryl rce(s) Supporting Document(s) Progress Note [facility] XIYJFl6qXtYQPrHy77/PBKzgMMBug8NcEGjcXHl9IGcsQAVcT9IaIBL5oC0dYKB5TZtPHoEeRyGyFLE4 lbm MfJpqOSvRiGTFwPgjUYvLsLLzvRwugbNMtWJ9YtVM5KHEvI61wFCIrINVuW7HuNOG4GOX+Ps0LFDQazI KrGC4KXyuL4FbpVgI9MN5TLv0ZfdIk3JSiaHrr/JFwo7gQYkt8ydTSqLD3rE4YYe1zzrty6dzkvHqgzk 9IqLpxcsvgt2rUDyaFo+24lgGywUggJ9bFA128X/4t /ea2YNj83E3/WihkXt5dZb0Rj2GDcrl2Zy6beuip/QO5Jfo9f2zffuW1LzSLVQWSdtJU2MO389J9c84v hc6smklGihC1gfK34iBjCaFkipqzm2aeO2L4FF20BzG8YsFQ7hl9oRaE7vGKwlQx+DXm66Ii7UDOv3Iq iIDvtks2iYJoS/Fny6kxvpX3InH6RbPDXtyss7/hLS cUnyP5WZjrHMDgtbU80crofVhaMuGRMm2bo5yP9V4fO+nDaHw99+cNmvNxvpFB6i7PcOD3hAZfSEQP00 UhtXh77thBQ9iBISmdgr792akQOZTV2qE4CZeqWzdBeFu1u3/87pDdNyCHrakALDodOGWSMWcDqzv74m urgiHlsMZ7mwF6ObotT+1mgHKPjB6lLOwTY7aRYL0d 5bnwSLBudoUoAorYxajjM7+r4pFoOCl6pUcEK33Ke25rp9nvKy21sVgNLOClrZg80ZjeypTphaaH/[facility] [file] VhU3AVV1kLTqFv6ODPT8LVrHStTaPT6CLYx= ID Date Data Source [id number] 04/21/2021 09:57:12 AM EDT [facility] Name Value Range Interpretation Code Description Data Sheryl rce(s) Supporting Document(s) Progress Note [facility] WSAXGr5hLmLDUdJr97/ORQlzBHRci6CdLXegEKb1IFjcZRKhF2MrKNK2qD7lZPE7ITbZRjFwYtFeNOC6 lbm [file] 9GDQo= ID Date Data Source [id number] 04/21/2021 08:59:17 AM [facility] Name Value Range Interpretation Code Description Data Sheryl rce(s) Supporting Document(s) Glucose [Mass/volume] in Capillary blood by Glucometer 177 mg/dL 70- 140 H [facility] ID Date Data Source [id number] 04/21/2021 04:06:02 AM [facility] Name Value Range Interpretation Code Description Data Sheryl rce(s) Supporting Document(s) Leukocytes [#/volume] in Blood by Automated count 8.8 10*3/uL 4-10 [facility] Erythrocytes [#/volume] in Blood by Automated count 4.06 10*6/uL 4.6- 6.1 L [facility] Hemoglobin [Mass/volume] in Blood 12.5 g/dL 13.5-18 L [facility] Hematocrit [Volume Fraction] of Blood by Automated count 37.3 % 4 1-53 L [facility] Erythrocyte mean corpuscular volume [Entitic volume] by Auto mated count 91.7 fL 80-96 [facility] Erythrocyte mean corpuscular hemoglobin [Entitic mass] by Automated count 30.9 pg 27-33 [facility] Erythrocyte mean corpuscular hemoglobin concentration [Mass/volume] by Automated count 33.6 g/dL [facility].0-[facility] width [Ratio] by Automated count 13.6 % 11.5-14.5 [facility] Platelets [#/volume] in Blood by Automated count 195 10*3/uL 150-400 [facility] Differential cell count method - Blood [facility] Neutrophils/100 leukocytes in Blood by Automated count 73 % [facility] Lymphocytes/100 leukocytes in Blood by Automated count 20 % [facility] Monocytes/100 leukocytes in Blood by Automated count 6 % [facility] Eosinophils/100 leukocytes in Blood by Automated count 1 % [facility] Basophils/100 leukocytes in Blood by Automated count 0 % [facility] Neutrophils [#/volume] in Blood by Automated count 6.42 10*3/uL 1.8-7 .0 [facility] Lymphocytes [#/volume] in Blood by Automated count 1.77 10*3/uL 1.2-4 .0 [facility] Monocytes [#/volume] in Blood by Automated count 0.53 10*3/uL 0-0.8 [facility] Eosinophils [#/volume] in Blood by Automated count 0.08 10*3/uL 0-0.5 [facility] Basophils [#/volume] in Blood by Automated count 0.03 10*3/uL 0-0.2 [facility] Nucleated erythrocytes/100 leukocytes [Ratio] in Blood by Automated count 0 /100{WBCs} 0-0 [facility] ID Date Data Source [id number] 04/20/2021 09:16:07 PM EDT [facility] Name Value Range Interpretation Code Description Data Sheryl rce(s) Supporting Document(s) Glucose [Mass/volume] in Capillary blood by Glucometer 144 mg/dL 70- 140 H [facility] ID Date Data Source [id number] 04/21/2021 09:08:34 AM [facility] Value Range Interpretation Code Description Data Sheryl rce(s) Supporting Document(s) Specimen source [Identifier] of Unspecified specimen [facility] SARS-CoV-2 RNA 2019 nCoV Real-Time RT-PCR: NOT DETECTED [facility] Assay Performed [facility] Patients first test for [facility] Patient employed in healthcare setting [facility] Patient has symptoms related to [facility] When did you start to experience these symptoms [Date and time] [Phen X] [facility] Patient was hospitalized because of this condition [facility] patient was admitted to ICU for [facility] Patient resides in a congregate care setting [facility] status [facility] ID Date Data Source [id number] 04/20/2021 05:46:[address] [facility] Value Range Interpretation Code Description Data Sheryl rce(s) Supporting Document(s) Glucose [Mass/volume] in Capillary blood by Glucometer 111 mg/dL 70- 140 [facility] ID Date Data Source [id number] 04/20/2021 08:59:34 AM [facility] Value Range Interpretation Code Description Data Sheryl rce(s) Supporting Document(s) History and Physical [facility] CBOIXs7bXlXHJfWm44/TDMtoYEWze3DfCGgpYNe7DOpgRROcU3EkWBB9wZ6hVEO6CUpNAkNhBzXmASX2 lbm [file] == ID Date Data Source [id number] 04/20/2021 08:36:47 AM EDT [facility] Name Value Range Interpretation Code Description Data Sheryl rce(s) Supporting Document(s) Progress Note [facility] WDMZQf6qBkGMFySj93/LUOfsKFGxs9WmMPjdPGm1USpgJMMkV1XuXQW7cZ5bVBH1ATdIBrOxSxMbSCX4 lbm [file] IcihPIToPPL3KMByLSa8SRR+LY2mYXq+Zq1Nt8OlhdW3ucPuKRn1JTa3BUeyPINBSe7Y ID Date Data Source [id number] 04/20/2021 07:45:53 AM [facility] Name Value Range Interpretation Code Description Data Sheryl rce(s) Supporting Document(s) Glucose [Mass/volume] in Capillary blood by Glucometer 114 mg/dL 70- 140 [facility] ID Date Data Source [id number] 04/20/2021 08:07:44 AM [facility] Name Value Range Interpretation Code Description Data Sheryl rce(s) Supporting Document(s) Leukocytes [#/volume] in Blood by Automated count 7.2 10*3/uL 4-10 [facility] Erythrocytes [#/volume] in Blood by Automated count 4.12 10*6/uL 4.6- 6.1 L [facility] Hemoglobin [Mass/volume] in Blood 12.7 g/dL 13.5-18 L [facility] Hematocrit [Volume Fraction] of Blood by Automated count 38.1 % 4 1-53 L [facility] Erythrocyte mean corpuscular volume [Entitic volume] by Auto mated count 92.4 fL 80-96 [facility] Erythrocyte mean corpuscular hemoglobin [Entitic mass] by Automated count 30.9 pg 27-33 [facility] Erythrocyte mean corpuscular hemoglobin concentration [Mass/volume] by Automated count 33.4 g/dL 32.0-36.[facility] width [Ratio] by Automated count 13.6 % 11.5-14.5 [facility] Platelets [#/volume] in Blood by Automated count 224 10*3/uL 150-400 [facility] Differential cell count method - Blood [facility] Neutrophils/100 leukocytes in Blood by Automated count 61 % [facility] Lymphocytes/100 leukocytes in Blood by Automated count 29 % [facility] Monocytes/100 leukocytes in Blood by Automated count 7 % [facility] Eosinophils/100 leukocytes in Blood by Automated count 2 % [facility] Basophils/100 leukocytes in Blood by Automated count 1 % [facility] Neutrophils [#/volume] in Blood by Automated count 4.43 10*3/uL 1.8-7 .0 [facility] Lymphocytes [#/volume] in Blood by Automated count 2.08 10*3/uL 1.2-4 .0 [facility] Monocytes [#/volume] in Blood by Automated count 0.50 10*3/uL 0-0.8 [facility] Eosinophils [#/volume] in Blood by Automated count 0.17 10*3/uL 0-0.5 [facility] Basophils [#/volume] in Blood by Automated count 0.05 10*3/uL 0-0.2 [facility] Nucleated erythrocytes/100 leukocytes [Ratio] in Blood by Automated count 0 /100{WBCs} 0-0 [facility] ID Date Data Source [id number] 04/20/2021 08:12:01 AM [facility] Value Range Interpretation Code Description Data Sheryl rce(s) Supporting Document(s) Prothrombin time (PT) 13.0 s 11.6-14.0 [facility] INR in Platelet poor plasma by Coagulation assay 1.02 [facility] Routine intensity oral anticoagulation I NR is typically 2.0-3.0. Target INR must be clinically individualized. ID Date Data Source [id number] 04/20/2021 08:12:01 AM [facility] Value Range Interpretation Code Description Data Sheryl rce(s) Supporting Document(s) aPTT in Platelet poor plasma by Coagulation assay 28.9 s 24.0-33. 0 [facility] ID Date Data Source [id number] 04/20/2021 08:21:30 AM [facility] Value Range Interpretation Code Description Data Sheryl rce(s) Supporting Document(s) Albumin [Mass/volume] in Serum or Plasma by Bromocresol green (BCG) dye binding method 3.8 g/dL 3.5-5.2 [facility] Bilirubin.total [Mass/volume] in Serum or Plasma 0.2 mg/dL <1.2 [facility] Calcium [Mass/volume] in Serum or Plasma 8.9 mg/dL 8.8-10.2 [facility] Chloride [Moles/volume] in Serum or Plasma 103 mmol/L 98-107 [facility] Creatinine [Mass/volume] in Serum or Plasma 0.82 mg/dL 0.70-1.20 [facility] Glucose [Mass/volume] in Serum or Plasma 110 mg/dL 70-140 [facility] Alkaline phosphatase [Enzymatic activity/volume] in Serum or Plasma 113 U/L 40-129 [facility] Potassium [Moles/volume] in Serum or Plasma 4.2 mmol/L 3.4-5.1 [facility] Hemolyzed Protein [Mass/volume] in Serum or Plasma 6.3 g/dL 6.4-8.3 L [facility] Sodium [Moles/volume] in Serum or Plasma 134 mmol/L 136-145 L [facility] Aspartate aminotransferase [Enzymatic activity/volume] in Serum or Plasma 17 U/L <40 [facility] Urea nitrogen [Mass/volume] in Serum or Plasma 24 mg/dL 8-23 H [facility] Osmolality of Serum or Plasma by calculation 283 mosm/kg 275-300 [facility] Creatinine/Urea nitrogen [Mass Ratio] in Serum or Plasma 29 [facility] Bicarbonate [Moles/volume] in Serum 22 mmol/L 22-29 [facility] Alanine aminotransferase [Enzymatic activity/volume] in Seru m or Plasma 15 U/L <41 [facility] Anion gap 3 in Serum or Plasma 9 mmol/L 8-15 [facility] Glomerular filtration rate/1.73 sq M pre dicted among non-blacks [Volume Rate/Area] in Serum or Plasma by Creatinine-based formula (MDRD) 88 mL/min/1.73m2 >60 [facility] Glomerular filtration rate/1.73 sq M pre dicted among blacks [Volume Rate/Area] in Serum or Plasma by Creatinine-based formula (MDRD) >60 [facility] ID Date Data Source [id number] 04/18/2021 11:41:06 AM EDT [facility] Name Value Range Interpretation Code Description Data Sheryl rce(s) Supporting Document(s) [facility] YVNODa8tMoKJKeOuq9EgDpVmGJQqNL9pprt5L1H0cNVqE7VmcNZgf1gnT2XjO7UwXCNuYIBFST1KzYNy jb2 [file] 06r24m2CR3vk010/we8opf/poez8Gy6vxbq47A+H4j f237XV43e7t34Y2t0B4b/xC9fSgFs9R8qGdXJzUl+r7Mxr24fa73ys69IHpAV76ELjyTI79/yAfta4+8 WZZBXpvXfuyRd+bzI+/DE7zNn1vZ7yY42MM3/aJf4wtlX38r7Khe7lh9uRyv45IYyH1yEn/At1ZCr5Qz 3s+rB8/3qdfl0Ra9qWiJ7d6a4krWLo/oc331uiq2ZH t1tK/Dnn3j/cb7g/fnvg/IG+PWM+w4g8o2SYCGdy4xN5D9HjXFMj8H0G8Ra1p57IjB+F8ftevrDvFx0W jNrk6mvBL9cFeTh1e/o30rkwOoOZHT7/H5d3WTQlVUMX01Tcp+rnd3WlYobZhkUuPwgk8+0a35qG6p/3 Vuu+rq0Hr2bH9Nw03xq0xsGMavBjHwrV711KZ/tdG+ G+27A/roh55Ar75mBbr0mH++R/89sOeD/msf3vJ2TtHgUVYq35K3O+Q9aN+Q2c0v45V8TUuNHbnwg/Ho TJ4Dr7Jfn324fq9mx9/nDPl9/ouTo6G31e9FsV/ZhxuM83jd8/A20ax3X03v/T5loZgYxqN+1z8/p8bL 9p5D4+EYIBNIlMdn4135k5C801praSp+FdEopDkO1u 8LXjSw0XCtzsu3i91fCl050avhn7m8/obFP42O+V9nMva6tFs7o7xtf5OrHI8z/nD1usbA57pxGN8/lc ONVmcWD4qJj54PT05UrH00H9huZFS/hMF6nKNRa2x2WzT0Ep+JDry/803d8chGtgb2HvmrlcdC64s1bD dF+lXunMciR95piwrgFP+Jbrw/+O53ChDWq8Om5mQc RkYw1rdU8+76ETDl4HKRrUx04tGn9h1hJ+/PyG8+0ohcenxwdtwjgJMHA24f+6B3u9cvP/c++Op9v/H9 R96j+h5l13C3/5H32PP+vCmaPKJ4h1hjjSN/ppp3BBc9s7c7f2fJY8g0+wlX/JNHu7/vFd+j87blF56Y 8alkdodp9QnccY1u6IreM16x19t8utuVcKX7Ndi7Eq B8nmgf5pM69f6+5wj4Gco5odGHdmZs74MBCs/Jusvvy31Mm/hSG5jAcsA7JMUKqs+qHxh392SU2wYWO9 3P9/67oUGBC6KmdaWITL9x2eh/xuGvj3dKbnMtGY9Ok5MmovZZ/pw6TsQNTcsyfUgL+Krqc+e/siDvgr cKj3yaiz5Rg9oLNBEVshBj3vcVn/gHUyZ0TIWr2p0c hsBGC9nQc//9xGb/rSLWo2nAuo8cxyL60A2aU8elSPmuz+GfN+d92aXK79rP/38s8IixHl6MbnzwiNxV gysaGEv8Hc0/6a8sTvnPEf2Bgtcok/hKvr9A/gr08AxJiHFaAg06Xh4ExxPs4Em0G0P/87zzBTnwz+fO B+Vc/9buov040tmb826SkxaI9fsI0/xXE1/Jj98urd 6xrgefmJmdPpf0+CaPAD427FBoEb42PhgaIvWdtOzha3rxkCe0tZb8F64GRYobwY4AmEW0xNyT+GrUs9 3ke6nZF9/ohLzTkX/gfXzbUSt+jp5Ydc0zns+OVX+fD+scgu1HN01HTc+06V4C369J1KqM745N+EqBrx TxKwW+0sRXlSfat/ZXsbl2n/A7Ia8tuOUKo9Ao9vDH +ya+knq+oyp9sDDkoU1/pXrxpKri/U3akT20gCg4/nSnLaGkRjlCucE9N7UKrFyx158uQiKm0PqYpvLG FIpEM4My7L80+p89jAd1/SI609Ad3u1nbU+7eFLtjr+p6rdt85F850oka/pT2Chu34C+11+pbbw/yP98 /eUclwcTa2eq3rSw1uh71J/frhm/pnAn2aiVZ9wEi+ obQ/6G/B8HCqWjNN9+THxVZQXKXXj/4MnKc3/x2HMM+dy57U3s0gW7O3d28fNPA04AE3NlRtm8cw7q7d f0c+HV5/Ba4978mq1f6AbztnD/x/oPxJ8917qx6XQ8ZG5P6agE42feS8bQ9Mdm2ozLN/P3t84S8+tC+z 746n3/yPs+a4f8YPgDX1iWixf534dvQ54D89T5S+9h k6ijy36US+gUy2o2uw5r7+8eeH/xlSJ+rxczXm77cLP7Af/94hDdN/6s+4bmShZJAfxrHEtJu3ynP/FV +bM27sdf+Kq+h3/eB/RDo8b6Zl/U45OILUPymZ81x2NZT/Gr4MN89XmTb8tsM91Z/YsE5H3g96U7IByv A/984J8P/NU5yP+4q002qzLjot0J4GcB/AcS4JsHVi rvFd/f+YXGm65g61Z1OOtCyp3/YcQhZjp0LIV1BB+Ncg/sm2yIJtTfU9/anHgPeRG/usfm0nsBd7x4hL TRS8S9976EAmOILzNbW3gC9o66T7kZ2j+Ue/LQiQ08U/mcb/8yueuhJnf+j1xifCtj4vQRQ8ypwJoU7d i1t2E9KtBZtAQkSp1khv3RZADWCejR2qL4cu0R1UuN /Uo4obVYd/02aB8KF8wCgrptZ5wDeTX95Py/FzHcB04xwP2M0GiI/GxlTkeSYoWlfK108qEefh6VGd+l 5mjQz2w2ve4KeD/ba9YNA0acdI2kGjY709/Sdv2tt3yRoOo0LgbSerzU9IF5rN463+zg/zrv6Uz4Hew8 +2XW6dUpcY4u8lsWR405sC2q0vtZYf7In5iR+zsemQ gbLQo2jn/PA12h7LC7E+eGCqz8vCW/icxzYdlIl3W3560NRebBfz/NH4LnC5rTj+o9/ZNXY6vjZxtk2C eZHD5lzKYo9VFO2jG2O+360S1K8H9w2uQ2D+c688gCn1gvyJgT+CoPjya+XxqusuesEuJf7E+M9Ssue5 bQvgvtm/ob4za6031eh1n2Sylo9CpYk6+S1QRGx3da qxxQrwRzx349iJ2a7LAC+Uml4X5uXwxXaYt/P+eACzM/x4C/zw9+ztkqbe756VVQU+eJ+TxHgP+0Xx5v /fQnWnoBC6g4485al07qki4bfnStzf8z7ya7GCtWg+B0V55fD//C5vJZIlr71gW9U76u1JPi+OcD/3ww /kr5GQ4n4JHL+oXyoBtLB0c644902yu4Q8973xFKR/ G67B4wkBem2pnrsPlzS//s485/fVx/5YWvLJ+//dorfpXvA+1bndWn7quy+CoPeya+queD9+d+n/jqfc t8qmy1Tizxluz5Gn/s8/cnv1z8B63k66SDR0/bvj5v//A69sy24ho+d5orHqjXBssmfaTikpi/fs7wVi c2PtKvMEXTpZOnEv8UMpYgT1K9MD9F/JjS45Mxiww1 LZ89uWVaarQ003TYGAvHms62ctki243m7/ldv3W+9ubd6W3k9dbHBk/oIgdGK185zjmLOCjRuD2i4O/l undv0E3m3xq5tQforU0u33tJDdps+QomPnLYcoNXr5dpm3m38NrC0SNx1QA7sb6nfyXplzDinbdNjv/K 2tvsBzNT6DiB19ru5DIOjz/q+pEu0MNwWeF1lZ9U/T fqg/3aVe6zgzZl0ky/qdQp6aqFilSvOhNs/dfvfMEd/soN7+/2qMoi1u/w9SZLVNj/5hjXepzu61l4Z+ p/UP+Eyf7wrhoOwIh62/dA+hcedp0tL94oVOgTide5hPVAkKOv12eyct+DR6A+C/dg1KCDkEnm7MY+Ku 7817H/cirYr5rkw/SHC+PRuvNfx/qgL/RfrA/6uvNf T3yV+l6TkagwcOVzHzAepF52/ukDwB675KZsjuFb1saP/Hi7sLnHlho/biq0nx6E/7zv/Lb0zm1scZ/w veP9XQ/6OIt43W4hwfuE+rrEV+funeral driver/tAdqL74idnkJT+8Uk/Cc9biw9OUKF4+Zwbn/TEV+1yvj12rJeo 8n/jXJ9awVur9/ew7Fv/yJa5wDrlf+Deg6F4qI7tih d4Jl0twH/x5+uPsTf0ATC4Lc4d/O7JrpHmom1FZkW4iopPon6Fv98riRnkSn1Qvl1t5v/+n0Nz03Xii2 9IfHW+a7XZ3qcCoiYcn82y9KbTgO/EnXaRCaPYgdikdiS631Rar3138zrL/DgObPTutzfrQh8n35nsPB 6IpLy6Om95vdsAF7JR5jBWdYi2Um3hm0mC7T0/FXLj sSF3/W4550EwW+8F39/4ZCB+MZkzEcTIDVn1IwfnK+InhKmuSCu7D4Xd/4XvIa/dwAkOcXzXr1TKG12n 4Qjxqm295v0DMt8Q5vBkZKW+kezF8jiJ+GWTB5Ri+VHonR+G8kgPJW6gxSYnvN/0n3fwtQ7BQZ6UhY/C Ln4Ou/g57O5/Drt4I+rG61Ubtdrpcd1qlz9vp69/Du uiOfyyV0k/9G6pRwMK/vawG5+OgOlta939EahyYsrS0cJ+6vW9XzT/CuxvD7/iraida/xzV8Cc5s/uo2lsa3 pqnBupE2L/igk5nqPXyU8z06Us4O+BeFAKRQ8S7J+ZsU4NshdjiKdQA1OsECl3sT/IJ/W61E1tf48Tx2 23JufwzzkU9cbFkogKkTu3JqPoaipn15f07I8nXwvx mhlXJd85AMpPoaUz3WAogvlkEbkX9j8w11HlP9Gf11V/gbki2OyxDcS/Sdvn04u+88HYaF/mfzyrS0r+ +xlio/6o7W72w4kTUy/F/vbA+qEzdAE6owuJ8lv1AVgdkI/NxaOSdCSU4EzV/irXB+rPbc7W7xkw/D0X TwbWB+PAPx+Xd2mjaAMeTXajN/NlMOmo7I+JgXb1Ny WiIuSNVl2bbNoi8VJ2v/PrHanFjtZ7l0h/17tXxq/eZ3/xpGJoOx8Odd0+yep71zh08t26ZdCSRgpEkt Z+b38KAm53KcGAJZS1UNv+P/cvgrhoLgW14CQ54S8Z+Zwh/lIY2TWbrgF4MzSeF9rCl951n8X21cI9/m 1cFis8b/fsfn3Vdu34Pr1530a4CRVZ/CrfX3+1cH5w YX/3kzvixdoPEHtairFKd3mlr8rDw99+sRC/zi1RSnqqLSxvdjKbkZz6+dlPWN/Etx/dU6J/UX0jA9G/ 2I2xfr02ZLlI/P9kI4KD+JPHc5/JWyb3uDQ2XmzvLv/JH0K2vQa4UzGH7PQh96y+4K+S0Fez1644Kr8y eT/3ebw/t/3c5/AlZS6MX+K5z+LyeXKrn1bB4t7Mnv vvnVKjh0QqhrvpBg/3x66f+hsz7hpn0t0Mm/uh5cjCh6a+0Nvyk9aT/F0g7q8IJWFdtQKdz0QFg2VYJA 2QC5e6aQ6MQMsV+YQAu24sEtbK0+mrLvhXj6dsw28Be8ow+KpugpFbR0NynLFf3UmTwvU/r/z8p1MsZt FnIh0qjsJv9/NIlVG8t6YHgXULVqOneyPIAsMrEFAa Yn31KZBm05dVehu/v7Tu/N125++2B3+3/gtS153bmDoSAfdVUgu3MRXurWpaarYSnQtyHXqGY7qMwybz /HtlYVSESD34POpmoeYBjlY6eNd788mb8kcjjX8mMXBNz9DEF7PZbt2KVWyudJAgFkJGmqz46tU8ewR2 ARIN+NDYquF1lO3CEUQeETvx2jv8ne+arg3XSB1ChRg [file] Rkv0gIzc18shiczuHpXwcdj+724j2z9nucvkLaAcody+47181h5kybcgKrGgsrn+33577c2ngvnkPcwh puq+690k6t6dbbjayxozeoj+467n8h6qrnxuusjiepw+1611713kmubrxxzrkfc+6b329nIWQaN05lxy tz/N1f+SanHJu+x+k5a+JFPxFXf84yo+wOo90HU94z BqUzFW6jv9VTy/RiCO4NUvuVHkcR5JW3lYM3e5SWn/ceprtW7w9glW3MXtV+Rw5Ly3Z9B/fd1R71/p5j zSnMExEx8ncD/pf8Pgdi6nsDt1QCj4H+gfsOlE+FM4DfiD+Ub5Sjv+2q+4xf0fQbfeJDqtUZwUBh6rSf jDjSb5Vg+TZD/IHtDG0b+tvQ34b+JgY0xz3Q/e14vj 366/fq6G/3/ovbQfsm8Xi7Mk7huezxw411Av6CHiE/4/a09OcMvJtcIZ5q6R6FhknZn6/VTrsuHKMc/T U8X0N/Dc/H1OsSp8zsrT7Q8/B8Dc/SNn27DE3RBzR+UI5YS8lkl/D3pCtsI53FHdZ8MMQkAQ8cozL35J Sightseeing Guide+MrdWaL0q+D7ghHPlnWw+ytRD+dndiefPS8nD+UL 6Jbog0ymflNS4NVd0DtnztA3M71lrXRlcY4a52occqF2oV9CeCjqzI1E/T5b6HUB9Apa2r/cKN91/rou FWLcLB2lo/LgenPNwntw5uw9EXpfhgB8YP7QuzEJokoB97B8NvghDClecWMa8GvebLb7nO33dOoEozlW f3er+lyd66ez7ddgHeZr+7vx/e9BrymDo7D708F5Xi RnXzh+yvWq5+i7iI5xYauuUSQsKF1mkoqpQK2eN3LwvmfMY8zzdeeWU6tDklkR8H9DyrY6ObAP4A0Zfv J6PfGT1O5VmiH5SgFH8E6XovH0BiQO7N+i87qO91ax7ksCyn2Rn83WrDStDZdZW8cS7Y9kIjWu7I7mzq TESFAYE+ZQ0YWgN+GG8Brj8c+pzhe1rZ6ICLT4bq/mUg590 KbMuHFudg+cs2eFB9LO/P7et8AA+OZ2YQjA+YH2s01PqaW07VL+e+N736KceH2WUod/loUokg2yd5Oi+ Hc+34/n2+t0rZ1n25XqJ++rO314NA+FC5FRteA20Fdz4E/DK9ws2iv6Z1/D+Gd9Glxf+bl+sNOK9g54i IA3jENuSs0/p/xF35Cu5iS/9dG0bbLkiycXvwW10pc Q9C/gytS9HX5a4i1H8FXR+ryXzcboy1g5IVc1+fx5egiuIZrdSA3kklSkvNJ2P8qs9fC0F80EnZICpH3 rouVf2XdrW/g59U3yRMtcc8SVlDizTOc/yhIHJxeftV2s0hujFSZ2qoVpbmUL40yinvC6q7tvI42zove r7Kq4N++osi6xqK3dL+ij5IsnHtS6NlYFnicQtKB4+ zdEOck5iOFtpU29eD/mwO81UjUZtKV7Y06N9xE6iK0M93leD6nw/1V9Nbv+8tlZK42r+2rCYnL3ydiGX k76fxb39qw95uufp2uNyVbHrtqXTgQHwK4/xq7+a6Udu+3gyKkhiC44XhBc9BY81b9nE4iw+0kwAfdtX mgFFb/tKMwnGbV+9FB/7weH8lHkg7/b+icCk7q5A/+ u5Hw0aw/qq1h24YwjWPak6b54ADb1lX3+XG+oqlnQ25V1jp+2q9W+0us3nsh8pNS4BJ5FpF72y0Yb51M 50n6ipX+UT5RPn+7boXp4r3rRBst2t4MWu2SyxIw3nE40IJtksGTD5Y+zloJOcv1KS3W0ob52p2Euiq0 zW+7t57mFzMODjzRurtWV8Ux/Cvoq+k88Hqfb76wL+ sK/VmbPk2M/VJ6OpqX4AW6Qu6Lp4/f7fnWtx06fkRR+aH5DTvG/UM1H/xPkL5y+c7/6nXl06iiVsq02i poCdxd5LxkZh7fTpYmMH94bb2P6njRdvjxJMzfY8LO/A3LK1JLsUFwBjruw/+xtzo++LaZEezrfFtPir 4btizrHbV+q/MXxPzKsP/w04wDLT1bhQoPUa/Y333e 7yZItd61BfGUEz1d8iVup9u0keQn0JzU+YI8I5m6vO6h72p98+/Pdid2CP8k4wQy04+CvB25LVFLB0Ch QLyu/+fbsA6TZCB5w/1ll04v0tew/w+/pc22TC5tIh5wY+Dnk75Zym6H2ZN+snQcfx0agXb/hhIRg92J kj+ry4QqkmqA6HJt103aECh6rr0vkDq1rU+YwGnu/A 4a14xtGlw0f2u2k4bJMgil8yXEAst6mQnFD3Ms0excQhmU+3r/Lrcztz51kal+TzJrmmpvMstxBBO7Ec xfw2MT+HfRVz+Dz/9Np1av1naCotaWM6osjweS4lbJqFa2vy+Ii8oc6d49I9sSeasKz0XTvwK59/C9/f nz0k0Mpny+c5QsbN1J0pq6hBJ75DhTti/onyhfKFcv R3ob+7/i+0XevBtst+jmjRlu0v4Sf9iSsTy+2jr5HnDC6rn/8pbaO/e+O6utRNccQl1M5Wh6n+l3X8ne pTeTOIgJucgN1hq/Swr/K47I0O+6neu74B+4lYLdn4x0/B387AatFLnnReQm5owepIO8dm+tuv6m/H/8 GO/4Md/wc7/g92/B/iOP0CVLVkJl8Xh1eJqRGxyF5y elWD1WqiXGqTG3uqEReJq4Ov/vo/2PF/sOP/WEr9x7Vc/2Ac1/awum3trg+VNu9HikX0v+gv+KsO/qpr 3g5asw7KbeM+oaeundUrSRgWx4Dd/sLmCkhhchoTLRkd86bipTM5bzIfrqsSM5/xf7Dj/2DH/6OtQO2i WFrCn1xgt/NN/ysf6Ftq3Ik330b/9+YzqvcNA54d/2 Ud/wd7x/DjrY8vs4oKu7mf4ZP+QP14f/tE+UQ9xW/04K/yeKMc/fWzA7bWp2FDs1nGBog+yFgml71lhN F/sOP/YMf/wY7/s34SB0Y/If860Cp+D+Yxni/+D3bD+ym0PZiL+s69aiM5dfz83DdwRmivKthmT+jvKD 624/9gx//Bjv+DHf8H+xgoHyifqB/Pdyy0B+/vqO9v H/U/tE/QHaPf6mI7Ri6co/r+8oy9coCGGA/0ZqR6zlV8bI/f347/gx3/B/dFlMMvF23wO/zT67tmgyJw INi2Iz81ltp+Yofbu9Ya2zlU71FFH8xwRU9N6tUC44EV85kHcfWn/B/s+D/Y8X+lV4hbrvf4WX0paS9f 8/Mu/rlvzFdbUF7/Y4qZD6hYB/8c5c4/7ygP/nnGsd Wxodxw/kA9A/V5n14dldczx5KLxOs33fa0jk83HEhMrSiDf1+uqK23ezsTR8U2cBaPC2ew/5FdA/UPnD 9x/xT6ZjqMYUe61VJ3WG8WtGyhs5peSRh5IOh1u0HV7dFaKA0P8wXy1eSGpWAvOBcrpA9Hw0M+Wgy039 K+zfnMc8Gfk4wVEgP9gp/SSC7W13lxJwR5zhM55fm2 jtBjoOu50tN1OohnhARrdo2eC/NNGvnvw/doJEfqWzSSR/UdGi/pjCkk83KMc/OxWc/Mr8AIJ8+doZH8 ppon5Cju44Ih+9oGu5fcv6hub+55bHUsDz/suzKSo/VZAr3joN4fCll7EJe0+GjSlXan6uHe08ePVzw+ hSTU3o9xcv8TIlj+ijRVvhcjeXXfipH/w1tfZe0y9r p3eVn0sjO5OwQv4hbKqq3gNV0yNChGi4VsLv0gBP+mG9U0qRmLv0N6uCfIJiSuyxGBWT+9+GcL+yqPF8 5fqGej/lBrPsjy20An8AajIR1Nn7Wal/ROnI51T69vaeiY4/UbEmZoTpfHpbE9i9K+2nF+7s5N0mRLIT H/QvnC+fH+Vsf6s79+io/1vRXJ5/rNmttXtrI10nEs 4P0N+yqPe7V/qU2aG7O5+rc13RfTnElb5/rYbJaKZgmiHcYv8pRyI50nTuesC/7K+VsL/xwhdWf7af3r c+vnHZ5g01Bg43eh0tbSp9l0T6kwpbq0ac+LIrEtd8rr6n5Uht11GvDt6MlrhsWqhx59u/Rv716jmr8q Mvvx5rGLtOIquNoe7FiBFZswCrszCJBL7c9kbJ/cvg as0tqOGXiNu6I75/ZVcJ6+EHY1PG9j9Gb1C3xlFwfmJ675+wr4Wb7k8CarrQ209+8k7tohvhQRavRbOf 4bnlwrofYYlCe9nG6oc8aM3z9Uyq144+0j0igt5f+Y892+Azay5fN0+5wE1RQ0T4Is68cE6QOfjMU61Y ZUw5b6fFBmPIe0e0A9vOLxsji1Sy4ovqvBAI7C29of FT2Nvjjd3lGT+SJJ5a2yPC/wKO8enWAYlXOpj4Qj/5Z2dmQn+WxHkoR3Vg8yo5rVI/g/OPB/nViif0hV +riEB4icfZArlIUJUt4QGW+g/vt3GgDorodj2qx3B336uc5OVuiylzT+VFr83AZr/25ik5abt22eH7gS V3mM/mrH+OEyOrk7dlMnN+BK3CkiZ+Gy7zgkv/XgaB hCPhT5LhbV/A8JV48RUQ1J4bCW41wY21l534imU1/gr+TUBP49swy6pz99yiRF+gv7asC/fcC/ffTy3x i99i+MGiop2xG3L8Yhk/Pt9X9/4W5v4Epd+SNE5Fw8jobMDZasG9INbT6oc25Eb3L/NowBJXJNwy7Ngv 2j0jdl65IYFwunhR24F5YdyHooQcW1akClO/eduO/E bIwyo5LtswOTlbzv/ReVdTKoML64In4qXDSfqhMFG0J13RTEA7v4tamPFsV+2X6m75fz/5hsuv60vuZ1 xvnFtw/fYmD67IN/NcBfjYn+zuKfxyz/cFLrgjwpLTYhI6ZRo4V2lCz9iFMEifiuhn3N1EnhA/o7y39y rOJjB/zbB/zbxyp+Osz9q5J1v+D/4AB/NcBfjYXxvD PfcC8G5HvZ/NVYE/cnkqWlfsNrxSJ2zQS+csi1vkziD2wzQFJzHNI/7Qks55A/N+dzyde8n1Jr+4v/g2 NjPG/0d6O/u0Az3d468qR/8P7i/+DE/8GJ/4MT/todOZmIyYtGR8hwvlaW4/jAg03ziCwx2B37BrX+Tv jpdXSy0kYKu027gFzZk0gfuihJ+LdP+LdP+LdP+LdP +LdPKf/kHazZUsRHO7p02bjs3RgeCq5P+r2/WefA+VF2N7YscC+Ub9SD/qpaaWCzyh2fc4nGgB6ad5/w b5/wb5/aUH/3B3jrS0Tbaz10nthqFO+g/voeTdhXE/oLcY47HQ4Nlf/wvUFmDBgtjZ73tGo1X55M101M +7o08ubx0GqAPf6s+Xm2+b51g8G30BnQtib6DXKlcE yzklgV26lC/1DNr7kC7kP0l0aYCgY/asRx+F/LNOH3Gbqw/wUx1ErbSgqmk4a/r3Bbdinwak31pfuzxb EFj34ysqJK9/+8s9Fdg1hk9StG0b9vVYvf21q39263YriuCsF8/9is3/7asC22l/vqtdzPY+cb4/jmJ5 /mv477vd070Onjv5Dc686VXwWj26APe55umzHMSA92 Fc/OnJ/MOoufnOHfHs/Cip+c4d/uXMQM+yrGvxXfPmFfTav/R9MwP4/nQ5sRS1qysj9+j39EJ7J0wuuf hCP8A9w+KXSHxmVuaw8zH+ZdLBkzS5iVO9o0nL7T8+/A+ec5co9Zhvz/0Tlr/Wvj8FAbcq/tSFlzn8xS dPI9fRdQx7R3/JHmLH/gOdHfsK+lri8tKw+US2Bx3v 7qmDfajSt5PL7VJ4c9E3+wr+NnUSSiTeess4ZvnwyZwx+N1Ca9JTA00F/V/lX+wHOVf+wu3E60H/GTcx U/Od2+pb5MxhM+y8hZb368++jbW4nC3ySig+C58uwbDK766UrKB5Z2+fNPt6+Ip3qdAxVhGOxjc5WbaN 5dO6R5u+L13dJFso258BhOL40d/OR9vNy+Wu3eKzLU ruCvzjHKFeWKetpT/0r+Hw7IFhhN7fBsU/tvLqV9c67JLo6hWBu06X5IOoU5jjMl1+Oe8kO00jrDr6gk gq/V9gpE5s9bOn1bOmViojJJqmqELsf/7Ocu9R44g56kzMx/zggn7hgqHtnsMVh/3t4ECel8zavs+yp1 3GKG9ogpcST/3Han1n8f7D/J1neoarMes3L3gQYwk7 mN5+V0BcrDm+2reI+R59jcYe23d94vXFk49qqB//NL3lNyX3CbO95ILz7Du7L1vAfaanhvE51jJ7iq4H j6Kypu6cevDaprsjrGT9xSa6iiI8K4rwON75shUAL/Xj1UG5fV73cC/2ph/+Gsyp8z3vJnBg//2BX8VY /y4usW+ReJOeAY4E9ejI3ndkG+Z0naLU9csuce/B9c +D+4kr+Silvestre+z2t7TmoV05ubKdRu92HB1kn/W21BpEce7H//eXFZ+wfLgzOfriFhj63H/+OauFp0pJQOn1 [file] 0f382J4UIr2Yb/XV17/+7uPbn//zp5//7v346l200d d9/z01z5z33wkc/uE/OUmy2f/08y+//vjim1/+6vNvv/kNyn581bxd2vHr7/z9q4M/+dmXX/zEnVylfW u2t85uzFrtzjp5tUkRG1y38t+/ty23n16hev223//w5cc/lk7oy67/8+uvf/afXHmbAveVX/zpj//2uz //4Yd//fjv//vjN7/7/e+///Off/j+93/z8bPv//i7 H37/8S//Floor Covering Layer//PXHn/74egg/Ed3rPnBNg7a81xqMOm/dOkiPzgNg9jh58D8//NrjhE0yCX5X/IffAG/3 iB4kwf97/cwdj0lG6R53/z4V7yhdnzd37zzat1RHbbR1+si4VcXN6jnbNOc/rh/md1IR9Ro0+8O//fDS 7A6dtv4+/craa7479v+/+vabj//2zd99/s+ff/fzr9 863M7tGU7/5N2mbzpTwot5j1nAgb/7FJHuwYZOcCnk0TMr5Bv//PE//vbjz9//xw9vtb++eB8R/+Y+6Q 56MX2quVr+49oP+EtoS226c//44c//0a1zY4Ytpp9EM58/3JtX9q5rv/z2u49//Z+vtv/uT3/8cfUePe 0X2OiRM/dYu322w19+x0g4SnBrCk7110ye8UbioE4b M4b+cJQJ4fvawmwG5Qw/btXBfvWTb3/y6eP7/++Hf//L1+d5bio+/52tdh8h2Nyg//preschool teacher assistant//UKOll5FXhc fv/7t+e865Blsc+fv/3+33/3/R//8vpHDd/+6U9/+SzG4WliJ/51200AGor0rlyt/zf+6Yff/j9//N1v Zdu06UR14LY8s2D155ik+u//8Roy//xNe1185rfx/O ovb+lfcG/yN7/85Zdff/qOjfIMEP/3U+75gY0VfLR/9f3/+TGGLu49ba8O9hD+tN747+71Oa6LT0/e36 l12fZPFe2Ei5yRq4DdfTqcO660CIo4+z6lf3z+iZks8nH9aygi0bvQ2agR/H6QmPnkXqHjOWP6plVzfQ xpxbQkYjaDFBliKWToQqb7WJ8GaKMrIUIkD7Y1HWQf uo3vTUPdQHXkuTJxFvOzKHKHYA1JlMHkPD9NLZd6BPWiMLXzSxYeFYEjanI8DUTpCVEkJHObT5SsnlWp dCAyIDAgUj4+EY2kp4TwZuHfNCUdGlh1HH2DlSQtFM5KrYYspO3qbjAcY603ezNjAXHaLlnmo9QdECrs CXBLGJ1FJXL4WJK0PCXlJq9+RB0ng3KrMgOyFKClJi u8GU0MaBYnd4JuOP0CF9UoTLJfXTJVITZ7m9ZbEBDduocqwinnX6FmNAT2tU1uYWN1EUCxIIvlODMvNS CbEfObKNIcQHavZWUwUWSdWNPdDKTpUJu3dQYbSG7NL8ZcSCCbBIHENWNhrfHzIf0vOWxNPqCMXRCGVk 4MACOoOZP1ZWT9UAdwZ9J1SzuhL9QhAR4QS7RyTJFl XXJKPKXbsmOiYT0YfmDfnI4oXInGXNNBPImVJEjnJqV0y80tnuYLLVAeHSQnUGtcYWBdNZEfIODeYBGk BWQqLPDjCVBlMT3LY2WlPUKxSOCQJDW0k2FyOCWkaqnanssaOm4uglQvYws+BhfoJCZpj2SrDAgbS8H4 yCJuF4VfR5MxCW9LoIEaROfiPJApHMVdRXNnE154mi QgMT4+NT9sh0MbEpcnUARRDZCmIPAoTPMzKEH6FiJqEJCmFEBgFAOiGjS8EeOfOgFHUDAlOWN8XNd7KV FkGUDeIUWwBSslPKQiTWA4QED4JHTtKAPiKW3qEmBaPROaQgg3DvUpDOXtGSLfqhALXHBaTBItUSJyRR B7CJYnSTItLKdtUXKcGQMzMBH2CLYtTUHeBW4eXaEd AXJfTQTrAwayRIPoTXIbipGXVOGfGNJxSWK5KpLzVQPxPLXaTYvdKAKrXIZjOra5OEDbIGSdCT6gBcHx TZUyLXP9GVxcQWEkMWXbkdIQDVGrVKFhSDNcPoJiZXBpHITcAAwcWYKkHJLjUwUgLKNyHGNpHF1fAoVn XSJaDVK2BXRdGRSiSABbwsSXWAVgUEBcSJz9USEhEY VeFSCwDDvdNHKnXKYzLFD1EZElXXHcPG6gPsLnEMDdTLCgQYAbHBWpBOUrysVQCMEhPMViDHZ7XVBaLD LcHRVzYYowPHNjOVTfHve7DQRzLRKxKQ8dApBiAJYiHYQ1YBPnMCItXNEotkPGFUEdZSN9XPD6SPRsUX EfABVnNIcuMQWgUEEsWhG6VYTiTREtKC8kTsZhWLCi TKP2VpUhKALeWIQsuuIKDHVxZMHtLTA2KyWcPIEfPEHkDGnkLVEwBIAuPZTpCYT6TQD8SUWoNhYkQQdl PARRHCzJH2ZkorZgLmIRN4lqHh8rHjIjMSHSV9Qhu6GgCEEwUYLCVb1+TpU5EYH0nRVgKoa9IMz9RUaw JUVPRg== ID Date Data Source [id number] 04/18/2021 01:34:16 PM [facility] Name Value Range Interpretation Code Description Data Sheryl rce(s) Supporting Document(s) Leukocytes [#/volume] in Blood by Automated count 7.0 10*3/uL 4-10 [facility] Erythrocytes [#/volume] in Blood by Automated count 4.23 10*6/uL 4.6- 6.1 L [facility] Hemoglobin [Mass/volume] in Blood 13.3 g/dL 13.5-18 L [facility] Hematocrit [Volume Fraction] of Blood by Automated count 39.3 % 4 1-53 L [facility] Erythrocyte mean corpuscular volume [Entitic volume] by Auto mated count 93.0 fL 80-96 [facility] Erythrocyte mean corpuscular hemoglobin [Entitic mass] by Automated count 31.4 pg 27-33 [facility] Erythrocyte mean corpuscular hemoglobin concentration [Mass/volume] by Automated count 33.8 g/dL 32.0-36.0 [facility] Erythrocyte distribution width [Ratio] by Automated count 13.9 % 11.5-14.5 [facility] Platelets [#/volume] in Blood by Automated count 247 10*3/uL 150-400 [facility] ID Date Data Source [id number] 04/18/2021 02:00:28 PM [facility] Name Value Range Interpretation Code Description Data Sheryl rce(s) Supporting Document(s) Albumin [Mass/volume] in Serum or Plasma by Bromocresol green (BCG) dye binding method 4.1 g/dL 3.5-5.2 [facility] Bilirubin.total [Mass/volume] in Serum or Plasma 0.5 mg/dL <1.2 [facility] Calcium [Mass/volume] in Serum or Plasma 9.3 mg/dL 8.8-10.2 [facility] Chloride [Moles/volume] in Serum or Plasma 109 mmol/L 98-107 [facility] Creatinine [Mass/volume] in Serum or Plasma 1.00 mg/dL 0.70-1.20 [facility] Glucose [Mass/volume] in Serum or Plasma 142 mg/dL 70-140 [facility] Alkaline phosphatase [Enzymatic activity/volume] in Serum or Plasma 139 U/L 40-129 [facility] Potassium [Moles/volume] in Serum or Plasma 4.7 mmol/L 3.4-5.1 [facility] Protein [Mass/volume] in Serum or Plasma 7.3 g/dL 6.4-8.3 [facility] Sodium [Moles/volume] in Serum or Plasma 143 mmol/L 136-145 [facility] Aspartate aminotransferase [Enzymatic activity/volume] in Serum or Plasma 18 U/L <40 [facility] Urea nitrogen [Mass/volume] in Serum or Plasma 20 mg/dL 8-23 [facility] Osmolality of Serum or Plasma by calculation 301 mosm/kg 275-300 [facility] Creatinine/Urea nitrogen [Mass Ratio] in Serum or Plasma 20 [facility] Bicarbonate [Moles/volume] in Serum 25 mmol/L 22-29 [facility] Alanine aminotransferase [Enzymatic activity/volume] in Seru m or Plasma 18 U/L <41 [facility] Anion gap 3 in Serum or Plasma 9 mmol/L 8-15 [facility] Glomerular filtration rate/1.73 sq M pre dicted among non-blacks [Volume Rate/Area] in Serum or Plasma by Creatinine-based formula (MDRD) 75 mL/min/1.73m2 >60 [facility] Glomerular filtration rate/1.73 sq M pre dicted among blacks [Volume Rate/Area] in Serum or Plasma by Creatinine-based formula (MDRD) 87 mL/min/1.73m2 >60 [facility] ID Date Data Source [id number] 04/18/2021 08:59:17 AM EDT [facility] Name Value Range Interpretation Code Description Data Hseryl rce(s) Supporting Document(s) Progress Note [facility] PADJDf7bUuWIRsEp66/BAKzfKAVct9GqNPovREy8SZnqJTHhA4BnKSH1pY9qIDV1LHpNWcWbZsEfCPMy [facility] [file] AgICAgICAgICAgICAgICAgICAgICAgICAgICAgICAg ICAgICAgICAgICAgICAgICAgICAgICAgICAgICAgICAgICAgICAgICAgICAgICAgICAgICAgICAgICAg ICAgICAgDQogICAgICAgICAgICAgICAgICAgICAgICAgICAgICAgICAgICAgICAgICAgICAgICAgICAg ICAgICAgICAgICAgICAgICAgICAgICAgICAgICAgIC AgICAgICAgICAgICAgICAgDQogICAgICAgICAgICAgICAgICAgICAgICAgICAgICAgICAgICAgICAgIC AgICAgICAgICAgICAgICAgICAgICAgICAgICAgICAgICAgICAgICAgICAgICAgICAgICAgICAgICAgDQ ogICAgICAgICAgICAgICAgICAgICAgICAgICAgICAg ICAgICAgICAgICAgICAgICAgICAgICAgICAgICAgICAgICAgICAgICAgICAgICAgICAgICAgICAgICAg ICAgICAgICAgDQogICAgICAgICAgICAgICAgICAgICAgICAgICAgICAgICAgICAgICAgICAgICAgICAg ICAgICAgICAgICAgICAgICAgICAgICAgICAgICAgIC AgICAgICAgICAgICAgICAgICAgDQogICAgICAgICAgICAgICAgICAgICAgICAgICAgICAgICAgICAgIC AgICAgICAgICAgICAgICAgICAgICAgICAgICAgICAgICAgICAgICAgICAgICAgICAgICAgICAgICAgIC AgDQogICAgICAgICAgICAgICAgICAgICAgICAgICAg ICAgICAgICAgICAgICAgICAgICAgICAgICAgICAgICAgICAgICAgICAgICAgICAgICAgICAgICAgICAg ICAgICAgICAgICAgDQogICAgICAgICAgICAgICAgICAgICAgICAgICAgICAgICAgICAgICAgICAgICAg ICAgICAgICAgICAgICAgICAgICAgICAgICAgICAgIC AgICAgICAgICAgICAgICAgICAgICAgDQogICAgICAgICAgICAgICAgICAgICAgICAgICAgICAgICAgIC AgICAgICAgICAgICAgICAgICAgICAgICAgICAgICAgICAgICAgICAgICAgICAgICAgICAgICAgICAgIC AgICAgDQogICAgICAgICAgICAgICAgICAgICAgICAg ICAgICAgICAgICAgICAgICAgICAgICAgICAgICAgICAgICAgICAgICAgICAgICAgICAgICAgICAgICAg PEVaRSOyNKJpABPhSPSqQGe3X6stHNYnNVSxRR8cARa4Qk1+TGeXFaYjECH1vfWjnA0YGS2jq2ShLQds DPEir5DhBGl3WB0PGKYuHEfwMN5OUTrgac8NWGRrIB JfoTZZc4rmLpXnMFJ5GJFpLzulSQ6JWJOgS8zgcrGhOSZcCQXVZS9HQtTrI1SlsQ59IVSUJr4+DQplbm DfDzcRTyV0YZUmb5PnGXm5NU6PHIRlMfkdl5KzAgIrUUKXBTfhFW2XZKC5DPOfRUPiEn4KTUAnK045oz QbBY7TWi8YXiFkTR3gzf1TIqNvGQIhUmjJRgx8WLfc NP3VsCDgQGpZwy1amwLoayMUj3HzxyGseRIEXJPaiUEMGXFlBEFmWBuvXTOXBlWsgSMpVA6sBe1vJLFi QJU1RtMkVLSPPF6NIJVsTJAknEPvSHSaKZUZYG6HMBmeDRQ1PSYpbuLvlUGbQGlxGO4ABVIedvThQMwc MCBSDQo+Ce0BXT0ob1ViDKnxWUAnSV3ihh3EDQcVQb GyP6Z4xZZuD9P0RZcqMo0VONMtOUCzNLnjFCZSBGqzCR6FZR6fajL7NW8NuLBrWLVaARUqmISfHLi7U3 5ejJOdZRpjOO2ATUE+Darwin+Uh2BYFChRECiQEPbYaZeZXYMZmSpV5RyQ9MIl3JnR2AaUJ84ySodmhZyLR ylKK6MBX9lDLGbLWWFRT9EjDHhsN2sgvFdREBgKEKA FcWtF96nrVAmWYRzFUR7PFYdRy0UAZCmP7VajuJngDbqzcSuSANtDGTGLZ9QULpsklJyhACabSwzOL93 rZgySD9OFl7RKfIgXA4drj8LbQQcGg1YLFHoQj0GLCUqJEOeBSTuJNC3SIPjNcVzMEfmAKQcFQClNJV2 TXKgIZZbGB6IFjCeNUMxXAysLGxrJKXnIPHiek1WJV EtYZHgXJdpETWsAOAaHRUhUEreKJJfOKTaXAZ3JIKjZMDsYV3DKzNkGLZaEGSqYBXoIMRwUATfvv3OBV LvBCEcJlTcXqNeAZWvLFGnCWukPAFvOCItCUu2FAHiPKNkFI3FNjRlQPCuLZXzGzTkBHCbTPGuir0YYU ZlZJVlKpB1ZjPlEFSrIMIzATzfMCSoHRX7HRFeJHYw NZPnMF3ITrWaIEHxOZG6IQTrWIYaCNDzmo5MIJLaAREtPGb3PQTqSOFiHJDqKFqkEKSeSAH8AsU1TYFi KMPaKI4ORjWvRTXiYKI0MdErRHUiDONpeq5MRXBlCYEcBou0GNAzGNFiTDPzURjgCJHmBNS0VZI6GPLo OMHuXN5LFaReHEUfSVdzMhVbYGFsXTAnlv6EABXeCM PiDdT0MOOsHDKnJKKxCZqsMPMoOYI0QODnKDLaXSGxZB1ZBxIdKJGvRKlwBtPiSRFfHOUdsn5JYANkKC QxDJDyFfJzZPIvCQKxMQr9aqYtnJIjEMj6VW9KU4OcvlLrUbBEZx0Di194KCDcJNYwAa0DS2ylCu1jYW FsCBTEOh7LUSc8PHWpZZCoZBNhEpoxALagASYkIAG7 ETWdNRD6SVD1KCA+LSe5FbFqEmZ2H6W6E0RaYcE8ZOB1KXf7IiUqGXs7XSz3Lm3oBRQUKp7+DQpzdGFy pPjnDKLTZyO4JYwlHBmsDLDICh2C ID Date Data Source [id number] 04/18/2021 08:59:00 AM EDT [facility] Name Value Range Interpretation Code Description Data Sheryl rce(s) Supporting Document(s) SARS-CoV-2 RNA 2019 nCoV Real-Time RT-PCR: NOT DETECTED [facility] This lab was ordered by [facility] and reported by [facility]. ID Date Data Source [id number] 04/18/2021 03:25:55 PM EDT [facility] Name Value Range Interpretation Code Description Data Sheryl rce(s) Supporting Document(s) Specimen source [Identifier] of Unspecified specimen [facility] SARS-CoV-2 RNA 2019 nCoV Real-Time RT-PCR: NOT DETECTED [facility] Assay Performed [facility] Patients first test for [facility] Patient employed in healthcare setting [facility] Patient has symptoms related to [facility] When did you start to experience these symptoms [Date and time] [Phen X] [facility] Patient was hospitalized because of this condition [facility] patient was admitted to ICU for [facility] Patient resides in a congregate care setting [facility] status [facility] ID Date Data Source [id number] 03/23/2021 10:34:06 AM EDT [facility] Name Value Range Interpretation Code Description Data Sheryl rce(s) Supporting Document(s) Progress Note [facility] HQMQRg8rLlDOLuTh05/UYEczPVQqh4HnZZrsYVa4BVhaQAYwP4BsGKZ1gW5iQAI6LOqWJeUzFeQxVSY8 m [file] ICAgICAgICAgICAgICAgICAgICAgICAgICAgICAgIC WcOHFfSWKhGUQqRFMsQY1IDTEhHHWmTEPqYMRrJBXrHBExOPOgVZIpSPQnMWDpLOGhXTWeZZQfQGAoMD WsPGZyTGKzMKAdRVMiDPCaHRAcOOBxCJKwGAZpJSDxBHOfYKQbMZUnMEGjXBTwPUUxHIMkEJBcDK6OLT AgICAgICAgICAgICAgICAgICAgICAgICAgICAgICAg ICAgICAgICAgICAgICAgICAgICAgICAgICAgICAgICAgICAgICAgICAgICAgICAgICAgICAgICAgICAg HCBiNKYjPI2KCKAwRFGkREQvKIFtWOUbTVQsTKVwNGVaFJZfQBJmKHFoPKBmRCGpUEVfQLLwEYZmDMJu ICAgICAgICAgICAgICAgICAgICAgICAgICAgICAgIC YmSWLpCNHpRAHvCWXuXRUaJM5CUTDaXKCxQLMoTSNpHWXrXQKjZVRhJKPwRBXuGQXnXKHgRNYcHIRjLG AgICAgICAgICAgICAgICAgICAgICAgICAgICAgICAgICAgICAgICAgICAgICAgICAgICAgICAgICAgIA 0KICAgICAgICAgICAgICAgICAgICAgICAgICAgICAg ICAgICAgICAgICAgICAgICAgICAgICAgICAgICAgICAgICAgICAgICAgICAgICAgICAgICAgICAgICAg ZIAqWFXlUXFcJQ3NOZDbTDMdNQKoOLZwXOIaIFPjBOKpYLNzIQOzMEJmYVVuDAVcSJRiQJXfGVKwRQQx ICAgICAgICAgICAgICAgICAgICAgICAgICAgICAgIC HeMCSqBJBbRXYzXHPnKXYcENDpIF6BUNFpICQyEUQcXKXiWVPbOESeRENqADNtXMEmSZOhWULcVLJoCI AgICAgICAgICAgICAgICAgICAgICAgICAgICAgICAgICAgICAgICAgICAgICAgICAgICAgICAgICAgIC WsLI5JTVNsFCGgHXDwZPKlOVMyQSIrCJWvSIHoNLSa ICAgICAgICAgICAgICAgICAgICAgICAgICAgICAgICAgICAgICAgICAgICAgICAgICAgICAgICAgICAg CGJjIPBuRROwUXLfUO9INTOvZYEgVDVnQOVlYMYmIIOfLCHwHMQsCRQpYYQrGNLqOJWlKFWgCNYlOXLb ICAgICAgICAgICAgICAgICAgICAgICAgICAgICAgIC PbEWZeIGVmVTMsBZYjEZHvYDKqVARxTO3IML22hLKic3I6OIUxSU2ngdd/Sl4TTXherwBhaEPuUR5PEq SrLB6jjs8QPeEjCR2sus2HELyLPhJdY6G6dBRoBUYgFMLBGkEpX99mEGrgVr90AAunALIuUiWcWHv3Rk 9RIgJxD5tdHDUdMrH4QDYxFcC3TAQcQfZ0EJMsPvZa TJBiIDWeUBTzCBGHSEV7QFNyQjNxGVraUE2Lh0JneMX5QSv+Ov4BDN5xa0EjAOxnOvTgJB9yhv9MHPeK UhXkV2HlacP6TGHdVNJrOa8KRVVgBUJjeLEwGrJlIGRGFsLsO9YkdF59ADLXDw7+DQplbmRvYmoNCjMz MVTer4KoXHc8DA0NQJDsKRh6wYAkZHIhB3Krb7XuYm 98QUApAaanQ5Q7p3PbpCUmZWwyYoK5RXShzSviFMTcGSMoQI5iMA4nEFEhQEOlQcQuFKJQZD2ISADyOK UayAFaPOGnKVCWYH8WJYivSUT5RIOnefDaqVFkRXvrYW4KTHGcqlIhNfPpAZHEWTq+Lp1DZO1xd3PdLS aySTGaGS9xua2KWDzXFbIrD7I6fJCkW2X3UOguLf8I XJGnSYJuFyHhMUJEJUpsQL9ZKI2ufxA3QG0GdYSaJQMyMKLxfXQbKPr2X81fqUKoZGzmJF9IBEJ+Darwin+ Jd3LXGPiSGUoAQAkHnGsBQQPSmLgF4TkR1MSl7QcT3ZtFE82qVwflkDuEJzzBI7BNW5yAUEsDWYGBC7J xOHsdY5aqsFdMkElHNESLtCyN66qfMOiMBPrGBBjWQ BkPj8OXQAoZ0ZrquXnfWqsozJjZNBqTINYDR2QWZnhovRbiKVmvQlmAA05eYomXB5DIg9KDnTpXA4jtj 3ZlKJpGs0MKGReFT9HBJLeYLAdMNLfTAA5NWJjDoHkSUgcJSYgCKRrRVD8BULeYULsSA5AUxXmRTJrGo W9YPKjCKYqQYDtmv4MZVTmCTWvQyI2YsSuSODaPNGz GJviVRSbZIVfPPP5VYSrSRAtFC6QXhFxABEmVRI3HOZhBXMyCSJtpd9FYGRlXHClRln5KiHyFDVnCNGy BOmyRACwOGC8TBK3SOSoFFQdIB6THeApBSBmNRStNVvcNUMvKNRepr5USPUsXMCaMVAzWyPvSQWtHGWa PZvmTLHsNZS1JgN3GQCcAXNgLI3UCsZgIGEcKFX4NP vpBEFkKFKfiu7EWHQnZLPjIyg5HQBuRLJvKBEoDKnaCHLiYPA2TRM3MVEpKMMzYF4ZSaIlDVMfBKXnZB HuUQZiGIJunm4UWMWgDRRyJpa7GASiRYPzPEGoUSbkUHJgONS6FJAcIJGnUCUaAT4IOtKdWAWpTEfgDw CyADAsQEQeqt5WPZTzLKWoHWNhDvAsWJOmHQPfMFro TFFdUJG5BUHhWBOnMKArYL1OZkAcYZUbKsT0UTcgAFJlZTGuge7DAOPvAOZaPAP2NOEoNKIrFFIsQGrs DTGcTSUoAQB8NOUmSULnXS0ZAwWiDQQyMoByYbzzWQBzLDHzhh0EXADnGHPdGwSnZEGpNNJxGZSrUJri NJFfKPZfTINjBYKpUOBpXP7MMmXvFPXlWuUpDsHqZI DsNNLbqp3IRJQdVYSqTeXrDFTrFQLdXHRvGOdqLCHlQXD2YHQeAZBgBXFaRA8ZUdAvCVSfBnNcYWSsWI JnTYDxyc6YGCPzYVDaQZEkYEQmKAZuBHCfZVfgZCVyEDB5OEM4PQRpJGPqHS8CNvRoRYKmDdB6UEpyVS PlPAYsru4JYVZsERJtRhQ6GPEqGYFmTIZvECisUNXx HDV3MwVkWHPiAJQaAA3FOzQpQJxkFJKIBgo9EFbsS8p1MCQfHN9PD7Ptv4PtAlPeCRFMJGxkZO4bwdZy ZNLlBn4RW1wFUak6CwO4VkCmDsNfSeHaXPZ0W8L5OuO7Y5NqBJZfK3QgJg3zIEneLeuxCKXzRvEvL4Yn NWXyVxp7XrcvRrM1DwIsYBXuGwUfYS6FJl5IYdM3VZM2lACxMx5ICuJ6DqXVMvWvKM2QFYl= Procedure Social History Code Duration Value Status Description Data Source(s ) Alcohol intake 03/22/2021 12:00:00 AM EDT Current non-d jaguar of alcohol (finding) completed Current non-drinker of alcohol (finding) [facility] Tobacco use and exposure 03/22/2021 12:00:00 AM EDT Never used co mpleted Never used [facility] Cigarette pack-years 03/22/2021 12:00:00 [facility] per day[facility] - Reported 03/22/20 12:00:00 AM EDT [facility] Smoking 03/22/2021 12:00:00 AM EDT Current every day smoker co mpleted Current every day smoker [facility] Vital Signs ID Date Data Source [id number] 04/28/2021 07:15:28 AM EDT [facility] Name Value Range Interpretation Code Description Data Source(s) WEIGHT RECORDED 150 lb 150 lb [facility] Body height Measured 67 in 67 in [facility]
[2021-04-30 00:18] VITALS: BP 148/80
--- OUTSIDE RECORDS SUMMARY | 2021-04-30 01:20 | CCD ---
Author Author [facility] Organization [facility] Address Unknown Phone Unavailable Care Team Providers Care Customer Support Engineer Name Role Phone ED, TEST DEFAULT Unavailable Unavailable ALTAF STOVER MD Unavailable Unavailable ALTAF STOVER MD Unavailable Unavailable ALTAF STOVER MD Unavailable Unavailable ALTAF STOVER MD Unavailable Unavailable ALTAF STOVER MD Unavailable Unavailable ALTAF STOVER MD Unavailable Unavailable ALTAF STOVER MD Unavailable Unavailable ALTFA STOVER MD Unavailable Unavailable ALTAF STOVER MD [...] Unavailable Unavailable Ariza, M Korin Unavailable Unavailable Airza, M Korin Unavailable Unavailable Ariza, M Korin [...] is protected by Article 27-F of the [facility] Public Health law. If you continue you may have access to information: Regarding HIV / AIDS; Provided by facilities licensed or operated by the [facility] Office of Mental Health; or Provided by the [facility] Office for People With Developmental Disabilities. If such information is present, then the following [facility] mandated warning applies: This information has [...] law may result in a fine or group home sentence or both. A general authorization for the release of medical or other information is NOT sufficient authorization for further disc losure. Allergies and Adverse Reactions Type Description Substance Reaction Status Data Source(s ) Propensity to adverse reactions IODINATED DIAGNOSTIC AGENTS IODINATED DIAGNOSTIC AGENTS [facility] H ospital Encounters Encounter Providers Location Date Indications Data Source(s ) Outpatient Attender: ALTAF STOVER MDAtt nigel: TRAVIS JACOBS MDAttender: Sandoval Foley MDAdmitter: Sandoval Foley MDReferrer: Sandoval Foley MD [id number] 04/20/2021 05:56:17 AM EDT - 04/21/2021 12:25:00 PM EDT Hepatomegaly, not elsewhere classified [facility] Hepatomegaly, not elsewhere classified Patient discharged. Outpatient Attender: DEFAULT EDAttender: RUDDY ROBERTPELL [id number] -[id number] 04/18/2021 12:00:00 AM EDT [facility] Outpatient Attender: Alexa GONSALESCReferrer: Ml Foley MD [id number] 04/18/2021 12:00:00 AM EDT [facility] Unknown [address] [facility] [place] [address] 04/13/2021 12:00:00 AM EDT [facility] ([facility]) Outpatient Attender: Sandoval Foley MD [id number] 03/22/2021 12:00:00 AM EDT - 03/22/2021 11:02:52 AM EDT Hepatomegaly, not elsewhere classified [facility] Hepatomegaly, not elsewhere classified Outpatient 03/10/2021 12:00:00 AM T [facility] Unknown [address] [facility] [place] [address] 01/31/2021 12:00:00 AM EDT [facility] ([facility]) Outpatient Referrer: Korin Ariza 12/26/2020 12:00:00 AM E [facility] Outpatient Referrer: Korin Ariza 12/19/2020 12:00:00 AM [facility] Medications Medication Brand Name Start Date [...] to dillard Policy Dillard Plan Information MEDICARE [id number] Tia [id number] A MEDICARE A [id number] Self [id number] A MEDICARE [id number] SP [id number] A MEDICARE [id number] SP [id number] FOR LIFE U [id number] Self 0 [id number] Tia [id number] TODAYS OPTIONS [id number] SP [id number] AMER PROG TODAYS OPTIONS G [id number] Self [id number] HUMANA GOLD [id number] SP [id number] WELLCARE [id number] SP [id number] TODAYS OPTIONS [id number] SP [id number] HUMANA GOLD [id number] SP [id number] OTHER B [id number] Self [id number] ANSI-Commercial [id number] ANSI-Health Maintenance Organization ( O) [id number] MEDICARE PART A -O/P [id number] 18 [id number] FOR LIFE-O/P [id number] 18 [id number] WELLCARE -O/P [id number] 18 [id number] WELLCARE -O/P [id number] 18 [id number] ADMINSTRATION -O/P [id number] 18 [id number] ADMINSTRATION -O/P [id number] 18 [id number] TODAYS OPTION -O/P [id number] 18 [id number] FOR LIFE -I/P [id number] 18 [id number] TODAYS OPTION MCR -I/P [id number] 18 [id number] TODAYS OPTION -O [id number] 18 [id number] [facility] NO FAULT [id number] SP [id number] TODAYS OPTIONS [id number] SP [id number] ADMINSTRATION -O/P [id number] 18 [id number] ADMINSTRATION -O/P [id number] 18 [id number] TODAYS OPTIONS [id number] SP [id number] TODAYS OPTIONS/PAL[place]AN O [id number] S [id number] FOR LIFE O [id number] S [id number] MEDICARE PART A-O/P [id number] 18 [id number] MEDICARE C [id number] S [id number] A [place] MEDICARE PART B C [id number] S [id number] ACTIVE DUTY [id number] SP [id number] [facility]BA [place] [id number] SP [id number] MEDICARE -O/P [id number] 18 [id number] PGBA [place] S [id number] S [id number] [employer] [id number] 7 [id number] FOR LIFE WPS O [id number] S [id number] MEDICARE OUTPATIENT M [id number] S [id number] OPTUM VA CCN [id number] SP [id number] SP [id number] ADMINISTRATION [id number] SP [id number] MEDICARE [id number] SP [id number] [id number] FOR LIFE [id number] SP [id number] NGS MEDICARE CONNETI O [id number] S [id number] NOVITAS JL PART B C [id number] S [id number] MEDICARE C [id number] S [id number] HEALTHNET VA CHOICE O [id number] O [id number] WPS [id number] TRIWEST [id number] SP [id number] WEST O [id number] S [id number] WPS MVA VAPC3 O [id number] S [id number] ANSI-Health Maintenance Organization ( O) [id number] ANSI-Commercial [id number] Problems, Conditions, and Diagnoses Code Display Name Description Problem Type Effective Dates Data Source(s) R16.0 Hepatomegaly, not elsewhere classified H epatomegaly, not elsewhere classified Diagnosis 04/20/2021 05:56:17 AM EDT [facility] new pt new pt Diagnosis 03/22/2021 09:33:13 AM ED [facility] Surgeries/Procedures No Information Results ID Date Data Source [id number] 04/24/2021 01:51:03 PM EDT [facility] CT ABDOMEN WITHOUT CONTRAST [id number] R ESULTInterpreted by:Faby Leon, DOPROCEDURE INFORMATION: Exam: [...] rce(s) Supporting Document(s) ID Date Data Source [id number] 04/23/2021 11:34:06 PM T [facility] IR VISCERAL ARTERIOGRAMFINAL RESULTInter preted by:Yadira Alcocer MDExamination: Visceral angiograms, Hepatic arteriograms and Chemoembolization of the liver, 04/20/2021. 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 [employer] Supervisor: Dr. Foley Fellow: Benitez Navarro M.D. Anesthesia: [...] .035 Bentson wire. Over the wire, a 5-Macanese Cobra 2 catheter was introduced into the [...] Bentson wire. Through this sheath a 5 Macanese VS 2 catheter was advanced and the celiac artery was selected. Through this catheter and over the wire a 2.8 Macanese Pro great microcatheter was advanced into the [...] rce(s) Supporting Document(s) ID Date Data Source [id number] 04/22/2021 08:53:04 AM EDT [facility] Name Value Range Interpretation Code Description [facility](s) Discharge Summary [facility] BCQDXn8oDpZGXaZl89/MONkuUPMrh3XvUEcsSCz3WUayGTLoI8GbCNK3uW6uUOF4HSyLDtJeTvYgUAQ5 [facility] [file] YsFX6zCVANAz1+KLbasCWlnQxvNDSYVhX4BKUoNVzrBMFRCp3Y ID Date Data Source [id number] 04/22/2021 08:52:39 AM EDT [facility] Name Value Range Interpretation Code Description Data Sheryl rce(s) Supporting Document(s) History and Physical [facility] ELKSDa6kRfNRFjPu72/RHJacSRQim1GuGTfhROe3PAqtFOStA3SmOJX2pC1iYQF7FZqXNaYuQvQxQGN4 lbm [file] AgICAgICAgICAgICAgICAgICAgICAgICAgICAgICAgICAgICAgICAgICAgICAgICAgICAgICAgICAgIC AgICAgICAgICAgICAgICAgICAgDQogICAgICAgICAg ICAgICAgICAgICAgICAgICAgICAgICAgICAgICAgICAgICAgICAgICAgICAgICAgICAgICAgICAgICAg ICAgICAgICAgICAgICAgICAgICAgICAgICAgICAgDQogICAgICAgICAgICAgICAgICAgICAgICAgICAg ICAgICAgICAgICAgICAgICAgICAgICAgICAgICAgIC AgICAgICAgICAgICAgICAgICAgICAgICAgICAgICAgICAgICAgICAgDQogICAgICAgICAgICAgICAgIC AgICAgICAgICAgICAgICAgICAgICAgICAgICAgICAgICAgICAgICAgICAgICAgICAgICAgICAgICAgIC AgICAgICAgICAgICAgICAgICAgICAgDQogICAgICAg ICAgICAgICAgICAgICAgICAgICAgICAgICAgICAgICAgICAgICAgICAgICAgICAgICAgICAgICAgICAg ICAgICAgICAgICAgICAgICAgICAgICAgICAgICAgICAgDQogICAgICAgICAgICAgICAgICAgICAgICAg ICAgICAgICAgICAgICAgICAgICAgICAgICAgICAgIC AgICAgICAgICAgICAgICAgICAgICAgICAgICAgICAgICAgICAgICAgICAgDQogICAgICAgICAgICAgIC AgICAgICAgICAgICAgICAgICAgICAgICAgICAgICAgICAgICAgICAgICAgICAgICAgICAgICAgICAgIC AgICAgICAgICAgICAgICAgICAgICAgICAgDQogICAg ICAgICAgICAgICAgICAgICAgICAgICAgICAgICAgICAgICAgICAgICAgICAgICAgICAgICAgICAgICAg ICAgICAgICAgICAgICAgICAgICAgICAgICAgICAgICAgICAgDQogICAgICAgICAgICAgICAgICAgICAg ICAgICAgICAgICAgICAgICAgICAgICAgICAgICAgIC AgICAgICAgICAgICAgICAgICAgICAgICAgICAgICAgICAgICAgICAgICAgICAgDQogICAgICAgICAgIC AgICAgICAgICAgICAgICAgICAgICAgICAgICAgICAgICAgICAgICAgICAgICAgICAgICAgICAgICAgIC AgICAgICAgICAgICAgICAgICAgICAgICAgICAgDQo8 T9jjTJOsVRYpKY5eWZw2Dn4+LPnBDhRuSFM8esBfqQ4RKR8et4LgRYnyQBLrp4SaSSd2AB4VAUEiLDob XK2LQNzxrs5QUGLfLTVasKCJb8apKzAyABR4WYBhTdljRV9LYEAgU6xzrmHwOCIgIHEPYOyeSSFHBIlc AUNOLEJlQKHaPsIvImBeTBQeWL2PJDVoG287voJdUK 5OPl4MZjKpKM3alb8SExLqQYIzNqaPSup0MEjgTF5KiJYfgLPeZSKzHCHPVhFyT3nqy5QeNoQuRZKJDK ygPQ8As7KohPQdGFb+Qt8IDJ4ni2RmEWdlVHYaYX4exx6XLPwSYpNoY0BfzGozHVdkOKGjpFZFEOgvaS ipEwERKEjjjRG3dLlrWVXTYvQqeVKcCN7uLN2kXKGf TLYcGnC3GAOJQO5AXIFgPANbuSAlUMNbDXYMBZ3KANycIQP7AEHdalCoyNHtJJwvJK7KCUNqkxTfSdDz MCBSDQo+Cb3WOJ5kj0MtJMbpBxNySJ0hgt1BGRuNYwJgH0C6gHLmS3N0ZKkoQc8PBREnIHMjVcylPKYC EQeoDJ9UDG3zoaA1IY8ZdCXxOWFdQTVuxMYwAGq1G6 9unVBoKWenRV4GEXA+Darwin+Fz3DBITtHTSqEPVqHpJfHNRLDzIiF6IdX0WVz8IhQ8DqPY43fAmotrToFL nvSQ9HPZ9uXZBrVOHFGA8AnYXxoC2hewXwVJQiMXBDQhQdU27qpOHbCGAwKOJ8RMXnFa1QBTWvS8Prwr TevVoxkuWuYZOoHXPQJT6MERxvsfSvdPQheGtyMF36 oWtqOE1KYc4EVsNaEK4crt7QgBAiCe6MLLLsXt2LTTXqRUPpVAMyHCL3KFNzXrEbJWphLJSfIJRoQFI1 JYPdWVXdBV4APjSaOPUsCDG1CHBoDHLdSNXvaj1IQWDgPQF8UTQ0JOOlATRwLDZiGRmmDNHmWEDzEZQ6 VPUwRZKkMA0MQnTcBWIlMXR0YqoqXNLjFMWlmo8RIP LiABMsERErWkKqWDThNRKfMDnfFQHhIZA2CSJxVVAwYQLnWH8ZCzTtUXOfAOwaRCYiGDOrIGCcnz2VVF GdJAJoScGwYyReMMLqBQHiKVleAWViCIGlJePqGGNpQAZtWN4OIhJkYZNqYMZ1FCJySPVoXILgzb5OUA HrNDBnWiA9VkXxOMIlBWPyNTbfQAIdZUW1KCUzCPTr KIReZL2BNiWeKWNyFVbpOPnkBWFiWWUoej1CAXJfMVPhJWP6GPYrGCLvQZMbEYzcBRDdMAE6VvF5MXDe KBFyWV3NRpRtJOLjDOk6HXwsZOUrRCIxyy0JPISfXYOuOULiIiVnJVHfQNLuWCcrMUNmDDMwSlP6KBCy EDUvCT2EGaInECLaGaO5MLmlTNSvMSEulo1ZEVTkFD JuECk7DxUrDXBlIKIkPWbqDEMcPJDsSHI8LDLiNSSfWV4EVeGgEPAcHsKfDwzbWIGgZOCfsn4ODQUiCJ U5ADU2JpNkFNApJHNdJJorVTCvLBJtJiPgLHEiNBYdGU9DBfVdUSKhLJU1QUUsOLEyNINqco2NOFVrEW G0CbA8RnJbNXCaGGAyHSrqCWUoLOHnXLQuVAJtPFEv OL4NRkEeFHOsSIH1XhteQWMaFMJkam0PTQTvSCW5LZCyDuZgVZDpDHThRZblRJIfYLG6GMw6PRJsYWKb JP4QUaHsBJPhVYE9QNxuUJWoLIZvbk7GsAPsjAdupg7JKDwJKh7BcOhcLFAgTTagTp7heLMeKpAiJFRR In7TenWiZBPeGEAFRZxcVEOtWMRfL8L6IhZlK5CvJR C0HDS7OKQ8UFX7AWlfDsUjQSDtCoP1M3DvCmxaPvFmIgX0KSBjGdN9CSQcZKsoQBRvXOZwKhX+IF0gDQ o+Ox9Aa2YuimC7btQsUWz6TFq1Hw9KMVBVX7MLHl== ID Date Data Source [id number] 04/21/2021 03:20:04 PM EDT [facility] Name Value Range Interpretation Code Description Data Sheryl rce(s) Supporting Document(s) Progress Note [facility] VAZZMz7xYvZXVgIi57/GHAhkNZGqu8DtSUesYAe9GHonUUVgH5JwDEA2cO2xUOG1AAbMNoQvGyLeLGT3 lbm WrOcrNUqNsNDEqYudCDsWyBHfvMbpsnPLhYI0AcRV0NXPxS84mUPTzQPBvJ6FmLBW2BZZ+Xf1DSIDsiL DuUQ8FDegS3MtgNzF5LH9CHd3PgeTd1JEwwWzf/ZRfs5xKWaz3vrBYqYA1dI7EIo7pdejc3kdebIplsz 6TsWsezigqz4fZZhcWc+79lyPmfRrlW3zHR268E/4t /ks3HSx67S7/GaoiGf5mOq5Kj2RCjcg6Ub8ioxrr/ZQ8Oib3q2cvarX4PiUJGKMGamJT1MB416A1n59u hm4olpmIinE8ocW20oDeXeTjjkqzs3wqI6K2GP28GpO6ItXE5sy8aMuY3bCWnlQd+CQc50Ct8YUVe8Yf fTFlnax6cNIuT/Ddo9adybS1ZfZ0NpSUMwycx7/hLS uKhrS1DPybGVVatbA58lkpaWhjLrVGKq0ya9vU7Y9hE+nDaHw99+yLmcAegmNK2g0VkTC7jTXkVCBR32 HgiNr44awSZ2dRSFbbtg072yzDVZWF6nX0UCroQvgBfMo9q8/27tNwIcTXsclRNVylVRZJHJiAfru09x vnxdGboGQ7rhT9KvpkA+5gxDJDiY1gVXuNE7rGRY8k 3muiPMKuetRiQexRxgkiD9+n0vTcHAv7cBwUT78Vn99uu1wnWb05zGiYSFGoyZl63UmcyfPvpmmW/[facility] [file] RbK4PGZ5iSQeUm2ETLT2NKsMDuAcYL6MRCt= ID Date Data Source [id number] 04/21/2021 09:57:12 AM EDT [facility] Name Value Range Interpretation Code Description Data Sheryl rce(s) Supporting Document(s) Progress Note [facility] NLPDVx2zAsUGOjZd28/ETCeoBYQzn4OrBDogZBo9CStbMBLvJ5JxBOQ9hS2cSMP5LWyDTpBmVzAaHPS9 lbm [file] 9GDQo= ID Date Data Source [id number] 04/21/2021 08:59:17 AM [facility] Name Value Range Interpretation Code Description Data Sheryl rce(s) Supporting Document(s) Glucose [Mass/volume] in Capillary blood by Glucometer 177 mg/dL 70- 140 H [facility] ID Date Data Source [id number] 04/21/2021 04:06:02 AM [facility] Name Value Range Interpretation Code Description Data Sheryl rce(s) Supporting Document(s) Leukocytes [#/volume] in Blood by Automated count 8.8 10*3/uL 4-10 [facility] Erythrocytes [#/volume] in Blood by Automated count 4.06 10*6/uL 4.6- 6.1 L [facility] Hemoglobin [Mass/volume] in Blood 12.5 g/dL 13.5-18 L [facility] Hematocrit [Volume Fraction] of Blood by Automated count 37.3 % 4 1-53 L [facility] Erythrocyte mean corpuscular volume [Entitic volume] by Auto mated count 91.7 fL 80-96 [facility] Erythrocyte mean corpuscular hemoglobin [Entitic mass] by Automated count 30.9 pg 27-33 [facility] Erythrocyte mean corpuscular hemoglobin concentration [Mass/volume] by Automated count 33.6 g/dL 32.0-36.0 [facility] distribution width [Ratio] by Automated count 13.6 % 11.5-14.5 [facility] Platelets [#/volume] in Blood by Automated count 195 10*3/uL 150-400 [facility] Differential cell count method - Blood [facility] Neutrophils/100 leukocytes in Blood by Automated count 73 % [facility] Lymphocytes/100 leukocytes in Blood by Automated count 20 % [facility] Monocytes/100 leukocytes in Blood by Automated count 6 % [facility] Eosinophils/100 leukocytes in Blood by Automated count 1 % [facility] Basophils/100 leukocytes in Blood by Automated count 0 % [facility] Neutrophils [#/volume] in Blood by Automated count 6.42 10*3/uL 1.8-7 .0 [facility] Lymphocytes [#/volume] in Blood by Automated count 1.77 10*3/uL 1.2-4 .0 [facility] Monocytes [#/volume] in Blood by Automated count 0.53 10*3/uL 0-0.8 [facility] Eosinophils [#/volume] in Blood by Automated count 0.08 10*3/uL 0-0.5 [facility] Basophils [#/volume] in Blood by Automated count 0.03 10*3/uL 0-0.2 [facility] Nucleated erythrocytes/100 leukocytes [Ratio] in Blood by Automated count 0 /100{WBCs} 0-0 [facility] ID Date Data Source [id number] 04/20/2021 09:16:07 PM EDT [facility] Name Value Range Interpretation Code Description Data Sheryl rce(s) Supporting Document(s) Glucose [Mass/volume] in Capillary blood by Glucometer 144 mg/dL 70- 140 H [facility] ID Date Data Source [id number] 04/21/2021 09:08:34 AM [facility] Value Range Interpretation Code Description Data Sheryl rce(s) Supporting Document(s) Specimen source [Identifier] of Unspecified specimen [facility] SARS-CoV-2 RNA 2019 nCoV Real-Time RT-PCR: NOT DETECTED [facility] Assay Performed [facility] Patients first test for [facility] Patient employed in healthcare setting [facility] Patient has symptoms related to [facility] When did you start to experience these symptoms [Date and time] [Phen X] [facility] Patient was hospitalized because of this condition [facility] patient was admitted to ICU for [facility] Patient resides in a congregate care setting [facility] status [facility] ID Date Data Source [id number] 04/20/2021 05:46:52 PM EDT [facility] Value Range Interpretation Code Description Data Sheryl rce(s) Supporting Document(s) Glucose [Mass/volume] in Capillary blood by Glucometer 111 mg/dL 70- 140 [facility] ID Date Data Source [id number] 04/20/2021 08:59:34 AM [facility] Value Range Interpretation Code Description Data Sheryl rce(s) Supporting Document(s) History and Physical [facility] NMDZDz1fXcXJOiWb21/FNIwfQALxf7BsMNxdMYu4NKxxETAbO3YqSBJ3rW6jJIE8JLtXLlXmFvGwBQP8 lbm [file] == ID Date Data Source [id number] 04/20/2021 08:36:47 AM EDT [facility] Name Value Range Interpretation Code Description Data Sheryl rce(s) Supporting Document(s) Progress Note [facility] SDIUQz3dGsLNIaEw14/SEOheRDVcx9DwNQgwQRf5XTfmWTSiX1FuGBN2zK1qVSF1YUaYXpGiCrCaTDY4 lbm [file] PqgxXSEkQZA4HTCmGYz3VLZ+AX1pONe+In7Yp6YdakB9esCgRRt3XRr8EWjiSYOLWc5W ID Date Data Source [id number] 04/20/2021 07:45:53 AM [facility] Name Value Range Interpretation Code Description Data Sheryl rce(s) Supporting Document(s) Glucose [Mass/volume] in Capillary blood by Glucometer 114 mg/dL 70- 140 [facility] ID Date Data Source [id number] 04/20/2021 08:07:44 AM [facility] Name Value Range Interpretation Code Description Data Sheryl rce(s) Supporting Document(s) Leukocytes [#/volume] in Blood by Automated count 7.2 10*3/uL 4-10 [facility] Erythrocytes [#/volume] in Blood by Automated count 4.12 10*6/uL 4.6- 6.1 L [facility] Hemoglobin [Mass/volume] in Blood 12.7 g/dL 13.5-18 L [facility] Hematocrit [Volume Fraction] of Blood by Automated count 38.1 % 4 1-53 L [facility] Erythrocyte mean corpuscular volume [Entitic volume] by Auto mated count 92.4 fL 80-96 [facility] Erythrocyte mean corpuscular hemoglobin [Entitic mass] by Automated count 30.9 pg 27-33 [facility] Erythrocyte mean corpuscular hemoglobin concentration [Mass/volume] by Automated count 33.4 g/dL 32.0-36.0 [facility] E[facility] distribution width [Ratio] by Automated count 13.6 % 11.5-14.5 [facility] Platelets [#/volume] in Blood by Automated count 224 10*3/uL 150-400 [facility] Differential cell count method - Blood [facility] Neutrophils/100 leukocytes in Blood by Automated count 61 % [facility] Lymphocytes/100 leukocytes in Blood by Automated count 29 % [facility] Monocytes/100 leukocytes in Blood by Automated count 7 % [facility] Eosinophils/100 leukocytes in Blood by Automated count 2 % [facility] Basophils/100 leukocytes in Blood by Automated count 1 % [facility] Neutrophils [#/volume] in Blood by Automated count 4.43 10*3/uL 1.8-7 .0 [facility] Lymphocytes [#/volume] in Blood by Automated count 2.08 10*3/uL 1.2-4 .0 [facility] Monocytes [#/volume] in Blood by Automated count 0.50 10*3/uL 0-0.8 [facility] Eosinophils [#/volume] in Blood by Automated count 0.17 10*3/uL 0-0.5 [facility] Basophils [#/volume] in Blood by Automated count 0.05 10*3/uL 0-0.2 [facility] Nucleated erythrocytes/100 leukocytes [Ratio] in Blood by Automated count 0 /100{WBCs} 0-0 [facility] ID Date Data Source [id number] 04/20/2021 08:12:01 AM [facility] Value Range Interpretation Code Description Data Sheryl rce(s) Supporting Document(s) Prothrombin time (PT) 13.0 s 11.6-14.0 [facility] INR in Platelet poor plasma by Coagulation assay 1.02 [facility] Routine intensity oral anticoagulation I NR is typically 2.0-3.0. Target INR must be clinically individualized. ID Date Data Source [id number] 04/20/2021 08:12:01 AM [facility] Value Range Interpretation Code Description Data Sheryl rce(s) Supporting Document(s) aPTT in Platelet poor plasma by Coagulation assay 28.9 s 24.0-33. 0 [facility] ID Date Data Source [id number] 04/20/2021 08:21:30 AM [facility] Value Range Interpretation Code Description Data Sheryl rce(s) Supporting Document(s) Albumin [Mass/volume] in Serum or Plasma by Bromocresol green (BCG) dye binding method 3.8 g/dL 3.5-5.2 [facility] Bilirubin.total [Mass/volume] in Serum or Plasma 0.2 mg/dL <1.2 [facility] Calcium [Mass/volume] in Serum or Plasma 8.9 mg/dL 8.8-10.2 [facility] Chloride [Moles/volume] in Serum or Plasma 103 mmol/L 98-107 [facility] Creatinine [Mass/volume] in Serum or Plasma 0.82 mg/dL 0.70-1.20 [facility] Glucose [Mass/volume] in Serum or Plasma 110 mg/dL 70-140 [facility] Alkaline phosphatase [Enzymatic activity/volume] in Serum or Plasma 113 U/L 40-129 [facility] Potassium [Moles/volume] in Serum or Plasma 4.2 mmol/L 3.4-5.1 [facility] Hemolyzed Protein [Mass/volume] in Serum or Plasma 6.3 g/dL 6.4-8.3 L [facility] Sodium [Moles/volume] in Serum or Plasma 134 mmol/L 136-145 L [facility] Aspartate aminotransferase [Enzymatic activity/volume] in Serum or Plasma 17 U/L <40 [facility] Urea nitrogen [Mass/volume] in Serum or Plasma 24 mg/dL 8-23 H [facility] Osmolality of Serum or Plasma by calculation 283 mosm/kg 275-300 [facility] Creatinine/Urea nitrogen [Mass Ratio] in Serum or Plasma 29 [facility] Bicarbonate [Moles/volume] in Serum 22 mmol/L 22-29 [facility] Alanine aminotransferase [Enzymatic activity/volume] in Seru m or Plasma 15 U/L <41 [facility] Anion gap 3 in Serum or Plasma 9 mmol/L 8-15 [facility] Glomerular filtration rate/1.73 sq M pre dicted among non-blacks [Volume Rate/Area] in Serum or Plasma by Creatinine-based formula (MDRD) 88 mL/min/1.73m2 >60 [facility] Glomerular filtration rate/1.73 sq M pre dicted among blacks [Volume Rate/Area] in Serum or Plasma by Creatinine-based formula (MDRD) >60 [facility] ID Date Data Source [id number] 04/18/2021 11:41:06 AM EDT [facility] Name Value Range Interpretation Code Description Data Sheryl rce(s) Supporting Document(s) [facility] MXKEGf2tDsHPDlGuy2XmVnCqDRBjND7gfua5P5R4rUCcK0WmmMQvc4jbW0NiS4LoFILfBPZNAP9YpXDn jb2 [file] Cks2zHgu06rhizjiWvEkptr+125p4z5pepzzAjYnerw+90712l2bxwvdBfWzhsv+59650v9ekkisGfui puq+123t2g7sdzgbrspwnej+300b0h5gdcwbmcodosj+[id number]+7f270lYENyS36xez tz/N1f+SanHJu+x+k5a+YVJfHDd40dy+dGg85HK20b IdVtMS1um1DSq/WmGG2TTpbRTexM5UE9rRK7x6GPd/tamhkJ8x9pzM0EJjI+Lv0Tg6Z2Z/fd1R71/p5j kKtUEtFw2wnE/ai8Fduk6vhHy3XMp0H+gfsOlE+RO7CbwK+Ub5Sjv+2q+1hp3aHmjgJMkjUZyPLl3eVu lCkYx7Ri+TZD/TBePT6d+tvQ34b+VrJ7rk5W/e14vj 366/fq6G/3/qdqYfdg4It2Ky8knomgd409Xh9FVkP/4/d30UiJaBdjKK6a6W6TkdwWw1/VTrsuHKMc/T U8X0N/Dc/P0FlRy7pdwI4H4/B8Dc/QRx40TB0OYsX+ZT2UU1nny/E2uJyvL46NWiI2QGCiFK6rsxP81U Network Support Engineer+PdjYwR7d+E8urEXxfFg+ytRD+ydcjezUW8cO+UL 1Bofj2wjfiNS0WKo8CxpcpL7O50efMLblN5n12jcheU6xT4YsQeumL2L/V1q7ZUU3Jjc9c/cKN91/rou MGOlLG4ru/GkyfESebzn1lg5QWpsujC9HT1IjaNJfwwR13S2YmwlSEzgbIYm9JrtwZz7hC48gUbImrgD f3er+fbr07ut3slgEhTh+7vx/u6YcfvMi2D410H5Bw RnXzh+yvWq5+r2pR0mAblnKITaUG8cmztcZE3qS5JtzvzNE8dnopsFW3fOlbrS9G2PzwX7PkUN9X0Mbm M7XjPL3X9OxxZ7AcHI6W2OhzM0FiNJ2U+x06sR10yr8zmSoj4Ej84YyPEoVRiXV1pU4D5kQnWj4K0njq TESFAYE+DA8RSmF+ZU3Wqu3t+rjig9mO1LXAW5pp/oPv927 KbMuHFudg+oz1eSH4BX/J9ez7LY+VI4TSaO+CV6f41ExrZ12QA+e+F509SwxD1VVct/dbJklc1gy2Uv+ Hc+34/n2+j0wZ1h78TjY++pY432YO+ZI9HItoD68Svo8U/CN2nf7ue8U6/D+Vl9Dccr+bl+lFOT4k77o YN0oCFaEp8/p/hH64Py4lY/2pZ5viUqaccSahE43vd Q9C/rucW3IL0z6n7T2SNY+zwYpwura4n6ESi5+ic6hyceDYinFO6tjzIfdDJ4E5pv9uJ8D82NgGTYkG0 njbSz5KfvB/m08N2sPQxqg5IEfQkqVRj/ggFPSzwxzD6x4vhiTWW7faPkkkSF10izpeM7a1ddA54agpk r7Kq4N++obs7stX0cU+tp3YikZgL9YjRGsnlBiMB2+ huTBhz8mVCshO52nE/kmU72CyILlKL3B08I9kW5cL9F70geB7yv/1V9Nbv+7xgLA60m+4hYWmS0yrsES [id number]/xq7+a6Udu+9owGdxfW66NuIf1CS50j2vS2fs+0kwAfdtX mgFFb/tKMwnGbV+9FB/9keS1gYtl1/b+cnPd9r9L/+ q5Ni2he/xe9d89MjiPGmw4l26FNk6lG7+XG+kapkG57K7lc+2q9W+8dz4jxo2rDL2IM3DrX03b3Vq33I 48q0tmQ+UT5RPn+7ieCv4n9aESgr7z8TDh8UvxFd9zN60VPbcsJNJ0M+pheSHkx4FT1Z7lw80l5Oanc6 zW+1p67aFmUCGmwRlniUV4Iv/Cvoq+e14Qbau39mV+ sK/BatKe3O/EJ7ZogU5HL9Ea1Lb6/k8ycLaq94jvGF+dR5WDyY/UM1H/xPkL5y+c7/7kPp22gdYzm52q wuYitw3IznYh8kFrJgPZ10ox6O3hgJkoqsGAwtD0FI/Z3JG6TKaMHaCjqsm/+xtzo++LaZEezrfFtPir 4btizrHbV+q/MXxPzKsP/x62gTZR1qeKjLZm/Y333e 9jTTxz55LxXBSn1x1tAve8r2tpLa8MeZ+XA3A8x5eN2t49t26+/Odzp9QD7g7bEx11+QxK84WCVDG2Iv QLyu/+rxxT0ZQTC4y/5sg82z4mzt/w+/mp26RB2zIl9tN+Ecu35Hze7U9FC+edYdwu6znCp/ytVLa88Y kj+ly8ZkhtjX4CRv430rEIe1cg9laPn2yS+YwGnu/A 9u63fgIig0l6o6c3hXZouw8zGKKjb2aAzLG4Xu3bvzWqoT+3r/Cjzmlz04ivy+FbJhmvcaDslvXLH5Fw xfw2MT+HfRVz+Dz/8Ba8ak2eeJzkyLV8bflmtD6rpTqOh6lx+Oy6sn5k94D4pVmyiWl6WZafM97/C9/f qr7o3Qlzk+w3UhtH8Z1hn6mZT66YhPtv/onyhfKFcv R3ob+7/i+0XevBtst+noeLll8t1Zy5gZgRm+8ic7EkIC2dk/8pbaO/e+Z5enVIjuLw8U7Az3m+l3X8ne rIkRHSzNnivA4wd/Swr/K47I0O+9iwz02G+0vIRce6l4/F389AkjZRdzJvVf3acpgYL1lh+tuv6m/H/8 GO/4Md/wc7/g92/B/jKK9WRYUbMp2Da4sDzVYwrN2x jdDR3RffJNbTG8aiPYqSr6Iy/vo/2PF/sOP/KMb4r6Jn/2Ac1/cwiz3bcm+BHo9OvnI6i+gv+KsO/qpr 0b9hqh9PzhT+elnakmQlWPeZq8Ni/fJuNuesfesWMEck10zmzJH2koZofusEG3/xf7Dj/2DH/2WsNS8d OQuRy2bdu/NN/grp4Pxc7Xf475c/9+ZosejHQ25f/2 Ud/wd7x/CinU1kg9mHv8we1OE+QP14f/tE+UQ9xW/04K/yeKMc/hSyX6uZp9ECg5gJVvv+rQtxz83geF F/sOP/YMf/wY7/q97MJ1R/Pd366Pr+D+Yxni/+D3bD+jp0UIfC+h84tnR4dyt58SaoOmtyXkleR+jvKD 624/9gx//Bjv+DHf8H+xgoHyifqB/Pdyy0B+/vqO9v H/U/tE/BUsEm5tF0If9ee/r+7rf7wpYPOA/9SxW2wrB3wL/f347/gx3/B/nWsQVqA61cZ/yW19okqbLc NWj6Jh19chj+Jruzi0Us8snO68BCT3jsIG3X9sYH51ZZ43tPmkJs/B/s+D/Y8X+gW4lqlfs4VL7gmH6m 8/Mu/rlvzFdbUF7/H7jKN6uAR/8c5c4/7ygP/nnGsd Wxodxw/kA9A/G0c12gpffgo8GOtEu42ol4fl82BCcPwQaRj3+kxA34ymwVU2U5vTcCS0xz/5FdA/UPnD 9x/xI6TvxGHUj65BQ5QY1LgUtja3caUHv8DYc8l4YZ4wKpFJ5O9eJe6xYOxFUyMQredK0Uy7Z+Pwa748 K+rguBo2Pgl2bRCgU0sh/SMA0Y21qeFeV8heL10ja2 vdMynJb97lJ0BxycuCZtpq4qI/NNGvnvw/doJEfqWzSSR/UdGi/meSnj69UAq/OxWc/Sr6LSJ8+doZH8 evwa4Zgc24Cq+6xPe0erc8kjf+55bHUsDz/suzKSo/ECMu8uhR3dIqp1BIe5+JwLsGgk5hDk24oIMgu+ xJUT2t5mbf7BZjk+ijRVvhcjeXXfipH/x8fkHb6j2g v1bUg2ioN5XqQd0vvHxb9fHW3kJYoPq5MaZt1dQT+sK3A4nTkJn1O2dPzPIjForpRSAD+9+GcL+yqPF8 5fqGej/nPrIrzr75Hw3HhlSZ8Ve0Myn/TZnV38E31cbfcI7/VaVyWkVtgPskJ8y0E+2nF+5o9S3aYHIZ H/QvnC+fH+Iqz6s36+io/1vRXJ5/qKskgRddU23fEm 4P0N+yqPe7V/fW8uK6K6+ti56OiAxPgc0/gAtNfLOnpuIpAm8jVzU32uGuvrE/7K+VsL/dovaUp1zs3d c+ssIY4x95Ec90hw8swBb9o7O5dadcc8fx+UMrTpg5zx2h3Jlm53ZsUh9BfojgQypn71d/Ez265ruy1f Gmxr4nCVnCIcbUft4MeCQLqqXlqeJRJS3n4rzC/cvg hj7wgTMAgNc3F98/ZVcJ6+NKB6RH9c7Ro2F1rtSqzvP122+eb3Iz6e2GyvaR513+2y4izlbfKMwtLuFd 1rmfjgsoTIaDp5eF3zt9uU5v4Hqf618+9b8cov2z+Y892+Wbvk2tN3+1rF1FZ1J2Ey97jA1VHrxOQ88H EZj5l4xVDmADk6u6O5oFOoxrg9Ng1qpvnZWC5T36os KF5Tdzgx7mBP+FXF6c1aCF/dJW9pmCTCcRDrw6It/9C5eoDs+MjLmfF7Ze4bf5rCQ/g/OPB/pRyho6gQ +owQL0wepZIeiSWCMi2TXB+g/st9UaHexrdd5bq7L500br3MBndarhQ+ABc46FKa/37rg4moj26xM0oJ V3mM/mrH+WDkDnx3juSjY+CR3JbfZ+Ho3bqgt/XgaB sPOoC7EgbK/M0UC25EKP1K2iNQ73aT67d751nwZ7/gr+GQQX69hue8tq17axJD+gv7asC/fcC/ffTy3x i99i+UFopn6nN6F6Tsc/Pt9X9/8U8m8Sto+SMZ3Ax4rmmBEKeqZ9TClR5xl01Ft9B/LzvVWTHLrh9Jmr 5w3pfb18KBVsqmoE44S6QfdFqgXtV4xtNiU/eduO/E mPddr7KeluBFhcsn/ZsEuKDySI10Ms7dIWKhnsMNG0D03YUSI6u3fxpEVlN+9U8e27dk/0mnoo57dvM7 xvnFtw/aZyG96ZT/NcBfjYn+zuKfxyz/pTCwhmqhYDJqS8HDv1P2qAa3aNEFffssma4P6BanA/o7y39y rOJjB/zbB/zbxyp+Lsw3i7G3c+D/4AB/NcBfjYXxvD ReqO2C3LgM/NVYE/jagoCdmcCazAO8hAQ+mlm0fqhfT6mtEPQgAIB/6Pte31F/N+abwxn8d1De+4v/g2 NjPG/0d6O/i0Qe9z096vN/8P7i/+DE/8GJ/4MT/gckXWmEyRrDL2kvbcpW1/aNi24lmBys3C43TyA+Tv hgwGTn1iMAd780hNnGw8qyasjT+LdP+LdP+LdP+LdP +LdPKf/dHgeEMgPSJ2d32omv2EbsHc5P+r2/WefA+EV5V1YfeK+Ub9SD/ddxvKBnax4vn3wYqV9vb2/w b5/wb5/aUH/3I1vdT8Qjoe10tuygLU+g/voeTdhXE/eYtC66FU3Cyo/jjBGlLLfipM55wTo8G67C991P +0v28kgt8KqVTe6m+Xm2+g52x7S59KgQlga3KMEehL jrzqaY78fF/0IIn1wN7sC8x6oVMeK/asRx+F/MTUW9Ugkt/lQq2MnpPvidf7k/t7Pyyyirbg65xdpxaz EBo08twvCG5/+7k5Fbw3um9SzU9x9mCAuu18x78898JvreRfF0/9is3/9qpM02o/vqtdzPY+cb4/jmJ5 /jl273oi180Lwxk8Os801LWsOg08RGv60zxuCXMH48 Fc/OnJ/MOoufnOHfHs/Cip+c4d/uXMQM+yrGvxXfPmFfTav/R9MwP4/cT8uAC0kiog9+t59RJ4X9evey kPK0R4n+ZVHJxfKbaf3oF+MzYEfyR9oBT5i8pN0U0+/A+vu6gy6Ukxu/0Tlr/Zos9RDeck/oIFuom7hK cMD1rQuQd2F5/JHmLH/gOdHfsK+dzh8rAv+XS7Jg1c 8zfJlfyZh4RO5MK8b5X5+wr+TcYZJlWwapx2DfzthNhs+X7Of8LRK47M/V/lX+wHOVf+qa1W54O/GTcx U/Od2+rq8NttO+r3fKq552++wjT0sT7iKjj+A79mynAZ892SqLR3G5+fNPt6+Gr6yjKaUeDIevj2PyoW 5cC3M0n+I50wKHqg906GnYV08l/OR9vNy+Pi9rHeDK ruCvzjHKFeWKetpT/0r+Be2NUamX2qKtO/blFvJ4l09IMo4xFSm19F4FFiM9dnLu2+Rs6gF25ejRa8rq gq/S4wqD2z9cSk7jTcYmnbTLjlfGLat/4Coz8R36t70syPr/egmk1nweFowpIPx/1y3BNxc7duqz+yp1 4GYT1pireYO/4Wmt7n1w3X/L0lhcwdPuq4G0zNTti9 mN5+K0XzyOx+2reI+N22bnJf16p67jUIj64hrZ//HJ2aHyJ0IoD55WCq3Ml2X8zItflknrX89iW0be8G s9Cowk9diiLjoagxuXO2zXx5geD7T1kbFK29lzBIW/Jc3VU4jO00jM/2ph/+Maef3y5dEcDi//2BX8VY /y4usW+FqGFkNM0K3tbQ4uyfK+Q9slEM9fbjmh/B9c +D+4kr+Silvestre+l8s1EcaR53ocIzIo54XU3dt/H18UyRxh0P//eXFZ+pgJdbLdmbIrs82C/+GppKi9pLLCr6 [file] 4k918P5SQu4Hv/XV17/+7uPbn//zp5//9c604s878x d9/j50f9j16svn/uE/OUmy2f/08y+//vjim1/+6vNvv/uBaa094vvo1gQx8/z9q4M/+dmXX/zEnVylfW g8i90wyDgbgxm6eHhCQ2f73z+/rv21o43bln526//w5cc/eu2cn43/8+uvf/afXHmbAveVX/zpj//2uz //4Yd//fjv//vjN7/7/e+///Off/j+93/z8bPv//i7 H37/8S//Project [employer]//PXHn/74egg/Wu7oWtGUa9r22yxCDa/mOwxJhbUu4pz67K5//CfnqK6eGD2M/IffAG/3 eB5kcq60/vxhf9aZ1U69/v8T6pqivhw43siiz3YNxaH7+jq9NaML4xhiQFj/rh/ro1EH6Mn0+8O//fDS 2E7vnz6+/xxuk5027i+/+vabj//2zd99/s+ff/fzr9 080T9jYC9/1B5mazrLivh8z7fMwo/0LQYmcZKAbOls2UIr6Tm//PE//vbjz9//xw9vtb++eB8R/+Y+6Q 12ZD6rkDv+49oP+UpdR379l//44c//6j4hT0Trwl0BW67/9MsC8k9dn/z2u49//Z+vtv/uT3/8cfUePe 0L4QlYU/pHp779p46+y0p2VbGdOg9796kb3AjfwZ6h M4b+hTGZ3rgkasuM6Xn/btXBfvWTb3/y6eP7/++Hf//L1+d5bio+/11nvl5s3Tfl//restaurant hourly manager//JTTae8PTfm fv/7t+d025Liqj+fv/3+33/3/R//8vpHDd/+6U9/+DtY1YmtI/12501DVrt2qpwn/zf+6Yff/j9//N1v Pzh46ID26DN4e7D975va+u//8Roy//jTx1547fgs/O ovb+lfcG/yN7/85Zdff/qOjfIMEP/3U+28uH5MmKJ/9f3/+OYGKl92tl9R8mG+tN747+02Em6BS5/e36 r31uSLHn4Lt6tHk8BxaOqkN613WJd0+z6lf3z+pEiq0cH6nist0evL3itX/M6CqAhkMvBeNOU4ewNdoM kzepXxIkqYSDccGNHiRlv4WI9DxRWzFTJoC0B7WRGl ib2xPYSvNUIakAVaPoKqPLDSUV1XnOFjAW7QWIy5ZKRqRLUnBjGoYIBxjmD2IGShQNHwFOFaN6SpftNf dCAyIDAgUj4+TB8yp6QpZoIuYPMrUan0IZ0CgDSpTM5CaUFruN6zeuDwA383lpEfJJWbUizns0OiJDto MLPTIJ6QCKH8GMJ9VFOyOq8+ZM0pz5CmMaVjYYQeDd o7QR5TxAOqm6FiHD4OS9QaNCTtARDVTGP9x7WmZKStqylooubxG0UaVRI4vF6bGHY3REGgAJeoHFBrPY VcNcRvDVTiUSjbYUClXABrRBFcWMMbBDe4sTJgNI9VF4NuGFZzHMQPGOKwziKlHi5nSGgWTcMLFGIUXx 2LDLSkJBO2KTD4VOnqP5M8JtolI5EvOH4JV5ShBDHu TWFAGNNbqpUlXM6FweDrxO0gLPzDJPKPJIqZZWakXtU9n82dqoWQHPLoBAXzAAboMOMjLFUrVAZtKCYk IJNeMQCzFEYgFG1EY9MsJZUeXIWATJD1a0WnZMDateqhydgrXd2fhlNxRnp+EgynXFMpj0JfVGplZ6J0 hVPhH6BmT2MnAQ2YyWCkWAyhYXFdFCKnHSKsL040rl QgMT4+EU5mk0ArQlxbDRKESJUmPZSrQXRzUUH8GaEmRMXnGFQpYYBeQeH6HzVjYeCVCPZkDUK3TZj0HM PvKMQhUZDsYNwrUHBjFBQ7HIP3RNMwZCYjNU0aQfBdICOxRfm6CfEcVQBtOVRdbpPRKLUxCLUfGXKmQA K2VOXzVWFxLZxfRUSaZRZqHJY1BYJhJEZvPR1oZqHe SWDoNECcHnloFFJlYLLmpjNDCANbBUKcJWZ5OmGrIMTcKZZyKQwzSXSkIPVzQjz0QHQiJYVzOV3oMcXr SHZcUHY9RJxdBDStDVJhfrCSMCZrDFJmQOTvXsZyCQUnTWQcBFfaRXVvCXYwVlBiIYKeMNLmSB9jWzSa RXOkOFN2KAApDOAeZBNqneCPJFCuPAQeZEv5QRQpTR JiDIZvIHqrAOMkLYIzYLY5CMTmERUmVS7iWoAqZRSjOZHmYKEmTEDmCNUbhfJESINrUOOcRPD5BUXsWW ZiSYFnIPufRKOyUOMyXmv1IJVxEFXcGG4tFpAsNFUtZJC8YQOkGPPtKHEbyuYVZJXbJJP9OTF4SMFcYW RzTBDzMMckOUEtREJnFuB5HSDjHIFeKX7qMdVcWKQs YNF5SyUxQYSaHNSkyjKGRUSyUHBeOPT0JtVjFVUqLOHrNUyfQVQiOKHnONJsQQU4NED0ZBWuFfArQZhz TKVCHYrMN4GvdpUsJcQOT7gbGq1vWaUxRJQLP9Pou1VsQTJjAFUFAa3+BbJ6ILN7vWZpZrg9ZZx8GLtv JUVPRg== ID Date Data Source [id number] 04/18/2021 01:34:16 PM [facility] Name Value Range Interpretation Code Description Data Sheryl rce(s) Supporting Document(s) Leukocytes [#/volume] in Blood by Automated count 7.0 10*3/uL 4-10 [facility] Erythrocytes [#/volume] in Blood by Automated count 4.23 10*6/uL 4.6- 6.1 L [facility] Hemoglobin [Mass/volume] in Blood 13.3 g/dL 13.5-18 L [facility] Hematocrit [Volume Fraction] of Blood by Automated count 39.3 % 4 1-53 L [facility] Erythrocyte mean corpuscular volume [Entitic volume] by Auto mated count 93.0 fL 80-96 [facility] Erythrocyte mean corpuscular hemoglobin [Entitic mass] by Automated count 31.4 pg 27-33 [facility] Erythrocyte mean corpuscular hemoglobin concentration [Mass/volume] by Automated count 33.8 g/dL 32.0-36.0 [facility] Erythrocyte distribution width [Ratio] by Automated count 13.9 % 11.5-14.5 [facility] Platelets [#/volume] in Blood by Automated count 247 10*3/uL 150-400 [facility] ID Date Data Source [id number] 04/18/2021 02:00:28 PM [facility] Name Value Range Interpretation Code Description Data Sheryl rce(s) Supporting Document(s) Albumin [Mass/volume] in Serum or Plasma by Bromocresol green (BCG) dye binding method 4.1 g/dL 3.5-5.2 [facility] al Bilirubin.total [Mass/volume] in Serum or Plasma 0.5 mg/dL <1.2 [facility] Calcium [Mass/volume] in Serum or Plasma 9.3 mg/dL 8.8-10.2 [facility] Chloride [Moles/volume] in Serum or Plasma 109 mmol/L 98-107 [facility] Creatinine [Mass/volume] in Serum or Plasma 1.00 mg/dL 0.70-1.20 [facility] Glucose [Mass/volume] in Serum or Plasma 142 mg/dL 70-140 [facility] Alkaline phosphatase [Enzymatic activity/volume] in Serum or Plasma 139 U/L 40-129 [facility] Potassium [Moles/volume] in Serum or Plasma 4.7 mmol/L 3.4-5.1 [facility] Protein [Mass/volume] in Serum or Plasma 7.3 g/dL 6.4-8.3 [facility] Sodium [Moles/volume] in Serum or Plasma 143 mmol/L 136-145 [facility] Aspartate aminotransferase [Enzymatic activity/volume] in Serum or Plasma 18 U/L <40 [facility] Urea nitrogen [Mass/volume] in Serum or Plasma 20 mg/dL 8-23 [facility] Osmolality of Serum or Plasma by calculation 301 mosm/kg 275-300 [facility] Creatinine/Urea nitrogen [Mass Ratio] in Serum or Plasma 20 [facility] Bicarbonate [Moles/volume] in Serum 25 mmol/L 22-29 [facility] Alanine aminotransferase [Enzymatic activity/volume] in Seru m or Plasma 18 U/L <41 [facility] Anion gap 3 in Serum or Plasma 9 mmol/L 8-15 [facility] Glomerular filtration rate/1.73 sq M pre dicted among non-blacks [Volume Rate/Area] in Serum or Plasma by Creatinine-based formula (MDRD) 75 mL/min/1.73m2 >60 [facility] Glomerular filtration rate/1.73 sq M pre dicted among blacks [Volume Rate/Area] in Serum or Plasma by Creatinine-based formula (MDRD) 87 mL/min/1.73m2 >60 [facility] ID Date Data Source [id number] 04/18/2021 08:59:17 AM EDT [facility] Name Value Range Interpretation Code Description Data Sheryl rce(s) Supporting Document(s) Progress Note [facility] FGPVRm2eXqJKDsBp59/SQZmbNZTad5TtMTwoHKj6KYxlGNGfL2KmHIC9eX8rFEN5WPhVRyRnUpUkZSZi [facility] [file] AgICAgICAgICAgICAgICAgICAgICAgICAgICAgICAg ICAgICAgICAgICAgICAgICAgICAgICAgICAgICAgICAgICAgICAgICAgICAgICAgICAgICAgICAgICAg ICAgICAgDQogICAgICAgICAgICAgICAgICAgICAgICAgICAgICAgICAgICAgICAgICAgICAgICAgICAg ICAgICAgICAgICAgICAgICAgICAgICAgICAgICAgIC AgICAgICAgICAgICAgICAgDQogICAgICAgICAgICAgICAgICAgICAgICAgICAgICAgICAgICAgICAgIC AgICAgICAgICAgICAgICAgICAgICAgICAgICAgICAgICAgICAgICAgICAgICAgICAgICAgICAgICAgDQ ogICAgICAgICAgICAgICAgICAgICAgICAgICAgICAg ICAgICAgICAgICAgICAgICAgICAgICAgICAgICAgICAgICAgICAgICAgICAgICAgICAgICAgICAgICAg ICAgICAgICAgDQogICAgICAgICAgICAgICAgICAgICAgICAgICAgICAgICAgICAgICAgICAgICAgICAg ICAgICAgICAgICAgICAgICAgICAgICAgICAgICAgIC AgICAgICAgICAgICAgICAgICAgDQogICAgICAgICAgICAgICAgICAgICAgICAgICAgICAgICAgICAgIC AgICAgICAgICAgICAgICAgICAgICAgICAgICAgICAgICAgICAgICAgICAgICAgICAgICAgICAgICAgIC AgDQogICAgICAgICAgICAgICAgICAgICAgICAgICAg ICAgICAgICAgICAgICAgICAgICAgICAgICAgICAgICAgICAgICAgICAgICAgICAgICAgICAgICAgICAg ICAgICAgICAgICAgDQogICAgICAgICAgICAgICAgICAgICAgICAgICAgICAgICAgICAgICAgICAgICAg ICAgICAgICAgICAgICAgICAgICAgICAgICAgICAgIC AgICAgICAgICAgICAgICAgICAgICAgDQogICAgICAgICAgICAgICAgICAgICAgICAgICAgICAgICAgIC AgICAgICAgICAgICAgICAgICAgICAgICAgICAgICAgICAgICAgICAgICAgICAgICAgICAgICAgICAgIC AgICAgDQogICAgICAgICAgICAgICAgICAgICAgICAg ICAgICAgICAgICAgICAgICAgICAgICAgICAgICAgICAgICAgICAgICAgICAgICAgICAgICAgICAgICAg NBUjDMPjGRHxUZGdSNQoHXv0X9oaMESdLKDzBY1lBEb4Mg8+ADvRHiQcDTI6pwAsvG3RUE0gi4MsWJma NHMpp6VlBUu0EZ2UWBVjIHwdRV9NRIeglk5WNJGrRK LfiYTVc8biBvElEVP4BZCaWvyeWZ7RPGKmW0bizeUjUXVhFYEOSW0GTfPiO4MohS96ZVCZRd7+DQplbm QfRdhUQfA7JVCvs4YjAOl7FG0AGWXmOnsnf7IaBcFaJEXZULidWP7GGDI0AVCsWTVuJz4ZRARbX233dh PaYV4UTn7YGwYoVH1mzm6TGzZeDMTyPfjBTsd4SVig VG0TyKNrFNeAzl7qpjHoahPRl1XqzyCynIBRTEFzvUMOPMWaNCFwLAjeQJMQIgQncXBsLU3kWq3kREPf GXX2GvYjZBAEOH9MDRSlVFKpxCBkCBEdARGAZD8FPNgdMCA7JPNjcmLgaDZaYNuuJC9XRWEhdcNeJFgj MCBSDQo+Fi2BUV4dg7GqGSwqROCmPU8ocv2RXMaXCs RhN4Y6nCFfK2X2NFbwYb8GRMByRLXqDFeoRIJYSViqEN8NWU0vomE7DO2StJAbDRKrWQIrjOYgGCd8E6 2lsTVwXAzuTR5XQEX+Darwin+Yv4FGSDdLMHpMBSxYeHxDUUOBjUhY1IdF7COq8RjX5NxBT34qElyhqGyUX wrYU3LNI3nJISsFOBTQB5BkSCaiJ9vzhHqJELmWEYD AsLdQ85skLIyBINbZNT0KFTpJt2RJNLfQ8EhxjYkqArvszIlGSXoXLRORY0TNNgtstGieRFhcBpzLW05 jObnEW1QHd9KOiZbRG8kij6YtTNrLv9QBWIeSq1GJZJwPOIqJZUtJQB2KHFuXoBvOGqmVLPuXGFlJRU4 ZDGjHGJsFZ1QVaGsJCFfQLiiCXefDFWrJQJlzf6NMF LjLAAiKWgnZZPgVLEzRIQfHPgkJGSzXHDmCPP1CIPtXLLkYH5TSgZkVRRmGAVsNWHoYYAmCPHvvu6YQO AiWAExKfGwArZjMAJzSXXsSQgdBHUyWNHeGWl6VPZjUPIbLP2GGeLdUIOjWBItLdHjGJHdACJlhe1LMQ BhCCOvPnG1KoCpCIYgZJDgCVcxAZWqELP0SWFwZHXd WASfGM5FIsNwAXIqYUN6YGIeQEMzUCUwhy1LPLAvKOAkCTj2WRDcBXHmVEPuPMxtZBIbMGX5ZyI8ZZIw YTYcVC8MQlJdUFVvOTW1LbHiTCQiUCVmvd4EBJBrRHPxDel6ZSWuQSGhTPRjVGkhTTBdJXR1XJJ8NINt TPUgXG3MLbTsJILfORbhCvIfVZWeVPFfjo8DZHCtAT GcSlR1FDSsRCBjOEVtVDmtVXWtMHP8MXArKHTvAHOpIR2VRlZzUYJcNRscEeQiNSYvCIWopi7CVAIgOO ZlPBHwDdLpGKXgNQHjACg0iaDunZQuBRl9UO5WT3PbqhJoGoUILw8Xl517YGOdHNXgLu8FO7jjAc8eUL HiZPYXKx3LMXr1RJXuRDUpPVMjOadhJBwbLLFxOZC7 RGOjHKK4DBT8CZF+NRp9YeKtOmB8R2D8I5LfZqS9VBX9NYa5LiWjJQo9EZd6Az8yEOZZDb6+DQpzdGFy aPoeLMZOPtD3CIahGEmeWDNECh9M ID Date Data Source [id number] 04/18/2021 08:59:00 AM EDT [facility] Name Value Range Interpretation Code Description Data Sheryl rce(s) Supporting Document(s) SARS-CoV-2 RNA 2019 nCoV Real-Time RT-PCR: NOT DETECTED [facility] This lab was ordered by [facility] and reported by [facility]. ID Date Data Source [id number] 04/18/2021 03:25:55 PM EDT [facility] Name Value Range Interpretation Code Description Data Sheryl rce(s) Supporting Document(s) Specimen source [Identifier] of Unspecified specimen [facility] SARS-CoV-2 RNA 2019 nCoV Real-Time RT-PCR: NOT DETECTED [facility] Assay Performed [facility] Patients first test for [facility] Patient employed in healthcare setting [facility] Patient has symptoms related to [facility] When did you start to experience these symptoms [Date and time] [Phen X] [facility] Patient was hospitalized because of this condition [facility] patient was admitted to ICU for [facility] Patient resides in a congregate care setting [facility] status [facility] ID Date Data Source [id number] 03/23/2021 10:34:06 AM EDT [facility] Name Value Range Interpretation Code Description Data Sheryl rce(s) Supporting Document(s) Progress Note [facility] UXVXSc3nFtCKZmIu41/IRJtuJKQsu4VwSQexRYo6AEugDAQiF2PfSRH0kN9kJVU5IFtDLfHnRtSbXGT0 m [file] ICAgICAgICAgICAgICAgICAgICAgICAgICAgICAgIC JuNBKlIFPkOXAbSLFxSW1DMJMyUZPbMMDqVZTvREAaPMTmEDGhMEIqTFMhZDUxTJAoWYWjBAPeMQAoKY EkUDVmRVQpFMHwKBHdXRRiZNPdRTNbCZMaXYBqDDJiOPKeHYUiLDXrFILaNFFdHMHfLBGvOWQbBQ3QEA AgICAgICAgICAgICAgICAgICAgICAgICAgICAgICAg ICAgICAgICAgICAgICAgICAgICAgICAgICAgICAgICAgICAgICAgICAgICAgICAgICAgICAgICAgICAg ZDJtBQOhJK5XIDOvMJJjAGObHOWdKJLsVKSvSJNyQHYlEZSjYAXgXDYtPMSiQBEzMGOaNIKdDACuVCZj ICAgICAgICAgICAgICAgICAgICAgICAgICAgICAgIC VwTNAbXMZnYFHfMWZpLSRmNF8INWAsEAKnSSIoAYZzNJPwKQLgEMWoWITlYCNuMYEaIDXnLSRnPCUkDX AgICAgICAgICAgICAgICAgICAgICAgICAgICAgICAgICAgICAgICAgICAgICAgICAgICAgICAgICAgIA 0KICAgICAgICAgICAgICAgICAgICAgICAgICAgICAg ICAgICAgICAgICAgICAgICAgICAgICAgICAgICAgICAgICAgICAgICAgICAgICAgICAgICAgICAgICAg TNGqGTIpVUVoPQ9QJOZtGDPjFRKwCCBbDZAxHDYqVLSsMNUzUDApNZFvUJQyGXUoFETlHAThBTYpBUKr ICAgICAgICAgICAgICAgICAgICAgICAgICAgICAgIC EqSSQfIFGqAGArYOPbCMJvNMTwVV1QGKRoHUZdPNFeAYTgUUVnJHJsLEPsMUAfJYEuZULzURZqVVDtSC AgICAgICAgICAgICAgICAgICAgICAgICAgICAgICAgICAgICAgICAgICAgICAgICAgICAgICAgICAgIC VlDE7EBSNlFDFjLDRjACEeQMCgVKMjXMFcSMFrFLCg ICAgICAgICAgICAgICAgICAgICAgICAgICAgICAgICAgICAgICAgICAgICAgICAgICAgICAgICAgICAg BGLnNPOlWHTnWUVfUA1PEEZnNSPlHOUeAFJjXCXxTZSxUVVmIMQmOXYaNJKwHHIjQTArSFSxLFCsSBQp ICAgICAgICAgICAgICAgICAgICAgICAgICAgICAgIC KlCODoLRMaUIKtGXNwXCGdIRSqBPVkRR4RTN76aRIji4X0ZLJsFS3nwqe/Ej2SISqivpWdgOJnKM9HSl YaNK7rmr9ISrSsPJ5jyr4LQLfJLdEfL0X9iKMgBXAlULYRQfGgA84fFIjoGf91MIuiICKbZjMpIKn3Hf 8QLkAlT7zgTFSxXvT8LCLvMcL8TOZmRaE9LFNvCmXw ARSkLRPyTQZsVLQVVXJ3NQYqZwCqNSzwCW8It1DydRL8QPh+Nn5DYE5bh1KoTHbrHeCrBI9ggi7LVAqB LwBpQ1VotyW8TYZpDVKiFp5RTIPuGQYtvBElLvDiQNRJNoZrL3TkaZ00ZCWWTf6+DQplbmRvYmoNCjMz JBNvq7YqKCy0HG4CMHXkEPv8lVBrIYEwK2Dsy6EcKn 24XBJkYjodD7N6t7LzbGMrMTlyYrB8YDXazKocEPUpZURkXU3tZY6uXHCsNTOjJpOnCYBASI6ZOAIiHE VdnCLpZMFxFZRNBJ8ZTKkjBSB8MUCpnrJelBDoSRikNH0MAEHgpsMwAsMcDRAVSFc+Yv0KMC5is4SpAZ exOKCiIR2lym9YSMlJFiFvN1G3hFHpT4O9OBvwXm8P KRCxJRNiXmHhZQCSLBavDT4SEF1ifqI0WK2DkJZzTLKsMGKqhTRzDYf2S54laYBaHXgqHL8ERWY+Darwin+ Jq4KJQIwINIsGSWtTuLpCILMLzFsP3MpV9RYy1TcY1SkVW47dKymkpFsTBgmFI9PKN1bUGQiMRPYRY1B oZSzxT5ivmKsNuAbGCTIQxKaT54yjKUhVLYmZPRgPK GxVi5UHOMlT4OtlgUeiPjfscOcLLLpHZSDDW4HUAajooGdoNQtbEdfTY09gDgtKT6FQc0JBsXqKT7ycw 4IpHDsWv8GTMQnIE2NAMZiTMOaYUNnWCX3DYCpObVtEGdeTPEvFXLiXTD9OBMwYSCqOZ4VKwEcXPBgIc R9QLUuTJWaBIXhai4YCVLmNASiHeR0ZzCuHOHhNGYn XWecJNXkFQZmJNV6DXKgWQAoTI7UJbIfUBUtRHC9NKXzKXRxAWPahf1RAHHkSIJqQbo5JbDoJCUoNSPy NGkbGARsAVU8IAI2BGAnNEVkPG6QNtWaJCCnUIQlZZusGPBjQMQykp1VNXCcCBGnMWJtUdEdLNUdABVd OJyjLYFnEHF2FbZ0WSUeJSYvHT1CUeHwXJTeHTE9UG saFAUeKKYzic6IUDEkZYCbEdz8CTMsUWGvUMAhLFbdIAXnPUD8WOU4KLViNWJfQZ8VPaDpXKWnBMSdGO TqDIEtSIHzsk8XNQUfEOGaNhj3MYJfELYrRCUyFCvlAAMgLFP9IILoGSPrQDHuGF2ZMmBzWVWsUHkyAe QeMEZsISGcpq0YLLBeDLRcILFvSeXhFVEgJOXqPRuj KTWrZWH4MNBjKOSrZIAdEH1RYdNaISLuSyY4YUexCSAzZCSyhg2TLVIlEQGmYJT2ISZvJFKiHTIeGQeq TPTwMOPxFFM8GKOeCIUlJR8HEsLvXVSpAqGmKnfyNYNxNJVzjm3VULPdGJKoKiAwDJFsVJAgGQKfVMhk OMYlWSVhPWUqVXJfGKIwNV6IBbEeBYGiTpKmWzBuBO PmLQCqur3VXXTxBNMrYkNcTPOaOUNpEBRnMTqmVAZjJSZ4PLUdBYQxRCEgTH2EMwGcDADpQsOiJDVcZX XiRLTifg0DIJQpXXSzBTTtCLUyDLRjQTPaJDepDSHhHHW9WPS4LQEpOKDuZG6REwVaFLReLyV2CMxmYO EuBQComb5XVGYwPTLwCvX2VVKnHUFmDTOaIQbsAQLe LBG9IwHmMYFnIXSlYW5OExYlNOenWMYFOuj0ZSnrB9c5SZCzZU0OT4Jtu7NdNxYgDEXLJTphJG4vslGj SRDnJn8LN2aZShz1BiI3GnQjZmQnMdTvQIX2B0H6TdI0V3HlSJLnJ8CmNw1cFJjaYtdeFFJaYvOcD6Tz KMKbQrh6HdqyIzT4JqPjCNUsCcUeJK3GSy9RTmN8JZY3rUQcGt9YKzP7UfUQVzYnSW2PPGm= Procedure Social History Code Duration Value Status Description Data Source(s ) Alcohol intake 03/22/2021 12:00:00 AM EDT Current non-d jaguar of alcohol (finding) completed Current non-drinker of alcohol (finding) [facility] Tobacco use and exposure 03/22/2021 12:00:00 AM EDT Never used co mpleted Never used [facility] Cigarette pack-years 03/22/2021 12:[facility]pack per day[facility] - Reported 03/22/20 12:00:00 AM EDT [facility] Smoking 03/22/2021 12:00:00 AM EDT Current every day smoker co mpleted Current every day smoker [facility] Vital Signs ID Date Data Source [id number] 04/28/2021 07:15:28 AM EDT [facility] Name Value Range Interpretation Code Description Data Source(s) WEIGHT RECORDED 150 lb 150 lb [facility] Body height Measured 67 in 67 in [facility]
--- NOTE | 2021-04-30 06:45 | ED PDOC ---
Post-Departure Follow-Up radiology report faxed to Nazia East MD Apr 30, 2021 06:44
== END 2021-04-30 01:33 | disposition home or self-care (01) ==
LOC: M ED 23:49
DX: K59.00 Constipation, unspecified (principal); I48.91 Unspecified atrial fibrillation; I25.10 Atherosclerotic heart disease of native coronary artery without angina pectoris; I11.9 Hypertensive heart disease without heart failure; E11.9 Type 2 diabetes mellitus without complications; E78.5 Hyperlipidemia, unspecified; F33.9 Major depressive disorder, recurrent, unspecified; K21.9 Gastro-esophageal reflux disease without esophagitis; Z79.01 Long term (current) use of anticoagulants; Z79.899 Other long term (current) drug therapy; Z91.041 Radiographic dye allergy status; Z88.8 Allergy status to other drugs, medicaments and biological substances; Z88.5 Allergy status to narcotic agent; Z90.49 Acquired absence of other specified parts of digestive tract; Z95.1 Presence of aortocoronary bypass graft; Z98.890 Other specified postprocedural states

== ENCOUNTER 2021-05-12 21:37 | Emergency (ER) | payer OTHER ==
[~2021-05-12] VITALS: Ht 170.2 cm; Wt 70.9 kg
--- OUTSIDE RECORDS SUMMARY | 2021-05-12 21:43 | CCD ---
Author Author [facility] Organization [facility] Address Unknown Phone Unavailable Care Team Providers Care Carpenter Supervisor Name Role Phone ED, TEST DEFAULT Unavailable [...] is protected by Article 27-F of the [facility] Public Health law. If you continue you may have access to information: Regarding HIV / AIDS; Provided by facilities licensed or operated by the [facility] Office of Mental Health; or Provided by the [facility] Office for People With Developmental Disabilities. If such information is present, then the following [facility] mandated warning applies: This information has been [...] reactions IODINATED DIAGNOSTIC AGENTS IODINATED DIAGNOSTIC AGENTS [facility] H ospital Encounters Encounter Providers Location Date Indications Data Source(s ) Outpatient Attender: ALTAF Lomax nigel: TRAVIS JACOBS MDAttender: Sandoval Foley MDAdmitter: Sandoval Foley MDReferrer: Sandoval Foley MD [id number] 04/20/2021 05:56:17 AM EDT - 04/21/2021 12:25:00 PM EDT Hepatomegaly, not elsewhere classified [facility] Hepatomegaly, not elsewhere classified Patient discharged. Outpatient Attender: DEFAULT EDAttender: RUDDY BOWENS [id number] -[id number] 04/18/2021 12:00:00 AM EDT [facility] Outpatient Attender: Alexa MEDEL-CReferrer: Ml Foley MD [id number] 04/18/2021 12:00:00 AM EDT [facility] [place] [address] [facility] [facility] [address] 04/13/2021 12:00:00 AM EDT [facility] ([facility]) Outpatient Attender: Sandoval Foley MD [id number] 03/22/2021 12:00:00 AM EDT - 03/22/2021 11:02:52 AM EDT Hepatomegaly, not elsewhere classified [facility] Hepatomegaly, not elsewhere classified Outpatient 03/10/2021 12:00:00 AM T [facility] Unknown [address] [facility] [address] 01/31/2021 12:00:00 AM EDT [facility] ([facility]) Outpatient Referrer: Korin Ariza 12/26/2020 12:00:[address] [facility] Outpatient Referrer: Korin Ariza 12/19/2020 12:00:00 AM [facility] Medications Medication Brand Name Start Date [...] type / Coverage type Policy ID Covered libertarian ID Covered libertarian's relationship to dillard Policy Dillard Plan Information MEDICARE [id number] Tia [id number] A MEDICARE A [id number] Self [id number] A MEDICARE [id number] SP [id number] A MEDICARE [id number] SP [id number] FOR LIFE U [id number] Self 0 [id number] Tia [id number] TODAYS OPTIONS [id number] SP [id number] AMER PROG TODAYS OPTIONS G [id number] Self [id number] HUMANA GOLD [id number] SP [id number] WELLCARE [id number] SP [id number] TODAYS OPTIONS [id number] SP [id number] HUMANA GOLD [id number] SP [id number] OTHER B [id number] Self [id number] ANSI-Commercial [id number] ANSI-Health Maintenance Organization ( O) [id number] MEDICARE PART A -O/P [id number] 18 [id number] FOR LIFE-O/P [id number] 18 [id number] WELLCARE -O/P [id number] 18 [id number] WELLCARE -O/P [id number] 18 [id number] ADMINSTRATION -O/P [id number] 18 [id number] ADMINSTRATION -O/P [id number] 18 [id number] TODAYS OPTION -O/P [id number] 18 [id number] FOR LIFE -I/P [id number] 18 [id number] TODAYS OPTION MCR -I/P [id number] 18 [id number] TODAYS OPTION -O [id number] 18 [id number] [facility] NO FAULT [id number] SP [id number] TODAYS OPTIONS [id number] SP [id number] ADMINSTRATION -O/P [id number] 18 [id number] ADMINSTRATION -O/P [id number] 18 [id number] TODAYS OPTIONS [id number] SP [id number] TODAYS OPTIONS/CAPE VERDEAN O [id number] S [id number] FOR LIFE O [id number] S [id number] MEDICARE PART A-O/P [id number] 18 [id number] MEDICARE C [id number] S [id number] A [place] MEDICARE PART B C [id number] S [id number] ACTIVE DUTY [id number] SP [id number] PGBA [place] [id number] SP [id number] MEDICARE -O/P [id number] 18 [id number] PGBA [facility] S [id number] S [id number] [employer] [id number] 7 [id number] FOR LIFE WPS O [id number] S [id number] MEDICARE OUTPATIENT M [id number] S [id number] OPTUM VA CCN [id number] SP [id number] SP [id number] ADMINISTRATION [id number] SP [id number] MEDICARE [id number] SP [id number] F40 FOR LIFE [id number] SP [id number] NGS MEDICARE CONNETI O [id number] S [id number] NOVITAS JL PART B C [id number] S [id number] MEDICARE C [id number] S [id number] HEALTHNET VA CHOICE O [id number] O [id number] WPS MVH-VAPCCC TRIWEST [id number] SP [id number] WEST O [id number] S [id number] WPS MVA VAPC3 O [id number] S [id number] ANSI-Health Maintenance Organization (HM O) [id number] ANSI-Commercial [id number] Problems, Conditions, and Diagnoses Code Display Name Description Problem Type Effective Dates Data Source(s) R16.0 Hepatomegaly, not elsewhere classified H epatomegaly, not elsewhere classified Diagnosis 04/20/2021 05:56:17 AM EDT [facility] new pt new pt Diagnosis 03/22/2021 09:33:13 AM ED T [facility] Surgeries/Procedures No Information Results ID Date Data Source [id number] 04/24/2021 01:51:03 PM EDT [facility] CT ABDOMEN WITHOUT CONTRAST [id number] ESULTInterpreted by:Faby Leon, DOPROCEDURE INFORMATION: Exam: [...] rce(s) Supporting Document(s) ID Date Data Source [id number] 04/23/2021 11:34:06 PM T [facility] VISCERAL ARTERIOGRAMFINAL RESULTInter preted by:Yadira Alcocer MDExamination: Visceral angiograms, Hepatic arteriograms and Chemoembolization of the liver, 04/20/2021. 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 [employer]ra[employer] Supervisor: Dr. Foley Fellow: Benitez Navarro M.D. [...] .035 Bentson wire. Over the wire, a 5-Guamanian Cobra 2 catheter was introduced into the [...] Bentson wire. Through this sheath a 5 Guamanian VS 2 catheter was advanced and the celiac artery was selected. Through this catheter and over the wire a 2.8 Guamanian Pro great microcatheter was advanced into the [...] rce(s) Supporting Document(s) ID Date Data Source [id number] 04/22/2021 08:53:04 AM EDT [facility] Name Value Range Interpretation Code Description Data Sheryl rce(s) Supporting Document(s) Discharge Summary [facility] TQIBEg2vKxFRLdLt76/UKWgdODHej0UjYBkfSMt2DXhlXVStR0LvEPF1aF6kFTJ4BZaCFqCaJvYdDAQ8 m [file] BrHT0tUEDDEd0+FOlmiLYeeLinCEGKIyC4CPHvAOywSSCCAu1C ID Date Data Source [id number] 04/22/2021 08:52:39 AM EDT [facility] Name Value Range Interpretation Code Description Data Sheryl rce(s) Supporting Document(s) History and Physical [facility] QMHBXw5uDjKBXvSi43/RRBccBYFtv2MlVKygHYs6QQwpJSDaD3XhNAF0lA6wWMM9OTxJHhUjNiErCZQ2 lbm [file] AgICAgICAgICAgICAgICAgICAgICAgICAgICAgICAgICAgICAgICAgICAgICAgICAgICAgICAgICAgIC AgICAgICAgICAgICAgICAgICAgDQogICAgICAgICAg ICAgICAgICAgICAgICAgICAgICAgICAgICAgICAgICAgICAgICAgICAgICAgICAgICAgICAgICAgICAg ICAgICAgICAgICAgICAgICAgICAgICAgICAgICAgDQogICAgICAgICAgICAgICAgICAgICAgICAgICAg ICAgICAgICAgICAgICAgICAgICAgICAgICAgICAgIC AgICAgICAgICAgICAgICAgICAgICAgICAgICAgICAgICAgICAgICAgDQogICAgICAgICAgICAgICAgIC AgICAgICAgICAgICAgICAgICAgICAgICAgICAgICAgICAgICAgICAgICAgICAgICAgICAgICAgICAgIC AgICAgICAgICAgICAgICAgICAgICAgDQogICAgICAg ICAgICAgICAgICAgICAgICAgICAgICAgICAgICAgICAgICAgICAgICAgICAgICAgICAgICAgICAgICAg ICAgICAgICAgICAgICAgICAgICAgICAgICAgICAgICAgDQogICAgICAgICAgICAgICAgICAgICAgICAg ICAgICAgICAgICAgICAgICAgICAgICAgICAgICAgIC AgICAgICAgICAgICAgICAgICAgICAgICAgICAgICAgICAgICAgICAgICAgDQogICAgICAgICAgICAgIC AgICAgICAgICAgICAgICAgICAgICAgICAgICAgICAgICAgICAgICAgICAgICAgICAgICAgICAgICAgIC AgICAgICAgICAgICAgICAgICAgICAgICAgDQogICAg ICAgICAgICAgICAgICAgICAgICAgICAgICAgICAgICAgICAgICAgICAgICAgICAgICAgICAgICAgICAg ICAgICAgICAgICAgICAgICAgICAgICAgICAgICAgICAgICAgDQogICAgICAgICAgICAgICAgICAgICAg ICAgICAgICAgICAgICAgICAgICAgICAgICAgICAgIC AgICAgICAgICAgICAgICAgICAgICAgICAgICAgICAgICAgICAgICAgICAgICAgDQogICAgICAgICAgIC AgICAgICAgICAgICAgICAgICAgICAgICAgICAgICAgICAgICAgICAgICAgICAgICAgICAgICAgICAgIC AgICAgICAgICAgICAgICAgICAgICAgICAgICAgDQo8 C0feKFElJJBoEB3sZFt9Ru5+UWwTJvPoMNN4kdBypN3VAH5cb7OzISxpYDVms1HyBCq2EK3ZPWOwILxo TF9PFJuovv3MRVLkVFFcwNVDa8kkQwCfXJN5MFXaIzmlCO8XZUBoV5walpQkKANmEGCMTPsbPBJFXSka ILTRTSXhJATvJnCkZsTpREBhMA4LMBSyH782fiKlCA 2CJr9LLbTsWV0ubt7TIhJhUZIlOklRKfs6XCcvTB5RpIAhkSLjOGRqEKLYPaZwB6dgd6BvIlPnWLHSTB ezVL8Du2TwkIXtWUd+Oo9QUE9co3XjUKzdBPMvFT2ksf2MNDiXXoFkI1KvjYayWAwkVGKruNCRCCkiiH nhEaRQWZxxsFZ1aShbIUOUSdZncLCmZF5wTF0oDWIj WDIwRlL0IFOMKV9VBVQiXLWfzIQhFTDfURCRWV8YHCxvAKW0RXJjpaYeeXNcSYucNU2JFIMkobIvNlIg MCBSDQo+Sw4WSU7nd8EiBHlmXcOqFL0gqs8LHMnTHaXqN0B9wIMzQ9F5MHphGb5ISPGbIPAiUeqnMQCB NKauDZ5XSN1dhgC1OC0RcZLpLSNyMULqmJLzBGv4W5 9rhIHjXOuyAI8UHSD+Darwin+Ar2CWTYjKMPnJYIqFtLkLSKFPqBoK4KsT6FGs1WkB5XmWZ82xQmvikCaTM ylUL4MWR0xVEBzCAAWNB0LrGVulL0nhuFuNJRfFIGYMhEfH31guVDuHLJzAKH7MKRoXe8REJMlQ7Vkzn CwaGybtlMtFNElWXEWXA4NCSkmbdZbbJWvyItuBF82 aJiiIB0FZl7QGfKmBL7wms9CwXEtLn0PWCYaWc2GNSPzNWHsLCKbHKI3NBFaApAdLRriFLUfAARsHFO7 HGMzWZLoRE6XWpNeWFQyKLU5WQTcDSVqFRXkdi8GUJVaDYM4JQI0FYOdQPOkSWHnXUgcJGReFXPoKDN7 LNZcAGSgKZ3JPrWfNWZpZSR2ZccuXKGaBNWpmp2CYE QmBOLqVSFcSnMaNKMqWDQdNZkgWSCuCLT1BWGfNFGdMZOnWX5GCrEaDTOiUJwiSAXuLJHjVBXtiw2KWY TeNUMbRdYwFxHpVSSiTUBwJFfdLMPxKGWjYiBmOREyDPYgHJ5SMdNpWOIuDPJ0RBGfBPZdAALctv6CWX WeHVBwPgO7JoQmGXFrZWPwOPprEFYyGFM6QTWnDGJt JTXjWR5HEpTzWCAgYOliFWepDQNoIQYdvo1TULMcISDjCCI7HYIfPYHaBGJkZXlsWZSeNKH8QmC2AIAr ITAmVB8JHuLbTWKiFHf3LCrjCRIuZNEksi9IQIFvXZFiDUBzUeGpJOZeQBKfJIkqTDMjPDAyEtP9YSAv LRAwAD9OKcArOKOdGaT6NXiwPDLfYQJich9HTKCjJE SuYBm2KjCkZLLvGWGbYUraHKYuUWGqXUC5MUJwDFGsLV9RDcCtHCTeUkBjGiirTLGaKUDmvu8WRKHeKT M9RPT8YhRnFYHzIFKvAZqaYKNfKYKlHaSlJBNhWOQsPW1AUvXqRUHdQKI0JLRnXXJjAVWyqa4UPFLrWU F0UrI7WzFiMIDeNQRtKQauQOWeINPdULTyJDSjDBPr TT8UZmQhFIPkUXB0GffcTLWqTXYzvs7FDPKnYUD1NWNoEcUwXVMgUXJsMFlbASWrGRQ8APm6XWTtZJMt JB8EDtLhWHVpHSG2FXlhNBIkEFKouy7DgHOliBpmzo6MSEkQQb7MpDpmTBIcZHraMn7ibVKeIiTfZXSZ Ao2AnzDtGDQiXNTKADgaXXVaMZOfH2Q5KeOtO3XzBX U0SHA6GKR1AAP7PHwdSrYmTHNqCpS7P5VmHbvzKaMcBaR8MNQqCdP1UJDwOZqnTGCmFVIhYkK+IF0gDQ o+Ye6So1PstsM4ebXeSVb8DZs6Lf7NYLHOD4JDTd== ID Date Data Source [id number] 04/21/2021 03:20:04 PM EDT [facility] Name Value Range Interpretation Code Description Data Sheryl rce(s) Supporting Document(s) Progress Note [facility] CNLCAn7eSeAPUhKi88/UYLuzHUZkl8WcDTtgBLy9FDtsRCRvN1ZiXAJ8oB1iDTF5BEyWIeTwRwHiSEH4 lbm VnDysRAzFnKCEaFkdDQxZcAUpxNvjnsAXfZM1ZvDE6PIWpB80yCAWfYHZcL4UkCVM1OFX+Mz1CVOYthZ JiQZ1BRbhO9ZscQzU4EB5PYa3HjbUw3IIzpEtz/DWhk1jQLws2lxBPgKC5gN9LGb1weuea8iitkCycsi 4AyOlmrtxip9gHIrtLk+26zePzgLzkU3zAF759A/4t /jj2XVs13K1/JjtePa0tXe6Wc5FGfoy8Tm1wpcjt/JN5Vnd6x5udogJ3FcPNKCCRysEK9LF656B5l77e rh8txcoJdqX1kwX41lPwAjZcdsftj2xiB7C7VF77UsT2EyPK8ad9eXgC5wIZkuHt+HNq58Yg6EHFt5Bs sJWdgiu5kZEbK/Pgx4glukD2GiX3NiBCVjaes0/hLS cOhaX7EGzhPXSyxiA84gubjExtSoZISg4av4pN3P9wH+nDaHw99+qZnnEjnyBX0c3LhDX1rKZeAYUY08 DnzHq77mrQZ5aROPbiwt394lkPUASP5bZ9YEyxQoiRwVa2z5/65iGkFlQSdqjKJTubJMVRLTfCmqy16j ylakQxkMO4okU0JujlO+3beXQSvF1dIIeUV4nCZB0p 3kzwQOKlcjNcEvtDvokrL6+n7aMmGUa9vIcIR73Ue68ud1svGk56mHwBVBPkyTl89KwulzXkqdvK/Marychuy [file] XtW8QWW2aRFqPk0AAFC2YAfUTpPlOZ0JYYw= ID Date Data Source [id number] 04/21/2021 09:57:12 AM EDT [facility] Name Value Range Interpretation Code Description Data Sheryl rce(s) Supporting Document(s) Progress Note [facility] GTJWVa8lRwVGLlZt61/KMSdvYNPxn4OmISamBIi7SYiiTJViF3BkCON9fL6pHVB0WGpZFeEsKqAmVEI2 lbm [file] 9GDQo= ID Date Data Source [id number] 04/21/2021 08:59:17 AM [facility] Name Value Range Interpretation Code Description Data Sheryl rce(s) Supporting Document(s) Glucose [Mass/volume] in Capillary blood by Glucometer 177 mg/dL 70- 140 H [facility] ID Date Data Source [id number] 04/21/2021 04:06:02 AM [facility] Name Value Range Interpretation Code Description Data Sheryl rce(s) Supporting Document(s) Leukocytes [#/volume] in Blood by Automated count 8.8 10*3/uL 4-10 [facility] Erythrocytes [#/volume] in Blood by Automated count 4.06 10*6/uL 4.6- 6.1 L [facility] Hemoglobin [Mass/volume] in Blood 12.5 g/dL 13.5-18 L [facility] Hematocrit [Volume Fraction] of Blood by Automated count 37.3 % 4 1-53 L [facility] Erythrocyte mean corpuscular volume [Entitic volume] by Auto mated count 91.7 fL 80-96 [facility] Erythrocyte mean corpuscular hemoglobin [Entitic mass] by Automated count 30.9 pg 27-33 [facility] Erythrocyte mean corpuscular hemoglobin concentration [Mass/volume] by Automated count 33.6 g/dL 32.0-36.0 [facility] width [Ratio] by Automated count 13.6 % 11.5-14.5 [facility] Platelets [#/volume] in Blood by Automated count 195 10*3/uL 150-400 [facility] Differential cell count method - Blood [facility] Neutrophils/100 leukocytes in Blood by Automated count 73 % [facility] Lymphocytes/100 leukocytes in Blood by Automated count 20 % [facility] Monocytes/100 leukocytes in Blood by Automated count 6 % [facility] Eosinophils/100 leukocytes in Blood by Automated count 1 % [facility] Basophils/100 leukocytes in Blood by Automated count 0 % [facility] Neutrophils [#/volume] in Blood by Automated count 6.42 10*3/uL 1.8-7 .0 [facility] Lymphocytes [#/volume] in Blood by Automated count 1.77 10*3/uL 1.2-4 .0 [facility] Monocytes [#/volume] in Blood by Automated count 0.53 10*3/uL 0-0.8 [facility] Eosinophils [#/volume] in Blood by Automated count 0.08 10*3/uL 0-0.5 [facility] Basophils [#/volume] in Blood by Automated count 0.03 10*3/uL 0-0.2 [facility] Nucleated erythrocytes/100 leukocytes [Ratio] in Blood by Automated count 0 /100{WBCs} 0-0 [facility] ID Date Data Source [id number] 04/20/2021 09:16:07 PM EDT [facility] Name Value Range Interpretation Code Description Data Sheryl rce(s) Supporting Document(s) Glucose [Mass/volume] in Capillary blood by Glucometer 144 mg/dL 70- 140 H [facility] ID Date Data Source [id number] 04/20/2021 08:50:00 PM EDT [facility] Name Value Range Interpretation Code Description Data Sheryl rce(s) Supporting Document(s) SARS-CoV-2 RNA 2019 nCoV Real-Time RT-PCR: NOT DETECTED [facility] This lab was ordered by [facility] and reported by [facility]. ID Date Data Source [id number] 04/21/2021 09:08:34 AM EDT [facility] Value Range Interpretation Code Description Data Sheryl rce(s) Supporting Document(s) Specimen source [Identifier] of Unspecified specimen [facility] SARS-CoV-2 RNA 2019 nCoV Real-Time RT-PCR: NOT DETECTED [facility] Assay Performed [facility] Patients first test for [facility] Patient employed in healthcare setting [facility] Patient has symptoms related to [facility] When did you start to experience these symptoms [Date and time] [Phen X] [facility] Patient was hospitalized because of this condition [facility] patient was admitted to ICU for [facility] Patient resides in a congregate care setting [facility] status [facility] ID Date Data Source [id number] 04/20/2021 05:46:52 PM EDT [facility] Name Value Range Interpretation Code Description Data Sheryl rce(s) Supporting Document(s) Glucose [Mass/volume] in Capillary blood by Glucometer 111 mg/dL 70- 140 [facility] ID Date Data Source [id number] 04/20/2021 08:59:34 AM EDT [facility] Name Value Range Interpretation Code Description Data Sheryl rce(s) Supporting Document(s) History and Physical [facility] BZDIWd2kGkWFBrIm07/GXMwxRNBfc4AvLKulBCu3VCuuQVJlL4RbXAU6nF8kJTR9GZaCGqUjWkIwSTE8 lbm [file] == ID Date Data Source [id number] 04/20/2021 08:36:47 AM EDT [facility] Name Value Range Interpretation Code Description Data Sheryl rce(s) Supporting Document(s) Progress Note [facility] XCRKYf5tTzFQFeLg05/TMQtvKVSfz7WfRBexRQm2TVdbXCYgG4YaKLH7lK9uCTF2YRbKRiCmRhCwVCH4 lbm [file] NskzNLWoSOG0JBEfOIp6OCL+ZU3zERv+Ku4Rw4MknnU3isJaTQl7ZDo5OQduJVTDYm7J ID Date Data Source [id number] 04/20/2021 07:45:53 AM [facility] Name Value Range Interpretation Code Description Data Sheryl rce(s) Supporting Document(s) Glucose [Mass/volume] in Capillary blood by Glucometer 114 mg/dL 70- 140 [facility] ID Date Data Source [id number] 04/20/2021 08:07:44 AM [facility] Name Value Range Interpretation Code Description Data Sheryl rce(s) Supporting Document(s) Leukocytes [#/volume] in Blood by Automated count 7.2 10*3/uL 4-10 [facility] Erythrocytes [#/volume] in Blood by Automated count 4.12 10*6/uL 4.6- 6.1 L [facility] Hemoglobin [Mass/volume] in Blood 12.7 g/dL 13.5-18 L [facility] Hematocrit [Volume Fraction] of Blood by Automated count 38.1 % 4 1-53 L [facility] Erythrocyte mean corpuscular volume [Entitic volume] by Auto mated count 92.4 fL 80-96 [facility] Erythrocyte mean corpuscular hemoglobin [Entitic mass] by Automated count 30.9 pg 27-33 [facility] Erythrocyte mean corpuscular hemoglobin concentration [Mass/volume] by Automated count 33.4 g/dL 32.0-36.0 [facility] distribution width [Ratio] by Automated count 13.6 % 11.5-14.5 [facility] Platelets [#/volume] in Blood by Automated count 224 10*3/uL 150-400 [facility] Differential cell count method - Blood [facility] Neutrophils/100 leukocytes in Blood by Automated count 61 % [facility] Lymphocytes/100 leukocytes in Blood by Automated count 29 % [facility] Monocytes/100 leukocytes in Blood by Automated count 7 % [facility] Eosinophils/100 leukocytes in Blood by Automated count 2 % [facility] Basophils/100 leukocytes in Blood by Automated count 1 % [facility] Neutrophils [#/volume] in Blood by Automated count 4.43 10*3/uL 1.8-7 .0 [facility] Lymphocytes [#/volume] in Blood by Automated count 2.08 10*3/uL 1.2-4 .0 [facility] Monocytes [#/volume] in Blood by Automated count 0.50 10*3/uL 0-0.8 [facility] Eosinophils [#/volume] in Blood by Automated count 0.17 10*3/uL 0-0.5 [facility] Basophils [#/volume] in Blood by Automated count 0.05 10*3/uL 0-0.2 [facility] Nucleated erythrocytes/100 leukocytes [Ratio] in Blood by Automated count 0 /100{WBCs} 0-0 [facility] ID Date Data Source [id number] 04/20/2021 08:12:01 AM [facility] Value Range Interpretation Code Description Data Sheryl rce(s) Supporting Document(s) Prothrombin time (PT) 13.0 s 11.6-14.0 [facility] INR in Platelet poor plasma by Coagulation assay 1.02 [facility] Routine intensity oral anticoagulation I NR is typically 2.0-3.0. Target INR must be clinically individualized. ID Date Data Source [id number] 04/20/2021 08:12:01 AM [facility] Value Range Interpretation Code Description Data Sheryl rce(s) Supporting Document(s) aPTT in Platelet poor plasma by Coagulation assay 28.9 s 24.0-33. 0 [facility] ID Date Data Source [id number] 04/20/2021 08:21:30 AM [facility] Value Range Interpretation Code Description Data Sheryl rce(s) Supporting Document(s) Albumin [Mass/volume] in Serum or Plasma by Bromocresol green (BCG) dye binding method 3.8 g/dL 3.5-5.2 [facility] Bilirubin.total [Mass/volume] in Serum or Plasma 0.2 mg/dL <1.2 [facility] Calcium [Mass/volume] in Serum or Plasma 8.9 mg/dL 8.8-10.2 [facility] Chloride [Moles/volume] in Serum or Plasma 103 mmol/L 98-107 [facility] Creatinine [Mass/volume] in Serum or Plasma 0.82 mg/dL 0.70-1.20 [facility] Glucose [Mass/volume] in Serum or Plasma 110 mg/dL 70-140 [facility] Alkaline phosphatase [Enzymatic activity/volume] in Serum or Plasma 113 U/L 40-129 [facility] Potassium [Moles/volume] in Serum or Plasma 4.2 mmol/L 3.4-5.1 [facility] Hemolyzed Protein [Mass/volume] in Serum or Plasma 6.3 g/dL 6.4-8.3 L [facility] Sodium [Moles/volume] in Serum or Plasma 134 mmol/L 136-145 L [facility] Aspartate aminotransferase [Enzymatic activity/volume] in Serum or Plasma 17 U/L <40 [facility] Urea nitrogen [Mass/volume] in Serum or Plasma 24 mg/dL 8-23 H [facility] Osmolality of Serum or Plasma by calculation 283 mosm/kg 275-300 [facility] Creatinine/Urea nitrogen [Mass Ratio] in Serum or Plasma 29 [facility] Bicarbonate [Moles/volume] in Serum 22 mmol/L 22-29 [facility] Alanine aminotransferase [Enzymatic activity/volume] in Seru m or Plasma 15 U/L <41 [facility] Anion gap 3 in Serum or Plasma 9 mmol/L 8-15 [facility] Glomerular filtration rate/1.73 sq M pre dicted among non-blacks [Volume Rate/Area] in Serum or Plasma by Creatinine-based formula (MDRD) 88 mL/min/1.73m2 >60 [facility] Glomerular filtration rate/1.73 sq M pre dicted among blacks [Volume Rate/Area] in Serum or Plasma by Creatinine-based formula (MDRD) >60 [facility] ID Date Data Source [id number] 04/18/2021 11:41:06 AM EDT [facility] Name Value Range Interpretation Code Description Data Sheryl rce(s) Supporting Document(s) [facility] MLKDRf9zWzVDYwXfm3RsJrGlFENxHJ6oeyh6I6D5lNIyP9VutWCsk2wwR0LzW8FyOZKuXXSVQC3UmMGt jb2 [file] 23u91t2OO7xt637/we8opf/cets8Dp2gzdo77N+H4j f700LI55i0d32N8d1Q3k/tJ7nQcBo0C8gLlLIvXr+t8Eqq56gr11pb42BSmLD67TTypUT44/yAfta4+8 WZZBXpvXfuyRd+bzI+/BB1iFx4aS3pA16ZL0/kAk6lktZ89l0Uia3yi2iGma35JQmQ3xVx/Oz8SZr9Un 3s+rB8/1swju3Ty4qCgL6a7b0mdAGu/my077hon1DK t1tK/Dnn3j/cb7g/fnvg/IG+PWM+z0b3v3XXVLvd7rB2B9UsNQTu7V9Q7Xm6o62JdV+I1bcveuPtNp9C uXsq4vfVC0wQyCw9k/n77hpuLfXOWW2/L8n2GTJaGOWM12Gtz+yzp5BcHfxDnnEvZplw5+5j02lE4l/3 Vuu+ob6Ca6xF4Ax35ro0hqKOwfAfMrgW301CG/tdG+ G+27A/tjg47Mq85gRht6kY++R/89sOeD/tet6jN2HcOuALQf89H2P+Q9aN+U9r6z80N7XFqXDtmsw/Ho PZ4Ek2Ufa509zt1xn2/nDPl9/utGg4E67d4RnO/XrzlO59bd4/F18uc6B71n/M1hoWvBirR+1z8/p8bL 9p5D4+ZAOSDUuEzh7374l3P692ukwQl+ZcJafQpV2w 2TJdSh7WVcbcg5a71yWz582mqkq8t1/ajGT29Z+G8vBza5zHa8t3rky9AcLZ3u/lJ3xkbI60ybAY4/lc BOAlrPM4hUc22II77PyM92Q8kbXOQ/gQQ2eCSJk0e6TvR4Rw+JDry/945h6xnZfuj3TpcctvkL65f0xG dF+gEsvUquE67qyzyxDR+Jbrw/+E76YaDKo4Ce9uLb CpPb9yvU8+65KJNp0OVStHc95cAb3u3uD+/PyG8+4pfsbcdudumfqXUPD05h+6P9j1wzB/c++Op9v/H9 R96j+p0e19W4/5H32PP+tUckQRW8g3yaaJQ/okh6JJb3k0a0l9fYR5n7+wlX/JNHu7/vFd+t70wdR51X 2vuzmshx5ImvyS5w1GbfT69h20d7eciTmJG3Dod4Jl I0egst5rK52i7+7me7Iyf9ckHYdmMm97JZSq/Piaedm68Ni/uSQ2iClhS9UWVCui+uUwq347OD1sUBJ1 3P9/20xSYFV1KeapBPEP5f0zy/ejZcp6bNzgVcSD9Ub3ZozdXN/tx4VzBRPhtjxBfF+Krqc+e/siDvgr gKc4rhck8Gh0vHTGYCvfGm7vxJi/sAAeZ7CHAs4e8x diOHL6yGs//9xGb/nUCKd6vWkk8kxiP44H7yM6ipKGznu+GfN+q13iUL52kH/34j3DghQb9EposmaWdS rscnAPp9Zz0/7e8bPodFMx6Thpqzq/hKvr9A/ik70ZoSdHCqWu65Af2LdnAp8Gc3N3A/87zzBTnwz+fO B+Vc/2tnfl699zea200NmocE7eiQ4/xXE1/Wn49ybu 2cfdqhfBbsTtg8+GgNWC606YLxVq74XsmyBvDabLryi9chpAm9wOs6J05JPUkgeX7AiPW5gLbV+GrUs9 5eu5vWW9/ohLzTkX/gfXzbUSt+wc1Lao8qud+OVX+fD+yrzw9EA92TAq+50V0V370E0NnO622L+EqBrx TxKwW+0sRXlSfat/GTghe7z/R5Xc5qsHERe6Hg1dMN +ya+knq+dce2dDOzeU9/pXrxpKri/N8hyW18nQt6/dWaAtKyEzzNdtS2T0TZcXtr865gXbUf8UlRzwRM GLqER9Np8E57+m32qWm7/NL367Dw6r6shY+7eFLtjr+z0rgi09O927hpv/eY2Kxi38I+11+pbbw/yP98 /aQbtniMl7ud1fNq2ri74H/frhm/dmNj7yuLY0kSp+ obQ/6G/T4FOoHkGE0+THxVZQXKXXj/4MnKc3/x2HMM+zq47X9c1rK7Y0l49lFIP55GZ5EuCys4ko2e0v f0c+HV5/Th5330bk3f4HfbecT/x/qJeO2555ip3XK9KT4Q9qlU78mjL0aM8Pmb2leEP/S9t26Z1+tC+z 746n3/yPs+e4d3NBqQK8hSydr864gaB44X87S4A+9h b7jod51WP+bEc3n3tx1e4+8eeH/xlSJ+vtlsMq23rJJ9Lp/94hDdN/6s+6llGuPWEhfpCKiHq5xsT/FV +cF11xil+Kq+h3/eB/CPk5d2Hs/A13IEMBNpnU33t7YBW/Is7PF33VzOz2muR44B/IzC5H5z62X9XVqq A/984J8P/NU5yP+6z881jgQiip6F6RiB/XaJ6WhYDa rvFd/f+FKSp98g82W7SPrIpr4/EoLnJhs4BBQ1HE+Ncg/py3rTPhCcR1/anHgPeRG/rudl2lpFx0x0eM GDK7L5023RDnCSXmUzK8hO8s16S9lC7i+Ue/EZjR52H/mcb/8yueuhJnf+y2omtFnz3gSDJ8anyAcZ6q d9n4K4ZmXWqDAlAn3yjd8DSSYIEsxG3lH2dy5Z5PyA /Oj3svKUq/39hS8DN9rFjkffQ8uRoKU52Aw/DkFwO30qwS9K1QsI/OwqXeiMNdVsiI939eZjkf8ONk+l 3skMn9e1ae7DtO/fx3XTG7aqpL4mLkB500/Ntr1sv7iVqLm3TziOkveA6RR6tX624+zg/ruw1Zj6Rzj1 +2DT2eIbpE5k4pgVB360sY6i4yuEJb3Ho4vT+zsemQ pmHJz4zm/ZI39i8KU5Q+mXHje9dSM/crenZcbKo9F0897WXbuJdb/DP9RiV1cDr+o9/TFMF7anDioy5A cPLE9hxIHc5DFL8bU9V+143D4M4T4k6rL7L+u463wLq4gizAwB+CoPjya+OhwlvobfOyJn1C+Q7Axzc5 bQvgvtm/fg2zq5516kj2v1Ircg9AmDx4+H5BOLr8xn phcByrYay731uG9z1KIM+Was2U9vJtoXlPo/P+eACzM/x4C/zw9+kthziv285YBQD+eJ+TxHgP+0Xx5v /lCsIttON9y6720aa89zhw8nbfVgrg3q4ef8XMyOe+L2T20hV//Y4bPVWih74tZ2Z43n0ZYg+OcD/3ww /sj0MC4w5SGD+lDpxNvQQ7z567277jg3I7147gIYI/ T38L0sgNxj1mednVpeZ//s485/fVx/5YWvLJ+//dorfpXvA+4kyvGj1hdn+CoPeya+queD9+d+n/jqfc b0zwz8Csprqpn8Fp/s8/gak1t8X35c55SHB3/bvj5v//C80rv35fb+c7uvCumVFnzjdbObefr/fs7wVi v1YrWwEOBMaECmSs5MWpMmN3W8IH9X/CaE08Ryeep4 HT74dGReofM887ILBVzXyh30sxuj921l7/ldv3W+4axh2N1k6vrCBa/mWubDZ296sshVQZfBiO4c7H/l axmd8Z9a2gy5zExhrG7z86kYGeyl+PpaQhNBhwXYx3pmw4r94ChC7TNr4GJ0qr4fhjNuopGjpohPda/K 0vsoSpJG8JzI31hh1ICEjc/q+cSq7SOtRpU5xY4R/T fqg/8nSx2umuKf0fy/byOr6dlIshSbYoPj/dfvfMEd/soN7+/5jIkz4o/p7MTVSNl/3bfSjrop85e7Q+ p/UP+Kkc8ahrqMdGt95/dA+iyjrj0yT12rQKnIfki0nQMGkYLj76xeqq+DR6A+C/yx1UCTnKjz8UJ+Ku 7817H/qujLf2lob/SHC+PRuvNfx/qgL/RfrA/6uvNf T3yV+l0AqbvahEKzPeBmyD26/hcJlG998FFdonVl6jiZ/Ct3yRdAfzw/jxs2qo1B/7zv/Be3ik2msM/w veP9XQ/7ARu67J6xdsvB+rrEV+complaint investigations officer/gQeyM22ptyvRU+8Uk/Ve2gba6MUPN5+Zwbn/TEV+5mng94kPqi 8n/dRL9xgNpv5/ew7Fv/nQi4uCsto+Ueq5J5bU9oom m2So5cdM/x5+lDgSa0QYD1Gb9g/H9LrcNttf2VWhC2gmhYkk2Ff00xwJkkGh7Vvi0t8g/+t3Dd02Uzs3 9IfHW+x4KU4uyThfYnm58g3GkCjX/WeYbTZiRAvcwcrsA544Mcw2885mnC/MqDcIRpofblBq4g97zeBE 5DcDp8Fq98tgdDJ8DQ1kFVcEg1Cp6yk7aV5V5/FXLj sSF3/W0825GwB+8F39/4ZCB+YMozCuMOZLx5EagsS+PztAjaRIa1W2Hh/4XvIa/kwTpSsXuIy4QBV72z 9Wvftm685u7MUn1M8gYyVCB+ujoS6woP+YWPL5Wv+VHonR+H7gnQSL1shFCgrE/9w5lshX0INI5HyS/C Ln4Ou/g57O5/Drt4I+fN11Fhqwmcye5wfi3ix54/Du wwGsgbO9w/8R1lTvKZ/vawG5+YqTxxu800OhgmGurV0rB+7jH2OnQ/CuxvD7/iraida/vnF6Mf4f/ev3foe8 dcyCfoO4O/pes0rxNVeN3t03Ns7K+HvOSSGY0C9B+QlP3TaiarcIbYP4UpRDd3oU/IJ/F99F3en13Pl1 81ZeelnxkR4adLitfAvTd8VxVyhcqc61p53W3pQsdi iqgKSr82VMuJcbOu5WUfkcglHcdG1q9b10FfB4Ki73S/cgfe7BgqMcD/Olgg31u+88HYaF/ooueaD9t+ +xlio/9n9V33z8pXMa/F/vbA+oFlcGD8zlkB9dt9IEherW/SrfQUqQWX4JxA/irXB+oQqc1M4gxi/D0X TwbWB+PAPx+Rh2tvfHHlYNocL/GlIGrx7Q+EeVc7Ai BuHuZTVe2pxVgo5KC0i/JtSkoSzbA7b2u/17tXxq/eZ3/bpWLoEx6Axh7+hiz62sp41g06NuKZQswNzu Z+j66APl10PrTHZPH1FXu+P/fjqzfrIxH77PZ14P5Y+Zwh/jSK6CIqwaV5IaUlV1mSn878p5M16jZ0/m 4cQal1r/pygs2Rxa50Uo4875g5XOOA/CrfX3+1cH5w YX/1hyhsgwiAHWvopnLBt8hbn0jTj78+sRC/oc2YNnhmWWkfmsGuhXc9+dlPWN/Etx/dU6J/IJ6fO4T/ 4L5hdc08DYyL/C5pR1SP+JPHc5/DHps1bMQ0JtslZg/ZB2C0vZd0YeTI2XRo54z+4K+V5Ygw8164At5s eT/3ebw/t/3c5/AbAS1FN+K5z+BsiORig4tK8q5Msd hcyTChr1JoqgmcBw/3x66f+lfh6nlt8f6Lh/jw1hwJb4x+5Bjdg2oO/J6b6p5VLKSfuGZvf4KRt0JKRI 5YG8i4dK7IBNjZ+PCHp74yUymI5+bfRnaYk6gzl99Fd6vf+PvipsXfU0ChpTSm7PxSllT/r/x4n9GnMp EqHb9tpbGv2/OOcEM6g0FVbMTLTpCiwoVMWgEzWQUs Cr16BXYj07sDtza/v7Tu/N125++2B3+3/nvD768ntFeLErxVCis1ISLbiKdergDElUcnXExEM0vOcpmt /BiiONLVWU43SVaqgsLVfcR5nWe008di1oiqgD5jNVKSo0FCN5WPyi9TLKjcoLKvOpUErix11pY6rwD7 ARIN+WCIyeI0zK4QQOJkKPbj1eo9ah+odr1EMQ8PkJm [file] 2o490G6KEn4Qf/XV17/+7uPbn//zp5//5b829u803n d9/s57l2k24cgn/uE/OUmy2f/08y+//vjim1/+6vNvv/oQfb334gsm8lXn0/z9q4M/+dmXX/zEnVylfW j8h09evLtiltk2pGmGO5p78c+/uk41m60hxo202//w5cc/iy4wq86/8+uvf/afXHmbAveVX/zpj//2uz //4Yd//fjv//vjN7/7/e+///Off/j+93/z8bPv//i7 H37/8S//[employer] 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//PXHn/74egg/Lr0wFaIWi8l21qbUTj/rVxgHkhRg3vl24O1//QtmqO5dGP2X/IffAG/3 fW0ovt86/zmtr1fO9U84/f6S8fygnep01iolw8KDisS8+jc7TtBK9xtcUHj/rh/rn1OL5Qa7+8O//fDS 5N2ovd2+/ntsn2179w+/+vabj//2zd99/s+ff/fzr9 770J7lUH2/8R2fcpuZhzi1j0mUcv/3VGRreTGIuUyf2NAf7Hx//PE//vbjz9//xw9vtb++eB8R/+Y+6Q 00EI0agYu+49oP+RfiL817k//44c//9o2qF2Qlda9DU26/1GqJ2s7zm/z2u49//Z+vtv/uT3/8cfUePe 4W4KjGK/xNv613x23+g8s1GrIvHt1617qn9BkytU1e M4b+fFYI3rxcshlE5Me/btXBfvWTb3/y6eP7/++Hf//L1+d5bio+/90wfo4y1Vxt//brown[employer] program coordinator//YZKhp5ZGlb fv/7t+z922Nphs+fv/3+33/3/R//8vpHDd/+6U9/+WiO0JrgP/27086UGxa8oamn/zf+6Yff/j9//N1v Odz37VE85GS3l9X663lx+u//8Roy//eCo4533qxf/O ovb+lfcG/yN7/85Zdff/qOjfIMEP/3U+54gT8HtYU/9f3/+WWQWa76ac4Y9qJ+tN747+16Ml6XV4/e36 r17gKNGc9Ye4zQs3VsdNsiF607PWg9+z6lf3z+iPly3oZ7owlq9zwF0bjL/B1SqTifPjTgBHC9slEaeK lhyhMiDogJMJlwEWUkPip0CP8VnKLzMDVqD4K4GGBu qm5mUBByWPYfpVZnDwRaKNIZMY0SwJTvIV7WEQb3NPWfEVFsRoBkPSGgyaD3XIOxXMWxPHKhG5PmxzMh dCAyIDAgUj4+OQ9xl8IqJzWxAITuVyq0KL8KmOXoIR7XvDGejR7kiqUaK511krWqYMWoBhamg1JcYYoe ONRXSK8MPRB2EHC9SRNuDl0+MV1om4ApNkYsIWYmSu r9OH6WqBJen0XjEJ1TX2EpFAJeEBQNJHQ2k7ZeQBRhtuacaysoI5GdXLJ4oW6wJYJ2AXEwCPrsSOOvLU IkZcQcDKNwMUshDQVxLXZsQIYnORKbFCw0iURfQD7OO4TyYURdKDUIOTQvczNgTo3nDOzTIcBERIWDHm 8ODQHeWBV5EOT1QRlwY3E0RbxqX6HlYS7EA6WpZXCw ZYGYVEWiyjOxFK0GdtWnoL9eLNnURNKKNOlZUIygTdZ9u42umwUYLDNpQVGqAXnuRRPoMYXuUQZlDGSh MEWuUFEaIEKxTU1EH9WcQGZqLZQHKNS8w7GxEWKwopiysabtMw5punDtEbq+QbouISBkz2JlOVqeC6Q6 lOEgV9AuE8CvTD5FmFYeAKrpUPEvZYDwTOOmM994jy QgMT4+XH4yu1QpNwccAQJJXDDuRNJrGHIrRBM4XzDcPZFlIRUxBWMtZaP3AxDhPzQMLEUcXWM0QRw4VP XjAYBbWEYwMLguGLIgPRA2FHQ6WREiQOYvRX8cJgStUKRvFkr3LaNdJZHtTESvsdEFQLTrSJSjYXTwFL R5RUHpKBEnMUhpLLIgCWUjUAL9WRHdDIYySV3yPdYd OLHsDGDaVokxLPSwPMSjnsZLNPYhLCQcRWU5UmEjHOQwZOOjNRuxYQUnQRLhWpg6PKMrMXDcND7zBkWu UBIdBJN2LMynVEXxOBZjzvDNARRpVJZqPMDsIpKbJTSnXCCiINcvKZCbFXDdFdXjDDYdQCKhDS9eZkGt VEAxSCI9KLQpWDRjKTZmywOYMGOqEWDfNGb1URCfJS GiMVTvZNfgPUTnNAYvQGY7ANVqSOAgXQ7fWwGfVXMnRFKlOKPuERSzEBXffgMEZJIaSRGdPPP4TRVnWE PnQXBiUAtfTRUeCYJgPok6EBJlXFXgAU5hOpSjMIAvCJL1WIKiAHXgPKCexjFPFQQvSXJ8EUP2SSMaZZ NdHOHfYFcyWBBkDBIuSfZ1KCAiXLUtFH3qBoAyVCTb HDH2GrFdSAQoZUNgewWYHDEcETKuVCB3YpGqCDInMDNiXLxxSKJzPQBgKLLxILI0KSK0ACQlNpOxTZud TVLDCPqVC1LhxnLlJuGAI3vyRn2vPqDnAFASH7Lnp5MdKBRhAPJJWy0+ChF5OBK4tGZuDiv3AIo1RWno JUVPRg== ID Date Data Source [id number] 04/18/2021 01:34:16 PM EDT [facility] Name Value Range Interpretation Code Description Data Sheryl rce(s) Supporting Document(s) Leukocytes [#/volume] in Blood by Automated count 7.0 10*3/uL 4-10 [facility] Erythrocytes [#/volume] in Blood by Automated count 4.23 10*6/uL 4.6- 6.1 L [facility] Hemoglobin [Mass/volume] in Blood 13.3 g/dL 13.5-18 L [facility] Hematocrit [Volume Fraction] of Blood by Automated count 39.3 % 4 1-53 L [facility] Erythrocyte mean corpuscular volume [Entitic volume] by Auto mated count 93.0 fL 80-96 [facility] Erythrocyte mean corpuscular hemoglobin [Entitic mass] by Automated count 31.4 pg 27-33 [facility] Erythrocyte mean corpuscular hemoglobin concentration [Mass/volume] by Automated count 33.8 g/dL 32.0-36.0 [facility] width [Ratio] by Automated count 13.9 % 11.5-14.5 [facility] Platelets [#/volume] in Blood by Automated count 247 10*3/uL 150-400 [facility] ID Date Data Source [id number] 04/18/2021 02:00:28 PM [facility] Name Value Range Interpretation Code Description Data Sheryl rce(s) Supporting Document(s) Albumin [Mass/volume] in Serum or Plasma by Bromocresol green (BCG) dye binding method 4.1 g/dL 3.5-5.2 [facility] Bilirubin.total [Mass/volume] in Serum or Plasma 0.5 mg/dL <1.2 [facility] Calcium [Mass/volume] in Serum or Plasma 9.3 mg/dL 8.8-10.2 [facility] Chloride [Moles/volume] in Serum or Plasma 109 mmol/L 98-107 H [facility] Creatinine [Mass/volume] in Serum or Plasma 1.00 mg/dL 0.70-1.20 [facility] Glucose [Mass/volume] in Serum or Plasma 142 mg/dL 70-140 H [facility] Alkaline phosphatase [Enzymatic activity/volume] in Serum or Plasma 139 U/L 40-129 H [facility] Potassium [Moles/volume] in Serum or Plasma 4.7 mmol/L 3.4-5.1 [facility] Protein [Mass/volume] in Serum or Plasma 7.3 g/dL 6.4-8.3 [facility] Sodium [Moles/volume] in Serum or Plasma 143 mmol/L 136-145 [facility] Aspartate aminotransferase [Enzymatic activity/volume] in Serum or Plasma 18 U/L <40 [facility] Urea nitrogen [Mass/volume] in Serum or Plasma 20 mg/dL 8-23 [facility] Osmolality of Serum or Plasma by calculation 301 mosm/kg 275-300 H [facility] Creatinine/Urea nitrogen [Mass Ratio] in Serum or Plasma 20 [facility] Bicarbonate [Moles/volume] in Serum 25 mmol/L 22-29 [facility] Alanine aminotransferase [Enzymatic activity/volume] in Seru m or Plasma 18 U/L <41 [facility] Anion gap 3 in Serum or Plasma 9 mmol/L 8-15 [facility] Glomerular filtration rate/1.73 sq M pre dicted among non-blacks [Volume Rate/Area] in Serum or Plasma by Creatinine-based formula (MDRD) 75 mL/min/1.73m2 >60 [facility] Glomerular filtration rate/1.73 sq M pre dicted among blacks [Volume Rate/Area] in Serum or Plasma by Creatinine-based formula (MDRD) 87 mL/min/1.73m2 >60 [facility] ID Date Data Source [id number] 04/18/2021 08:59:17 AM EDT [facility] Name Value Range Interpretation Code Description Data Sheryl rce(s) Supporting Document(s) Progress Note [facility] BHKLMy5cPvBJRvLd89/NZXriAHVej9QaPEorUPc9YVgbMQYeK7CvCGP9sF5jMVD6KAjOFiXwNlEeMJLk lbm [file] AgICAgICAgICAgICAgICAgICAgICAgICAgICAgICAg ICAgICAgICAgICAgICAgICAgICAgICAgICAgICAgICAgICAgICAgICAgICAgICAgICAgICAgICAgICAg ICAgICAgDQogICAgICAgICAgICAgICAgICAgICAgICAgICAgICAgICAgICAgICAgICAgICAgICAgICAg ICAgICAgICAgICAgICAgICAgICAgICAgICAgICAgIC AgICAgICAgICAgICAgICAgDQogICAgICAgICAgICAgICAgICAgICAgICAgICAgICAgICAgICAgICAgIC AgICAgICAgICAgICAgICAgICAgICAgICAgICAgICAgICAgICAgICAgICAgICAgICAgICAgICAgICAgDQ ogICAgICAgICAgICAgICAgICAgICAgICAgICAgICAg ICAgICAgICAgICAgICAgICAgICAgICAgICAgICAgICAgICAgICAgICAgICAgICAgICAgICAgICAgICAg ICAgICAgICAgDQogICAgICAgICAgICAgICAgICAgICAgICAgICAgICAgICAgICAgICAgICAgICAgICAg ICAgICAgICAgICAgICAgICAgICAgICAgICAgICAgIC AgICAgICAgICAgICAgICAgICAgDQogICAgICAgICAgICAgICAgICAgICAgICAgICAgICAgICAgICAgIC AgICAgICAgICAgICAgICAgICAgICAgICAgICAgICAgICAgICAgICAgICAgICAgICAgICAgICAgICAgIC AgDQogICAgICAgICAgICAgICAgICAgICAgICAgICAg ICAgICAgICAgICAgICAgICAgICAgICAgICAgICAgICAgICAgICAgICAgICAgICAgICAgICAgICAgICAg ICAgICAgICAgICAgDQogICAgICAgICAgICAgICAgICAgICAgICAgICAgICAgICAgICAgICAgICAgICAg ICAgICAgICAgICAgICAgICAgICAgICAgICAgICAgIC AgICAgICAgICAgICAgICAgICAgICAgDQogICAgICAgICAgICAgICAgICAgICAgICAgICAgICAgICAgIC AgICAgICAgICAgICAgICAgICAgICAgICAgICAgICAgICAgICAgICAgICAgICAgICAgICAgICAgICAgIC AgICAgDQogICAgICAgICAgICAgICAgICAgICAgICAg ICAgICAgICAgICAgICAgICAgICAgICAgICAgICAgICAgICAgICAgICAgICAgICAgICAgICAgICAgICAg MMOpJVIjJYHcFAHyXMUuUZe7E7euJWFdVIBqIJ2lHWl7Ez5+FWfVTfNsVFV2peQapA7VVU8hy3JoDEsz SQNjt2QpLCf9XK4WUJAoJHyrGU3KCWqmdj8BEVPwKI WnoCTGy3eoFaEcAGJ8UYNaDksuPH6MUFGaA4vybyEnFAWgBQPJPY9KTpXoU2AdqO66JRFNWd9+DQplbm ZtHemWKfF6ACNhn3WtLVh3YV3NEQLrTdtkk5OcSrAnEDPZZChrQX2PFBO2OCYhTUJjWa3EIGQjT772oq EpKS1RSw8MNdJdPY7swi6LZuBqTFUtZuaAEfk8WDms BJ8RpBKmHNeFqj3huqZmgpWMd3BfynEmyLPHCMDksNTSFMViXLTtQSieUNHPKaAkzPTzMK9gKk5hPDTs BOU2RlYxDIKTXT3QHMBgLGHnyKElHETxCFYKNW2DTFlmXTT0QQGotaFqsIPkJJvrJO9LFPNgdtGmBWxw MCBSDQo+Pn4EJY0kr0YcEIhjZLStZO4tbv6BCMrEZy FmY2H5jBXhZ0H4HAgxWa6XNJHcGOViCSzpXWNEWDghZW2ANG7kgzP2TS2PrYLfIJAfSKLdgOToCKu8G2 5zeIOcYZwwOQ2OZJN+Darwin+El8ZXTBnZBKyTTKvFwOxUQARXfWmN0NzT0JUd6DwP2EnFT38qRjcxrEnKY epOE6RLS0bEGFuEPAJXG3XgLSyvB7udxYePDIkYMRC OvRlD83zjCLrHWPqWNQ1PVRoKl0OBYYxI2RswhQqdLlefgGaDUNsPVIYVB6GKMbdezCzzRKtzKgmKW28 zHaxZZ3UYv7MPzOkOP1mwg4WgNAcIq5PEYFaHo1MWWRtFKSsZSOgBMD3UTHnMlXhLLzqMGWoXBLuEDH6 IEKaSQYdYY1JIoTvIXOfAOynXRhwAHJdQTNqaj5JML UwLYWoTLuxWYCjAKYzNXDrJWsmQQVnFITgXYI2FMDpMEXsTH0LLgWsPQDuMFVfKQDfNBSaRGUjiz4VCD TuIOQxMaZyBoQkOOCvIEZuMXasJUVmYPRzANs2VIEcWBQdUR9XDaSqWHAyECTdKiRlDTNhCTWsyp8WUV PdXKZdDuT2ToJkQEDnQFHdTHeoKOLlNOZ4SXJaREUu DOHwYB5HNiLbNDAfIQK0MONbFRThEJMatl8FMFVrPNGvTId9YYOqGQOmWSVdQImnUIWwLIH8UnR0XHAf AEWaQV6OZeXcBUEwMRP4BvMuSZJiMNTzfd4QLEWaNWLgSbs7RDXpXZIeXDWiKSizBQNjOFO5LZP7VBYa BJZySJ9YCgKtYGBmURufKpLhQPZpATReiq7CWAQlDE FmInR3WPApNZMrSAXtAOdyPHXkLPM4HBDgSOGaWJTjHA1AAoEoJOUbOAejYhEfBTThKCPilq4QDUZrCV EqILRzWgDdYSGmFNHqYFl0nrWylVYbDHm7YI2UZ3HpnpNzEzLAVv3Vs611WOAjLDNpKn9RE1nvKd5pAC CjSVOQKc2NHNs9XJKdGLFlTFVlUqhvIUcnQVIrVMK7 VIXmURL7XKA9KXB+AWz2ReCbByM3A7C5C4WkJvC4NXG8CJs1SsKnRXe1GFk8Kf4iLRXIEj0+DQpzdGFy kWwjSBWAJnZ7OCboAKxbHVIPYa9V ID Date Data Source [id number] 04/18/2021 08:59:00 AM EDT [facility] Name Value Range Interpretation Code Description Data Sheryl rce(s) Supporting Document(s) SARS-CoV-2 RNA 2019 nCoV Real-Time RT-PCR: NOT DETECTED [facility] This lab was ordered by [facility] and reported by [facility]. ID Date Data Source [id number] 04/18/2021 03:25:55 PM EDT [facility] Name Value Range Interpretation Code Description Data Sheryl rce(s) Supporting Document(s) Specimen source [Identifier] of Unspecified specimen [facility] SARS-CoV-2 RNA 2018 nCoV Real-Time RT-PCR: NOT DETECTED [facility] Assay Performed [facility] Patients first test for [facility] Patient employed in healthcare setting [facility] Patient has symptoms related to [facility] When did you start to experience these symptoms [Date and time] [Phen X] [facility] Patient was hospitalized because of this condition [facility] patient was admitted to ICU for [facility] Patient resides in a congregate care setting [facility] status [facility] ID Date Data Source [id number] 03/23/2021 10:34:06 AM EDT [facility] Name Value Range Interpretation Code Description Data Sheryl rce(s) Supporting Document(s) Progress Note [facility] UILYRm2qFmEEFuKs13/QMSjfERAcb9JjCZsvVRh7CUdzRYLaJ6IjPNC8aJ8fUCE0HPpJDvVqFxTiBTP0 lbm [file] ICAgICAgICAgICAgICAgICAgICAgICAgICAgICAgIC OeWTAxWLDuOAJpYSYyOL7OBZTtOONzHIZqCPMuLDUkADJgMDVlQRGzXBHqHPNqCBUgPLIuUZGdRFUfQZ SvWGHyNBVhXFZfAZJnRUCdPLDmOZDoXIEtAISbWRJsNKAlKTIpGHBxFMJlPYPaPMLkGQOlOKHjKV2WBV AgICAgICAgICAgICAgICAgICAgICAgICAgICAgICAg ICAgICAgICAgICAgICAgICAgICAgICAgICAgICAgICAgICAgICAgICAgICAgICAgICAgICAgICAgICAg HCQeDXVlHE5KEGFmLQCbUEYaFNIyQNIuRZKgXTSzEVMpFRRyTBWcWCIaFEWkVYIrWYLwBZJxUGTkZPNm ICAgICAgICAgICAgICAgICAgICAgICAgICAgICAgIC EyKZCuWCEwTVOzTGBtSKTtQY3CHFEiCUErKUFmOIPpTXOxUWWhZFGlYJTfWVUwZKOkGIWrZJBuGRPrUK AgICAgICAgICAgICAgICAgICAgICAgICAgICAgICAgICAgICAgICAgICAgICAgICAgICAgICAgICAgIA 0KICAgICAgICAgICAgICAgICAgICAgICAgICAgICAg ICAgICAgICAgICAgICAgICAgICAgICAgICAgICAgICAgICAgICAgICAgICAgICAgICAgICAgICAgICAg GCYiWBFmPKKaQO8RRDGfHCKyIXUoSQMnAGMfICBtUSIwMVLuKUJkCORvPTUmUINsIPWaXXGhUGOjQCPh ICAgICAgICAgICAgICAgICAgICAgICAgICAgICAgIC PxGCJuNAFlBTXiSXGiNQLdVJYkKD0WHMGvTAUsCVRdKHRzUKRjAPOvSVIiLIZaQGRdKDXkAEUtEVImCS AgICAgICAgICAgICAgICAgICAgICAgICAgICAgICAgICAgICAgICAgICAgICAgICAgICAgICAgICAgIC CxTR6SJROiNDRsWKHcTISvISBrSWQpWATcZIVpNPAc ICAgICAgICAgICAgICAgICAgICAgICAgICAgICAgICAgICAgICAgICAgICAgICAgICAgICAgICAgICAg YGJrUWCmPCMsTMZsYD4FIRQlHGYmOGVhARHfGGPbPSHxARWeZEBwARIfAYIhWWLrJSUbYCYvTCSkOCAt ICAgICAgICAgICAgICAgICAgICAgICAgICAgICAgIC FqPXPpCAZqUPSpHBNeNTSvHIOoNZKpTE3BSN81wAOid8C7CYTkWS3ospz/Gh8HROvbakHomVFxMC5JUd EtTS9shz7NVfLqRU6qzh0VNNcUVcOxD8I9dXZlKKQwNVMZKgMsI65kEUbhBo77FZezCTXuKbJkHJz7Fh 6GNwNkV8zpJKTeRrV3EBSzQoZ6UMIaBaA2IDChSlNh OPAkSIDmQUWgEIDEVCV7MIMwSfVlBJjuFR9Zb4SytSW7FEh+Bf3SHD0zd5MqZFsrSsTpQO7hot1QWDxI ZeHyJ4CrweJ3FRLsHZFkHu8XIXTzQUEvhZAwKsLxZFOQZaXnI0XxeO75VBZHLd3+DQplbmRvYmoNCjMz UIRdn9KdZDh2YU3YKSHcIFj1gEIyTBQyY6Ghz9FbYe 45JHNfTmxbD3V9q5PciDSgZKetUiS6EDKtvYexOBBdGIJpYZ9fXC6uZUDmYPJjZaWdFBPKSL1FZDMxXU RiyXNbITBgRDTTHX0PRDzfLSK7ZGAuboNvsOAaOVmrLY1KUYVghoFcNgVcPTBKCGa+Mt6ILL0za3SjDH beJMZhIJ7rgc1UCFkWBnGtS1E0hJRoF8A6KWrpIs3X NTQhIRPoFgJnANGOOQcrPD0OIA1khtY2TK6FhSRuGZDeFUSfcPYrTFh4E33cxGOcWDchZW8PPQO+Darwin+ Nj8YJOLkFYXpOHKnMsQnQICOLbSgG1AhY4CYf9PaA0HvNZ65oBpyhxLvLEszQF2BKN5cUWLuWYCHNJ4Z yDPqnW7gmaKtUsMcKGYTSjWcX52vxLZvGUIdHIFfGB LvMg0MRJEyY7VyidIhnOfqyvItTPGoPEYJYK5IVWajwlGzaHCjzHsaUT50gRbfJD2YPu6IVyTbGY5xjn 6QnOYdGs6HUMBrER8UQGSeZUUdSXEnFUY6SBKrFgVkUFnbSJXyODShMBD5JPCsLSKhXX0ZIiDkKLExTi L3HWFaKXFyNQXfhy1IZDCpDMBvTfH6WbYzWHJbSREr OExkSFBkFKWbUXS8EQJqZVZfGQ6PFnMfFHPdTCP6YOHoUIPhDGJfwk5AAOJtQVKsUiv7EnZnNKUzNTVu KKnbKIAvOGP3NQQ0MGGnJOFcWW7YHeUqBKUvBRGaXInpUTWnDUEyfn8QJMDjVIXoTFBsHgFhIRCiXHZa UYtxLLLhYSO6YqE7QNNvOXSnBA4CGhVlTUZzCIE0TX cvIHPdKLSlpo9VBYCkWIUbScb1SLLtNEZgNXGbZBkjFOUtAVC7OPS9TFErPATyIF9ASpQsDLMsEKLgOD HcUXSzPWLqbg1WFAXmYNPkEvs0FMEmQZSxIPNlMVtwBZZsQNW9YCRrQWIeJOLeUP3VKuFrFUEpUZvfMi EjYQDpILEyfq3KLCZkWTOnXHNlKlXtXHAkUIKqMBuh BZCsXHV9GZDpQCUqOKZxTM0BIxSzGUZmHlM9WJmzDKDoFIPcdz8UHRYyPQXrATY3RRWhTHMcAGJzHZdn SEChXEEjRCA9EYUzWYMpXM7FTfBzEQJiGnLwNuixFXKcLVGjxw8SMJGbPCItAuApNONgMYIdOBWpXLwj UYJxHIZiIIImFYPnPPXeZI2LDlAmLBIeYaXaUjTiFQ LrZWYosb6LFIAyOVYmEmFkLGYyOTVfGRLgIUenFJMrBUY0DFTyUKHsCPKmOL8MPpKtZSNnXyHdSAEhCY AwMXGndl0IGDIwGYSiZSJoEMLzYAObUBBpSOrvSOHpBBQ9MRH6RHYyHBIbTM8SCuKwJQVmCxG1DRjuVY JeZCRchk2ERQRbVJGrLlO2PUVuENDlFYMeZHejJPZg WQE6OyLoIRLeNEKiWR7SLwWvLFilTVVTNba4RUzzC1z0YRErIA2FY8Pms0ZyPfMyHVARNHzpWP3wkwYq VPOaFi0WB9uMIve0XeJ2NbBeTxPcJwYnWQF2Z8U1EuL0I5DgLYCtK4LhAc2rDHgbJokvVROkPnHoQ8Ur THBzKfi6UfnfBpZ5ZjToDYAjAhHwED8QQx1WFmC8FBD0vJSqGx4IGkH5YoGCMxCiDS2AHHx= Procedure Social History Code Duration Value Status Description Data Source(s ) Alcohol intake 03/22/2021 12:00:00 AM EDT Current non-d jaguar of alcohol (finding) completed Current non-drinker of alcohol (finding) [facility] Tobacco use and exposure 03/22/2021 12:00:00 AM EDT Never used co mpleted Never used [facility] Cigarette pack-years 03/22/2021 12:00:00 AM EDT UNK completed [facility] Cigarettes smoked current (pack per day) - Reported 03/22/20 12:00:00 AM EDT UNK [facility] Smoking 03/22/2021 12:00:00 AM EDT Current every day smoker co mpleted Current every day smoker [facility] Vital Signs ID Date Data Source [id number] 04/28/2021 07:15:28 AM EDT [facility] Name Value Range Interpretation Code Description Data Source(s) WEIGHT RECORDED 150 lb 150 lb [facility] Body height Measured 67 in 67 in [facility]
[2021-05-12 22:32] LABS: BASO # 0.1 10^3/uL (0.0-0.2); BASO % 0.4 % (0.0-1.0); EOS # 0.1 10^3/uL (0.0-0.5); EOS % 0.9 % (0.0-3.0); HEMATOCRIT 40.7 % (42.0-52.0); HEMOGLOBIN 13.4 g/dl (13.5-17.5); LYMPH # 2.2 10^3/uL (1.5-5.0); MEAN CORPUSCULAR HEMOGLOBIN 30.6 pg (27.0-33.0); MEAN CORPUSCULAR HGB CONC 32.9 g/dl (32.0-36.5); MEAN CORPUSCULAR VOLUME 92.9 fl (80.0-96.0); MONO # 0.8 10^3/uL (0.0-0.8); MONO % 6.5 % (2.0-8.0); NEUTROPHILS # 9.6 10^3/uL (1.5-8.5); NEUTROPHILS % 74.7 % (36.0-66.0); PLATELET COUNT, AUTOMATED 254 10^3/uL (150-450); RED BLOOD COUNT 4.38 10^6/uL (4.30-6.10); WHITE BLOOD COUNT 12.9 10^3/uL (4.0-10.0)
--- NOTE | 2021-05-12 23:29 | REPVR ---
PROCEDURE INFORMATION: Exam: CT Abdomen And Pelvis Without Contrast Exam date and time: 05/12/2021 10:24 PM Age: 71 years old Clinical indication: Abdominal pain; Flank; Right; Additional info: Right flank pain; R/O ureteral colic. History of cholecystectomy. TECHNIQUE: Imaging protocol: Computed tomography of the abdomen and pelvis without contrast. Radiation optimization: All CT scans at this facility use at least one of these dose optimization techniques: automated exposure control; mA and/or kV adjustment per patient size (includes targeted exams where dose is matched to clinical indication); or iterative reconstruction. COMPARISON: CT ABD/PEL W/PO CONTRAST ONLY 04/29/2021 4:10 PM FINDINGS: Limitations: Examination is limited without IV contrast. Limited by motion artifact. Heart: Mild pericardial effusion. Coronary arteries: Severe coronary artery calcification. Mediastinal space: Diffuse thickening of the distal esophagus. Liver: No gross masses. Calcification in the region of the right portal vein. Gallbladder and bile ducts: Focal calcification in the gallbladder fossa measuring 2.6 x 2.2 cm. Pancreas: Normal. No ductal dilation. Spleen: Normal. No splenomegaly. Adrenal glands: Normal. No mass. Kidneys and ureters: Nonobstructive stone in the right kidney measuring up to 10 mm. Mild right hydronephrosis and hydroureter. No definite ureteral stone. No left hydronephrosis. Nonspecific mild perinephric stranding. Stomach and bowel: Stomach is distended. Severe stool in the colon. Colostomy in the left lower quadrant. No bowel wall thickening. No bowel dilatation. Appendix: Appendix is not seen. However, there is no evidence of appendicitis. Intraperitoneal space: Unremarkable. No free air. No significant fluid collection. Vasculature: Fusiform infrarenal abdominal aortic aneurysm measuring 3.7 x 3.8 cm. No change from prior. Severe calcified atherosclerotic disease. Lymph nodes: Unremarkable. No enlarged lymph nodes. Urinary bladder: Diffuse thickening of the bladder. Reproductive: Prostate is moderately enlarged. Calcification in the region of the prostatic urethra measuring 1.5 x 1.4 x 1.6 cm. Extraperitoneal space: Ill-defined soft tissue structure in the presacral region inseparable from the prostate and base of the bladder. measuring 2.9 x 4.0 x 5.7 cm. Bones/joints: Severe degenerative spine. No acute fracture. Bilateral L5 spondylolysis. Anterolisthesis of L5-S1 measuring 7 mm. Ankylosis of the pubic symphysis. 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 Soft tissues: Unremarkable. IMPRESSION: 1. Diffuse thickening of the bladder. Cystitis versus hypertrophic changes versus malignancy. New from prior. 2. Mild right hydronephrosis. No change from prior. Probably secondary to bladder wall thickening. 3. Bladder stones in the in the prostatic urethra. Unchanged from prior. 4. Diffuse thickening of the distal esophagus. Suspicious for esophagitis. 5. Focal calcification in the gallbladder fossa. No change from prior. Question gallstone or ingested material in the duodenum. 7. Status post left lower quadrant colostomy. 8. Ill-defined soft tissue structure in the presacral region inseparable from the prostate and base of the bladder. No change from prior. Suspect collapsed rectal pouch. Malignancy cannot be excluded. Electronically signed by: Jerome Tom On 05/12/2021 23:29:08 PM
[2021-05-12] MEDS ORDERED: FOSFOMYCIN TROMETHAMINE 3 GM POWDER PACKET (MONUROL) PO ONE (23:30)
[2021-05-12 23:45] VITALS: BP 121/77
--- OUTSIDE RECORDS SUMMARY | 2021-05-12 23:49 | CCD ---
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 Public Health law. If you continue you may have access to information: Regarding HIV / AIDS; Provided by facilities licensed or operated by the [facility] Office of Mental Health; or Provided by the [facility] Office for People With Developmental Disabilities. If such information is present, then the following [facility] mandated warning applies: This information has been [...] law may result in a fine or mcfp sentence or both. A general authorization for the release of medical or other information is NOT sufficient authorization for further disc losure. Allergies and Adverse Reactions Type Description Substance Reaction Status Data Source(s ) Propensity to adverse reactions IODINATED DIAGNOSTIC AGENTS IODINATED DIAGNOSTIC AGENTS [facility] Encounters Encounter Providers Location Date Indications Data Source(s ) Outpatient Attender: ALTAF Lomax nigel: TRAVIS JACOBS MDAttender: Sandoval Foley MDAdmitter: Sandoval Foley MDReferrer: Sandoval Foley MD [id number] 04/20/2021 05:56:17 AM EDT - 04/21/2021 12:25:00 PM EDT Hepatomegaly, not elsewhere classified [facility] Hepatomegaly, not elsewhere classified Patient discharged. Outpatient Attender: DEFAULT EDAttender: RUDDY BOWENS [id number] 04/18/2021 12:00:00 AM EDT [facility] Outpatient Attender: Alexa MEDEL-CReferrer: Ml Foley MD [id number] 04/18/2021 12:00:00 AM EDT [facility] Unknown [address] [facility] [address] 04/13/2021 12:00:00 AM EDT [facility] ([facility]) Outpatient Attender: Sandoval Foley MD [id number] 03/22/2021 12:00:00 AM EDT - 03/22/2021 11:02:52 AM EDT Hepatomegaly, not elsewhere classified [facility] Hepatomegaly, not elsewhere classified Outpatient 03/10/2021 12:00:00 AM T [facility] Unknown [address] [facility] [address] 01/31/2021 12:00:00 AM EDT W1 ([facility]) Outpatient Referrer: Korin Ariza 12/26/2020 12:00:[address] [facility] Outpatient Referrer: Korin Ariza 12/19/2020 12:00:00 AM [facility] Medications Medication Brand Name Start Date [...] to dillard Policy Dillard Plan Information MEDICARE [id number] Tia [id number] A MEDICARE A [id number] Self [id number] A MEDICARE [id number] SP [id number] A MEDICARE [id number] SP [id number] FOR LIFE U [id number] Self 0 [id number] Tia [id number] TODAYS OPTIONS [id number] SP [id number] AMER PROG TODAYS OPTIONS G [id number] Self [id number] HUMANA GOLD [id number] SP [id number] WELLCARE [id number] SP [id number] TODAYS OPTIONS [id number] SP [id number] HUMANA GOLD [id number] SP [id number] OTHER B [id number] Self [id number] ANSI-Commercial [id number] ANSI-Health Maintenance Organization ( O) [id number] MEDICARE PART A -O/P [id number] 18 [id number] FOR LIFE-O/P [id number] 18 [id number] WELLCARE -O/P [id number] 18 [id number] WELLCARE -O/P [id number] 18 [id number] ADMINSTRATION -O/P [id number] 18 [id number] ADMINSTRATION -O/P [id number] 18 [id number] TODAYS OPTION -O/P [id number] 18 [id number] FOR LIFE -I/P [id number] 18 [id number] TODAYS OPTION MCR -I/P [id number] 18 [id number] TODAYS OPTION -O [id number] 18 [id number] [facility] NO FAULT [id number] SP [id number] TODAYS OPTIONS [id number] SP [id number] ADMINSTRATION -O/P [id number] 18 [id number] ADMINSTRATION -O/P [id number] 18 [id number] TODAYS OPTIONS [id number] SP [id number] TODAYS OPTIONS/GUATEMALAN O [id number] S [id number] FOR LIFE O [id number] S [id number] MEDICARE PART A-O/P [id number] 18 [id number] MEDICARE C [id number] S [id number] A [place] MEDICARE PART B C [id number] S [id number] ACTIVE DUTY [id number] SP [id number] [facility] [id number] SP [id number] MEDICARE -O/P [id number] 18 [id number] [facility] S [id number] S [id number] [employer] [id number] 0 [id number] FOR LIFE WPS O [id number] S [id number] MEDICARE OUTPATIENT M [id number] S [id number] OPTUM VA CCN [id number] SP [id number] SP [id number] ADMINISTRATION [id number] SP [id number] MEDICARE [id number] SP [id number] FOR LIFE [id number] SP [id number] NGS MEDICARE CONNETI O [id number] S [id number] NOVITAS JL PART B C [id number] S [id number] MEDICARE C [id number] S [id number] HEALTH[facility] [place] CHOICE O [id number] O [id number] WPS MVH-VAPCCC TRIWEST [id number] SP [id number] WEST O [id number] S [id number] WPS MVA VAPC3 O [id number] S [id number] ANSI-Health Maintenance Organization (HM O) [id number] ANSI-Commercial [id number] Problems, Conditions, and Diagnoses Code Display Name Description Problem Type Effective Dates Data Source(s) R16.0 Hepatomegaly, not elsewhere classified H epatomegaly, not elsewhere classified Diagnosis 04/20/2021 05:56:17 AM EDT [facility] new pt new pt Diagnosis 03/22/2021 09:33:13 AM ED T [facility] Surgeries/Procedures No Information Results ID Date Data Source [id number] 04/24/2021 01:51:03 PM EDT [facility] CT ABDOMEN WITHOUT CONTRAST [id number] ESULTInterpreted by:Faby Leon, DOPROCEDURE INFORMATION: Exam: [...] THIS DOCUMENT HAS BEEN ELECTRONICALLY SIGNED BY FAYB LEON MDThis document has been electronically signed by Faby Leon DO on 04/24/2021 1:50 PM Name Value Range Interpretation Code Description Data Sheryl rce(s) Supporting Document(s) ID Date Data Source [id number] 04/23/2021 11:34:06 PM T [facility] VISCERAL ARTERIOGRAMFINAL RESULTInter preted by:Yadira Alcocer MDExamination: Visceral angiograms, Hepatic arteriograms and Chemoembolization of the liver, 04/20/2021. 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 Granite Cutter: Dr. Foley Fellow: Benitez Navarro M.D. Anesthesia: [...] .035 Bentson wire. Over the wire, a 5-Malawian Cobra 2 catheter was introduced into the [...] Bentson wire. Through this sheath a 5 Malawian VS 2 catheter was advanced and the celiac artery was selected. Through this catheter and over the wire a 2.8 Malawian Pro great microcatheter was advanced into the [...] rce(s) Supporting Document(s) ID Date Data Source [id number] 04/22/2021 08:53:04 AM EDT [facility] Name Value Range Interpretation Code Description Data Sheryl rce(s) Supporting Document(s) Discharge Summary [facility] DBMAGe5oDaYFZyQn06/XYAlpLRLiq2OoEDbeEEt6FZrpGIKuR3UaGDP1oZ1bLAJ9QEkAJeOgEsUuCPU1 m [file] CrNQ5xXQEVUi8+VXthvPLzzLftUHQJNbQ3OAOkLEtbWIHUHx3Y ID Date Data Source [id number] 04/22/2021 08:52:39 AM EDT [facility] Name Value Range Interpretation Code Description Data Sheryl rce(s) Supporting Document(s) History and Physical [facility] UPXUNk4sJzAAGrNh48/MRQjqTWPzs7LuCNlbVDn4YNpzKTBuQ1NnFRQ9iJ6rMNV0RXrCCcUxBmLnPLA7 lbm [file] AgICAgICAgICAgICAgICAgICAgICAgICAgICAgICAgICAgICAgICAgICAgICAgICAgICAgICAgICAgIC AgICAgICAgICAgICAgICAgICAgDQogICAgICAgICAg ICAgICAgICAgICAgICAgICAgICAgICAgICAgICAgICAgICAgICAgICAgICAgICAgICAgICAgICAgICAg ICAgICAgICAgICAgICAgICAgICAgICAgICAgICAgDQogICAgICAgICAgICAgICAgICAgICAgICAgICAg ICAgICAgICAgICAgICAgICAgICAgICAgICAgICAgIC AgICAgICAgICAgICAgICAgICAgICAgICAgICAgICAgICAgICAgICAgDQogICAgICAgICAgICAgICAgIC AgICAgICAgICAgICAgICAgICAgICAgICAgICAgICAgICAgICAgICAgICAgICAgICAgICAgICAgICAgIC AgICAgICAgICAgICAgICAgICAgICAgDQogICAgICAg ICAgICAgICAgICAgICAgICAgICAgICAgICAgICAgICAgICAgICAgICAgICAgICAgICAgICAgICAgICAg ICAgICAgICAgICAgICAgICAgICAgICAgICAgICAgICAgDQogICAgICAgICAgICAgICAgICAgICAgICAg ICAgICAgICAgICAgICAgICAgICAgICAgICAgICAgIC AgICAgICAgICAgICAgICAgICAgICAgICAgICAgICAgICAgICAgICAgICAgDQogICAgICAgICAgICAgIC AgICAgICAgICAgICAgICAgICAgICAgICAgICAgICAgICAgICAgICAgICAgICAgICAgICAgICAgICAgIC AgICAgICAgICAgICAgICAgICAgICAgICAgDQogICAg ICAgICAgICAgICAgICAgICAgICAgICAgICAgICAgICAgICAgICAgICAgICAgICAgICAgICAgICAgICAg ICAgICAgICAgICAgICAgICAgICAgICAgICAgICAgICAgICAgDQogICAgICAgICAgICAgICAgICAgICAg ICAgICAgICAgICAgICAgICAgICAgICAgICAgICAgIC AgICAgICAgICAgICAgICAgICAgICAgICAgICAgICAgICAgICAgICAgICAgICAgDQogICAgICAgICAgIC AgICAgICAgICAgICAgICAgICAgICAgICAgICAgICAgICAgICAgICAgICAgICAgICAgICAgICAgICAgIC AgICAgICAgICAgICAgICAgICAgICAgICAgICAgDQo8 Z3qpTZMnQVStNM4fEVm5Rg3+NFsTDqFdUSC2bzCenR9HFH4hu2UjKSucKFZyj4TeYTe9SI8NPWKwLFmd PI6PJFmbci1AKJRqRESjtUNCf3kzUxYgNQL4RPVdHitpQW6TDQRxZ5agowIaLYOhJMMDXYnqOORZSTja YGCKCHIhVECfQrLzNxTzJGPrRC9ONDNmD221hcQqWE 9AZd9QZoKaSY0bbq9CXgNkKHQfSzeWMcp5VLaoOI6XsIUncQQuGDKtZLRMHeXoZ5ebv7TqIlSoGESUEK zsQY9Pd3FjaJNzCWw+Xb4DEZ3uv0DzGNblQVGyXN4xsm6SSDuDYlThA7UoqSlbLCgiEZSdiBZDMNtxzX npFdYDEHjvsOE5vBtqYZPPDfDvpEZdWJ8cHR8kKJJk JZIuSiZ4POQNKQ5IEDYqLAEsaVKcOVDgMQZOJP9BMGlpBAO9KHOffjJnaMOnWMmgDI7SGMInyfVlBjVc MCBSDQo+Jx3HJP5sq7WyVXdsPwCmRT8ijx9NTYgSGdWsX0R6yMHpV9K2SUfbEh2DFLKyXUBiFndnDSIT JHnvJF6YBT2rknV9IW5BeFOuARGlWEMhmZRuCJw2P9 6kjFBhQUmsVK8LHBG+Darwin+Ce5YKIRgRGTlTCYnVpKaBMAHWtEzV8GuG4JWk2TjM6IbJR97sUnfcxWdXU zmPL2SRX4xVOWfGBMGDV9MgYJxgB8arxFiIDPmVLXHIsMiV54lcIXmGJCnVNS3FQBjQy3OPWHoI4Admc JxxZckdjUjQOWkIXIKPC0WURicwkTaiHRuhPfaWC14 dJruMN0LUh0NGtKdXA8rfl3JqFVaTr9TJNOmUi4AIEWpKUOfFZAzFDP1MXRyAyVaDUazDJUpPMPhWVE1 ICIxOYVeDW1NXdQmEECcANO3QGThFUKjTJNtrn1TPEAmJXU8HSB3NZBbVFAdZRZwNFbwFGRbENPtDON8 SWHkEOKsTY2KEpQnWWLqGCJ5QybiCWXdCUUbgr4DMR ThAPTgVOVoNwQgVEEbOANgPGfqEWBaALE5BMJcTIEkMYGrFG3FRoImVJLtDYzsKOCrHOFtBYDrqc9PFN HqVGFcAiYaVpJiAGZfOILdCFkxOWBsVAWeTzKaEQCcDSYiAS8LFyCaMNVuOEE2ISZcOKOrIECuix1YMU NjLSKrQwV6SaUzWKEuFHNoDFniSEChQYX4TXFdODLs WKBnJW3FOkHyWJBsTDcdKRuzBXBrYWEoyd1KFYShKAKpJEZ2VIOhSEXfRXEnUXkgNQSuJUX9IzA7YDEr ABLfJO4IHwUhSLLjQVs1RIljADLgZTUqml1WCAHpUKRcGZBqRpYrDFSaCAPeKYcwSSGhMARhNfJ4PSUs YANtLQ8XPnPqPIRsOwD9JJrkZIFwUYJwpq6CXTSdNM CcJOz6NcUgGSJhYMZyMWriHQPpHBXlIEP0XHEuZRVlYU5DBgVsDAAmLhBqTfpxLBLqGWXzfh2SRBXoFG Z0JYI1YzSoWHCrMFFpEFjySVMeRGZlFsSsVXPoWJKgZH1NOeHkKKTmVSY7AUBiRMQhQVAbpy9VMTRfTL S2BtN4VvZcSKXdFCWfMOveUHDpJVIyBVZkXQWoBRXs BB1MTeZeUGErHBD8LptnMEAnWHRwxx6DAKYoFCK0YGAhHkKwYQCoKLWxTHzjOIQjMYL3ZGa7XIQhGQNn UQ8LQnGaEEHtULY3ZYicGIIoAXCcvo1LnFWlnDtnyd8YBSgNKh4KqMzgMRRwAKclKc9ezAHcBnHsMGVT Vc9FehMlSRHuLAWRGClrJTSyPQYcW4Q2FtYgP1QmUY B3MUA7PGB9WKT0ETtbCbIrRGZaFlF6H6DnRoybZtNqVdS2TMBmSqB0NFWlIHqwUSGoMNEiVnL+IF0gDQ o+Rp4Ly1NmdhC8lyOxBOs7YBx0Pn5EVWMZB2CLUw== ID Date Data Source [id number] 04/21/2021 03:20:04 PM EDT [facility] Name Value Range Interpretation Code Description Data Sheryl rce(s) Supporting Document(s) Progress Note [facility] EDVSMt0oUnHSEzLt76/LVUhkCQRnu5TeRNsoKAk2GPbtUMVrP3JuBRW0fN5qUFW0ESoJZzHgXfQtTSD3 lbm FgWuxIGwXbVBWpVpbXWfPgVMvsOegeeCDtVT3NzLZ0WVWtE86dQHKkKENgG6GoTWH5UIH+Xm1VHEYnhC VkVM4LPohQ4XxcAzE1CW8PLc7BerRv9RGtvOas/PPld0rRVbx2bvGAyNR1pW1DDj1smlyi0jbsrRbbnv 2CnTzftfipz6lZOffMt+71irZqrDlwF9sWW459A/4t /zc3TZs59J0/SbdhAj0eUu0Vi5ETqyj1Ek3vrgya/RR3Qcq9x0gtaaI1KrFXPASNxwKM4NQ616X7l96l rr6efljZrdL3azC69pEkYyBjsrlug3rjO2T7LG48ZlT9ZdFM9no3fFoG8qYHddMq+CPo95Hb1VBYm1Aj gHYtlrf7wXMwX/Jyk6hsunR2IhJ4NcBMNkywr2/hLS xFyaB7TUhiRUSlgcQ00uadaUocCeFKQd4my1hW2V2iN+nDaHw99+sKmkYuyiKO8p7RfOQ7gRYcXYFJ80 KomDb16yyHU7cZMWqtic934jsHFYWU0dK8LPsrVlzHnSz2d2/36fFgCoKMihgLDLmaBLZEYMyJivf37h unqwIzcNI0fsL1WleeD+9paDIQnJ9fFHuVK3gCMK5p 9fbrJXAgbcUoWvwLhwvtI4+z5hRdDFj0aFmPE55Pu25dh6oePj06vHeARODpmMg32YgmarEvgjuF/Marychuy [file] PpF4JQP9uSDsHh1QYWA2UZhAJvDyPP9CGZs= ID Date Data Source [id number] 04/21/2021 09:57:12 AM EDT [facility] Name Value Range Interpretation Code Description Data Sheryl rce(s) Supporting Document(s) Progress Note [facility] GQXVMu7jEhHWUkSe94/QWQkyVVPpa9GpATplSJk9QNmfHKMnY5OzRIF1vU9vMXS2FLdHMqEbAuGcNNA3 lbm [file] 9GDQo= ID Date Data Source [id number] 04/21/2021 08:59:17 AM [facility] Name Value Range Interpretation Code Description Data Sheryl rce(s) Supporting Document(s) Glucose [Mass/volume] in Capillary blood by Glucometer 177 mg/dL 70- 140 H [facility] ID Date Data Source [id number] 04/21/2021 04:06:02 AM [facility] Name Value Range Interpretation Code Description Data Sheryl rce(s) Supporting Document(s) Leukocytes [#/volume] in Blood by Automated count 8.8 10*3/uL 4-10 [facility] Erythrocytes [#/volume] in Blood by Automated count 4.06 10*6/uL 4.6- 6.1 L [facility] Hemoglobin [Mass/volume] in Blood 12.5 g/dL 13.5-18 L [facility] Hematocrit [Volume Fraction] of Blood by Automated count 37.3 % 4 1-53 L [facility] Erythrocyte mean corpuscular volume [Entitic volume] by Auto mated count 91.7 fL 80-96 [facility] Erythrocyte mean corpuscular hemoglobin [Entitic mass] by Automated count 30.9 pg 27-33 [facility] Erythrocyte mean corpuscular hemoglobin concentration [Mass/volume] by Automated count 33.6 g/dL 32.0-36.0 [facility] width [Ratio] by Automated count 13.6 % 11.5-14.5 [facility] Platelets [#/volume] in Blood by Automated count 195 10*3/uL 150-400 [facility] Differential cell count method - Blood [facility] Neutrophils/100 leukocytes in Blood by Automated count 73 % [facility] Lymphocytes/100 leukocytes in Blood by Automated count 20 % [facility] Monocytes/100 leukocytes in Blood by Automated count 6 % [facility] Eosinophils/100 leukocytes in Blood by Automated count 1 % [facility] Basophils/100 leukocytes in Blood by Automated count 0 % [facility] Neutrophils [#/volume] in Blood by Automated count 6.42 10*3/uL 1.8-7 .0 [facility] Lymphocytes [#/volume] in Blood by Automated count 1.77 10*3/uL 1.2-4 .0 [facility] Monocytes [#/volume] in Blood by Automated count 0.53 10*3/uL 0-0.8 [facility] Eosinophils [#/volume] in Blood by Automated count 0.08 10*3/uL 0-0.5 [facility] Basophils [#/volume] in Blood by Automated count 0.03 10*3/uL 0-0.2 [facility] Nucleated erythrocytes/100 leukocytes [Ratio] in Blood by Automated count 0 /100{WBCs} 0-0 [facility] ID Date Data Source [id number] 04/20/2021 09:16:07 PM EDT [facility] Name Value Range Interpretation Code Description Data Sheryl rce(s) Supporting Document(s) Glucose [Mass/volume] in Capillary blood by Glucometer 144 mg/dL 70- 140 H [facility] ID Date Data Source [id number] 04/20/2021 08:50:00 PM EDT [facility] Name Value Range Interpretation Code Description Data Sheryl rce(s) Supporting Document(s) SARS-CoV-2 RNA 2019 nCoV Real-Time RT-PCR: NOT DETECTED [facility] This lab was ordered by [facility] and reported by [facility]. ID Date Data Source [id number] 04/21/2021 09:08:34 AM EDT [facility] Value Range Interpretation Code Description Data Sheryl rce(s) Supporting Document(s) Specimen source [Identifier] of Unspecified specimen [facility] SARS-CoV-2 RNA 2019 nCoV Real-Time RT-PCR: NOT DETECTED [facility] Assay Performed [facility] Patients first test for [facility] Patient employed in healthcare setting [facility] Patient has symptoms related to [facility] When did you start to experience these symptoms [Date and time] [Phen X] [facility] Patient was hospitalized because of this condition [facility] patient was admitted to ICU for [facility] Patient resides in a congregate care setting [facility] status [facility] ID Date Data Source [id number] 04/20/2021 05:46:52 PM EDT [facility] Name Value Range Interpretation Code Description Data Sheryl rce(s) Supporting Document(s) Glucose [Mass/volume] in Capillary blood by Glucometer 111 mg/dL 70- 140 [facility] ID Date Data Source [id number] 04/20/2021 08:59:34 AM EDT [facility] Name Value Range Interpretation Code Description Data Sheryl rce(s) Supporting Document(s) History and Physical [facility] DYHSYr3uYuXXSuZy21/LKMicADSwa5WuQEpvEQk2XNmlHOBwX4XuCLW8zZ3iHKX7LDmGHnVpAmIiIZR0 lbm [file] == ID Date Data Source [id number] 04/20/2021 08:36:47 AM EDT [facility] Name Value Range Interpretation Code Description Data Sheryl rce(s) Supporting Document(s) Progress Note [facility] ACKCOn5hVvOPCxZw41/HUTbtARZyg0QfDPlaYRp6YOagDQBkI9DwGSZ2bZ0nARG4CXsISgNqBhRgOIE8 lbm [file] LxecJBXjBQV5VLDsEOy4ITH+UT5tWCd+Wr2Vj1OzpsR5zyXdTGj3KZq2LRgwRCETTs2O ID Date Data Source [id number] 04/20/2021 07:45:53 AM [facility] Name Value Range Interpretation Code Description Data Sheryl rce(s) Supporting Document(s) Glucose [Mass/volume] in Capillary blood by Glucometer 114 mg/dL 70- 140 [facility] ID Date Data Source [id number] 04/20/2021 08:07:44 AM [facility] Name Value Range Interpretation Code Description Data Sheryl rce(s) Supporting Document(s) Leukocytes [#/volume] in Blood by Automated count 7.2 10*3/uL 4-10 [facility] Erythrocytes [#/volume] in Blood by Automated count 4.12 10*6/uL 4.6- 6.1 L [facility] Hemoglobin [Mass/volume] in Blood 12.7 g/dL 13.5-18 L [facility] Hematocrit [Volume Fraction] of Blood by Automated count 38.1 % 4 1-53 L [facility] Erythrocyte mean corpuscular volume [Entitic volume] by Auto mated count 92.4 fL 80-96 [facility] Erythrocyte mean corpuscular hemoglobin [Entitic mass] by Automated count 30.9 pg 27-33 [facility] Erythrocyte mean corpuscular hemoglobin concentration [Mass/volume] by Automated count 33.4 g/dL 32.0-36.0 [facility] distribution width [Ratio] by Automated count 13.6 % 11.5-14.5 [facility] Platelets [#/volume] in Blood by Automated count 224 10*3/uL 150-400 [facility] Differential cell count method - Blood [facility] Neutrophils/100 leukocytes in Blood by Automated count 61 % [facility] Lymphocytes/100 leukocytes in Blood by Automated count 29 % [facility] Monocytes/100 leukocytes in Blood by Automated count 7 % [facility] Eosinophils/100 leukocytes in Blood by Automated count 2 % [facility] Basophils/100 leukocytes in Blood by Automated count 1 % [facility] Neutrophils [#/volume] in Blood by Automated count 4.43 10*3/uL 1.8-7 .0 [facility] Lymphocytes [#/volume] in Blood by Automated count 2.08 10*3/uL 1.2-4 .0 [facility] Monocytes [#/volume] in Blood by Automated count 0.50 10*3/uL 0-0.8 [facility] Eosinophils [#/volume] in Blood by Automated count 0.17 10*3/uL 0-0.5 [facility] Basophils [#/volume] in Blood by Automated count 0.05 10*3/uL 0-0.2 [facility] Nucleated erythrocytes/100 leukocytes [Ratio] in Blood by Automated count 0 /100{WBCs} 0-0 [facility] ID Date Data Source [id number] 04/20/2021 08:12:01 AM [facility] Value Range Interpretation Code Description Data Sheryl rce(s) Supporting Document(s) Prothrombin time (PT) 13.0 s 11.6-14.0 [facility] INR in Platelet poor plasma by Coagulation assay 1.02 [facility] Routine intensity oral anticoagulation I NR is typically 2.0-3.0. Target INR must be clinically individualized. ID Date Data Source [id number] 04/20/2021 08:12:01 AM [facility] Value Range Interpretation Code Description Data Sheryl rce(s) Supporting Document(s) aPTT in Platelet poor plasma by Coagulation assay 28.9 s 24.0-33. 0 [facility] ID Date Data Source [id number] 04/20/2021 08:21:30 AM [facility] Value Range Interpretation Code Description Data Sheryl rce(s) Supporting Document(s) Albumin [Mass/volume] in Serum or Plasma by Bromocresol green (BCG) dye binding method 3.8 g/dL 3.5-5.2 [facility] Bilirubin.total [Mass/volume] in Serum or Plasma 0.2 mg/dL <1.2 [facility] Calcium [Mass/volume] in Serum or Plasma 8.9 mg/dL 8.8-10.2 [facility] Chloride [Moles/volume] in Serum or Plasma 103 mmol/L 98-107 [facility] Creatinine [Mass/volume] in Serum or Plasma 0.82 mg/dL 0.70-1.20 [facility] Glucose [Mass/volume] in Serum or Plasma 110 mg/dL 70-140 [facility] Alkaline phosphatase [Enzymatic activity/volume] in Serum or Plasma 113 U/L 40-129 [facility] Potassium [Moles/volume] in Serum or Plasma 4.2 mmol/L 3.4-5.1 [facility] Hemolyzed Protein [Mass/volume] in Serum or Plasma 6.3 g/dL 6.4-8.3 L [facility] Sodium [Moles/volume] in Serum or Plasma 134 mmol/L 136-145 L [facility] Aspartate aminotransferase [Enzymatic activity/volume] in Serum or Plasma 17 U/L <40 [facility] Urea nitrogen [Mass/volume] in Serum or Plasma 24 mg/dL 8-23 H [facility] Osmolality of Serum or Plasma by calculation 283 mosm/kg 275-300 [facility] Creatinine/Urea nitrogen [Mass Ratio] in Serum or Plasma 29 [facility] Bicarbonate [Moles/volume] in Serum 22 mmol/L 22-29 [facility] Alanine aminotransferase [Enzymatic activity/volume] in Seru m or Plasma 15 U/L <41 [facility] Anion gap 3 in Serum or Plasma 9 mmol/L 8-15 [facility] Glomerular filtration rate/1.73 sq M pre dicted among non-blacks [Volume Rate/Area] in Serum or Plasma by Creatinine-based formula (MDRD) 88 mL/min/1.73m2 >60 [facility] Glomerular filtration rate/1.73 sq M pre dicted among blacks [Volume Rate/Area] in Serum or Plasma by Creatinine-based formula (MDRD) >60 [facility] ID Date Data Source [id number] 04/18/2021 11:41:06 AM EDT [facility] Name Value Range Interpretation Code Description Data Sheryl rce(s) Supporting Document([facility]) [facility] JHLLTz2kGdFQKiPnv4VqQkUnBOEgHM0ejsh0B7K7gGSqN6JgmDGtz8yyC5IuQ1BtXPAcAWDAOV7HxWPj jb2 [file] 87o72s2OH4hv102/we8opf/abjv4Fg4grlk33H+H4j h356IE67l9n86A4g8A1h/lN8hQbAn2I0vQkUAqJn+e9Cnh26oo66cg32OMiKC78APuuAG85/yAfta4+8 WZZBXpvXfuyRd+bzI+/EN7xEt8jV8vG19BA5/uLh3qkjG48b7Nzu7zi8iBvt11KBsV7aGb/Hm0ZYp9Nq 3s+rB8/6oszp8Wq7vSdB9b8x0cqAOp/qf485qup5UA t1tK/Dnn3j/cb7g/fnvg/IG+PWM+j1l0h2HXPZuc7iS7N5PmHNWj2O0L2Gy9h94BzB+A3lkzduOdKk4G bTzm0onBZ3iJeMr9c/s19epkFiXBFC4/R2t3VZOsROBN25Eyc+tfe1EdKdnTonSlWdgs6+8d13jA9g/3 Vuu+om5Tj2zU6Sp89qy1zvJKvnDmJdtH659RJ/tdG+ G+27A/krb01Yk04rSlf7hB++R/89sOeD/bmi4eY4SrFlIMYj42D1D+Q9aN+M8d8c56X1MPhJJoxvl/Ho KE9Tl6Pxe645pz7pq7/nDPl9/szLd6Y13x0VpT/BmlmC84ou2/L67hh3N85z/X4spNaGfzE+1z8/p8bL 9p5D4+GUGBUHiBls4033b0F116uoaPd+YkFhpKuU5p 7XJgNl2KLlmto0c44gUg947rvxt4r6/ueUG72M+G9vQsb2lTa9a6ilu8WrVV7l/aA0cvyI32kdPJ1/lc FSSvkVJ2sGu55SZ57FpM19H8teKFV/aLN4zVGJe6u4AaI8Ei+JDry/364z7viXssm5KverbumW59k5dY dF+cLpjHtbI19amvifCI+Jbrw/+F25IfWSm2Be6lBz NeAp2hlJ0+72DKTs2KSLeGd40bJj1i0aT+/PyG8+3fwfzuiofuuidBAYF18n+3W0j3tsO/c++Op9v/H9 R96j+v0f41U0/5H32PP+fWulQOO5n3vtnED/iij1LVa9q0x2g4xOJ5v1+wlX/JNHu7/vFd+s80fmX07E 1hzsoreh4CylgG0r0OjsL76y13n6jhtTkAH6Zeq0Ik U8bnnc5eK59b4+9zl8Biy3ptDNwrYl39TPRm/Oavamt06Ra/uJF0fUzgJ4OCPQft+vWog984MV0uGRB5 3P9/59yFKQE1LpoqAONC7z2il/epScv0tAlcTzBM0Hf8UsgrEE/vt1LdUOBbfskAxP+Krqc+e/siDvgr mKy0nbow9Bg1nNYGDSdjTv2tzUb/gLZzF2JNSr4v4p olJMO0tSz//9xGb/qPVSt8rGaq5ihfV66Q8yC7bxNBgql+GfN+b35pIK24gS/99a2EwrXw5LltucbIeY agkxXKu0Fi8/5o5bVtsIAd4Avjiit/hKvr9A/vn97HrGaBJnUk55Ss8NfjPi3Hn0P4S/87zzBTnwz+fO B+Vc/5yswu833puw187QakvZ9afV0/xXE1/Yj06lgp 5zfcxyaDmgTvt9+BhINA440XHbTk46SiiwSuRrmBeqf3qafXc1oPz8P54BERytkM5MzNZ7sIrM+GrUs9 4qx9oMM1/ohLzTkX/gfXzbUSt+lh6Lcp8vsv+OVX+fD+dtxp8OL73UMz+06X7D890U0EyN071J+EqBrx TxKwW+0sRXlSfat/IAues2a/P2Jb1gpBUSh8Lr2fCJ +ya+knq+yga2sLYgfI8/pXrxpKri/J9baT35aRh9/qSvOlUaNhsCnuN5S3XWsCyp574uRfQy7OcEroRN ZGgUQ4Zm3D53+w32zNz2/HM724Uw4w5nnX+7eFLtjr+d0qay13Z934cdr/yI8Zvz28I+11+pbbw/yP98 /rZshgzVf4ew9oFb3mo98B/frhm/lhYx0oyVP0zRy+ obQ/6G/V4TZiYeHI4+THxVZQXKXXj/4MnKc3/x2HMM+ml35D2n2eW8U8u06pVJF80FF1SjUzp5hc1y5t f0c+HV5/Eb5597bv8q0PeizhJ/x/yWdX9696tb3EY7BS2T8zjL18htO9sH6Ndp8mtCI/W2q60Y5+tC+z 746n3/yPs+m6r8HJuTR9lUeup109lqJ37F66X7E+9h e5iqo24KH+hIr2j1yd5b4+8eeH/xlSJ+ycisJv03vDN6Po/94hDdN/6s+7gzEnVLAngvCJrLf6nwD/FV +fN22jrz+Kq+h3/eB/BWo8a2Hf/P28MZDPWlyE48d0ZFT/Qa2XO52EoEm7vjY01G/ZgV2A2r65M1BUgt A/984J8P/NU5yP+1c013buPirr4U7XnN/SeT3DiXXk rvFd/f+OOOi30t26S7IPbTmu6/ZrRrZhe2RMJ7PT+Ncg/en0mMEhAqK4/anHgPeRG/ewfu4csZc9q5pF ZWS6H8137FDzBHTnQfU2tB9y74V0fD5d+Ue/TJgN29L/mcb/8yueuhJnf+m3sxuNrd1mTFC8qtkLeC3s w7s1O6OwFXaMLpBl1wwf3TXVDNNxmC2iH1hm8T3QhM /Sy1qcLAo/20pS1NR6nAndnrU7rGgQZ79Mw/PoEdA56wtA1B0EyX/WkcZizEOnFkxM282bWdfb4FFa+l 1daEa8b0nl0VeM/st3NDH8yiuX7nRmL203/Tjq0ud5iDnSc2VveQmpoU2EG6oV894+zg/aph4Dv4Gcc5 +9XE2eMadG7g1thCV905hB8g5gvCVc0Mn6qF+zsemQ wuHVk6to/DJ11y1EU3S+eCKxk0pTD/fpwzSikWh0I1503FGpiZzc/DH5JyS1lLq+o9/XOKE6dzPjtc6G lEPU1cvXRq9RQB8qZ8U+501B3W2W2e1hU6P+s681fBq3jwaMbF+CoPjya+GehllpoxMbXp2Z+K8Ohor9 bQvgvtm/dc2yh3051fl5z1Tsuo2HmNq6+B3ACTf5we oltBipQeb502hK3y9HAA+Tro4T8zTwtGaWe/P+eACzM/x4C/zw9+xkhozw872WJQX+eJ+TxHgP+0Xx5v /mZcCryJH8d0297dq41tdl6ehuIetf1p9vz9XNmOd+C4L68xT//T4yJMSuz46rC9D04f6RCj+OcD/3ww /zz7IJ4n8VVT+wAfiUiVB8b697767xv4T0312zNAW/ L64M8zrWrb8itemQifP//s485/fVx/5YWvLJ+//dorfpXvA+5rcjSi7gqj+CoPeya+queD9+d+n/jqfc j8gyv8Jqoepfm4Vp/s8/vpy4n3E82m71DKV9/bvj5v//O18jb76fa+l0qnJeoMDeeesdWnfvw/fs7wVi j2XdSfLPSIvISjKm5HVaAiV7O5BF8F/IaC89Bfvsb2 XQ59pSFvnqK885MNDOxAvz37ugnk030e1/ldv3W+1shx0F1g5pcLIl/lCauQG529oytJIMuBrL0q3Y/l kndw1H1b4ui3lGfchJ7w58jTDfcw+PhxXsUDixJEk5shu9g84XgV2XSf4UK8oe2dznAhczRgajrGmv/K 0qxrQxSA8WwR63mc2TEXvm/q+kWc9NGpSmP9pM5Z/T fqg/4kYa3eqtOg9pu/lpWv7nnBgcNiBoLe/dfvfMEd/soN7+/6lXnu8d/b7ZGFKKe/3frOjaog56a6H+ p/UP+Hmf4xyqlRhFp93/dA+nyvyd4vC39bZRfJyyz3eQZDkAIx08oxsp+DR6A+C/fb9HVAeHlr9AA+Ku 7817H/uowTx5eil/SHC+PRuvNfx/qgL/RfrA/6uvNf T3yV+j7TondqeBYhLcUqkF85/jlWaM296UXycfOz2yeU/Gs5kAwIxsz/qnk4ip6S/7zv/Cf8az3hbQ/w veP9XQ/0XYz03T0wszaA+rrEV+repairer helper/jMipF57lytfVA+8Uk/Xy2nhm7GZTX9+Zwbn/TEV+1yfq70cGxu 8n/nUL7xaKje1/ew7Fv/hWd5gPsun+Qhj7R3tS1xwb x1Qw9chA/x5+yKtRk4OWI3Hm0h/K3VtdMiiy8YDgD5sywVgp8Xd05geOulWq2Rua9i6d/+y5Fq18Fpt7 9IfHW+g4PG8niLdvCma83z5NfLcK/TdGuUIsMAxjjgmcT893Onv0126tlV/ItJsKNfhxuiEt5l48vyFP 5LaVf0Hr34wdhYR1KD2bNQwBb8Ms9xi8lF6G8/FXLj sSF3/Y7885DxU+8F39/4ZCB+XCzcJsSSZMz2NsiwS+MluQilOYc9D7Tb/4XvIa/iiFtEdEoPi7VHU87k 7Lfxpf154f3EUz0L2rCnGNH+ldgM9ogF+FVOE7Qz+VHonR+V8ycMHP2rtEFumX/2q0rkhX5UKD0XeQ/C Ln4Ou/g57O5/Drt4I+aT60Jwsfhzve4aoo0ji41/Du goXeciM3c/6T9yBuMI/vawG5+WhYkdi547HfunNbyR3nR+1rY2YmT/CuxvD7/iraida/kfP5Su3o/rj8poe1 yirElmV2M/fel1vsLHtU4y37Nk5G+HnOJCGP4G1I+JlI2UcbccjEoRH8RcTWv6vM/IJ/U60H5uu52Ev3 85WoduvbqO7xvQwmlYaDk6OmZazoss10c87I8yCvir fxxMJs05LKcQggYt5HQyrvrfQdsR9z1f26KuD7Ia70A/kqva0ZxmZtQ/Scgz19o+88HYaF/dktliD0y+ +xlio/8u9A07t8lQYf/F/vbA+dJtmFN0pbeT4qe8BDmxqC/EbbITpLBF7ImR/irXB+wPrq8B8xmq/D0X TwbWB+PAPx+Va2spkYMuQSujN/IpGIid5S+GiTu2Hy HlBsQUXf1jmFjz6EM7j/EsSqmXhfX7l1c/17tXxq/eZ3/zrCAnAh5Gck5+mou32uy79v07WkVRTunOyz Z+x69EXk40PpAFVJA5DVf+P/hakxvuTcX41OB17P5I+Zwh/sHM5UVwzwC1KbBsC8hRo324e8N30rJ1/m 8lBaw6e/ieez4Vea50Zf7456h1CXMX/CrfX3+1cH5w YX/9xktdoxnGGXbtbsQOc6wpo1yXw06+sRC/nf2VShskWOfhfkAjdQy3+dlPWN/Etx/dU6J/GA5cZ8O/ 4X7xuj92NUgN/V7sU7ZX+JPHc5/WKyd1uSI6HwdwAt/EA8A0zPf5YnUL0TVf86x+4K+T5Yyu9170Kz7z eT/3ebw/t/3c5/WwJK3YO+K5z+MqmPJhh8rC3x9Dxs faySEnz5BfjhurTw/3x66f+nvi5ijx8j7Vy/ih3zmGj9a+7Ruad3iS/M8v0s6ROHOriLPmt8IKk5TFXV 3IZ5v7fY6YKIeG+WQOq17xVrgH5+csTujOv0caj70Nb1az+YeehgOxD2YvbWQe3EnLqkY/r/o2e0TsHd LfPz2lcpNk5/RTzZJ1q4QNsNKZCdFnzqDUOyLxQXEm Cx18TZPb15bFdtf/v7Tu/N125++2B3+3/bsM628ueYuYNkbFPcg2DIUbbIerwrNFqOdgIHdQT3fIagwt /QbiQWYBNQ30GUjojmRBhlR3xGw933zc9kgltV8eQERZb3XUU7XLsp8ECAiscVZzDdVQxhr97aU5dyM0 ARIN+RKJteT8sY9AXDGrUKjw3zw7zr+cau7IXY3MjPu [file] Ens0fWut98hvlbotRoKclom+346u0e7icozfCvJxgdr+08876b5zpeouMmWtbzy+26712q5wbsedJqri puq+612o4p3mfdovsrjahhj+112c0x4ygxksxfifmub+9009325ebaaunxdyexj+7h597nQNNbH22mep tz/N1f+SanHJu+x+k5a+RAWtFTw05zm+tCn94AP93v OxVfXE5vb9ZKi/NyFH5YCtxTHdlG0IT6eHA4g4YFk/cxpddO8l3ffA6LWnG+Nx7Pp0Y3I/fd1R71/p5j dGfZKyGc8afG/pa2Mife7caFd8MJu4O+gfsOlE+OT0RqwC+Ub5Sjv+2q+6jm8aFkyfNVewICdUJe5jJy hGiDw5Wk+TZD/TUfUK2d+tvQ34b+HjZ1wy1P/e14vj 366/fq6G/3/fxmMydi7Wo9Xh7bsoucs494Eb3VUsQ/4/t82OjRoHsfUK9o9F2TrmoWa2/VTrsuHKMc/T U8X0N/Dc/V5NuIh5oliD1T4/B8Dc/OVf01SA8PHtJ+MT4TL5jdv/F9vDyiZ17XJtB3IWObAE6zjxR67C Trimming Assembler+YqfFdG5u+K8juEHodDo+ytRD+qzirabIC6qZ+UL 2Uvxv3qgiwAM0AYs8KntqzV2C83nkJVpeZ3d91ytboX4vF5HnMoeqE8H/U0w0JUF7Zlm5g/cKN91/rou RYPcZO6wb/IiwkTLaljt1ko7SYwskfG6FE3OpjGUibgB24H9DswxXNhdiCQa0MerfDl9zK83bBkJeugL f3er+vqj19aa3xijAmAd+7vx/q9ApfiUc6T439N4Tr RnXzh+yvWq5+f1mY8kPsbhRAMmFR1qjrvqCH3jF3HfhupRR6dpspaIK1sBjnsJ3F6OcxP6IgSC9B4Yld Q5HdNB1A8BmhW8VlSB8K1VtbE1MbKI1L+h36kG65qk8wfQya0Ev29FzXRoKToAP0dJ1O9nThHa6M6ijq TESFAYE+HH5NBqC+RG1Eof5x+nucj7xF7CSRT1lc/aGg828 KbMuHFudg+dd8kXC1KS/A9gv0EF+DD5IKkM+IA0z35DuzG55AR+e+E600DeuT9JAnm/ipYhpz4sh9Uu+ Hc+34/n2+i0tG7g85QvI++zB855TA+AS1ZQjyI78Chg4R/IR4qu9nx4I6/D+Pi8Vrwv+bl+rEBW7k06y TE8sUXaGj7/p/pM11Vl0kB/4hY7eqQgkjkXtuK29bj Q9C/rneE5PB5n3w1I4JHU+acHvyrbg6r8VGy5+wq4xovmLVwzDD7azxKeiPC5L0yt2rT4W67PyJSAwQ2 nlaIh7DivQ/e56Y8rCNrbh1HMlCjaTTh/vxBJHbwczY8g5xwkFXO7luLjtnUH85hxyzT7o7pkP20cfei r7Kq4N++blj3meX3qN+ut4BgqHkK0TmVLretCuNZ6+ ilKUjz3xIJopV06yB/ojR74YeIPkQW8R87H4pC2tK7U84hvQ5ox/1V9Nbv+0yxUN87m+2dZNwN0sohWK o74rpu27an34dsaa6uLbGmVqzsVOjEQlR1/xq7+a6Udu+8jwTojoF68SxBr8LU96b4iA1ms+0kwAfdtX mgFFb/tKMwnGbV+9FB/9gxB6kJbb3/b+veVs2u3Y/+ h7Qb4cq/qm4b50HicOCpn4l11VBq7jA1+XG+aficA18O7sk+2q9W+6an4ziv1vML0JY6FvU22m2Mi06Y 16i8voZ+UT5RPn+0shYo8t9mWZmq5w7NGi5QtnKd1aJ00APlixOZF3K+sdtHAjw4LN0R7om91i3Jvnf3 zW+9i78kGiORKsuJlyuRB1Kk/Cvoq+v40Qnzg97lX+ sK/OhvYx4F/QK0HzxU8IG6Kz1Tk5/m2qzYau35ihTB+nL7QXuP/UM1H/xPkL5y+c7/7fYl83xxWqy43f ewFrly8QpbMw5aQgJtZL21qr3X1fuSlzdmWLirN4UF/U2BR6FUqEZuDunxi/+xtzo++LaZEezrfFtPir 4btizrHbV+q/MXxPzKsP/k80rIMK3gsCnOFi/Y333e 1rPWfg37YiGOLc9q0xOtc7w5zmBn1FkJ+VB3J5t1fA6x43z79+/Wgic6KY2w9fLv79+OmD60ANLBX1Jy QLyu/+acqC1XAAD8v/8gb39l5vss/w+/rb20UZ6aJx3dY+Yoq74Inh3K7DL+cfIhps0rvXq/hrEBn06F kj+sh7EtttxX2KEi920yTJm1xr0ebOf1aE+YwGnu/A 4x77zjLev9z7w5r3tJJsia3gGYNro8fBxUV5Jj7rotDfcF+3r/Osupsz04dhs+JmAmxzeeMivgMKS2Wc xfw2MT+HfRVz+Dz/2Ph0ny5qhUdcsLS7kfphjV7ooXfYr2mx+Op3id6q63W0cIgfsMg1CBelO27/C9/f xg6t3Qbqb+v9ObdB2U9yb4dWP17ExVml/onyhfKFcv R3ob+7/i+0XevBtst+mbnEnq6v7Pv5eUvOs+7vy9PqXR4pe/8pbaO/e+L7bkJScoWk1M3Av1s+l3X8ne cUfBUZoEnqoT5vx/Swr/K47I0O+5nku38S+3bNFct4f8/T701NyaGRlpCnPm3wpycLQ2as+tuv6m/H/8 GO/4Md/wc7/g92/B/lNF4ZMRJoVl5Dq9lTfMZktM5k zaQK1HclEFbRY5ftLFlWg6Dx/vo/2PF/sOP/NOm5r5Ns/2Ac1/emgg1uzt+PYu7BmjC6u+gv+KsO/qpr 5c3blx8WcoY+putkzaObUXiLp5Wm/tMbEemsaliAXIto65lfxRD6auPhutcTB1/xf7Dj/2DH/7YdEB7w YDfWk9nys/NN/hyx1Zmu1Of390e/9+HuzuwEQ01c/2 Ud/wd7x/RycC9vu8xAw9cy6YR+QP14f/tE+UQ9xW/04K/yeKMc/cIzT7kSj9PWb8yQErd+xRhhs85ncK F/sOP/YMf/wY7/l76BG9E/Kw726Ok+D+Yxni/+D3bD+pg2JXcO+b44hgA8ymc14FtkNjlzDpdnC+jvKD 624/9gx//Bjv+DHf8H+xgoHyifqB/Pdyy0B+/vqO9v H/U/tE/UYoUs1wW9Oo7xz/r+7pa0dhSWGR/9SlD0leH7mO/f347/gx3/B/oCcTPuQ04qY/eP00ntbcMq GTw2Vi42ubw+Gyusd9Aa1pyU15JHJ1uwBQ1O6nWL31GC85qRxkNv/B/s+D/Y8X+xU5tmuau7AD3kmJ4x 8/Mu/rlvzFdbUF7/B3qIH9uJE/8c5c4/7ygP/nnGsd Wxodxw/kA9A/N8y97przibf1SFhUb06ad4di17TNmKzXyTh7+vdG50zuaYY3Q7fJcHY7qw/5FdA/UPnD 9x/pJ8HlwUUNc92XM9JT0VdAddu2ulFQk1OJo3k6GO7oWkSA6H6aAs9fBXuLFwVTqyuN1Py8Q+Pnw059 K+nclPg3Odg4rYNdY1sh/URB8C79swJxR8doQ50ja9 cyHssPe72sX0UpnxwSNcsy5tJ/NNGvnvw/doJEfqWzSSR/UdGi/ohNne93GVo/OxWc/Xt0NXD5+doZH8 efrk7Iwy52Sg+7sFi6dkj4fsf+55bHUsDz/suzKSo/SBLq2dxV5gEvx9CVi3+QlFtQkr2cCi40pTOyb+ wGSL6d9aqc1OBtm+ijRVvhcjeXXfipH/w4ivUn5x5d x3qRu0knZ1YiIq6teYts6sIV3lUEuLn9YtRp1tGR+dY6F6uVaYi8W1jWfTKmNqpbCKRS+9+GcL+yqPF8 5fqGej/eZsAyla44Jd7VibLS9He2Bpr/LLkE27U92dyaqU1/DnVkSaVodHivJ0r8R+2nF+9v2I3vNRPI H/QvnC+fH+Mnw9x76+io/1vRXJ5/nZqwaEkbC72bNg 4P0N+yqPe7V/tD3pK8M8+nu10XwLfAvx7/eWoYlITvebPjUm7aAkL74kJwdnH/7K+VsL/kpcyWe9yk3l c+beMF9l68Ba99nl7zoGj4r7V3xbdga1yz+JGnVcp9ju7e8Htj76DrUh0YzstfWiys79x/Ru704kwo7y Dbad7hLXsTHnlMjw0UqKJKhsKtetLAEG8z1biT/cvg zh2owMJPhHq9J21/ZVcJ6+HXW8RJ7t2Fe2M1ptTjszB635+ps5Me9r8OfyrC072+4q3osvkjXLnhPwMl 6uwzzbgnDHoLf4kX6yx1aE2n3Bby784+3d8dnl1o+Y892+Wpjb4yS8+3nJ2TF0Q3Rx85fG2NOqvYN94X MRv2p3nOAgYZp8n1L8mSWwwls8Sd7fxokRSE6S86zp EL3Ucwxm9yZP+EVH5w1nQF/kXJ8hhOXJvFPeu1Ej/2O6olQa+PmOcpU5Si5qe4iZR/g/OPB/vBwdl1cG +vxAJ3ocfXCokECBYe9ENU+g/pd3LkEerybz1bi9L190ti4SOjypzkY+XRc39FYu/61tm2rxm62oT6bE V3mM/mrH+PUiNdz4ymJmV+RE9ShrC+Om4ujju/XgaB lUGpU4TazC/U1MZ60KHT4K2gME17qI95s750yfW3/gr+FEYN98xkn8em47cpLM+gv7asC/fcC/ffTy3x i99i+KPmfo8vN6A9Fbm/Pt9X9/0A7d4Rou+LJB8Zl8fhzCQDkaB1AUxH6mc42Vl6N/BhhFJNAQtn2Gmt 9j9pqp23NGZzoltE86C9UifIagRqD2hbNcK/eduO/E yChxy6KvmkZDlwvq/CrFjNVzKB30Pe1pXDUktxZHJ2M97HWPL9j8ggnZSfT+4B6m59by/9vpap75orU6 xvnFtw/yLtG61LE/NcBfjYn+zuKfxyz/wTJiuvqwVLPcZ7DUa0E6tMb6iMXKmwgcpq1E8JheD/o7y39y rOJjB/zbB/zbxyp+Dst9w6Y4s+D/4AB/NcBfjYXxvD YwzN3S9EaX/NVYE/tzryLuamHsdUJ7wOT+okl2nabfK9ulZLIsAXK/6Own36C/N+mozrm2v1Nk+4v/g2 NjPG/0d6O/q5Nl9p129wQ/8P7i/+DE/8GJ/4MT/vjsLWwLyCwBN7usjviO2/yLm01kuPsm4Z36DyD+Tv obzGLi4oGFn726qTpAa8apdrpC+LdP+LdP+LdP+LdP +LdPKf/xJjxAIqSYJ6i57aye1PcwLl6C+r2/WefA+YG9N1CsgS+Ub9SD/ackyMFvtk1cf0nRhH2xg6/w b5/wb5/aUH/9D5hfS8Zbkr70pnmmSZ+g/voeTdhXE/qDzE44GX7Med/tsEPzLQhhrD67aWp3H69U887W +8e21qhq7BgSFy8a+Xm2+t99t5F35IgGhsx4JJKgrL ythfwJ66bH/7TIm8lG5mC4y3aHZaS/asRx+F/IRQY7Nufv/uEu4FwjVyerv3x/e7Fxkmfpym82rlkzja GXs11rawDB5/+9z5Mac0pl0JdS3k2qEZkb88q08918DaqgPkP5/9is3/2ihP42l/vqtdzPY+cb4/jmJ5 /la447wc831Nluj3Vz563FTxOd36FJu16lfiIFOZ33 Fc/OnJ/MOoufnOHfHs/Cip+c4d/uXMQM+yrGvxXfPmFfTav/R9MwP4/yE8zVW3jwyq3+q77AW6X2tdhq mYP5H4h+UGOJalOjgl3tJ+NjDJpcB4yRE6c4xM8P2+/A+zz1ne5Puxh/0Tlr/Bky1FNhqo/fTVswa3xP yAK9iHaHe9X4/JHmLH/gOdHfsK+wxd8zHj+XM8Al8x 1oqMwxmFs0MW0FH2n6M9+wr+SmVKTjJzvtu8UawjyBkm+Z8Eg0OBN87R/V/lX+wHOVf+qg2G94K/GTcx U/Od2+dy3ElhK+q3jVr987++soU2nT0vIxq+V05khwWZ200AsIN7U2+fNPt6+Nd2kxVvCpBLsdt1LxjC 1cR3Y0j+C33uUPar984LfDT64w/OR9vNy+Yj9jBxCW ruCvzjHKFeWKetpT/0r+Gm7XXwuG7rTbN/vaCuK3o13HUi4pWVc86H8DYjH9fxYq0+Uz1tW21rnRm1wy gq/H8kzQ2u3xZi6yNzWxueEEfbuWRjq/6Wgf4F46q18roAd/iiin4wkhWhptMMy/8t9YHex4zvmy+yp1 7FVB1xhnmXR/0Fbu1u2k2W/Y0mctpfQuk1A0qZZir2 mN5+L1HhlAs+2reI+J49ciNz41l71cZNb90qpC//GZ0bOeC8GyP41ZUj6Gt9K8dMnrsbezA18dZ5bo2I r4Hcpa4yqqXsswtgtNL2dKw4ylU9Q5snZX89xdKWS/Fn4HI4jQ61zU/2ph/+Qfoq5l6zHkVu//2BX8VY /y4usW+GfNBaHW4D6erX5jhvA+Q1bzYF3qkzfu/B9c +D+4kr+Silvestre+h1i9UgyK85txOoBx72PF9so/K72XiAcp8W//eXFZ+ytWzhHqxvSek57Z/+QdjPf3xOACi7 [file] 5i393F0BSy6Aw/XV17/+7uPbn//zp5//5t988r376u d9/e07x2k14sfe/uE/OUmy2f/08y+//vjim1/+6vNvv/cQqo125iwg3sLu0/z9q4M/+dmXX/zEnVylfW a0r84fkYvonsj0rUdJJ6p29l+/ny91f17omz312//w5cc/el7bx47/8+uvf/afXHmbAveVX/zpj//2uz //4Yd//fjv//vjN7/7/e+///Off/j+93/z8bPv//i7 H37/8S//Prototype Sewer//PXHn/74egg/Ie0zDfOOb5v60mlHVj/wDjqIlaWu4df65P6//VlomH7rPL9A/IffAG/3 bQ4hmo71/galy3cQ0F31/m8O8vrulua38tzhs9YHarN1+ha3XqAK4dmiMQj/rh/vg5EF1Rk5+8O//fDS 8N8odp9+/fgxe8544f+/+vabj//2zd99/s+ff/fzr9 767R0bOW2/8X6yneqUsnc1l1wSny/5TPZanZCDqMhx2IDb4Zc//PE//vbjz9//xw9vtb++eB8R/+Y+6Q 45FK1hjPx+49oP+FrjP798u//44c//4t3uT0Kxgv9ZZ97/0WlL8e0rg/z2u49//Z+vtv/uT3/8cfUePe 6V5WtRV/xVf265s81+e2b7JaOlFm1001do0IolhR3n M4b+tDXS6uckwlpN2Qa/btXBfvWTb3/y6eP7/++Hf//L1+d5bio+/70rbu2h8Wmm//tablet tester//JFBrx7MHmm fv/7t+w458Paps+fv/3+33/3/R//8vpHDd/+6U9/+WpH2MeuM/52139REyd9ogee/zf+6Yff/j9//N1v Fzx99UH79FA9c7Z746pw+u//8Roy//hXu5498kme/O ovb+lfcG/yN7/85Zdff/qOjfIMEP/3U+20gB0CsJS/9f3/+UJHXg79xj5J9vT+tN747+76Eb3ZW6/e36 k75tMHJe6Hb3fMe8AfaLivF720RDg3+z6lf3z+kOef6eV6zkdn2pzU8lmV/B0YwEifIjShLND0ptRadA bapnVpMoyQCWhpVCQgSdn2WX6LcVLnLTDaV6H0DDDt ds2sMUZvIQNprCIlPmNtKJNWOO5NaFWvNQ3LYZk5DEBjBPEcXeQhLNCpydG5APPgQGYdBCWrC3UpvnEn dCAyIDAgUj4+MD7pp7YiMvEiSDSdCyi6BX6IpWVjNR2PnZEeuB3yxiJxG225nkKaFIBaNhwrn1UtFPsg KEQJHI9LSPV1JKC2WKHrJl5+VF5eb7QgVbLjTGWbMo d5YA1JkCExx6QxNK2RG2CxEOWpUTIGYDK6k8HtAKPvqxdwkmjsK5HnWWU4zU8eYSV4QKRrVTgqHJStZI XfPvLwRRLcXIikBTTzJTLiDZOaKSPnYEy0aGNvGE9MH1YmELGdUGFYBVUobwCyLe3bCWsJOfSELZHOGb 4RFBZkWDG6VXF1FYfmA7O8FdhzR2UkSJ4VL7YlGNKe IJWBOWHjtdQgIH7DnuGjfT8oVKlHQFYAUBeKMYfuVcV7c83xhjAIBSMgZEEtGXmvKWGmSKKiQGUqATNz DHLtXBZjUVRdHP4UF2HoLZEjPDXSUVY9n7EdYVTshylscowyTs8jplTgLaf+BxzdDXWbd3KkVVjwK6T9 qIIxI5GtM2NfSV6FhTUtTCsqEDVwHEQpXIRzE533nf QgMT4+KV3fx1QiKncjRTFXOAXaKEAcIFUwCCR3VmOxBGUcRMHoKGUoWdW7GbHcIfZGIUQeUVS8QOh0XT FpULPaDCAuFZwhVCSbDBR7PZI1FXCtZOXpCN6uLqJiHGUuEtz5KxFtNDEpWGKmicEEUDUkVALfHBRcDD B0UBDoBQDzIIlrUUGfALVbNCY3IHNaYQErAA7eVbWv FVWtOTTsBwusWPCtCSUtatOYPGFnKUAhNQG6WkJuWFVhAMHwPNvjLQCgTMCpIvm2AMXbBUPkND2gKwIs JHFbFCJ0GAbiEAKcUNFgweONOTBkKMTfPKXmQxTkWAMzVKLfHVpvHUWgIYZjRzCpKJJcDHNmTR2qTqBs JVXsMJN1KMWjTTQmJQAdgpMYPICwAFHuUOt3PCRpXO DzWQYnCSkvKDOuADHwXVC3IHAzKMLaMO3kKmZrXOZdGECrEWEpGFHnSJDzgnPGNESdBCCnCYS6DFPvNB OiQJQxJKuvBBWfGXHtRjd6AHHjAKLmFM6fYwYbUNSjBLW0QSRrKVXsHLShcoVAGJAbGWA5KZX6UWJcLQ XaNJIfOBwpPTPeUWJjPuH0MVRsOSWxMN0pFjYaXTUm EWB2WtYyRRIxZSYxdjESZDRdMZLsWHK5CfElDGHtTTPeLLwpATLuTKMeQNJuACY4DRK6OTLsUtYuGKfa HAVUBMtLA3EqtoZpWdHNV8oxVk9oMqAbLHXXT9Huh4ZlPFYjKJAICk6+WoO5XZX5jKRlCjk5OJl2BAmh JUVPRg== ID Date Data Source [id number] 04/18/2021 01:34:16 PM EDT [facility] Name Value Range Interpretation Code Description Data Sheryl rce(s) Supporting Document(s) Leukocytes [#/volume] in Blood by Automated count 7.0 10*3/uL 4-10 [facility] Erythrocytes [#/volume] in Blood by Automated count 4.23 10*6/uL 4.6- 6.1 L [facility] Hemoglobin [Mass/volume] in Blood 13.3 g/dL 13.5-18 L [facility] Hematocrit [Volume Fraction] of Blood by Automated count 39.3 % 4 1-53 L [facility] Erythrocyte mean corpuscular volume [Entitic volume] by Auto mated count 93.0 fL 80-96 [facility] Erythrocyte mean corpuscular hemoglobin [Entitic mass] by Automated count 31.4 pg 27-33 [facility] Erythrocyte mean corpuscular hemoglobin concentration [Mass/volume] by Automated count 33.8 g/dL 32[facility]0-[facility] distribution width [Ratio] by Automated count 13.9 % 11.5-14.5 [facility] Platelets [#/volume] in Blood by Automated count 247 10*3/uL 150-400 [facility] ID Date Data Source [id number] 04/18/2021 02:00:28 PM [facility] Name Value Range Interpretation Code Description Data Sheryl rce(s) Supporting Document(s) Albumin [Mass/volume] in Serum or Plasma by Bromocresol green (BCG) dye binding method 4.1 g/dL 3.5-5.2 [facility] Bilirubin.total [Mass/volume] in Serum or Plasma 0.5 mg/dL <1.2 [facility] Calcium [Mass/volume] in Serum or Plasma 9.3 mg/dL 8.8-10.2 [facility] Chloride [Moles/volume] in Serum or Plasma 109 mmol/L 98-107 [facility] Creatinine [Mass/volume] in Serum or Plasma 1.00 mg/dL 0.70-1.20 [facility] Glucose [Mass/volume] in Serum or Plasma 142 mg/dL 70-140 [facility] Alkaline phosphatase [Enzymatic activity/volume] in Serum or Plasma 139 U/L 40-129 [facility] Potassium [Moles/volume] in Serum or Plasma 4.7 mmol/L 3.4-5.1 [facility] Protein [Mass/volume] in Serum or Plasma 7.3 g/dL 6.4-8.3 [facility] Sodium [Moles/volume] in Serum or Plasma 143 mmol/L 136-145 [facility] Aspartate aminotransferase [Enzymatic activity/volume] in Serum or Plasma 18 U/L <40 [facility] Urea nitrogen [Mass/volume] in Serum or Plasma 20 mg/dL 8-23 [facility] Osmolality of Serum or Plasma by calculation 301 mosm/kg 275-300 [facility] Creatinine/Urea nitrogen [Mass Ratio] in Serum or Plasma 20 [facility] Bicarbonate [Moles/volume] in Serum 25 mmol/L 22-29 [facility] Alanine aminotransferase [Enzymatic activity/volume] in Seru m or Plasma 18 U/L <41 [facility] Anion gap 3 in Serum or Plasma 9 mmol/L 8-15 [facility] Glomerular filtration rate/1.73 sq M pre dicted among non-blacks [Volume Rate/Area] in Serum or Plasma by Creatinine-based formula (MDRD) 75 mL/min/1.73m2 >60 [facility] Glomerular filtration rate/1.73 sq M pre dicted among blacks [Volume Rate/Area] in Serum or Plasma by Creatinine-based formula (MDRD) 87 mL/min/1.73m2 >60 [facility] ID Date Data Source [id number] 04/18/2021 08:59:17 AM EDT [facility] Name Value Range Interpretation Code Description Data Sheryl rce(s) Supporting Document(s) Progress Note [facility] LTHRZe8eAbFGWuYz23/KECinTZGxu9MyNDpgHAp5TUhyUZOiP3QgNIW8xC2oIPL3VMiOObCdQpJhGTQg lbm [file] AgICAgICAgICAgICAgICAgICAgICAgICAgICAgICAg ICAgICAgICAgICAgICAgICAgICAgICAgICAgICAgICAgICAgICAgICAgICAgICAgICAgICAgICAgICAg ICAgICAgDQogICAgICAgICAgICAgICAgICAgICAgICAgICAgICAgICAgICAgICAgICAgICAgICAgICAg ICAgICAgICAgICAgICAgICAgICAgICAgICAgICAgIC AgICAgICAgICAgICAgICAgDQogICAgICAgICAgICAgICAgICAgICAgICAgICAgICAgICAgICAgICAgIC AgICAgICAgICAgICAgICAgICAgICAgICAgICAgICAgICAgICAgICAgICAgICAgICAgICAgICAgICAgDQ ogICAgICAgICAgICAgICAgICAgICAgICAgICAgICAg ICAgICAgICAgICAgICAgICAgICAgICAgICAgICAgICAgICAgICAgICAgICAgICAgICAgICAgICAgICAg ICAgICAgICAgDQogICAgICAgICAgICAgICAgICAgICAgICAgICAgICAgICAgICAgICAgICAgICAgICAg ICAgICAgICAgICAgICAgICAgICAgICAgICAgICAgIC AgICAgICAgICAgICAgICAgICAgDQogICAgICAgICAgICAgICAgICAgICAgICAgICAgICAgICAgICAgIC AgICAgICAgICAgICAgICAgICAgICAgICAgICAgICAgICAgICAgICAgICAgICAgICAgICAgICAgICAgIC AgDQogICAgICAgICAgICAgICAgICAgICAgICAgICAg ICAgICAgICAgICAgICAgICAgICAgICAgICAgICAgICAgICAgICAgICAgICAgICAgICAgICAgICAgICAg ICAgICAgICAgICAgDQogICAgICAgICAgICAgICAgICAgICAgICAgICAgICAgICAgICAgICAgICAgICAg ICAgICAgICAgICAgICAgICAgICAgICAgICAgICAgIC AgICAgICAgICAgICAgICAgICAgICAgDQogICAgICAgICAgICAgICAgICAgICAgICAgICAgICAgICAgIC AgICAgICAgICAgICAgICAgICAgICAgICAgICAgICAgICAgICAgICAgICAgICAgICAgICAgICAgICAgIC AgICAgDQogICAgICAgICAgICAgICAgICAgICAgICAg ICAgICAgICAgICAgICAgICAgICAgICAgICAgICAgICAgICAgICAgICAgICAgICAgICAgICAgICAgICAg VZGtRSCsRGRxQJXyMWAkLNh4T2vnGUWdKVYzHS1yVRn9Qx4+WIpPOxWzHQY7fyOdvM3GCS2lr9NmNSer TZFei3LmFTm2JX0EVRBmMXisFT8VKSabit2NTPVwOO VujMOCm1wbDlQvRRX5STBhVjnxRE0RYVXxS4vyxfDfGMKhUTNXME9JNcCwR6ZddQ76JERMYk5+DQplbm DfVjjFHqU6HZNrb2GeKUj1KV4CVEViKujic2VuDpJgWIJBSFhvTV5TDOQ4NRAwZTMvXo5FKWWvE084lg YtQN4YWv3KXmYqJY8ypf1XMdWkTFUsFcsJUny8PDpj JU9EnAXcZWtFzd4zzkBfbyHLk8UhbsNqsJQTNPJxbLKNRXIxRTXfBHkvIFXELtCuuHMxOZ7zGn4cJWRm ZFD8SlEyVATSHT0ZBUAmYKOvnVRkTBLlJSMUSE0HHCuoKLN9EKDbwnWkwSEzBFzmID3EBHZvxgImTMxi MCBSDQo+Bj1IHJ9tw6RsUFfaDFFaUI5run3OABmMFa QhS4S0pNVrK9H8RXyfFc7SLHRqHNDvJAtbCEYNMMvlSJ6IGR5drfI8DI3MqQIfMFQqNYKasACmFSv1J0 1hpOQiTCpaDC9RFNA+Darwin+Bu9TLEXbKPYuHGAfZkAzQJDKEeJoM9TqT7JAl1LaU5RfQG15vAepltWuLZ ppPM1ESL8aNQIvMEAKIS0QwSFwxU4gwtGoFDHsKWNG LbApZ13oxTWbYKGdJFR8FYBjUv5OPALsU6UeluSlzZfcmsDmYBGzXADJMS1BQWmivxEcwXPsrFgmXL02 gWatQM5WFr4AIzTlFS5ygo4EaIKlBg1ZBAChFf8TODRxTJClPRDtWKQ1JIAxMhZuENtlTFFrKBApCSG3 PNQzVETsTG7FRmJjYFXmUUtpUYapPKOsVFGlmy7XJT RmRVIfFOnmMRUjNXGpHWVlNKuvMWKwVMHxLFJ3EJCmRZUzOU8PTwTzIMLqMJPkZCFeJGEaSNFbab3FVI HrGRBwZuBqKiDrADMwKXEwGSejRNVyNYLnQMh3KAApDUHrMU2CAxTqFFUcJLWjHrDkWYZiHBLxjw3WYG QdUBYfYlH2JcZdNGMdOKJxGPdpHSGvQUT0HQYrLVYz JECkFB5QUrAkXXGrIVX2AMMaYOXwQALwjm1VRILaRZVjBJs7XTLwJROqDANbWWpvCMCrBIU2NqS9JOBx ENYmNS8CInVePTFzRXS5CfHtBHVyELCcrs5UIYPpJKSoNij7BIEpWFHfQBWqGEdrEOJtUKC9XQP1TLMo IXMuPZ1VFyDmZUUwUBlwOdKwKCWuAKWlcr7VHSPgYC BgQvR6FZDqPSIqVDBpAQjpEWJhWZR1PFRxAMIzOCZoPO9GBmXgUZOrILthXiReTXMsACFwhx0OKXRjMK CqRXCgDbLmJNWsLUZzZEc0noRqrMVqCBe6PH0OS3IlcmAdPfCJXe6Us562YDDiNQUmRj7AQ2fvDo5jDG PhTOSOKo8IQAz5KVVeSBPcZXMgBkytXBedLGFoFRL0 CCBaJRB0ECB0NEI+BMh5FfAxKoH2A7N2X0EjZpC3FDD2HMu5UeLtHVg0LQh9Bj6jCACZFv0+DQpzdGFy yAytBOEKHrJ4VXwkTSnkICOHVd0Y ID Date Data Source [id number] 04/18/2021 08:59:00 AM EDT [facility] Name Value Range Interpretation Code Description Data Sheryl rce(s) Supporting Document(s) SARS-CoV-2 RNA 2019 nCoV Real-Time RT-PCR: NOT DETECTED [facility] This lab was ordered by [facility] and reported by [facility]. ID Date Data Source [id number] 04/18/2021 03:25:55 PM EDT [facility] Name Value Range Interpretation Code Description Data Sheryl rce(s) Supporting Document(s) Specimen source [Identifier] of Unspecified specimen [facility] SARS-CoV-2 RNA 2018 nCoV Real-Time RT-PCR: NOT DETECTED [facility] Assay Performed [facility] Patients first test for [facility] Patient employed in healthcare setting [facility] Patient has symptoms related to [facility] When did you start to experience these symptoms [Date and time] [Phen X] [facility] Patient was hospitalized because of this condition [facility] patient was admitted to ICU for [facility] Patient resides in a congregate care setting [facility] status [facility] ID Date Data Source [id number] 03/23/2021 10:34:06 AM EDT [facility] Name Value Range Interpretation Code Description Data Sheryl rce(s) Supporting Document(s) Progress Note [facility] NAFGUc8wWvLNCvMo08/HOBocQEXll2ScWFbqRGy9RMalXHInH0PnFMD3kQ5rTLO4HYsPPeOdQwBgHBT1 lbm [file] ICAgICAgICAgICAgICAgICAgICAgICAgICAgICAgIC ZtCVXaPMJeUKEuDMLxSC5OUBAoQFIeNHPtAXNhJESjDNIiQUQvLRMvUGCnKAWmPNLeCXLpBVSwQFVtSV WwVVLwFZHaTTOhUCLuBVKgOFOlNBUrAZZbWKOdDMDsJEXvWSJiPDOoYIQuFCNpVKTdZCWpXBIsZV6EGH AgICAgICAgICAgICAgICAgICAgICAgICAgICAgICAg ICAgICAgICAgICAgICAgICAgICAgICAgICAgICAgICAgICAgICAgICAgICAgICAgICAgICAgICAgICAg KYSmDKTsAL5XGYUjYSJkTWLzFLFfYXRlFXFgRMLuNISqINRbBASgYWVeTDPyCTLmDDTrUYYvGPBlTZKn ICAgICAgICAgICAgICAgICAgICAgICAgICAgICAgIC BaOULuDNOqLRWsRAPmZXUlCY6KBGMiUVXsZOMfFRCfZGGpTXAzCSGrFXDzGUUzDOLkUNRkSKWuZJVuDG AgICAgICAgICAgICAgICAgICAgICAgICAgICAgICAgICAgICAgICAgICAgICAgICAgICAgICAgICAgIA 0KICAgICAgICAgICAgICAgICAgICAgICAgICAgICAg ICAgICAgICAgICAgICAgICAgICAgICAgICAgICAgICAgICAgICAgICAgICAgICAgICAgICAgICAgICAg LVNqLNRuRZYqQO5FTGCcUNOdSVJqSAPnNDXzOTLnJENsSACbZLMxOXUiVBLiUNBdPZVtJXFdHAEgYCVh ICAgICAgICAgICAgICAgICAgICAgICAgICAgICAgIC BhKIEvHBKtNDVbEELuBKDyCWSxTY8POWTyZTRtCGYbQQOwEZSpUFKzYQZlFWHvWLRfXEGrLFIaJJYhVE AgICAgICAgICAgICAgICAgICAgICAgICAgICAgICAgICAgICAgICAgICAgICAgICAgICAgICAgICAgIC CsGE0YVCLcLSHpEIVwVPFgRDLqVDRxUGNtKLKiYPPs ICAgICAgICAgICAgICAgICAgICAgICAgICAgICAgICAgICAgICAgICAgICAgICAgICAgICAgICAgICAg AHWhSIXdXCDvYYWkXA0CJHRxXDHcSEHxRVCsZWUsPZFeGHGaHJCvNTUoONCyKJCkNOPkCEPvORQlOKTs ICAgICAgICAgICAgICAgICAgICAgICAgICAgICAgIC QjXWDjELBzIGLhUVCfESSjFBKiTVXyHX9TTE08zSNww8Y2AOTcHU4nvvb/Yg4HYXmnupAouVQuNS1AGa VlTB8cit2EOxIpAR5hdk3RZHjSSvKzX1N6iIBzUSEeZDRSSbViR30mEYioMm02IWexVXVaLlTePMs1Rd 8JJhXuI9sqWKUbFtG3EDNzPrW4JLUoCoV8IIHzBhQw UJCiYKAfFKFhAXHVPQX2ESGlVdBkCLgvJK9Do0IqhDW0WKq+El3AFZ9xw1OxNQzsYlKeQN6wys7SOSuL CnLeS9LcxrH6LZKdKNQqVv5CCSIxZXOqwRWtRsEhBRHZKxIgJ7DerJ87MACZQv6+DQplbmRvYmoNCjMz WWCkv7DdCVs6ZW9CXCOxXQa5tWWyJDFcQ5Vfa9GvQh 47VQFbBszqV2Q8u6EgmNApDCxqVtG9ZPRwqKauWGPwRXMqQA3qUV7iMFOpRWUqMtKzDKJPKR1CEGJeVZ KexDTfGDDiTGHNYI8WJTxaOVA5ANKplsLtkJVlJLzzCV4ZJBTrpgEkMpVlBYDZSEi+Lj4XVX5pd5VgAB wzITIiRY5tfo5WQPyAWrRvZ7K5aQThW4O2HMnbRf4M JARbMRViSkQhKYQGIHviBM1ICZ5ozlM9NX7PpFYfJPTbALMyuDLpFUi9W42afVUhPGqeSX3KSVW+Darwin+ Ah5ONOYhDGGsQGSvDcEdVQMFLpWaK4QhU3SHi3LkH6VdSV79wJgrpkQbWShvMH7XNX4tBWBiPDSRWG1J wEDxqL6eiwOaWqZuUFUCHgHgG19mjVKfZKQkMICnQX ZuYs3XDAWbT7RpnjGbxVwszeRvWYRlWACBXW0QOQwvgvYdeAJspRisVV81gIohLM2QAk8IRaMfCC0uga 4OdROdRv3HLCCsNW0XJMTkVMFoDCOgSHK3HRXbOuPtOXokORHgMSAwQGW7SNJiFQTwYZ7VYxHbJNEhCs P1JUWdJUSgGKSthc0UJFNuPXDxDaJ2BjNuGYUtAQBd NWssTDVnWJXuFKA2BLBiCUBlUP5LKtTmDXUwCCX0OBGeLZLxWMQnzx7KDSPuUCCfMme0XhPbFVQlKGDb JIchFOCcSEV4QBO7OUDsZSQdTA9IVtZiOPUiFHCjIHfdNCEtNQDigc3DUNPhSBGpTWJjHeBnYGJbRYSz WFkzPORoSXA5RnC9CMXiFTLyAY9VZcSrQLHkEQF5GX hpRIRrCRAmql5HVHYjHCLrLco9TKZgWUQaCAUuBUdeUGYbHMP5LQH1PEQpCLUlHE6KVsYjFVEiQDWpXW TgOJUnMNZole5GQIHzXRGeLxe1DEWdRUNlHQCkLGtgVMHmQVN8FNAyFHAlOFAoQW9CFqYpYXTrRClzGw QtXKIbSKPrdb8HEXPmMIKeDULnFdVeGLSlHILySSeg VTTrXML8WLNiEWSaVKSyBV4BKtRnZIRaQgN0LYwgYKZhUACyau1LEYQlNNBbRMO8UTSpNQZzDUGcBRqb ANWkVKZvKMR1OXXbKRZiMV3DDwYzXHReUdQhSqcyGPOmLAZnbi9ZRZEpRIYxSoUxMGYzXSAwRJQoPXwr KNFzUWDhDSAdFDQcCEFjJT5HAyCrUMFgJoJkNcXpPE YvIRXlvt2EQXBfKGZqEtWyVOTxOHOdERXjLJccWHAhXTT4NBOoYDXqWDPmJR1AVvNnJPPgOwNqYTLwDB EaPPEvpa4YVJZoAJMtADXdOPNuZPBqESSyIPgrGSLiOBF2DZQ1BMDmJYGmRU7KSfLwFOLdMhQ2VCejNU NcYOVtis9PKTAtUVKqCcH8ERRrTULhEDZgHMjwPJVy FDP7TpQzWKSbFCXoWK8ARhKrPSabJVFYPyj4YXbxA0a5ILTpLE4TL7Aur4JiXwHtKNYADTrhJK3hgrQx JJFfOb2OX4mURja5FaJ9WaHyKyPeBeLuECQ9H2B7FjH6U4YlYRDlS6UyCg2cCLfdWodkQVEhJsPzN0Bq LYMnCsq4JinjFmU1ZuXxBPWuYfJyEM4MDx0[id number]= Procedure Social History Code Duration Value Status Description Data Source(s ) Alcohol intake 03/22/2021 12:00:00 AM EDT Current non-d jaguar of alcohol (finding) completed Current non-drinker of alcohol (finding) [facility] Tobacco use and exposure 03/22/2021 12:00:00 AM EDT Never used co mpleted Never used [facility] Cigarette pack-years 03/22/2021 12:00:00 AM EDT UNK completed [facility] Cigarettes smoked current (pack per day) - Reported 03/22/20 12:00:00 AM EDT UNK [facility] Smoking 03/22/2021 12:00:00 AM EDT Current every day smoker co mpleted Current every day smoker [facility] Vital Signs ID Date Data Source [id number] 04/28/2021 07:15:28 AM EDT [facility] Name Value Range Interpretation Code Description Data Source(s) WEIGHT RECORDED 150 lb 150 lb [facility] Body height Measured 67 in 67 in [facility]
--- NOTE | 2021-05-13 06:45 | ED PDOC ---
Post-Departure Follow-Up certified letter sent to the pt re formal report of ct abd/p. see report. needs pcp follow up. obtain pcp name and fax and tell pt needs to fu there due to report Linus Carnes MD May 13, 2021 06:45
== END 2021-05-13 00:13 | disposition home or self-care (01) ==
LOC: M ED 21:37
DX: N39.0 Urinary tract infection, site not specified (principal); I10 Essential (primary) hypertension; J44.9 Chronic obstructive pulmonary disease, unspecified; I48.91 Unspecified atrial fibrillation; E78.5 Hyperlipidemia, unspecified; F41.9 Anxiety disorder, unspecified; Z79.899 Other long term (current) drug therapy; Z79.84 Long term (current) use of oral hypoglycemic drugs; Z79.01 Long term (current) use of anticoagulants; Z88.0 Allergy status to penicillin; Z88.5 Allergy status to narcotic agent; Z88.8 Allergy status to other drugs, medicaments and biological substances; Z91.041 Radiographic dye allergy status; F17.210 Nicotine dependence, cigarettes, uncomplicated

== ENCOUNTER → 2021-07-18 | Outpatient (REF) | payer OTHER | LOC: M SFHCWAGY 17:33 | PROVIDERS: ATTEND Urology | DX: R31.0 Gross hematuria (principal) ==

== ENCOUNTER → 2021-08-17 | Outpatient (CLI) | payer OTHER ==
[2021-08-17 10:09] LABS: HEMATOCRIT 41.5 % (42.0-52.0); HEMOGLOBIN 13.6 g/dl (13.5-17.5); MEAN CORPUSCULAR HEMOGLOBIN 30.5 pg (27.0-33.0); MEAN CORPUSCULAR HGB CONC 32.8 g/dl (32.0-36.5); PLATELET COUNT, AUTOMATED 166 10^3/uL (150-450); RED BLOOD COUNT 4.46 10^6/uL (4.30-6.10)
[2021-08-17 10:38] LABS: ALBUMIN 3.3 GM/DL (3.2-5.2); ALT/SGPT 18 U/L (12-78); BILIRUBIN,TOTAL 0.3 MG/DL (0.2-1.0); BLOOD UREA NITROGEN 29 MG/DL (7-18); CALCIUM LEVEL 9.5 MG/DL (8.8-10.2); CARBON DIOXIDE LEVEL 27 MEQ/L (21-32); CHLORIDE LEVEL 107 MEQ/L (98-107); CREATININE FOR GFR 0.93 MG/DL (0.70-1.30); GLOMERULAR FILTRATION RATE > 60.0 (>42); GLUCOSE, FASTING 164 MG/DL (70-100); POTASSIUM SERUM 4.8 MEQ/L (3.5-5.1); SODIUM LEVEL 139 MEQ/L (136-145); TOTAL PROTEIN 6.5 GM/DL (6.4-8.2)
== END ==
LOC: M LAB 09:23
PROVIDERS: ATTEND Urology
DX: R31.0 Gross hematuria (principal)

== ENCOUNTER → 2021-08-23 | Outpatient (CLI) | payer OTHER | LOC: M RAD 10:48 | PROVIDERS: ATTEND Urology | DX: Z01.812 Encounter for preprocedural laboratory examination (principal); R31.0 Gross hematuria; Z11.52 Encounter for screening for COVID-19 | CPT/HCPCS: 71046; 93005; U0003 ==

== ENCOUNTER → 2021-08-23 | Outpatient (CLI) | payer OTHER | LOC: M LABSMTC 10:20 | PROVIDERS: ATTEND Anesthesiology | DX: Z01.812 Encounter for preprocedural laboratory examination (principal); Z11.52 Encounter for screening for COVID-19 ==

== ENCOUNTER 2021-08-28 06:06 | Day surgery (SDC) | payer OTHER ==
[~2021-08-28] VITALS: Ht 170.2 cm; Wt 74.8 kg
[~2021-08-28 06:06] MED LIST changes: +CIPROFLOXACIN 400 MG in IV 1 EA IV ONE; +LR 1,000 ML IV ONE
[2021-08-28] MEDS ORDERED: CONRAY-60 60% 50ML VIAL (Q9961) As Ordered ONE (07:09)
[2021-08-28] MEDS ORDERED: dexameTHASONE 4 MG/ML 1ML VIAL (J1100 PER 1MG) As Ordered ONE (09:39)
[2021-08-28] MEDS ORDERED: LIDOCAINE 2% 100MG/5ML SDV (FOR ANES.) As Ordered ONE (09:39)
[2021-08-28] MEDS ORDERED: propofoL 200 MG/20 ML VIAL As Ordered ONE (09:39)
[2021-08-28] MEDS ORDERED: fentaNYL 100 MCG/2 ML INJECTION As Ordered ONE (09:39)
[2021-08-28] MEDS ORDERED: MIDAZOLAM INJ 2MG/2ML VIAL (J2250 PER 1MG) As Ordered ONE (09:39)
[2021-08-28] MEDS ORDERED: ONDANSETRON 4MG/2ML VIAL As Ordered ONE (09:39)
[2021-08-28] MEDS ORDERED: ACETAMINOPHEN 1000MG 100ML IV BTL (OFIRMEV) (J0131 PER 10MG) As Ordered ONE (09:42)
[2021-08-28] MEDS ORDERED: PERCOCET 5MG/325MG TAB PO PRN (10:45)
[2021-08-28] MEDS ORDERED: fentaNYL 100 MCG/2 ML INJECTION IV PRN (10:45)
[2021-08-28] MEDS ORDERED: ONDANSETRON 4MG/2ML VIAL IV PRN (10:45)
[2021-08-28] MEDS ORDERED: LR 1,000 ML IV SCH (10:45)
[2021-08-28] MEDS ORDERED: METOCLOPRAMIDE INJ 10MG/2ML VIAL (J2765 PER 1) IV PRN (10:45)
[2021-08-28 14:30] VITALS: BP 128/66
[2021-09-01 12:08] LABS: Size 9x3 mm (.)
== END 2021-08-28 14:45 | disposition home or self-care (01) ==
LOC: M SDC 06:06
PROVIDERS: ATTEND Specialist
DX: N21.0 Calculus in bladder (principal); N35.919 Unspecified urethral stricture, male, unspecified site; R33.9 Retention of urine, unspecified; N40.1 Benign prostatic hyperplasia with lower urinary tract symptoms; I48.91 Unspecified atrial fibrillation; I25.2 Old myocardial infarction; E78.00 Pure hypercholesterolemia, unspecified; K21.9 Gastro-esophageal reflux disease without esophagitis; K74.60 Unspecified cirrhosis of liver; Z85.05 Personal history of malignant neoplasm of liver; Z92.21 Personal history of antineoplastic chemotherapy; Z86.19 Personal history of other infectious and parasitic diseases; M47.812 Spondylosis without myelopathy or radiculopathy, cervical region; M47.816 Spondylosis without myelopathy or radiculopathy, lumbar region; K25.9 Gastric ulcer, unspecified as acute or chronic, without hemorrhage or perforation; F41.9 Anxiety disorder, unspecified; F43.10 Post-traumatic stress disorder, unspecified; F17.210 Nicotine dependence, cigarettes, uncomplicated; Z88.6 Allergy status to analgesic agent; Z88.5 Allergy status to narcotic agent; Z91.041 Radiographic dye allergy status; Z88.8 Allergy status to other drugs, medicaments and biological substances; Z88.0 Allergy status to penicillin; Z88.1 Allergy status to other antibiotic agents; Z79.899 Other long term (current) drug therapy; Z79.84 Long term (current) use of oral hypoglycemic drugs; Z79.02 Long term (current) use of antithrombotics/antiplatelets
CPT/HCPCS: 52318; 52630; 82365; 88300; 88305; J0131; J0744; J1100; J2250; J2405; J3010

== ENCOUNTER → 2021-09-15 | Outpatient (CLI) | payer OTHER ==
[~2021-09-15] MED LIST changes: -CIPROFLOXACIN 400 MG in IV 1 EA IV ONE; -LR 1,000 ML IV ONE
== END ==
LOC: M RAD 10:17
PROVIDERS: ATTEND Urology
DX: R31.0 Gross hematuria (principal)

== ENCOUNTER → 2022-06-20 | Outpatient (CLI) | payer OTHER ==
[~2022-06-20] MED LIST changes: +CLOP75TA99 PO; -PLAV1TAB2 PO
== END ==
LOC: M LABSMTC 11:06
PROVIDERS: ATTEND Anesthesiology
DX: Z01.812 Encounter for preprocedural laboratory examination (principal); Z11.52 Encounter for screening for COVID-19

== ENCOUNTER 2022-06-25 10:18 | Day surgery (SDC) | payer OTHER ==
[~2022-06-25] VITALS: Ht 175.3 cm; Wt 74.8 kg
[~2022-06-25 10:18] MED LIST changes: +NS 1,000 ML IV ONE
[2022-06-25] MEDS ORDERED: LIDOCAINE 2% 100MG/5ML SDV (FOR ANES.) As Ordered ONE (11:15)
[2022-06-25] MEDS ORDERED: propofoL 200 MG/20 ML VIAL As Ordered ONE ×2 (11:15→11:32)
[2022-06-25 12:12] VITALS: BP 122/65
== END 2022-06-25 12:13 | disposition home or self-care (01) ==
LOC: M OPP 10:18
PROVIDERS: ATTEND Surgery
DX: Z12.11 Encounter for screening for malignant neoplasm of colon (principal); Z86.010 Personal history of colon polyps; Z93.3 Colostomy status

== ENCOUNTER 2022-07-18 19:18 | Emergency (ER) | payer OTHER ==
[~2022-07-18] VITALS: Ht 175.3 cm; Wt 75.0 kg
[~2022-07-18 19:18] MED LIST changes: -NS 1,000 ML IV ONE
[2022-07-18] MEDS ORDERED: BOOSTRIX/ADACEL VACCINE (DIPHTH/PERTUSS/ACELL/TETANUS) 0.5ML SYR IM ONE (23:55)
[2022-07-18] MEDS ORDERED: BACTRIM 160MG/800MG DS TAB PO ONE (23:55)
[2022-07-19] MEDS ORDERED: BACITRACIN OINTMENT 30GM TUBE TOP ONE (00:05)
[2022-07-19] MEDS ORDERED: BACT800T5 PO (00:07)
[2022-07-19 00:29] VITALS: BP 124/70
== END 2022-07-19 00:31 | disposition home or self-care (01) ==
LOC: M ED 19:18
DX: T25.221A Burn of second degree of right foot, initial encounter (principal); T25.222A Burn of second degree of left foot, initial encounter; T31.0 Burns involving less than 10% of body surface; T54.91XA Toxic effect of unspecified corrosive substance, accidental (unintentional), initial encounter; Y92.002 Bathroom of unspecified non-institutional (private) residence as the place of occurrence of the external cause; Y93.E5 Activity, floor mopping and cleaning; I48.91 Unspecified atrial fibrillation; I25.2 Old myocardial infarction; I10 Essential (primary) hypertension; Z86.19 Personal history of other infectious and parasitic diseases; M54.9 Dorsalgia, unspecified; Z87.442 Personal history of urinary calculi; F17.200 Nicotine dependence, unspecified, uncomplicated; Z79.01 Long term (current) use of anticoagulants; Z79.84 Long term (current) use of oral hypoglycemic drugs; Z79.899 Other long term (current) drug therapy; Z91.041 Radiographic dye allergy status; Z88.0 Allergy status to penicillin; Z88.8 Allergy status to other drugs, medicaments and biological substances; Z88.5 Allergy status to narcotic agent

== ENCOUNTER → 2022-08-30 | Outpatient (CLI) | payer MEDICARE, OTHER ==
[~2022-08-30] MED LIST changes: +MM S100C PO
== END ==
LOC: M LABSMTC 09:56
PROVIDERS: ATTEND Anesthesiology
DX: Z01.812 Encounter for preprocedural laboratory examination (principal); Z11.52 Encounter for screening for COVID-19

== ENCOUNTER 2023-01-16 17:45 | Emergency (ER) | payer MEDICARE, OTHER ==
[~2023-01-16] VITALS: Ht 175.3 cm; Wt 54.5 kg
[~2023-01-16 17:45] MED LIST changes: -DICL0.1S OP; +DICL0.1S12 OP
[2023-01-16 22:10] LABS: GC DNA AMPLIFICATION NEGATIVE (NEGATIVE)
[2023-01-16 23:27] LABS: BASO % 0.3 % (0.0-1.0); EOS # 0.1 10^3/uL (0.0-0.5); EOS % 0.6 % (0.0-3.0); HEMOGLOBIN 11.1 g/dl (13.5-17.5); LYMPH # 1.4 10^3/uL (1.5-5.0); LYMPH % 18.2 % (24.0-44.0); MEAN CORPUSCULAR HGB CONC 32.6 g/dl (32.0-36.5); MEAN CORPUSCULAR VOLUME 91.9 fl (80.0-96.0); MONO # 0.7 10^3/uL (0.0-0.8); MONO % 9.2 % (2.0-8.0); NEUTROPHILS # 5.7 10^3/uL (1.5-8.5); NEUTROPHILS % 71.3 % (36.0-66.0); PLATELET COUNT, AUTOMATED 188 10^3/uL (150-450); WHITE BLOOD COUNT 7.9 10^3/uL (4.0-10.0)
[2023-01-16 23:49] LABS: ERYTHROCYTE SEDIMENTATION RATE 48 mm/hr (0-20)
[2023-01-16 23:55] VITALS: BP 127/66; TEMP 98.6; O2SAT 98
[2023-01-17] MEDS ORDERED: BACTRIM 160MG/800MG DS TAB PO ONE (00:20)
[2023-01-17] MEDS ORDERED: NYSTATIN 100,000 UNITS/GM TOPICAL PWD 15GM TOP STA (00:28)
[2023-01-17] MEDS ORDERED: BACT800T5 PO (00:34)
[2023-01-17] MEDS ORDERED: NYST1POW9 TOP (00:34)
== END 2023-01-17 01:16 | disposition home or self-care (01) ==
LOC: EDBD 17:45 → M ED 17:45
DX: N48.22 Cellulitis of corpus cavernosum and penis (principal); B37.42 Candidal balanitis; I48.91 Unspecified atrial fibrillation; I25.2 Old myocardial infarction; E78.5 Hyperlipidemia, unspecified; Z87.442 Personal history of urinary calculi; K21.9 Gastro-esophageal reflux disease without esophagitis; K74.5 Biliary cirrhosis, unspecified; F17.200 Nicotine dependence, unspecified, uncomplicated; Z77.098 Contact with and (suspected) exposure to other hazardous, chiefly nonmedicinal, chemicals; Z79.899 Other long term (current) drug therapy; Z91.041 Radiographic dye allergy status; Z88.0 Allergy status to penicillin; Z88.5 Allergy status to narcotic agent; Z88.6 Allergy status to analgesic agent; Z88.8 Allergy status to other drugs, medicaments and biological substances; Z79.84 Long term (current) use of oral hypoglycemic drugs

== ENCOUNTER 2023-02-12 23:12 | Emergency (ER) | payer OTHER ==
[~2023-02-12] VITALS: Ht 177.8 cm; Wt 68.0 kg
[~2023-02-12 23:12] MED LIST changes: +NYST1POW9 TOP
[2023-02-13] MEDS ORDERED: ONDANSETRON 4MG 2ML VIAL IV ONE (00:35)
[2023-02-13] MEDS: MORPHINE 4 MG/ML 1ML VIAL IV PRN ×2 (00:45→04:45)
[2023-02-13 00:48] LABS: LIPASE 74 U/L (12-53)
[2023-02-13 00:49] LABS: BASO % 0.5 % (0.0-1.0); EOS # 0.1 10^3/uL (0.0-0.5); EOS % 1.4 % (0.0-3.0); HEMATOCRIT 35.5 % (42.0-52.0); HEMOGLOBIN 11.4 g/dl (13.5-17.5); LYMPH # 1.2 10^3/uL (1.5-5.0); LYMPH % 19.7 % (24.0-44.0); MEAN CORPUSCULAR HEMOGLOBIN 29.2 pg (27.0-33.0); MEAN CORPUSCULAR HGB CONC 32.1 g/dl (32.0-36.5); MONO # 0.5 10^3/uL (0.0-0.8); MONO % 7.9 % (2.0-8.0); NEUTROPHILS # 4.4 10^3/uL (1.5-8.5); NEUTROPHILS % 70.2 % (36.0-66.0); PLATELET COUNT, AUTOMATED 180 10^3/uL (150-450); WHITE BLOOD COUNT 6.3 10^3/uL (4.0-10.0)
[2023-02-13 00:50] LABS: ALBUMIN 2.9 G/DL (3.2-5.2); ALKALINE PHOSPHATASE 356 U/L (46-116); ALT/SGPT 78 U/L (7.0-40); AST/SGOT 138 U/L (<34); BILIRUBIN,DIRECT 0.3 MG/DL (<0.4); BILIRUBIN,TOTAL 0.6 MG/DL (0.3-1.2); BLOOD UREA NITROGEN 30 MG/DL (9-23); CALCIUM LEVEL 9.2 MG/DL (8.3-10.6); CARBON DIOXIDE LEVEL 24 MMOL/L (20-31); CHLORIDE LEVEL 108 MMOL/L (98-107); GLOMERULAR FILTRATION RATE > 60.0 (>42); GLUCOSE, FASTING 208 MG/DL (74-106); POTASSIUM SERUM 4.9 MMOL/L (3.5-5.1); SODIUM LEVEL 141 MMOL/L (136-145); TOTAL PROTEIN 6.9 G/DL (5.7-8.2)
[2023-02-13 00:51] LABS: CPK CREATINE PHOSPHOKINASE 41 U/L (46-171); MB/CK RELATIVE INDEX 2.43 (< OR =4)
[2023-02-13 00:55] LABS: INR 0.96
[2023-02-13 00:56] LABS: PARTIAL THROMBOPLASTIN TIME 24.3 SECONDS (24.8-34.2)
[2023-02-13] MEDS ORDERED: methylPREDNISolone 125MG 2ML VIAL IV ONE (01:10)
[2023-02-13] MEDS ORDERED: diphenhydrAMINE 50MG/ML VIAL IV ONE (01:10)
[2023-02-13] MEDS ORDERED: ISOVUE-370 76% 100ML VIAL As Ordered ONE (01:47)
[2023-02-13] MEDS ORDERED: OCTREOTIDE ACETATE 100MCG/ML VIAL **IV ADMINISTRATION ONLY IV ONE (04:30)
[2023-02-13] MEDS ORDERED: cefTRIAXone SOD 1 GM in D5W MINI-BAG PLUS 50 ML IV ONE (04:30)
[2023-02-13 06:00] VITALS: BP 116/72; TEMP 98
[2023-02-13] MEDS ORDERED: OCTREOTIDE ACETATE 1,200 MCG in NS 238.8 ML IV SCH (06:00)
[2023-02-13 06:01] VITALS: O2SAT 91
== END 2023-02-13 06:43 | disposition short-term general hospital (02) ==
LOC: M ED 23:12
DX: K92.2 Gastrointestinal hemorrhage, unspecified (principal); K76.89 Other specified diseases of liver; I81 Portal vein thrombosis; E11.9 Type 2 diabetes mellitus without complications; B19.20 Unspecified viral hepatitis C without hepatic coma; F43.10 Post-traumatic stress disorder, unspecified; E78.5 Hyperlipidemia, unspecified; Z85.05 Personal history of malignant neoplasm of liver; F17.200 Nicotine dependence, unspecified, uncomplicated; Z91.041 Radiographic dye allergy status; Z88.0 Allergy status to penicillin; Z88.6 Allergy status to analgesic agent; Z88.8 Allergy status to other drugs, medicaments and biological substances; Z79.899 Other long term (current) drug therapy; Z79.84 Long term (current) use of oral hypoglycemic drugs
CPT/HCPCS: 74177; 80048; 80076; 82550; 82553; 83605; 83690; 84484; 85025; 85610; 85730; 86850; 86900; 86901; 87040; 87486; 87581; 87633; 87798; 93005; 93041; 96365; 96366; 96367; 96375; 99285; J0696; J1200; J2354; J2405; J2930; Q9967